=== PATIENT | male | born 1965 | race Caucasian/White ===

== ENCOUNTER 2020-04-01 07:26 | Outpatient (REF) | payer OTHER, SELFPAY ==
--- NOTE | 2020-04-01 07:38 | XR_ITS ---
EXAMINATION: XR SHOULDER, RIGHT CLINICAL INFORMATION: Right shoulder pain. COMPARISON: None TECHNIQUE: AP external rotation, Grashey, scapular Y, and axillary views of the right shoulder. FINDINGS: There is mild reduction of glenohumeral joint space no bony erosive changes. Mild reduction in the right AC joint space. No loose body seen. The soft tissues are normal. XR/XR shoulder RT min 2V IMPRESSION: Mild early degenerative changes glenohumeral and AC joint space.
[2020-04-01 08:28] LABS: MANUAL DIFF FLAG NO
[2020-04-01 08:42] LABS: Basophils Percent Auto 0.6 % (0-2); Eosinophils Absolute Auto 0.1 X10*3/uL (0.0-0.4); Eosinophils Percent Auto 2.3 % (0-4); Hematocrit 45.3 % (42-52); Hemoglobin 15.3 g/dl (14.0-18.0); Imm Gran Abs Auto 0.01 X10*3/uL (0.00-0.03); Imm Gran Pct Auto 0.2 % (0.0-0.4); Lymphocytes Absolute Auto 1.5 X10*3/uL (1.2-4.9); Lymphocytes Percent Auto 31.1 % (20-40); Mean Corpuscular HGB Conc 33.8 g/dl (31.0-36.0); Mean Corpuscular Volume 85.8 fL (80-98); Mean Platelet Volume 9.9 fL (9.4-12.4); Monocytes Absolute Auto 0.4 X10*3/uL (0.1-1.2); Monocytes Percent Auto 7.5 % (2-11); Neutrophils Absolute Auto 2.8 X10*3/uL (2.0-8.3); Neutrophils Percent Auto 58.3 % (45-73); Platelet Count 268 X10*3/uL (160-400); Red Blood Count 5.28 X10*6/uL (4.60-5.80); White Blood Count 4.8 X10*3/uL (4.8-10.8)
[2020-04-01 09:04] LABS: Alanine Aminotransferase 18 U/L (0-40); Albumin Level 4.6 g/dL (3.5-5.0); Alkaline Phosphatase 50 U/L (39-117); Anion Gap 13 (12-20); Aspartate Amino Transferase 21 U/L (5-37); Bilirubin Total 0.7 mg/dL (0.0-1.0); Blood Urea Nitrogen 16 mg/dL (9-16); Calcium 9.5 mg/dL (8.4-10.2); Carbon Dioxide 28 mmol/L (22-29); Chloride 104 mmol/L (96-108); Cholesterol 207 mg/dL; Estimated Glomerular Filt Rate > 60; Glucose Fasting 102 mg/dL (60-99); HDL Cholesterol 35 mg/dL; LDL Cholesterol Calculated 154 mg/dl; Sodium 140 mmol/L (135-145); Total Protein 7.3 g/dL (6.5-8.0); Triglycerides 91 mg/dL
[2020-04-01 09:18] LABS: Estimated Average Glucose 105 mg/dL; Hemoglobin A1c % 5.3 %
[2020-04-01 09:25] LABS: TSH reflex Free T4 2.95 mIU/mL (0.32-4.0)
== END 2020-04-01 07:27 | disposition home or self-care (01) ==
LOC: HO.LAB 07:26
PROVIDERS: Visit Provider Physician Assistant
DX: M25.511 Pain in right shoulder (principal); Z12.5 Encounter for screening for malignant neoplasm of prostate; Z13.220 Encounter for screening for lipoid disorders; Z13.1 Encounter for screening for diabetes mellitus; Z13.29 Encounter for screening for other suspected endocrine disorder
CPT/HCPCS: 36415; 73030; 80053; 80061; 83036; 84153; 84443; 85025

== ENCOUNTER → 2020-04-12 08:01 | Outpatient (BNVA) | payer OTHER, SELFPAY | PROVIDERS: PCP Physician Assistant; Visit Provider Orthopaedic Surgery | DX: M75.41 Impingement syndrome of right shoulder (principal) | CPT/HCPCS: 99202 ==

== ENCOUNTER 2020-06-24 08:26 | Outpatient (REF) | payer OTHER, SELFPAY ==
--- NOTE | ~2020-06-24 | XR_ITS ---
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 TECHNIQUE: Bilateral frontal standing, right lateral patella sunrise view. FINDINGS: BONES: No fracture or dislocation is present. JOINTS: Mild narrowing of joint spaces medial and lateral compartment suggest mild DJD. Small tiny osseous density projecting over the joint space adjacent to the tip of the lateral tibial spine concerning for possible loose body. SOFT TISSUE: Normal XR/XR knee RT 2V IMPRESSION: 1. Mild DJD. 2. Tiny osseous density near the tip of the lateral tibial spine concerning for possible loose body. This could be further investigated with CT scan or MRI if clinically indicated.
--- NOTE | ~2020-06-24 | XR_ITS ---
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 TECHNIQUE: Bilateral frontal standing, right lateral patella sunrise view. FINDINGS: BONES: No fracture or dislocation is present. JOINTS: Mild narrowing of joint spaces medial and lateral compartment suggest mild DJD. Small tiny osseous density projecting over the joint space adjacent to the tip of the lateral tibial spine concerning for possible loose body. SOFT TISSUE: Normal XR/XR knee standing BI IMPRESSION: 1. Mild DJD. 2. Tiny osseous density near the tip of the lateral tibial spine concerning for possible loose body. This could be further investigated with CT scan or MRI if clinically indicated.
== END 2020-06-24 08:27 | disposition home or self-care (01) ==
LOC: HO.HOSX 08:26
PROVIDERS: Visit Provider Physician Assistant
DX: M25.562 Pain in left knee (principal); M25.561 Pain in right knee; M22.41 Chondromalacia patellae, right knee
CPT/HCPCS: 73560; 73565; 99202

== ENCOUNTER 2021-05-11 09:37 | Outpatient (REF) | payer OTHER, SELFPAY ==
--- NOTE | ~2021-05-11 | XR_ITS ---
EXAMINATION: XR LUMBOSACRAL SPINE CLINICAL INFORMATION: Lumbar radiculopathy. COMPARISON: None TECHNIQUE: Three views of the lumbosacral spine. FINDINGS: There are 5 nonrib-bearing lumbar vertebrae. No acute fracture or spondylolysis is appreciated. There is a minimal grade 1 spondylolisthesis L4-L5. There is severe narrowing of the L5-S1 disc space with bilateral facet arthropathy L5-S1. No significant sacroiliac joint abnormalities appreciated. No destructive bony lesion is seen. There is calcification of a nonaneurysmal infrarenal abdominal aorta. XR/XR lumbar spine 2-3V IMPRESSION: Degenerative disc disease with facet arthropathy L5-S1.
[2021-05-11 10:51] LABS: Hematocrit 43.3 % (42.0-52.0); Hemoglobin 14.8 g/dl (14.0-18.0); Mean Corpuscular HGB Conc 34.2 g/dl (31.0-36.0); Mean Corpuscular Volume 84.7 fL (80.0-98.0); Mean Platelet Volume 9.9 fL (9.4-12.4); Platelet Count 244 X10*3/uL (160-400); Red Blood Count 5.11 X10*6/uL (4.60-5.80); White Blood Count 5.3 X10*3/uL (4.8-10.8)
[2021-05-11 11:25] LABS: Alanine Aminotransferase 16 U/L (0-40); Albumin Level 4.5 g/dL (3.5-5.0); Alkaline Phosphatase 47 U/L (39-117); Anion Gap 12 (12-20); Aspartate Amino Transferase 21 U/L (5-37); Bilirubin Total 1.1 mg/dL (0.0-1.0); Blood Urea Nitrogen 19 mg/dL (9-16); Calcium 10.1 mg/dL (8.4-10.2); Carbon Dioxide 28 mmol/L (22-29); Chloride 102 mmol/L (96-108); Cholesterol 215 mg/dL; Estimated Glomerular Filt Rate > 60; Glucose Fasting 98 mg/dL (60-99); HDL Cholesterol 31 mg/dL; LDL Cholesterol Calculated 154 mg/dl; Potassium 4.4 mmol/L (3.3-5.1); Sodium 138 mmol/L (135-145); Total Protein 7.3 g/dL (6.5-8.0); Triglycerides 151 mg/dL
[2021-05-11 11:50] LABS: TSH reflex Free T4 2.04 uIU/mL (0.32-4.0)
[2021-05-11 11:55] LABS: Creatinine Urine 62.71 mg/dL; Microalbumin Urine < 5.0 mg/L
== END 2021-05-11 09:38 | disposition home or self-care (01) ==
LOC: HO.XRAY 09:37
PROVIDERS: PCP Physician Assistant; Visit Provider Physician Assistant
DX: Z12.5 Encounter for screening for malignant neoplasm of prostate (principal); M54.16 Radiculopathy, lumbar region; I10 Essential (primary) hypertension
CPT/HCPCS: 36415; 72100; 80053; 80061; 82043; 84153; 84443; 85027

== ENCOUNTER 2021-09-06 07:00 | Outpatient (RCR) | payer OTHER, SELFPAY | END 2021-10-20 08:16 | disposition home or self-care (01) | LOC: HO.PT 07:00 | PROVIDERS: PCP Physician Assistant; Visit Provider Physical Medicine & Rehabilitation | DX: M54.50 Low back pain, unspecified (principal) | CPT/HCPCS: 97033; 97110; 97112; 97140; 97162; 97530 ==

== ENCOUNTER 2022-08-18 07:42 | Emergency (ER) | payer OTHER, SELFPAY ==
[2022-08-18 07:44] VITALS: BP 172/87; PULSE 51; RESP 16; TEMP 36.4; O2SAT 99; BMI 26.0
--- NOTE | 2022-08-18 08:07 | ED.EYEPROB ---
HPI - Eye Problem General Chief complaint: Eye Problems Stated complaint: R eye problem Time Seen by Provider: 08/18/22 08:07 Source: patient and RN notes reviewed Mode of arrival: ambulatory Limitations: no limitations History of Present Illness HPI Narrative: This is a 57-year-old male, with a past medical history of hypertension, who presents emergency department with complaints of right eye irritation since last night. Patient reports that while he was weed whacking he felt an object straight his right eye. He immediately felt pain in his right eye. He states that since his injury he has had blurred vision in his right eye and ?numbness?, denies any pain. Denies any fevers or chills. He wears glasses, denies contact lens use. Denies any other complaints or concerns at this time. MD chief complaint: eye pain and vision change Onset (ago): day(s) Onset description: sudden Duration: constant Location: right eye Eye Symptoms: blurry vision Place: home Mechanism: none If Pain, Quality: aching Associated symptoms: none Treatments Prior to Arrival: eyepatch Related Data Home Medications Medication Instructions Recorded Confirmed cholecalciferol (vitamin D3) 50 50 mcg PO DAILY 05/01/21 06/05/22 mcg (2,000 unit) tablet (Vitamin D3) Previous Rx's Medication Instructions Recorded lisinopril 10 mg tablet 10 mg PO DAILY 90 days #90 tabs 05/10/22 sulfacetamide sodium 10 % eye drops 1 drp ophthalmic (eye) Q3H #15 mL 08/18/22 Allergies Allergy/AdvReac Type Severity Reaction Status Date / Time No Known Allergies Allergy Verified 08/18/22 07:44 Review of Systems Review of Systems: Constitutional: No Weight loss, No Fever, No Chills, No Night Sweats, No Fatigue, No Malaise ENT/Mouth: No Hearing loss, No Ear Pain, No Nasal Congestion, No Sinus Pain, No Hoarseness, No sore throat, No Rhinorrhea, No Swallowing Difficulty Eyes: + Eye Pain, No Swelling, + Redness, No Foreign Body, No Discharge, +Vision Changes Cardiovascular: No Chest Pain, No SOB, No Dyspnea on Exertion, No Orthopnea, No Edema, No Palpitations Respiratory: No Cough, No Sputum, No Wheezing, No Smoke Exposure, No Dyspnea Gastrointestinal: No Nausea, No Vomiting, No Diarrhea, No Constipation, No Abdominal pain, No Hematochezia, No Melena Genitourinary: No irregular bleeding, No Dysuria, No Urinary Frequency, No Hematuria, No Urinary Incontinence/retention, No Urgency, No Flank Pain, No Urinary Flow Changes, No Hesitancy Musculoskeletal: No joint pain, No Myalgias, No Joint Swelling Skin: No Skin Lesions, No rash Neuro: No Weakness, No Numbness, No Paresthesias, No Loss of Consciousness, No Dizziness, No Headache Psych: No Anxiety/Panic, No Depression, No SI/HI/AH/VH, No Social Issues, Heme/Lymph: No Bruising, No Bleeding,No Lymphadenopathy Endocrine: No Polyuria, No Polydipsia, No Temperature Intolerance Yes all other systems are reviewed and are negative Constitutional: Constitutional: Reports as per [facility] [place] Past Medical History Surgical History History of eye surgery History of removal of cyst Family History Family History Father CVD (cardiovascular disease) Alzheimers disease Mother No problems noted. 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 Cognitive needs: No Hearing needs: No Vision needs: No Physical Exam Vital Signs: Vital Signs: Last Vital Signs Temp 98.1 F 08/18/22 08:11 Pulse 45 L 08/18/22 09:15 Resp 16 08/18/22 09:15 BP 154/88 H 08/18/22 09:15 Pulse Ox 98 08/18/22 08:11 O2 Del Method Room Air 08/18/22 08:11 BMI result Body Mass Index 26.0 Const: General: cooperative, comfortable and no acute distress Orientation/consciousness: patient oriented x3 Limitations: no limitations HEENT: Head: Yes normal to inspection, Yes normocephalic and Yes atraumatic Ears: hearing grossly normal bilaterally General nose exam: Normal external nose present Face and sinus: Yes normal facial exam Mouth: Normal oral and palatal mucosa present, oropharynx normal and moist mucous membranes Throat: Yes posterior oropharynx normal Eyes: Other: Right eye with injected conjunctiva with clear tearing noted. No pain with EOM. EOMI, PERLL intact bilaterally. Left conjunctiva white. Eyelids: Yes eyelids normal Pupils: Equal, round and reactive pupils present EOM: EOMs intact bilaterally Neck: Neck: Yes normal visual inspection and Yes full ROM Chest: Chest palpation & inspection: normal inspection of the chest Resp: Effort & Inspection: normal respiratory effort and able to speak in complete sentences Cardio: Rate: regular rate GI: Inspection: Yes normal to inspection Skin: General skin exam: no rashes or lesions noted Trauma: no lacerations or abrasions Wounds: no wounds Neuro: General: patient oriented x3 and moves all extremities Cranial nerves: Yes Equal, round and reactive pupils present Extrem: General: Yes normal to inspection Right upper extremity: normal to inspection Left upper extremity: normal to inspection Right lower extremity: normal to inspection Left lower extremity: normal to inspection Course Reevaluation(s) Reevaluation #1: Fluorescein uptake noted over the mid conjunctiva, just overlying the pupil. No foreign body noted throughout entire eye. Patient's symptoms consistent with corneal abrasion, will treat with course of antibiotic eyedrops, Time: 09:00 Medications Administered Discontinued Medications Generic Name Dose Route Start Last Admin Trade Name Freq PRN Reason Stop Dose Admin Fluorescein Sodium 1 strip 08/18/22 08:10 08/18/22 09:10 Fluorescein Sodium Strip EYE-RIGHT 08/18/22 08:11 1 strip ONCE ONE Administration Tetracaine HCl 3 drop 08/18/22 08:10 08/18/22 09:10 Tetracaine Hcl/Pf 0.5% Oph Serenity 4 Ml Drops EYE-RIGHT 08/18/22 08:11 3 drop ONCE ONE Administration Medical Decision Making Medical Decision Making MDM Narrative: 57-year-old male, with a history of hypertension, presenting to emergency department for right eye irritation. He was weed whacking felt an object streak his right eye and has had blurry vision, ?numbness?, and right eye redness since the injury. On examination, patient is mildly hypertensive at 172/87. Right eye with injected conjunctiva and clear tearing. Plan: Visual acuity, fluoroscein stain, eye pressures Differential Diagnosis Differential Diagnoses: The differential diagnosis associated with the presentation includes Corneal abrasion, foreign body, iritis Admission/Observation Consideration of admission/observation: Escalation of care including admission/observation considered Lab Data MDM Lab Attestation statement: I reviewed the patient's lab results. Radiology Impression Discussion of test interpretation with radiology: I have reviewed the radiologist's reading. External Record Review External record reviewed: Inpatient record, Office record, Outpatient record, Prior outpatient labs, Prior outpatient radiology, Primary care record and Outside ED record Discharge Plan Discharge Clinical Impression: Abrasion, corneal Patient Disposition: Home, Self-Care Instructions: Corneal Abrasion (ED) Additional Instructions: Your eye exam performed today revealed a scratch on your eye. Your eye pressures were normal today. Please use antibiotic eye drops as directed. If your symptoms do not improve over the next 48-72 hours, please follow up with the referred eye doctor, Dr. Vázquez. Please return should your symptoms worsen, including worsening eye pain, worsening vision, fevers, chills, please return for re-evaluation. Prescriptions: New sulfacetamide sodium 10 % drops 1 drp ophthalmic (eye) Q3H Qty: 15 0RF No Action lisinopril 10 mg tablet 10 mg PO DAILY 90 Days Qty: 90 2RF cholecalciferol (vitamin D3) [Vitamin D3] 50 mcg (2,000 unit) tablet 50 mcg PO DAILY Referrals: Jordi Vázquez [Physician] - Interventions: ED Discharge Assessment Last Done: 08/18/22 09:15 Discharge Date/Time: 08/18/22 09:16
[2022-08-18 08:11] VITALS: BP 175/95; PULSE 111; RESP 18; TEMP 36.7; O2SAT 98
--- NOTE | 2022-08-18 08:14 | PC.NURSE ---
Alert and oriented. Arrived from home with right eye redness and discomfort. States was weedwacking last night and rock or debris hit eye. PRK 10 years ago to both eyes. Reports tearing and double vision. States rinsed eye out after. PERRLA. Eye pink without obvious trauma.
[2022-08-18] MEDS: Fluorescein Sodium STRIP 1 STRIP EYE-RIGHT (09:10)
[2022-08-18] MEDS: Tetracaine HCl/PF 0.5% Oph Sol 4 ML DROPS 3 DROP EYE-RIGHT (09:10)
[2022-08-18 09:15] VITALS: BP 154/88; PULSE 45; RESP 16
== END 2022-08-18 09:16 | disposition home or self-care (01) ==
PROVIDERS: Emergency Provider Emergency Medicine; PCP Physician Assistant
DX: S05.01XA Injury of conjunctiva and corneal abrasion without foreign body, right eye, initial encounter (principal); X58.XXXA Exposure to other specified factors, initial encounter; Y93.9 Activity, unspecified; Y92.9 Unspecified place or not applicable; Y99.9 Unspecified external cause status; Z87.891 Personal history of nicotine dependence; Z79.899 Other long term (current) drug therapy
CPT/HCPCS: 99283; 99284

== ENCOUNTER 2022-11-07 06:08 | Outpatient (REF) | payer OTHER, SELFPAY ==
[2022-11-07 07:06] LABS: Hematocrit 44.1 % (42.0-52.0); Mean Corpuscular Hemoglobin 28.4 pg (27.0-33.0); Mean Corpuscular Volume 83.4 fL (80.0-98.0); Mean Platelet Volume 9.5 fL (9.4-12.4); Platelet Count 246 X10*3/uL (160-400); Red Blood Count 5.29 X10*6/uL (4.60-5.80); Red Cell Distribution Width 12.1 % (11.0-16.0); White Blood Count 5.7 X10*3/uL (4.8-10.8)
[2022-11-07 07:25] LABS: Alanine Aminotransferase 17 U/L (0-40); Albumin Level 4.4 g/dL (3.5-5.0); Alkaline Phosphatase 48 U/L (39-117); Anion Gap 11 (12-20); Aspartate Amino Transferase 19 U/L (5-37); Bilirubin Total 0.7 mg/dL (0.0-1.0); Blood Urea Nitrogen 17 mg/dL (9-16); Carbon Dioxide 27 mmol/L (22-29); Chloride 106 mmol/L (96-108); Cholesterol 238 mg/dL (<200); Estimated Glomerular Filt Rate > 60; Glucose Fasting 97 mg/dL (60-99); HDL Cholesterol 38 mg/dL (>40); LDL Cholesterol Calculated 168 mg/dL (<100); Potassium 4.1 mmol/L (3.3-5.1); Sodium 140 mmol/L (135-145); Total Protein 7.7 g/dL (6.5-8.0); Triglycerides 162 mg/dL (<150)
[2022-11-07 07:42] LABS: TSH reflex Free T4 4.67 uIU/mL (0.32-4.0)
[2022-11-07 09:45] LABS: Creatinine Urine 133.16 mg/dL; Microalbumin Urine < 5.0 mg/L
== END 2022-11-07 06:09 | disposition home or self-care (01) ==
LOC: HO.LAB 06:08
PROVIDERS: PCP Physician Assistant; Visit Provider Physician Assistant
DX: E78.9 Disorder of lipoprotein metabolism, unspecified (principal); I10 Essential (primary) hypertension; Z12.5 Encounter for screening for malignant neoplasm of prostate
CPT/HCPCS: 36415; 80053; 80061; 82043; 84153; 84439; 84443; 85027

== ENCOUNTER 2022-12-06 08:17 | Outpatient (AMB) | payer OTHER, SELFPAY ==
[2022-12-06 08:41] VITALS: BP 122/70; PULSE 78; O2SAT 98; BMI 26.9
--- NOTE | 2022-12-06 08:41 | MHC.PC.OV ---
Vital Signs 12/06/22 08:41 Height 6 ft Weight 198 lb BMI 26.9 BP 122/70 Blood Pressure Location Lt brachial Position Sitting Pulse 78 Pulse Source Pulse Oximeter Pulse Oximetry (%) 98 Oxygen Delivery Method Room Air Intake Visit Reasons: f/u HTN Allergies No Known Allergies Allergy (Verified 12/06/22 08:51) Medication List - Last Reconciled 12/06/22 by Frederic Anderson PA-C cholecalciferol (vitamin D3) (Vitamin D3) 50 mcg PO DAILY levothyroxine 25 mcg PO DAILY 30 days lisinopril 10 mg PO DAILY 90 days sulfacetamide sodium 10% 1 drp ophthalmic (eye) Q3H Tobacco use date assessed: 06/05/22 Dental Screening Dental Screen Date: 12/06/22 Did you have a dental visit in the last 12 months?: Yes Did you have a dental problem in the last 6 months where you did not have access to dental care?: No Was dental information given to patient?: Patient has dentist HPI f/u HTN HPI Details ? Patient is a 57-year-old male here today for a follow-up visit.? Patient has a past medical history significant for borderline high cholesterol and hypertension.? .. Hypothyroidism: Has been started on low-dose levothyroxine 4 weeks ago. Will recheck TSH in next 4 weeks to assure stabilization. . Hypertension: Blood pressures have been much better over the last month since starting thyroid medication. Continues on lisinopril 10 mg. .. Hyperlipidemia: Most recent lipid panel showing elevated total cholesterol and triglycerides in the setting of elevated TSH. Will recheck TSH to assure normal PFSH Surgical History History of eye surgery History of removal of cyst Family History Father CVD (cardiovascular disease) Alzheimers disease Mother No problems noted. 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 1. Little interest or pleasure in doing things: not at all 2. Feeling down, depressed, or hopeless: not at all 3. Trouble falling or staying asleep, or sleeping too much: not at all 4. Feeling tired or having little energy: not at all 5. Poor appetite or overeating: not at all 6. Feeling bad about yourself - or that you are a failure or have let yourself or your family down: not at all 7. Trouble concentrating on things, such as reading the newspaper or watching television: not at all 8. Moving or speaking so slowly that other people could have noticed. Or the opposite - being so fidgety or restless that you have been moving around a lot more than usual: not at all 9. Thoughts that you would be better off or of hurting yourself in some way: not at all Total score: 0 Depression Screening Interpretation: Negative 11130 - PHQ-9 Billing: Yes Source: Developed by Drs. Elmer Mary, Guillermina Chawla, Homar Segundo and colleagues, with an educational pretty from [employer]. Thrive Questionnaire Date Thrive assessed: 06/05/22 AUDIT C Alcohol Use Questionnaire (AUDIT-C) 1. How often do you have a drink containing alcohol?: Monthly or less 2. How many drinks containing alcohol do you have on a typical day when you are drinking?: 1 or 2 3. How often do you have six or more drinks on one occasion?: Never Total Score: 1 RYANNE-7 AMB Questionnaire RYANNE-7 Date RYANNE - 7 assessed: 06/05/22 Source: Developed by Drs. Elmer Mary, Guillermina Chawla, Homar Segundo and colleagues, with an educational pretty from [employer]. Review of Systems Const Denies headache(s) Eyes Denies loss of vision ENT Denies vertigo, Denies dizziness, Denies headache(s) and Denies sore throat Card Denies chest pain, Denies leg edema and Denies lightheadedness Resp Denies cough, Denies hemoptysis and Denies wheezing GI Denies abdominal pain, Denies melena, Denies constipation, Denies diarrhea and Denies vomiting Denies dysuria, Denies urinary frequency and Denies urinary urgency Musc Denies arthralgias, Denies joint swelling, Denies numbness and Denies tingling Neuro Denies Abnormal speech present, Denies behavioral changes, Denies vertigo, Denies dizziness, Denies headache(s), Denies loss of vision, Denies memory loss, Denies numbness and Denies tingling Psych Denies anxiety, Denies behavioral changes, Denies depression, Denies memory loss and Denies panic attacks Izaiah/Lymph Denies easy bleeding and Denies easy bruising Aller/Immun Denies wheezing Physical exam (Primary Care) Vital Signs: Last Vital Signs Pulse 78 12/06/22 08:41 BP 122/70 12/06/22 08:41 Pulse Ox 98 12/06/22 08:41 Oxygen Delivery Method Room Air 12/06/22 08:41 BMI result Body Mass Index 26.9 Tobacco/Smoking Status: Tobacco use Status Tobacco use date assessed 06/05/22 12/06/22 08:46 Patient Tobacco Use Status Former Tobacco user 12/06/22 08:46 Tobacco use type Cigarette 12/06/22 08:46 e-Cigarette/Vaping Use Never Used 12/06/22 08:46 PHQ-9: PHQ-9 Score PHQ-9: Total score 0 12/06/22 08:49 Depression Screening Interpretation: Negative Thrive Assessment: Date of Thrive Assessment Date Thrive assessed 06/05/22 12/06/22 08:46 Const General: healthy appearing, no acute distress, alert and awake Nutritional Appearance: well nourished Orientation/consciousness: oriented to person, oriented to place and oriented to time [facility] Ears: TM's normal bilaterally General nose exam: Normal nasal mucous membranes and turbinates present Eyes Conjunctivae: conjunctivae normal Sclerae: sclerae normal Pupils: Equal, round and reactive pupils present Neck Neck: Yes no lymphadenopathy and Yes no JVD Thyroid: Thyroid normal Carotids: no bruits Resp Effort & Inspection: normal respiratory effort and not tachypneic Auscultation: no crackles, no rales, no rhonchi and no wheezes Cardio Rate: regular rate Rhythm: regular rhythm Heart sounds: no murmurs and normal S1 and S2 GI Palpation (GI): Soft to palpation, nontender, no hepatomegaly and no splenomegaly Auscultation: normal bowel sounds Skin General skin exam: no rashes or lesions noted and dry skin Neuro General: oriented to person, oriented to place and oriented to time Cranial nerves: Yes Equal, round and reactive pupils present Speech: No Abnormal speech present Gait exam (Neuro): Normal gait present Motor exam (neuro): no tremor noted Extrem Right upper extremity: full ROM Left upper extremity: full ROM Right lower extremity: full ROM; no edema Left lower extremity: full ROM; no edema Psych Mental Status: mental status grossly normal Speech and movement: Normal speech and movement present Affect: normal affect Attitude: cooperative Thought process: Normal thought process present Assessment and Plan Assessment & Plan (1) HTN (hypertension): Code(s): I10 - Essential (primary) hypertension Qualifiers: Hypertension type: primary hypertension Qualified Code(s): I10 - Essential (primary) hypertension Plan: Patient blood pressure acceptable today in office. Over the last month blood pressures at home have been much more appropriate. Will continue his current dose of lisinopril 20 mg. With goal blood pressure to be below 140/90 (2) Hypothyroid: Code(s): E03.9 - Hypothyroidism, unspecified Qualifiers: Hypothyroidism type: unspecified Qualified Code(s): E03.9 - Hypothyroidism, unspecified Plan: Patient recently started on levothyroxine 25 mcg. Will recheck TSH in the next 4 weeks to assure normal. (3) Borderline high cholesterol: Code(s): E78.9 - Disorder of lipoprotein metabolism, unspecified Plan: Patient noted to have borderline high total cholesterol in the setting of under functioning thyroid. Will recheck fasting lipids Orders: Orders TSH reflex Free T4 4 Weeks E03.9 - Hypothyroidism, unspecified Lipid Panel 4 Weeks E78.9 - Disorder of lipoprotein metabolism, unspecified Coding Level of Care Code Est Pt Level 4 (27466) Diagnoses Primary hypertension I10 Hypertension type: primary hypertension Hypothyroidism, unspecified type E03.9 Hypothyroidism type: unspecified Borderline high cholesterol E78.9
== END 2022-12-06 09:11 | disposition home or self-care (01) ==
PROVIDERS: PCP Physician Assistant; Visit Provider Physician Assistant
DX: I10 Essential (primary) hypertension (principal); E03.9 Hypothyroidism, unspecified; E78.9 Disorder of lipoprotein metabolism, unspecified
CPT/HCPCS: 99214

== ENCOUNTER 2023-01-08 06:39 | Outpatient (REF) | payer OTHER, SELFPAY ==
[2023-01-08 07:59] LABS: Cholesterol 239 mg/dL (<200); HDL Cholesterol 36 mg/dL (>40); LDL Cholesterol Calculated 174 mg/dL (<100); Triglycerides 148 mg/dL (<150)
[2023-01-08 08:16] LABS: TSH reflex Free T4 2.43 uIU/mL (0.32-4.0)
== END 2023-01-08 06:40 | disposition home or self-care (01) ==
LOC: HO.LAB 06:39
PROVIDERS: PCP Physician Assistant; Visit Provider Physician Assistant
DX: E78.9 Disorder of lipoprotein metabolism, unspecified (principal); E03.9 Hypothyroidism, unspecified
CPT/HCPCS: 36415; 80061; 84443

== ENCOUNTER 2023-04-09 08:21 | Outpatient (AMB) | payer OTHER, SELFPAY ==
[2023-04-09 08:35] VITALS: BP 120/78; PULSE 72; O2SAT 99; BMI 26.4
--- NOTE | 2023-04-09 08:35 | MHC.PC.OV ---
Vital Signs 04/09/23 08:35 Height 6 ft Weight 195 lb BMI 26.4 BP 120/78 Blood Pressure Location Lt brachial Position Sitting Pulse 72 Pulse Source Pulse Oximeter Pulse Oximetry (%) 99 Oxygen Delivery Method Room Air Intake Visit Reasons: Shoulder/arm pain Facility Manager Histology Required: No Operations Manager/Coordinator: Not Required per policy Accompanied by: Self / Same As Patient Allergies No Known Allergies Allergy (Verified 04/09/23 08:43) Medication List - Last Reconciled 04/09/23 by Frederic Anderson PA-C cholecalciferol (vitamin D3) (Vitamin D3) 50 mcg PO DAILY levothyroxine 25 mcg PO DAILY 90 days lisinopril 10 mg PO DAILY 90 days Tobacco use date assessed: 04/09/23 Dental Screening Dental Screen Date: 04/09/23 Did you have a dental visit in the last 12 months?: Yes Did you have a dental problem in the last 6 months where you did not have access to dental care?: No Was dental information given to patient?: Patient has dentist HPI Shoulder/arm pain HPI Details Patient is a 57 year male here today for problem visit. He has been experiencing left shoulder and arm pain over the last several weeks. Has had x-ray in the past of his right shoulder to did show some mild arthritis and AC space. He denies any specific trauma to his left shoulder. He does report pain is worse with certain movements of his left upper extremity and while sleeping on his left shoulder. [facility] Surgical History History of eye surgery History of removal of cyst Family History Father CVD (cardiovascular disease) Alzheimers disease Mother No problems noted. 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 1. Little interest or pleasure in doing things: not at all 2. Feeling down, depressed, or hopeless: several days 3. Trouble falling or staying asleep, or sleeping too much: not at all 4. Feeling tired or having little energy: not at all 5. Poor appetite or overeating: not at all 6. Feeling bad about yourself - or that you are a failure or have let yourself or your family down: not at all 7. Trouble concentrating on things, such as reading the newspaper or watching television: not at all 8. Moving or speaking so slowly that other people could have noticed. Or the opposite - being so fidgety or restless that you have been moving around a lot more than usual: not at all 9. Thoughts that you would be better off or of hurting yourself in some way: not at all Total score: 1 Depression Screening Interpretation: Negative Depression Screening Done: Yes 35433 - PHQ-9 Billing: Yes Source: Developed by Drs. Elmer Mary, Guillermina Chawla, oHmar Segundo and colleagues, with an educational pretty from [employer]. Thrive Questionnaire Date Thrive assessed: 04/09/23 I am a: Patient What is your living situation today?: I have a steady place to live Within the past 12 months, did the food you bought not last and you didn't have the money to get more?: Never true Within the past 12 months, did you worry whether your food would run out before you got money to buy more?: Never true Do you have trouble paying for medicines?: No Do you have trouble getting transportation to medical appointments?: No Do you have trouble paying your heating and electricity bill?: No Do you have trouble taking care of your child, family member or friend?: No Do you have trouble with day-to-day activities such as bathing, preparing meals, shopping, managing finances, etc.?: No Are you currently unemployed and looking for a job?: No Are you interested in more education?: No Please select the resources that you would like help with: None THRIVE Score: 0 AUDIT C Alcohol Use Questionnaire (AUDIT-C) 1. How often do you have a drink containing alcohol?: Monthly or less 2. How many drinks containing alcohol do you have on a typical day when you are drinking?: 1 or 2 3. How often do you have six or more drinks on one occasion?: Never Total Score: 1 RYANNE-7 AMB Questionnaire RYANNE-7 Date RYANNE - 7 assessed: 04/09/23 Feeling nervous, anxious, or on edge: 0 = Not at all Not being able to stop or control worryin = Not at all Worrying too much about different things: 0 = Not at all Trouble relaxin = Not at all Being so restless that it is hard to sit still: 0 = Not at all Becoming easily annoyed or irritable: 0 = Not at all Feeling afraid as if something awful might happen: 0 = Not at all Total RYANNE-7 score (0-4 normal; 5-9 mild; 10-14 moderate; 15-21 severe): 0 Source: Developed by Drs. Elmer Mary, Guillermina Chawla, Homar Segundo and colleagues, with an educational pretty from [employer]. RYANNE-7 Assessment Billing RYANNE-7 Assessment Tool: RYANNE-7 Assessment 90879 Review of Systems Const Denies headache(s) Eyes Denies loss of vision ENT Denies vertigo, Denies dizziness, Denies headache(s) and Denies sore throat Card Denies chest pain, Denies leg edema and Denies lightheadedness Resp Denies cough, Denies hemoptysis and Denies wheezing GI Denies abdominal pain, Denies melena, Denies constipation, Denies diarrhea and Denies vomiting Denies dysuria, Denies urinary frequency and Denies urinary urgency Musc Denies arthralgias, Denies joint swelling, Denies numbness and Denies tingling Neuro Denies Abnormal speech present, Denies behavioral changes, Denies vertigo, Denies dizziness, Denies headache(s), Denies loss of vision, Denies memory loss, Denies numbness and Denies tingling Psych Denies anxiety, Denies behavioral changes, Denies depression, Denies memory loss and Denies panic attacks Izaiah/Lymph Denies easy bleeding and Denies easy bruising Aller/Immun Denies wheezing Physical exam (Primary Care) Vital Signs: Last Vital Signs Pulse 72 04/09/23 08:35 BP 120/78 04/09/23 08:35 Pulse Ox 99 04/09/23 08:35 Oxygen Delivery Method Room Air 04/09/23 08:35 BMI result Body Mass Index 26.4 Tobacco/Smoking Status: Tobacco use Status Tobacco use date assessed 04/09/23 04/09/23 08:36 Patient Tobacco Use Status Former Tobacco user 04/09/23 08:36 Tobacco use type Cigarette 04/09/23 08:36 e-Cigarette/Vaping Use Never Used 04/09/23 08:36 PHQ-9: PHQ-9 Score PHQ-9: Total score 1 04/09/23 08:40 Depression Screening Interpretation: Negative Thrive Assessment: Date of Thrive Assessment Date Thrive assessed 04/09/23 04/09/23 08:36 Const General: healthy appearing, no acute distress, alert and awake Nutritional Appearance: well nourished Orientation/consciousness: oriented to person, oriented to place and oriented to time HENMT Ears: TM's normal bilaterally General nose exam: Normal nasal mucous membranes and turbinates present Eyes Conjunctivae: conjunctivae normal Sclerae: sclerae normal Pupils: Equal, round and reactive pupils present Neck Neck: Yes no lymphadenopathy and Yes no JVD Thyroid: Thyroid normal Carotids: no bruits Resp Effort & Inspection: normal respiratory effort and not tachypneic Auscultation: no crackles, no rales, no rhonchi and no wheezes Cardio Rate: regular rate Rhythm: regular rhythm Heart sounds: no murmurs and normal S1 and S2 GI Palpation (GI): Soft to palpation, nontender, no hepatomegaly and no splenomegaly Auscultation: normal bowel sounds Skin General skin exam: no rashes or lesions noted and dry skin Neuro General: oriented to person, oriented to place and oriented to time Cranial nerves: Yes Equal, round and reactive pupils present Speech: No Abnormal speech present Gait exam (Neuro): Normal gait present Motor exam (neuro): no tremor noted Extrem Other: LEFT SHOULDER: SOME LIMITED RANGE OF MOTION, POSITIVE PAIN WITH EMPTY CAN TEST AND GREWAL TEST Right upper extremity: full ROM Left upper extremity: ROM limited Right lower extremity: full ROM; no edema Left lower extremity: full ROM; no edema Psych Mental Status: mental status grossly normal Speech and movement: Normal speech and movement present Affect: normal affect Attitude: cooperative Thought process: Normal thought process present Assessment and Plan Assessment & Plan (1) Left shoulder tendonitis: Code(s): M77.8 - Other enthesopathies, not elsewhere classified Plan: Patient's signs symptoms most consistent with a left shoulder tendinosis verses impingement syndrome. He did have similar episode of his right shoulder that was treated with Physical therapy. He would likely benefit from physical therapy. Will get x-ray to begin evaluation. Will consider orthopedic evaluation Orders: Orders XR shoulder LT min 2V Today M77.8 - Other enthesopathies, not elsewhere classified PT Evaluation and Treatment Today M77.8 - Other enthesopathies, not elsewhere classified Coding Level of Care Code Est Pt Level 3 (09178) Diagnoses Left shoulder tendonitis M77.8 Additional Codes RYANNE-7 Assessment Billing - RYANNE-7 Assessment Tool: RYANNE-7 Assessment 30227 ([id number])
== END 2023-04-09 09:00 | disposition home or self-care (01) ==
PROVIDERS: PCP Physician Assistant; Visit Provider Physician Assistant
DX: M77.8 Other enthesopathies, not elsewhere classified (principal)
CPT/HCPCS: 99213

== ENCOUNTER 2023-04-09 09:04 | Outpatient (REF) | payer OTHER, SELFPAY ==
--- NOTE | ~2023-04-09 | XR_ITS ---
EXAMINATION: XR SHOULDER, LEFT CLINICAL INFORMATION: Other enthesopathies. COMPARISON: Right shoulder 04/01/2020. TECHNIQUE: 4 views were obtained of each shoulder. FINDINGS: LEFT SHOULDER: Mild degenerative changes in the acromioclavicular joint with joint space narrowing and hypertrophic change. Degenerative changes with hypertrophic change along the glenoid. No abnormal soft tissue calcifications identified adjacent to the humeral head. XR/XR shoulder LT min 2V IMPRESSION: Mild degenerative changes in the acromioclavicular joint.
== END 2023-04-09 09:05 | disposition home or self-care (01) ==
LOC: HO.XRAY 09:04
PROVIDERS: PCP Physician Assistant; Visit Provider Physician Assistant
DX: M77.8 Other enthesopathies, not elsewhere classified (principal)
CPT/HCPCS: 73030

== ENCOUNTER 2023-05-15 15:55 | Outpatient (REF) | payer OTHER, SELFPAY ==
[2023-05-15 18:02] LABS: Cholesterol 243 mg/dL (<200); HDL Cholesterol 39 mg/dL (>40); LDL Cholesterol Calculated 182 mg/dL (<100); Triglycerides 114 mg/dL (<150)
== END 2023-05-15 15:56 | disposition home or self-care (01) ==
LOC: HO.LAB 15:55
PROVIDERS: PCP Physician Assistant; Visit Provider Physician Assistant
DX: E78.9 Disorder of lipoprotein metabolism, unspecified (principal)
CPT/HCPCS: 36415; 80061

== ENCOUNTER 2023-05-30 08:53 | Outpatient (AMB) | payer OTHER, SELFPAY ==
--- NOTE | 2023-05-30 09:16 | A.OFFPC_ITS ---
Vital Signs 05/30/23 09:20 Height 6 ft Weight 188 lb 9 oz BMI 25.6 BP 132/78 Blood Pressure Location Lt brachial Position Sitting Pulse 65 Pulse Source Pulse Oximeter Pulse Oximetry (%) 96 Oxygen Delivery Method Room Air Intake Visit Reasons: 4 month f/u Curriculum Coordinator Required: No Accompanied by: Self / Same As Patient Allergies No Known Allergies Allergy (Verified 05/30/23 09:34) Medication List - Last Reconciled 05/30/23 by Frederic Anderson PA-C cholecalciferol (vitamin D3) (Vitamin D3) 50 mcg PO DAILY levothyroxine 25 mcg PO DAILY 90 days lisinopril 10 mg PO DAILY 90 days Tobacco use date assessed: 04/09/23 Dental Screening Dental Screen Date: 05/30/23 Did you have a dental visit in the last 12 months?: Yes Did you have a dental problem in the last 6 months where you did not have access to dental care?: No Was dental information given to patient?: Patient has dentist HPI 4 month f/u HPI Details Patient is a 57-year-old male here today for a follow-up visit.? Patient has a past medical history significant for borderline high cholesterol and hypertension.? Has been implementing a strict keto diet. Has lost weight though cholesterol remains to be elevated. .. Hypothyroidism: Has had elevated TSH and was started on low-dose levothyroxine. He is concerned about being on thyroid pills. Will trial him off of levothyro xine as he has lost weight. PLAN: Will recheck TSH in 2 weeks to see if an appropriate range . Hypertension: Blood pressures have b een much better over the last month since starting thyroid medication. Continues on lisinopril 10 mg. .. Hyperlipidemia: Most recent lipid panel showing elevated total cholesterol and triglycerides. He is concerned about starting statin therapy due to fears of dementia. He continues on a strict keto diet and has lost 10 lb. Will recheck fasting lipid panel in 4 months Laboratory Tests 05/11/21 05/11/21 11/07/22 10:00 10:15 06:17 RBC 5.11 5.29 Hgb 14.8 Creatinine 0.94 Triglycerides 151 162 H Cholesterol 215 238 H LDL Cholesterol, C alc 154 168 H PSA Screen 1.00 TSH 2.04 4.67 H Urine Microalbumin < 5.0 01/08/23 01/08/23 05/15/23 06:48 06:48 16:08 RBC Hgb Creatinine Triglycerides Cholesterol 239 H 243 H LDL Cholesterol, C alc 174 H PSA Screen TSH 2.43 Urine Microalbumin 05/15/23 16:08 RBC Hgb Creatinine Triglycerides Cholesterol LDL Cholesterol, C alc 182 H PSA Screen TSH Urine Microalbumin PFSH Surgical History History of eye surgery History of removal of cyst Family History Father CVD (cardiovascular disease) Alzheimers disease Mother No problems noted. 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 1. Little interest or pleasure in doing things: several days 2. Feeling down, depressed, or hopeless: several days 3. Trouble falling or staying asleep, or sleeping too much: several days 4. Feeling tired or having little energy: several days 5. Poor appetite or overeating: several days 6. Feeling bad about yourself - or that you are a failure or have let yourself or your family down: several days 7. Trouble concentrating on things, such as reading the newspaper or watching television: several days 8. Moving or speaking so slowly that other people could have noticed. Or the opposite - being so fidgety or restless that you have been moving around a lot more than usual: several days 9. Thoughts that you would be better off or of hurting yourself in some way: several days Total score: 9 Depression Screening Interpretation: Positive Depression Screening Follow-up: Existing condition Depression Screening Done: Yes 81543 - PHQ-9 Billing: Yes Source: Developed by Drs. Elmer Mary, Guillermina Chawla, Homar Segundo and colleagues, with an educational pretty from [employer] Thrive Questionnaire Date Thrive assessed: 04/09/23 RYANNE-7 AMB Questionnaire RYANNE-7 Date RYANNE - 7 assessed: 04/09/23 Source: Developed by Drs. Elmer Mary, Guillermina Chawla, Homar Segundo and colleagues, with an educational pretty from [employer] Review of Systems Const Denies headache(s) Eyes Denies loss of vision ENT Denies vertigo, Denies dizziness, Denies headache(s) and Denies sore throat Card Denies chest pain, Denies leg edema and Denies lightheadedness Resp Denies cough, Denies hemoptysis and Denies wheezing GI Denies abdominal pain, Denies melena, Denies constipation, Denies diarrhea and Denies vomiting Denies dysuria, Denies urinary frequency and Denies urinary urgency Musc Denies arthralgias, Denies joint swelling, Denies numbness and Denies tingling Neuro Denies Abnormal speech present, Denies behavioral changes, Denies vertigo, Denies dizziness, Denies headache(s), Denies loss of vision, Denies memory loss, Denies numbness and Denies tingling Psych Denies anxiety, Denies behavioral changes, Denies depression, Denies memory loss and Denies panic attacks Izaiah/Lymph Denies easy bleeding and Denies easy bruising Aller/Immun Denies wheezing Physical exam (Primary Care) Vital Signs: Last Vital Signs Pulse 65 05/30/23 09:20 BP 132/78 05/30/23 09:20 Pulse Ox 96 05/30/23 09:20 Oxygen Delivery Method Room Air 05/30/23 09:20 BMI result Body Mass Index 25.6 Tobacco/Smoking Status: Tobacco use Status Tobacco use date assessed 04/09/23 05/30/23 09:16 Patient Tobacco Use Status Former Tobacco user 05/30/23 09:16 Tobacco use type Cigarette 05/30/23 09:16 e-Cigarette/Vaping Use Never Used 05/30/23 09:16 PHQ-9: PHQ-9 Score PHQ-9: Total score 9 05/30/23 09:30 Depression Screening Interpretation: Positive Depression Screening Follow-up: Existing condition Thrive Assessment: Date of Thrive Assessment Date Thrive assessed 04/09/23 05/30/23 09:16 Const General: healthy appearing, no acute distress, alert and awake Nutritional Appearance: well nourished Orientation/consciousness: oriented to person, oriented to place and oriented to time HENMT Ears: TM's normal bilaterally General nose exam: Normal nasal mucous membranes and turbinates present Eyes Conjunctivae: conjunctivae normal Sclerae: sclerae normal Pupils: Equal, round and reactive pupils present Neck Neck: Yes no lymphadenopathy and Yes no JVD Thyroid: Thyroid normal Carotids: no bruits Resp Effort & Inspection: normal respiratory effort and not tachypneic Auscultation: no crackles, no rales, no rhonchi and no wheezes Cardio Rate: regular rate Rhythm: regular rhythm Heart sounds: no murmurs and normal S1 and S2 GI Palpation (GI): Soft to palpation, nontender, no hepatomegaly and no splenomegaly Auscultation: normal bowel sounds Skin General skin exam: no rashes or lesions noted and dry skin Neuro General: oriented to person, oriented to place and oriented to time Cranial nerves: Yes Equal, round and reactive pupils present Speech: No Abnormal speech present Gait exam (Neuro): Normal gait present Motor exam (neuro): no tremor noted Extrem Right upper extremity: full ROM Left upper extremity: full ROM Right lower extremity: full ROM; no edema Left lower extremity: full ROM; no edema Psych Mental Status: mental status grossly normal Speech and movement: Normal speech and movement present Affect: normal affect Attitude: cooperative Thought process: Normal thought process present Assessment and Plan Assessment & Plan (1) HTN (hypertension): Code(s): I10 - Essential (primary) hypertension Qualifiers: Hypertension type: primary hypertension Qualified Code(s): I10 - Essential (primary) hypertension Plan: Blood pressure acceptable today in office. Will continue his current dose of lisinopril with goal blood pressure to remain below 140/90. (2) Hypothyroid: Code(s): E03.9 - Hypothyroidism, unspecified Qualifiers: Hypothyroidism type: unspecified Qualified Code(s): E03.9 - Hypothyroidism, unspecified Plan: Has recently restarted levothyroxine and feels he would like to try to be off this medication. Due to his weight loss from keto diet, it is reasonable to hold medication and recheck TSH in 2 weeks and if within normal range will hold off on levothyroxine. (3) HLD (hyperlipidemia): Code(s): E78.5 - Hyperlipidemia, unspecified Qualifiers: Hyperlipidemia type: mixed hyperlipidemia Qualified Code(s): E78.2 - Mixed hyperlipidemia Plan: Patient's total cholesterol and LDL elevated. He is apprehensive on starting statin therapy due to fears of dementia. He would like to go another 4 months trial and recheck fasting lipid panel with better eating habits Goal total cholesterol be between 200-230 Goal LDL to be below 160 Orders: Orders TSH reflex Free T4 2 Weeks E03.9 - Hypothyroidism, unspecified Comprehensive [place]. Panel Fast 2 Weeks E78.2 - Mixed hyperlipidemia Lipid Panel 4 Months E78.2 - Mixed hyperlipidemia Medications: On Hold levothyroxine Hold Comment: Doctor's Order 25 mcg PO DAILY 90 days 90 tabs 0RF E03.9 - Hypothyroidism, unspecified Coding Level of Care Code Est Pt Level 4 (17345) Diagnoses Primary hypertension I10 Hypertension type: primary hypertension Hypothyroidism, unspecified type E03.9 Hypothyroidism type: unspecified Mixed hyperlipidemia E78.2 Hyperlipidemia type: mixed hyperlipidemia
[2023-05-30 09:20] VITALS: BP 132/78; PULSE 65; O2SAT 96; BMI 25.6
== END 2023-05-30 09:51 | disposition home or self-care (01) ==
PROVIDERS: PCP Physician Assistant; Visit Provider Physician Assistant
DX: I10 Essential (primary) hypertension (principal); E03.9 Hypothyroidism, unspecified; E78.2 Mixed hyperlipidemia
CPT/HCPCS: 99214

== ENCOUNTER 2023-05-30 14:00 | Outpatient (RCR) | payer OTHER, SELFPAY ==
--- NOTE | 2023-05-15 11:27 | MHC.PT.PR ---
[facility] [place] Office [place] Office [place] Office [address] [phone] F: [phone] F: [phone] F: [phone] F: [phone] Physical Therapy Progress Note Diagnosis: L shoulder tendonitis Date of Surgery: Date of Evaluation: 05/13/23 Treatments to Date: 1 Cancellations to Date: No Shows to Date: Subjective: Please see PT evaluation for details Pain Score and Location: 2/10 (currently), 5/10 (at worst) L shoulder Objective Measures: Please see PT evaluation for details Assessment: Larry is a pleasant 57 yo male presenting to skilled physical therapy evaluation and treatment with c/o L shoulder tendonitis/pain. Pt reports gradual onset of L anterior/lateral shoulder pain beginning about 2 years ago. Pt reports worsening since onset along with change in physical activity regimen due to covid gym regulations. Pt received an x-ray on 04/09/23, which revealed mild degenerative changes in the acromioclavicular joint. Pt has the most functional difficulty with sleeping, showering/deodorant, and shoulder rotation activities. Upon evaluation, pt presents with decreased L shoulder ROM, decreased L shoulder strength, and increased periscapular tissue restriction. Pt demonstrates postural deficits consistent with decreased periscapular stability and forward shoulders, which are contributing to possible RTC tendonitis and impingement throughout mobility. Current impairments in combination with prolonged sitting at a computer for work are contributing to discomfort and preventing pt's return to desired level of recreational activities. Larry would benefit from skilled PT services to address muscular imbalances, provide postural re-education, and improve functional mobility toward PLOF. Pt is recommended to attend PT 2x/week for 4 weeks. PT Plan: Frequency and Duration: The patient will be seen 2x/week for 4 weeks Treatment Plan: Therapeutic Exercise Dynamic Therapeutic Activities Neuromuscular Re-ed Manual Therapies Joint Mobilization Taping Gait Home Exercise Program Patient Education Hot or Cold Pack Reviewed/ Agreed with Student Documentation: Yes Therapist: Carol Jj, PT, DPT Thank you once again for your referral.
--- NOTE | 2023-07-05 11:44 | MHC.PT.DC ---
[facility] [place] Office [place] Office [place] Office [address] [phone] F: [phone] F: [phone] F: [phone] F: [phone] Physical Therapy Discharge Report Diagnosis: L shoulder tendonitis Date of Surgery: Date of Evaluation: 05/13/23 Date of Discharge: 07/05/23 Treatments to Date: 4 Cancellations to Date: 1 No Shows to Date: Discharge Status: Discharge Summary: Pt was seen for PT from 05/13/23-05/30/23. His last attended appointment was 05/30/23. He cancelled his last scheduled appointment. He is being D/C from skilled PT as he has not attended in > 30 days. Pt current level of function unknown at this time Electronically signed by: Carol Jj, PT, DPT Please sign and return to therapist. Thank you for your referral.
== END 2023-07-05 11:44 | disposition home or self-care (01) ==
LOC: HO.PT 14:00
PROVIDERS: PCP Physician Assistant; Visit Provider Physician Assistant
DX: M77.8 Other enthesopathies, not elsewhere classified (principal)
CPT/HCPCS: 97110; 97112; 97161

== ENCOUNTER 2023-06-18 11:24 | Outpatient (REF) | payer OTHER, SELFPAY ==
[2023-06-18 12:44] LABS: Alanine Aminotransferase 13 U/L (0-40); Albumin Level 4.2 g/dL (3.5-5.0); Alkaline Phosphatase 46 U/L (39-117); Anion Gap 10 (12-20); Aspartate Amino Transferase 17 U/L (5-37); Bilirubin Total 0.5 mg/dL (0.0-1.0); Blood Urea Nitrogen 21 mg/dL (9-16); Calcium 9.5 mg/dL (8.4-10.2); Carbon Dioxide 27 mmol/L (22-29); Chloride 108 mmol/L (96-108); Estimated Glomerular Filt Rate > 60; Glucose Fasting 97 mg/dL (60-99); Potassium 4.4 mmol/L (3.3-5.1); Sodium 141 mmol/L (135-145)
[2023-06-18 13:01] LABS: TSH reflex Free T4 2.13 uIU/mL (0.32-4.0)
== END 2023-06-18 11:25 | disposition home or self-care (01) ==
LOC: HO.LAB 11:24
PROVIDERS: PCP Physician Assistant; Visit Provider Physician Assistant
DX: E03.9 Hypothyroidism, unspecified (principal); E78.2 Mixed hyperlipidemia
CPT/HCPCS: 36415; 80053; 84443

== ENCOUNTER 2023-09-30 06:36 | Outpatient (REF) | payer OTHER, SELFPAY ==
[2023-09-30 07:35] LABS: Cholesterol 247 mg/dL (<200); HDL Cholesterol 46 mg/dL (>40); LDL Cholesterol Calculated 178 mg/dL (<100); Triglycerides 116 mg/dL (<150)
== END 2023-09-30 06:37 | disposition home or self-care (01) ==
LOC: HO.LAB 06:36
PROVIDERS: PCP Physician Assistant; Visit Provider Physician Assistant
DX: E78.2 Mixed hyperlipidemia (principal)
CPT/HCPCS: 36415; 80061

== ENCOUNTER 2023-10-08 14:39 | Outpatient (AMB) | payer OTHER, SELFPAY ==
--- NOTE | 2023-10-08 14:41 | A.OFFPC_ITS ---
Vital Signs 10/08/23 14:42 Height 6 ft Weight 182 lb 6 oz BMI 24.7 BP 120/60 Blood Pressure Location Lt brachial Position Sitting Pulse 59 Pulse Source Pulse Oximeter Pulse Oximetry (%) 96 Oxygen Delivery Method Room Air Intake Visit Reasons: f/u HLD Intake Note: Patient is here to follow up on HLD. 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 Patient has a past medical history significant for borderline high cholesterol and hypertension.? . Hypertension: Blood pressures have b een much better over the last month since starting thyroid medication. Continues on lisinopril 10 mg. .. Hyperlipidemia: Most recent lipid panel showing elevated total cholesterol and triglycerides. He is concerned about starting statin therapy due to fears of dementia. He continues on a strict keto diet and has lost more weight. PLAN: Patient interested in self pay for a coronary calcium score to better understand his cardiac risk. 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 Elmer Mary, Guillermina Chawla, Homar Segundo and colleagues, with an educational pretty from [employer]. Review of Systems Const Denies headache(s) Eyes Denies loss of vision ENT Denies vertigo, Denies dizziness, Denies headache(s) and Denies sore throat Card Denies chest pain, Denies leg edema and Denies lightheadedness Resp Denies cough, Denies hemoptysis and Denies wheezing GI Denies abdominal pain, Denies melena, Denies constipation, Denies diarrhea and Denies vomiting Denies dysuria, Denies urinary frequency and Denies urinary urgency Musc Denies arthralgias, Denies joint swelling, Denies numbness and Denies tingling Neuro Denies Abnormal speech present, Denies behavioral changes, Denies vertigo, Denies dizziness, Denies headache(s), Denies loss of vision, Denies memory loss, Denies numbness and Denies tingling Psych Denies anxiety, Denies behavioral changes, Denies depression, Denies memory loss and Denies panic attacks Izaiah/Lymph Denies easy bleeding and Denies easy bruising Aller/Immun Denies wheezing Physical exam (Primary Care) Vital Signs: Last Vital Signs Pulse 59 10/08/23 14:42 BP 120/60 10/08/23 14:42 Pulse Ox 96 10/08/23 14:42 Oxygen Delivery Method Room Air 10/08/23 14:42 BMI result Body Mass Index 24.7 Tobacco/Smoking Status: Tobacco use Status Tobacco use date assessed 10/08/23 10/08/23 14:46 Patient Tobacco Use Status Former Tobacco user 10/08/23 14:46 Tobacco use type Cigarette 10/08/23 14:46 e-Cigarette/Vaping Use Never Used 10/08/23 14:46 Thrive Assessment: Date of Thrive Assessment Date Thrive assessed 04/09/23 10/08/23 14:46 Const General: healthy appearing, no acute distress, alert and awake Nutritional Appearance: well nourished Orientation/consciousness: oriented to person, oriented to place and oriented to time HENMT Ears: TM's normal bilaterally General nose exam: Normal nasal mucous membranes and turbinates present Eyes Conjunctivae: conjunctivae normal Sclerae: sclerae normal Pupils: Equal, round and reactive pupils present Neck Neck: Yes no lymphadenopathy and Yes no JVD Thyroid: Thyroid normal Carotids: no bruits Resp Effort & Inspection: normal respiratory effort and not tachypneic Auscultation: no crackles, no rales, no rhonchi and no wheezes Cardio Rate: regular rate Rhythm: regular rhythm Heart sounds: no murmurs and normal S1 and S2 GI Palpation (GI): Soft to palpation, nontender, no hepatomegaly and no splenomegaly Auscultation: normal bowel sounds Skin General skin exam: no rashes or lesions noted and dry skin Neuro General: oriented to person, oriented to place and oriented to time Cranial nerves: Yes Equal, round and reactive pupils present Speech: No Abnormal speech present Gait exam (Neuro): Normal gait present Motor exam (neuro): no tremor noted Extrem Right upper extremity: full ROM Left upper extremity: full ROM Right lower extremity: full ROM; no edema Left lower extremity: full ROM; no edema Psych Mental Status: mental status grossly normal Speech and movement: Normal speech and movement present Affect: normal affect Attitude: cooperative Thought process: Normal thought process present Assessment and Plan Assessment & Plan (1) HTN (hypertension): Code(s): I10 - Essential (primary) hypertension Qualifiers: Hypertension type: primary hypertension Qualified Code(s): I10 - Essential (primary) hypertension Plan: Blood pressure acceptable today in office. Will continue his current dose of lisinopril with goal blood pressure to remain below 140/90. (2) HLD (hyperlipidemia): Code(s): E78.5 - Hyperlipidemia, unspecified Qualifiers: Hyperlipidemia type: mixed hyperlipidemia Qualified Code(s): E78.2 - Mixed hyperlipidemia Plan: Patient's total cholesterol and LDL elevated. He is apprehensive on starting statin therapy due to fears of dementia. He is interested in checking a coronary calcium score to make better judgment on starting statin therapy. He would like to go another 4 months trial and recheck fasting lipid panel with better eating habits Goal total cholesterol be between 200-230 Goal LDL to be below 160 (3) Hypothyroid: Code(s): E03.9 - Hypothyroidism, unspecified Qualifiers: Hypothyroidism type: unspecified Qualified Code(s): E03.9 - Hypothyroidism, unspecified Plan: Patient has a history of elevated TSH. Was for short time on levothyroxine though has made some changes in his diet and has lost weight. Most recent TSH stabilized. Will recheck TSH to assure normal. Orders: Orders CT Coronary Calcium Score 10/08/23 E78.2 - Mixed hyperlipidemia Comprehensive [place]. Panel Fast 10/08/23 E78.2 - Mixed hyperlipidemia Lipid Panel 10/08/23 E78.2 - Mixed hyperlipidemia TSH reflex Free T4 10/08/23 E03.9 - Hypothyroidism, unspecified Patient Instructions: Goal: Blood pressure to remain below 140/90, LDL to be below 160 Barriers: Specialist diet Coding Level of Care Code Est Pt Level 4 (24880) Diagnoses Primary hypertension I10 Hypertension type: primary hypertension Mixed hyperlipidemia E78.2 Hyperlipidemia type: mixed hyperlipidemia Hypothyroidism, unspecified type E03.9 Hypothyroidism type: unspecified
[2023-10-08 14:42] VITALS: BP 120/60; PULSE 59; O2SAT 96; BMI 24.7
== END 2023-10-08 15:12 | disposition home or self-care (01) ==
PROVIDERS: PCP Physician Assistant; Visit Provider Physician Assistant
DX: I10 Essential (primary) hypertension (principal); E78.2 Mixed hyperlipidemia; E03.9 Hypothyroidism, unspecified
CPT/HCPCS: 99214

== ENCOUNTER 2023-12-17 12:45 | Outpatient (AMB) | payer OTHER, SELFPAY ==
[2023-12-17 12:51] VITALS: BP 132/80; PULSE 51; BMI 24.8
--- NOTE | 2023-12-17 12:51 | MHC.OFFVIS ---
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 He has prior history of hypertension and hyperlipidemia. His blood pressures been generally well control lisinopril. He is currently not taking any therapy for hyperlipidemia. He said over the last year he has tried significant dietary intervention has lost about 20 lb but his LDL is not improved from 170. Recently underwent a coronary calcium score which was a coronary calcium score of about 1200. Patient denies any exertional symptoms. 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 Denies any exertional chest pain or shortness of breath. Denies any prolonged palpitations, lightheadedness, syncope. No neurologic events. No claudication like symptoms. Comes for evaluation and management of his findings. 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 Cognitive needs: No Hearing needs: No Vision needs: Yes Review of Systems Const Denies chills, Denies daytime sleepiness, Denies fatigue, Denies fever(s), Denies frequent falls, Denies poor appetite, Denies snoring, Denies stops breathing during sleep, Denies weakness, Denies weight gain and Denies weight loss Eyes Denies loss of vision ENT Denies dizziness and Denies hearing loss Card Denies chest pain, Denies claudication, Denies leg edema, Denies lightheadedness, Denies palpitations, Denies dyspnea, Denies dyspnea on exertion and Denies orthopnea Resp Denies cough, Denies excessive phlegm production, Denies dyspnea, Denies dyspnea on exertion, Denies snoring and Denies wheezing GI Denies abdominal pain, Denies hematochezia, Denies change in bowel habits, Denies nausea and Denies vomiting Denies dysuria and Denies urinary frequency Musc Denies arthralgias, Denies muscle weakness, Denies numbness and Denies other (frequent falls) Skin/Breast Denies nail changes and Denies rash Neuro Denies Abnormal speech present, Denies dizziness, Denies frequent falls, Denies loss of vision, Denies memory loss, Denies numbness and Denies weakness Psych Denies depression and Denies memory loss Endo Denies fatigue and Denies palpitations Izaiah/Lymph Reports easy bruising and Reports other (anemia) Aller/Immun Denies wheezing Physical Exam Vital Signs: Last Vital Signs Pulse 51 12/17/23 12:51 BP 132/80 12/17/23 12:51 BMI result Body Mass Index 24.8 Const General: cooperative, comfortable, no acute distress, well developed, alert, awake, Physically active and well groomed Nutritional Appearance: average body habitus and well nourished Orientation/consciousness: patient oriented x3 Limitations: no limitations HEENT Head: Yes normocephalic and Yes atraumatic Neck Neck: Yes trachea midline, Yes supple and Yes no JVD Resp Effort & Inspection: normal respiratory effort Auscultation: clear to auscultation bilaterally Cardio Jugular venous distension: no JVD Palpation: normal PMI Rate: regular rate Rhythm: regular rhythm Heart sounds: S1 normal heart sound present, S2 normal heart sound present, no click, no gallops, no murmurs and no rubs Bruits: no carotid bruits GI Auscultation: normal bowel sounds Skin General skin exam: no rashes or lesions noted Neuro General: patient oriented x3 and no focal motor deficits Speech: No Abnormal speech present Extrem General: Yes no clubbing, cyanosis or edema Psych Appearance: grossly normal Office Procedures EKG Details: EKG shows normal sinus rhythm with sinus bradycardia with normal EKG without any pathologic Q-waves [id number], Complete Assessment & Plan Assessment & Plan (1) CAD (coronary artery disease): Comment: Markedly elevated coronary calcium score suggestive of diffuse three-vessel atherosclerosis Code(s): I25.10 - Atherosclerotic heart disease of [place] coronary artery without angina pectoris Category: Medical Plan: Extensive coronary calcium deposition usually surrogate marker for underlying atherosclerosis with score of greater than 1200 suggestive of diffuse three-vessel coronary artery disease. He is currently no symptoms at high workload although could have silent myocardial ischemia. This was discussed with him. I would suggest him to have prognostic evaluation with exercise myocardial perfusion imaging to assess for significant myocardial ischemic burden that might require interventional approach. This was discussed with him. If at high workload he has no symptoms with no EKG changes or perfusion abnormalities, would pursue aggressive medical therapy. Pathophysiology of atherosclerotic disease was discussed with him. I would suggest him to start on low-dose aspirin therapy. Continue aggressive blood pressure control, currently on lisinopril therapy. Blood pressure is well optimized. Advised to monitor intermittently at home maintain a log. He has significantly elevated LDL cholesterol causing his atherosclerotic disease and we discussed about relationship between LDL cholesterol and atherosclerosis. We discussed about high-intensity statin therapy and to target goal LDL closer to 60 mg/dL to reduce long-term cardiovascular events. He showed understanding and agreement to start therapy. Potential side effects were discussed. Follow-up lipid panel in 3 months time. Will follow up in the clinic in 1 year's time, sooner p.r.n.. Thank you for allowing me to partake in his care Orders: Orders Lipid Panel 3 Months I25.10 - Atherosclerotic heart disease of [place] coronary artery without angina pectoris CA stress test Today I25.10 - Atherosclerotic heart disease of [place] coronary artery without angina pectoris NM cardiolite stress test 2 Weeks I25.10 - Atherosclerotic heart disease of [place] coronary artery without angina pectoris, R07.9 - Chest pain, unspecified Medications: New atorvastatin 40 mg PO DAILY 30 tabs 5RF I25.10 - Atherosclerotic heart disease of [place] coronary artery without angina pectoris aspirin (Ecotrin Low Strength) 81 mg PO DAILY 30 tabs 5RF I25.10 - Atherosclerotic heart disease of [place] coronary artery without angina pectoris Coding Level of Care Code Est Pt Level 4 (86012) Diagnoses CAD (coronary artery disease) I25.10 CPT Codes EKG - CPT: 76825-[id number], Complete ([id number])
== END 2023-12-17 13:30 | disposition home or self-care (01) ==
PROVIDERS: PCP Physician Assistant; Visit Provider Internal Medicine Cardiovascular Disease
DX: I25.10 Atherosclerotic heart disease of native coronary artery without angina pectoris (principal)
CPT/HCPCS: 93010; 99214

== ENCOUNTER → 2023-12-17 12:45 | Outpatient (BNVA) | payer OTHER, SELFPAY | PROVIDERS: PCP Physician Assistant; Visit Provider Internal Medicine Cardiovascular Disease | DX: I25.10 Atherosclerotic heart disease of native coronary artery without angina pectoris (principal); I10 Essential (primary) hypertension; E78.5 Hyperlipidemia, unspecified; R07.9 Chest pain, unspecified | CPT/HCPCS: 93005; 99212 ==

== ENCOUNTER 2024-02-11 09:17 | Outpatient (AMB) | payer OTHER, SELFPAY ==
--- NOTE | 2024-02-11 09:25 | MHC.PC.OV ---
Vital Signs 02/11/24 09:37 Height 6 ft Weight 189 lb 2 oz BMI 25.6 BP 124/66 Blood Pressure Location Lt brachial Position Sitting Pulse 72 Pulse Source Pulse Oximeter Pulse Oximetry (%) 97 Oxygen Delivery Method Room Air Intake Visit Reasons: f/u HLD Intake Note: The patient is here for a follow-up on HLD. Today, the patient reports concerns about an ongoing cough lasting for the past week, accompanied by phlegm and a low-grade fever. The last three at-home COVID tests have been negative. 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 Patient has a past medical history significant for borderline high cholesterol and hypertension. Concern--> reports over the last 3 weeks having itchy eyes runny nose postnasal drip. Over the last few days has been noting a cough and mild fever worse at night. Will send for chest x-ray to evaluate for pulmonary infiltrate ? . Hypertension: Blood pressures have been much better over the last month since starting thyroid medication. Continues on lisinopril 10 mg. .. Coronary artery disease/ Hyperlipidemia: Most recent lipid panel showing elevated total cholesterol and triglycerides. He is concerned about starting statin therapy due to fears of dementia. He has recently got a coronary artery calcium score that was quite elevated. Has followed up with Cardiology whom recommended starting statin therapy and aspirin. You will also be sent for cardiac stress test in near future. 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 Elmer Mary, uGillermina Chawla, Homar Segundo and colleagues, with an educational pretty from [employer]. Review of Systems Const Denies headache(s) Eyes Denies loss of vision ENT Denies vertigo, Denies dizziness, Denies headache(s), Reports post nasal drip, Reports sinus pain and Denies sore throat Card Denies chest pain, Denies leg edema and Denies lightheadedness Resp Reports cough, Denies hemoptysis and Denies wheezing GI Denies abdominal pain, Denies melena, Denies constipation, Denies diarrhea and Denies vomiting Denies dysuria, Denies urinary frequency and Denies urinary urgency Musc Denies arthralgias, Denies joint swelling, Denies numbness and Denies tingling Neuro Denies Abnormal speech present, Denies behavioral changes, Denies vertigo, Denies dizziness, Denies headache(s), Denies loss of vision, Denies memory loss, Denies numbness and Denies tingling Psych Denies anxiety, Denies behavioral changes, Denies depression, Denies memory loss and Denies panic attacks Izaiah/Lymph Denies easy bleeding and Denies easy bruising Aller/Immun Denies wheezing Physical exam (Primary Care) Vital Signs: Last Vital Signs Pulse 72 02/11/24 09:37 BP 124/66 02/11/24 09:37 Pulse Ox 97 02/11/24 09:37 Oxygen Delivery Method Room Air 02/11/24 09:37 BMI result Body Mass Index 25.6 Tobacco/Smoking Status: Tobacco use Status Tobacco use date assessed 10/08/23 02/11/24 09:25 Patient Tobacco Use Status Former Tobacco user 02/11/24 09:25 Tobacco use type Cigarette 02/11/24 09:25 e-Cigarette/Vaping Use Never Used 02/11/24 09:25 Thrive Assessment: Date of Thrive Assessment Date Thrive assessed 04/09/23 02/11/24 09:25 Const General: healthy appearing, no acute distress, alert and awake Nutritional Appearance: well nourished Orientation/consciousness: oriented to person, oriented to place and oriented to time HENMT Ears: TM's normal bilaterally General nose exam: Normal nasal mucous membranes and turbinates present Eyes Conjunctivae: conjunctivae normal Sclerae: sclerae normal Pupils: Equal, round and reactive pupils present Neck Neck: Yes no lymphadenopathy and Yes no JVD Thyroid: Thyroid normal Carotids: no bruits Resp Effort & Inspection: normal respiratory effort and not tachypneic Auscultation: no crackles, no rales, no rhonchi and no wheezes Cardio Rate: regular rate Rhythm: regular rhythm Heart sounds: no murmurs and normal S1 and S2 GI Palpation (GI): Soft to palpation, nontender, no hepatomegaly and no splenomegaly Auscultation: normal bowel sounds Skin General skin exam: no rashes or lesions noted and dry skin Neuro General: oriented to person, oriented to place and oriented to time Cranial nerves: Yes Equal, round and reactive pupils present Speech: No Abnormal speech present Gait exam (Neuro): Normal gait present Motor exam (neuro): no tremor noted Extrem Right upper extremity: full ROM Left upper extremity: full ROM Right lower extremity: full ROM; no edema Left lower extremity: full ROM; no edema Psych Mental Status: mental status grossly normal Speech and movement: Normal speech and movement present Affect: normal affect Attitude: cooperative Thought process: Normal thought process present Coding Level of Care Code Est Pt Level 4 (18265) Diagnoses Mixed hyperlipidemia E78.2 Hyperlipidemia type: mixed hyperlipidemia Bronchitis J40 Coronary artery disease involving [place] coronary artery of [place] heart without angina pectoris I25.10 Associated angina: without angina Coronary Disease-Associated Artery/Lesion type: [place] artery [place] vs. transplanted heart: [place] heart Assessment & Plan Assessment & Plan (1) HLD (hyperlipidemia): Code(s): E78.5 - Hyperlipidemia, unspecified Category: Medical Qualifiers: Hyperlipidemia type: mixed hyperlipidemia Qualified Code(s): E78.2 - Mixed hyperlipidemia Plan: As above Goal LDL to be optimally below 60 (2) Bronchitis: Code(s): J40 - Bronchitis, not specified as acute or chronic Category: Medical Plan: Patient's signs symptoms of upper respiratory infection. Will supply patient was [facility] and send for x-ray to evaluate for pulmonary infiltrate. Will supply with medicated cough syrup to take at night to help sleep. (3) CAD (coronary artery disease): Comment: Markedly elevated coronary calcium score suggestive of diffuse three-vessel atherosclerosis Code(s): I25.10 - Atherosclerotic heart disease of [place] coronary artery without angina pectoris Category: Medical Qualifiers: Associated angina: without angina Coronary Disease-Associated Artery/Lesion type: [place] artery [place] vs. transplanted heart: [place] heart Qualified Code(s): I25.10 - Atherosclerotic heart disease of [place] coronary artery without angina pectoris Plan: Patient followed by Cardiology here in [place]. Will be getting a cardiac stress test to evaluate. He did have a coronary artery calcium score that was fairly high. Has been started on aspirin and moderate dose statin therapy. Goal LDL to be optimally below 60 Orders: Orders Comprehensive [place]. Panel Fast Today E78.2 - Mixed hyperlipidemia XR chest 2V Today J40 - Bronchitis, not specified as acute or chronic Prostate Specific Antigen Scr Today E78.2 - Mixed hyperlipidemia, Z12.5 - Encounter for screening for malignant neoplasm of prostate Medications: New azithromycin For 250 mg dose pack: take 500 mg today (day 1), then 250 mg for 4 days (days 2-5) PO 6 tabs 0RF J40 - Bronchitis, not specified as acute or chronic codeine-guaifenesin 10-100 mg/5 mL 5 mL PO Q6H 5 days PRN 120 mL 0RF cough J40 - Bronchitis, not specified as acute or chronic
[2024-02-11 09:37] VITALS: BP 124/66; PULSE 72; O2SAT 97; BMI 25.6
== END 2024-02-11 10:05 | disposition home or self-care (01) ==
PROVIDERS: PCP Physician Assistant; Visit Provider Physician Assistant
DX: E78.2 Mixed hyperlipidemia (principal); J40 Bronchitis, not specified as acute or chronic; I25.10 Atherosclerotic heart disease of native coronary artery without angina pectoris

== ENCOUNTER 2024-02-11 09:17 | Outpatient (REF) | payer OTHER, SELFPAY ==
--- NOTE | ~2024-02-11 | XR_ITS ---
EXAMINATION: XR CHEST CLINICAL INFORMATION: J40 - Bronchitis, not specified as acute or chronic. COMPARISON: None available. TECHNIQUE: 3 views of the chest were obtained. FINDINGS: There is no gross pneumothorax. Heart size is normal lung lines are low. No pleural effusion. Degenerative changes in the thoracic spine. Patchy and nodular opacities in the mid to upper right with moderate bibasilar patchy opacities. Prominent diffuse interstitial opacities with bilateral perihilar cuffing. XR/XR chest 2V IMPRESSION: Patchy and nodular opacities in the mid to upper right with moderate bibasilar patchy opacities. Prominent diffuse interstitial opacities with bilateral perihilar cuffing. This study was presented today February 11, 2024 for interpretation. Stat results provided at this time as requested by referring provider. Electronically signed by: Brii Bolton MD 02/11/2024 12:57 PM [facility]
== END 2024-02-11 09:18 | disposition home or self-care (01) ==
LOC: HO.XRAY 09:17
PROVIDERS: PCP Physician Assistant; Visit Provider Physician Assistant
DX: J40 Bronchitis, not specified as acute or chronic (principal); E78.2 Mixed hyperlipidemia; I25.10 Atherosclerotic heart disease of native coronary artery without angina pectoris
CPT/HCPCS: 71046; 99212

== ENCOUNTER → 2024-02-25 08:36 | Outpatient (REF) | payer OTHER, SELFPAY ==
--- NOTE | ~2024-02-25 | XR_ITS ---
EXAMINATION: XR CHEST CLINICAL INFORMATION: J40 - Bronchitis, not specified as acute or chronic COMPARISON: February 11, 2024. TECHNIQUE: 2 views of the chest were obtained. FINDINGS: No significant abnormality is noted involving the heart, lungs, bony thorax or soft tissues. Mildly uncoiled aorta, raising the possibility of hypertension. XR/XR chest 2V IMPRESSION: No acute finding. Electronically signed by: Dada Martinez MD 02/25/2024 10:17 AM [facility]
--- NOTE | ~2024-02-25 | NM_ITS ---
EXERCISE MYOCARDIAL PERFUSION STUDY INDICATION: Chest pain to evaluate for myocardial ischemia TECHNIQUE: The patient was brought in for an exercise perfusion study on 02/25/2024. Patient performed exercise as per Gómez protocol and was injected 25 mCi of sestamibi once target heart rate was achieved. Images were obtained using the SPECT gamma camera interlaced with the gating device. Images were obtained in supine position. Resting perfusion study was performed on 02/26/2024. Patient was administered 25 mCi of sestamibi intravenously at rest. Images were then obtained in supine position. Images obtained without without CT attenuation. Total DLP 92 mGy-cm. Images were processed with the software and compared side to side in short axis, horizontal long axis and vertical long axis views. FINDINGS: Raw images were reviewed The stress perfusion study showed nonattenuated images show mildly reduced uptake in the basal inferior, basal inferolateral and basal lateral wall of the LV myocardium. Remainder of the LV myocardium is normally perfused. Attenuated corrected images show minimal thinning of the apex of the LV myocardium.. The gated study shows normal LV systolic function with calculated LVEF of 68%. LV cavity is normal in size. The gated study shows normal systolic wall thickening and contraction of segments. Resting study shows no change in perfusion pattern compared to stress perfusion study. Gating at rest reveals normal systolic wall motion with ejection fraction at 65%. The findings are consistent with no reversible defect suggestive of ischemia. NM/NM cardiolite stress test IMPRESSION: 1. Myocardial perfusion imaging study shows normal myocardial perfusion. 2. Gated LVEF is 68%. 3. Transient ischemic dilatation not present. EKG revealed no ischemia. Electronically signed by: Serafin Christina MD 02/27/2024 08:08 AM [facility] [place]
--- NOTE | 2024-02-25 09:02 | CA_ITS ---
Acquisition Time: 2024-02-25 09:22:05 Total Exercise Time: 00:10:30 Test Indications: CAD Medications: SEE H Protocol: JOSEPH Max HR: 148 BPM 91% of Pred: 162 BPM Max BP: 160/080 mmHG Max Work Load: 12.5 METS Exercise Stress test with exercise 10 min 30 secs of Joseph Protocol, achieving 91% MPHR, without any anginal symptoms, with isolated PVCs and ventricular couplets, with normotensive response to exercise. Without EKG changes meeting critieria for ischemia. Nuclear images pending. Test reviewed with Dr Christina Referred By: Serafin Christina Overread By: CHERRIE BRIZUELA
--- OUTSIDE RECORDS SUMMARY | 2024-02-26 18:59 | XMS_ITS ---
Author Name [facility] [place] [facility] [place] Address [address] [place] [address] Care Team Providers Care Circulation Manager Name Role Phone NOELLE RAMESH Primary Care Provider Unavailabl e Selected Encounter This section includes the information on record at [place] for the Encounter. Date/Time Encounter Type Encounter Description Reason Provider Source May 29, 2023 01:00 PM OFF/OP EST JULY X REQ PHY/QHP PRIMARY CARE/MEDICINE ICD-10-CM Z71.9 Counseling, unspecified NOELLE RAMESH IHPatti Encounter Template Text not used by [place] Assessments - Encounter Diagnoses This section includes the primary and secondary diagnoses documented for the Encounter. Date/Time Primary/Secondary Diagnosis Diagnosis Name Provider Source May 30, 2023 08:25 AM PRIMARY Counseling, unspecified ANNIE GAMEZ [place] [facility] [place] [facility] Plan of Treatment: Future Appointments (+ 6 months) and Future Tests (+/- 45 days) The Plan of Treatment section includes future care activities for the patient from all [place] treatmentfacilities. This section includes future appointments and future orders which are active, pending or scheduled. Future Appointments This section includes appointments that were scheduled to occur 6 months from the date of the Encounter, up to a maximum of 20 appointments. The data comes from all [place] treatment facilities. Appointment Date/Time Appointment Type Appointme nt Facility Name Jun 05, 2023 10:00 AM AMBULATORY - MEDICINE [facility] Lab Results: +/- 30 days of the encounter This section includes the Chemistry and Hematology Lab Results on record with [place] for the patient. Radiology Reports and Pathology Reports are provided separately, in subsequent sections. Lab Results This section contains the Chemistry/Hematology Results that were resulted 30 days before or 30 daysafter the date of the Encounter. Date/Time Source Result Type Result - Unit Interpretation Reference Range Comment May 30, 2023 10:27 AM [facility] HEPATITIS B SURFACE ANTIBODY (HBsAb)-WH Specimen Type: SERUM No comment entered. Ordering Provider: NOELLE RAEMSH Report Released Date/Time: May 29, 2023 01:58 PM Reporting Lab: [address] [address] Performing Lab: [address] [address] HBsAb Non Reactive Non Reactive May 30, 2023 10:27 AM [facility] CBC Specimen Type: BLOOD No comment entered. Ordering Provider: NOELLE RAMESH Report Released Date/Time: May 29, 2023 01:58 PM Reporting Lab: [address] [address] Performing Lab: [address] [address] WBC 4.33 10*3/uL L 4.50-11.00 RBC 5.06 10*6/uL 4.23-5.66 HGB 14.6 g/dL 12.8-17 HCT 42.6 39.2-50.4 MCV 84.2 fL 82-99 MCHC 34.3 g/dL 30.8-35.1 PLT 238 10*3/uL 140-360 RDW-CV 12.3 12.0-16.0 MCH 28.9 pg 26.2-32.6 May 30, 2023 10:27 AM [facility] LIVER FUNCTION Specimen Type: SERUM No comment entered. Ordering Provider: NOELLE RAMESH Report Released Date/Time: May 29, 2023 01:58 PM Reporting Lab: [address] [place] [address] Performing Lab: [facility] [address] [facility] [address] PROTEIN,TOTAL 7.1 g/dL 6.0-8.3 ALBUMIN 4.3 g/dL 3.5-5.0 ALKALINE PHOSPHATASE 47 U/L 40-150 AST 33 U/L 5-34 ALT 21 U/L BILIRUBIN, TOTAL 0.7 mg/dL 0.2-1.2 May 30, 2023 10:27 AM [facility] BASIC METABOLIC PANEL (fasting) Specimen Type: SERUM No comment entered. Ordering Provider: NOELLE RAMESH Report Released Date/Time: May 29, 2023 01:58 PM Reporting Lab: [address] [address] Performing Lab: [address] [address] UREA NITROGEN 20 mg/dL 7-25 GLUCOSE 96 mg/dL 65-100 SODIUM 138 mmol/L 135-145 POTASSIUM 4.4 mmol/L 3.5-5.0 CHLORIDE 104 mmol/L 100-110 CO2 24 meq/L 20-30 CREATININE, Serum 0.97 mg/dL 0.50-1.40 eGFR(CKD-EPI 2020) 90 mL/min >60 May 30, 2023 10:27 AM [facility] LIPID PANEL FASTING Specimen Type: SERUM No comment entered. Ordering Provider: NOELLE RAMESH Report Released Date/Time: May 29, 2023 01:58 PM Reporting Lab: [address] [address] Performing Lab: [address] [address] CHOLESTEROL 261 mg/dL H TRIGLYCERIDE 103 mg/dL 0-150 LDL calculated 202 mg/dL H 0-129 CHOL/HDL 6.9 HDL CHOLESTEROL 38 mg/dL L 40-60 May 30, 2023 10:27 AM [facility] TSH Specimen Type: SERUM No comment entered. Ordering Provider: NOELLE RAMESH Report Released Date/Time: May 29, 2023 01:58 PM Reporting Lab: [facility] [address] [facility] [address] Performing Lab: [address] [address] TSH 2.33 u[IU]/mL 0.35-5.00 May 30, 2023 10:27 AM [facility] HEPATITIS C ANTIBODY (HCV)-ARC Specimen Type: SERUM Comment: Hep C Ab: No HCV antibody detected. If recent infection is suspected or other evidence suggests HCV infection, consider HCV nucleic acid testing Ordering Provider: NOELLE RAMESH Report Released Date/Time: May 29, 2023 01:58 PM Reporting Lab: [facility] [address] [facility] [address] Performing Lab: [address] [address] HEPATITIS C ANTIBODY NON-REACTIVE NON-REACTIV E Vital Signs: All taken on the encounter date This section contains inpatient and outpatient Vital Signs collected on the date of the Encounter. Date/Time Temperature Pulse Blood Pressure Respiratory Rate SP02 Pain Height Weight Body Mass Index Source May 29, 2023 01:07 PM 97.1 68 132/85 20 96 1 72 190 26 [facility] Social History: Smoking Status (Most current) and Tobacco Use (All prior to encounter date) This section includes the most current, and the historical, smoking and tobacco- related health factors from the [place] facility where the Encounter took place. Current Smoking Status This section includes the most current smoking, or tobacco-related health factor, from the [place] facility where the Encounter took place. Date/Time Current Smoking Status Comment Facil ity May 29, 2023 01:00 PM VA-TOBACCO FORMER USER [facility] Tobacco Use History This section includes a history of the smoking, or tobacco-related health factors, that were collected on or before the date of the Encounter. The data comes from the [place] facility where the Encounter took place. Date/Time Smoking Status/Tobacco Use Comment F acility May 29, 2023 01:00 PM VA-TOBACCO QUIT 5 TO < 15 YRS [facility] Encounter Notes: All associated encounter notes This section contains the clinical notes associated to the Encounter. Date/Time Encounter Note(s) Provider Source May 30, 2023 08:17 AM LETTERS: LOCAL TITLE: PATIENT LETTER (B) STANDARD TITLE: LETTERS DATE OF NOTE: MAY 30, 2023@08:17 ENTRY DATE: MAY 30, 2023@08:18:12 AUTHOR: TONY GAMEZ COSIGNER: URGENCY: STATUS: COMPLETED [facility] [address] [address] * * Date: 05/30/23 Dear [place]: Mohsen Thank you for choosing the Department of [facility] ([place]) [facility]. The Whole Health Program aims to support you in pursuing what matters most to you, and includes services that support your values and overall wellness. This includes the following offerings: * Yoga * Acupuncture * [place] Acupuncture for Acute Pain (offered weekly; drop-in or scheduled) * Individual health coaching * Commercial Credit Portfolio Manager * Biofeedback for Hypertension and Anxiety * Guided Imagery Group * Meditation Group * Cancer Support Group * Stress Management Group ( Stress Less ) The following require no referral from a provider, and can be initiated by you at any time: * Yoga * Meditation * [place] Acupuncture * Cancer Support Group * Individual Health Coaching * Stress Management Group ( Stress Less ) If interested in any of the above offerings, please reach out to the Whole Health Team at ext. [phone]. To schedule consult-required services, or if you would like more information regarding [place] health care benefits, please call toll free at [phone]), visit the VA website at [email or web address], or contact your local [place] Medical Center. If you have any questions, please do not hesitate to contact the Department [facility] [place] call center. Sincerely. Dr. Bindu Rodriguez Formerly [facility] and Integrated Jig Grinder [facility] Direct TONY GAMEZ [facility] [facility] May 29, 2023 01:15 PM MEDICATION MGT NOTE: LOCAL TITLE: MEDICATION RECONCILIATION STANDARD TITLE: MEDICATION MGT NOTE DATE OF NOTE: MAY 29, 2023@13:15 ENTRY DATE: MAY 29, 2023@13:15:46 AUTHOR: TONY GAMEZ EXP COSIGNER: URGENCY: STATUS: COMPLETED Vet was given an appt to see Dr. Ramesh on 06/05/23@1000 [facility] PCP: 1. Dr. Frederic Anderson [address] [place] [address] Dr. [place], [place] [address] Phone # F: Medication reconciliation D: Fuad says that he is on the following meds: 1. Lisinopril 10mg by mouth Daily 2. Levothyroxine 25mcg by mouth Daily ===== Fuad says that he has No Known Drug Allergies Fuad has the following Medical Dx: 1. Hypertension 2. Hypothyroidism 3. High Chol /olivia/ TONY GAMEZ MSN Ed., BSN CASE SUPERVISOR NURSE Signed: 05/29/2023 15:13 Receipt Acknowledged By: 05/30/2023 09:25 /olivia/ NOELLE RAMESH D.O. PHYSICIAN TONY GAMEZ [place] [facility] [place] [facility] May 29, 2023 01:14 PM LETTERS: LOCAL TITLE: PATIENT LETTER (B) STANDARD TITLE: LETTERS DATE OF NOTE: MAY 29, 2023@13:14 ENTRY DATE: MAY 29, 2023@13:14:45 AUTHOR: TONY GAMEZ EXP COSIGNER: URGENCY: STATUS: [place] [address] [phone] * [phone] Ext [phone] * Date: 05/30/23 Dear : Mohsen Thank you for choosing the Department of [facility] ([place] [facility]. Please be a few minutes early to this appt- about 15 mins. We would like to update your demographic information. To schedule or if you would like more information regarding [place] health care benefits, please call toll free at [phone]), visit the [place] website at [email or web address], or contact your local [place] Medical Center. Welcome to patient aligned care team (Pact Team Eight) with (Dr. Ramesh). Prior to meeting you at your new patient appointment we are requesting some of your past medical history so that we may provide you with the exceptional care you deserve. Please note that it is very helpful to have these documents prior to your appointment date as the more information we have the better we will be able to meet your needs: * Last History & Physical * Immunization records * Medication list * Diagnosis list * Most recent labs * Diagnostic screens (Colonoscopy, Abdominal Aortic Aneurysm screen, Mammograms, PAPS, etc.) We have scheduled the following appt with you to see your new PCP: Your appt is scheduled for (06/05/23@1000)- This appt will be about an hour long appt which will give you and your Provider a chance to get to know each other. We have noticed that you are due to receive the following Immunizations: 1. Zoster vaccine- 2 shot series 2. TD/TDAP immunization 3. Covid 19 vaccine 4. Hep B Virus Vaccine 3 shot series You may either bring your records with you to your scheduled appointment, or drop them off ahead of your appointment or you may have them faxed to ATTN: CWM/NO/PACT- Silvestre Ramesh If you have any questions, please do not hesitate to contact the Department of 's Affairs call center at Ext [phone]. Just so that you know if you're feeling sick we have sick call hours at the [facility], and the [facility]- Sat thru Saturday 08-1530- first come first serve- walk-in basis. [facility] [place] call hours Sat-Sat- -12, and 3P-4P- first come, first serve, walk-in basis- no appt needed. You can utilize our sick call system once you have seen your Primary Care Physician for the first time. Audiology Phone number- [phone]- Ext [phone] Optometry Phone Number- [phone] Ext [phone] Mental Health Clinic- [phone] Ext- [phone] Eligibility/Enrollment- [phone] [phone], or- [phone] [facility] [phone] Ext [phone] [facility] [phone] [facility] Transportation [phone] Ext [phone], or,[phone] [place] [facility] [phone] ( Call within 72hrs of being seen in an acute care setting) Sincerely. [facility] [address] [place] [address] Phone: Ext [phone] Upcoming Appointments: 06/05/23@1000- CWM/NO/PACT-Silvestre Gamez MSN Ed., BSN, RN [facility] [address] [address] [place] [address] # [phone]- Ext [phone] [facility] [address] [place] [address] [place] [address] [place] [address] [place] [address] TONY GAMEZ [place] [facility] [place] [place] [facility] May 29, 2023 01:12 PM PREVENTIVE MEDICINE NURSING NOTE: LOCAL TITLE: CLINICAL REMINDERS/NURSING STANDARD TITLE: PREVENTIVE MEDICINE NURSING NOTE DATE OF NOTE: MAY 29, 2023@13:12 ENTRY DATE: MAY 29, 2023@13:12:45 AUTHOR: TONY GAMEZ EXP COSIGNER: URGENCY: STATUS: COMPLETED Advance Directive Screen MH AD: Patient does not have an Advance Directive completed and is requesting more information. The patient received education about Advance Directives and written notification of his/her rights. Vet was given an advanced directive and was asked to fill out and bring in for PCP appt Depression Screening: Perform PHQ-2 A PHQ-2 screen was performed. The score was 0 which is a negative screen for depression. Over the past two weeks, how often have you been bothered by the following problems? 1. Little interest or pleasure in doing things Not at all 2. Feeling down, depressed, or hopeless Not at all Suicide Screen: C-SSRS Screening [place] Suicide Severity Rating Scale (C-SSRS) screener 1. Over the past month, have you wished you were or wished you could go to sleep and not wake up? No 2. Over the past month, have you had any actual thoughts of killing yourself? No 3. Over the past month, have you been thinking about how you might do this? Response not required due to responses to other questions. 4. Over the past month, have you had these thoughts and had some intention of acting on them? Response not required due to responses to other questions. 5. Over the past month, have you started to work out or worked out the details of how to kill yourself? Response not required due to responses to other questions. 6. If yes, at any time in the past month did you intend to carry out this plan? Response not required due to responses to other questions. 7. In your lifetime, have you ever done anything, started to do anything, or prepared to do anything to end your life (for example, collected pills, obtained a gun, gave away valuables, went to the roof but didn't jump)? No 8. If YES, was this within the past 3 months? Response not required due to responses to other questions. Homelessness/Food Insecurity Screen: In the past 2 months, have you been living in stable housing that you own, rent, or stay in as part of a household? Yes - Living in stable housing. Are you worried or concerned that in the next 2 months you may NOT have stable housing that you own, rent, or stay in as part of a household? No - Not worried about housing near future The [place] reports the following: Within the past 12 months, you worried whether your food would run out before you got money to buy more. Never true Within the past 12 months, the food you bought just didn't last and you didn't have money to get more. Never true MST Screening: Patient denies experiencing sexual trauma (MST). Preferred Language: What is your, or your caregiver's preferred language for healthcare? Preferred Language: [place]i PTSD Screening: PC-PTSD-5 A PTSD screening test (PC-PTSD-5) was negative (score=0). IN THE PAST MONTH, have you ever had any experience that was so frightening, horrible or traumatic. For example: A serious accident or fire a physical or sexual assault or abuse An earthquake or flood A war Seeing someone be killed or seriously injured Having a loved one through homicide or suicide 1. Have you ever experienced this kind of event? NO 2. Had nightmares about the event(s) or thought about the event(s) when you did not want to? Response not required due to responses to other questions. 3. Tried hard not to think about the event(s) or went out of your way to avoid situations that reminded you of the event(s)? Response not required due to responses to other questions. 4. Been constantly on guard, watchful, or easily startled? Response not required due to responses to other questions. 5. Traver numb or detached from people, activities, or your surroundings? Response not required due to responses to other questions. 6. Traver guilty or unable to stop blaming yourself or others for the event(s) or any problems the event(s) may have caused? Response not required due to responses to other questions. Tobacco Use Screening: The patient is a former tobacco user. The patient quit five to less than fifteen years ago. Influenza Immunization: The patient has received the seasonal influenza vaccine for the current season at another location. Documented: INFLUENZA, UNSPECIFIED FORMULATION Historical Date Administered: Jan 2023 Exact date unknown Information Source: FROM OTHER REGISTRY Comment: [place] Alcohol Use Screen (AUDIT-C): Alcohol Screen: SCREEN FOR ALCOHOL (AUDIT-C) An alcohol screening test (AUDIT-C) was negative (score=2). 1. How often did you have a drink containing alcohol in the past year? Consider a drink to be a 12 ounce can or bottle of regular beer, 8 ounces of malt liquor, a 5 ounce glass of table wine, or a 1.5 ounce shot of liquor (like scotch, gin, or vodka). Two to four times a month 2. How many drinks containing alcohol did you have on a typical day when you were drinking in the past year? One or two drinks 3. How often did you have six or more drinks on one occasion in the past year? Never Tdap Immunization: Td/Tdap given previously - written records available The patient has previously received the Tetanus, Diphtheria, Pertussis vaccine (Tdap). Documented: TDAP Historical Date Administered: Dec 29, 2011 Hand Fabric Cutter: [employer] Lot: [id number] Exp Date: Unknown Outside Location: Outside Healthcare Provider Information Source: FROM OTHER REGISTRY Comment: tetanus, diphtheria, acellular pertussis Documented: YELLOW FEVER Historical Date Administered: Mar 18, 1997 Outside Location: Outside Healthcare Provider Information Source: FROM OTHER REGISTRY Comment: yellow fever vaccine Documented: VARICELLA Historical Date Administered: Feb 03, 2006 Outside Location: Outside Healthcare Provider Information Source: FROM OTHER REGISTRY Comment: varicella virus vaccine Documented: VACCINIA (SMALLPOX) Historical Date Administered: May 07, 2002 Outside Location: Outside Healthcare Provider Information Source: FROM OTHER REGISTRY Comment: vaccinia (smallpox) vaccine Documented: TYPHOID, VICPS Historical Date Administered: Nov 21, 2017 Hand Fabric Cutter: [employer] Lot: [id number] Exp Date: Unknown Outside Location: Outside Healthcare Provider Information Source: FROM OTHER REGISTRY Comment: typhoid Vi capsular polysaccharide vaccine Documented: POLIO, UNSPECIFIED FORMULATION Historical Date Administered: Mar 18, 1986 Outside Location: Outside Healthcare Provider Information Source: FROM OTHER REGISTRY Comment: rivalent poliovirus vaccine, live, oral Documented: COVID-19 ([employer]), MRNA, LNP-S, PF, 30 MCG/0.3 ML DOSE Historical Date Administered: Feb 10, 2021 Outside Location: Outside Healthcare Provider Information Source: FROM OTHER REGISTRY Comment: TOZINAMERAN .225mg/2.25mL INTRAMUSCULAR INJECTION, SUSPENSION (HASH Covid-19 Vaccine) Documented: COVID-19 ([employer]), MRNA, LNP-S, PF, 30 MCG/0.3 ML DOSE Historical Date Administered: May 24, 2020 Series: Series 1 Hand Fabric Cutter: [employer] Lot: [id number] Exp Date: Unknown Outside Location: Outside Healthcare Provider Information Source: FROM OTHER REGISTRY Comment: SARS-COV-2 (COVID-19) vaccine, mRNA, spike protein, LNP, preservative free, 30 mcg/0.3mL dose Documented: COVID-19 ([employer]), MRNA, LNP-S, PF, 30 MCG/0.3 ML DOSE Historical Date Administered: Jun 14, 2020 Series: Series 2 Hand Fabric Cutter: [employer] Lot: [id number] Exp Date: Unknown Outside Location: Outside Healthcare Provider Information Source: FROM OTHER REGISTRY Comment: SARS-COV-2 (COVID-19) vaccine, mRNA, spike protein, LNP, preservative free, 30 mcg/0.3mL dose Documented: RABIES, UNSPECIFIED FORMULATION Historical Date Administered: Feb 10, 2018 Series: Series 1 Hand Fabric Cutter: [employer] Lot: [id number] Exp Date: Unknown Outside Location: Outside Healthcare Provider Information Source: FROM OTHER REGISTRY Comment: rabies vaccine, purified chick embryo Documented: RABIES, UNSPECIFIED FORMULATION Historical Date Administered: Mar 03, 2018 Hand Fabric Cutter: [employer] Lot: [id number] Exp Date: Unknown Outside Location: Outside Healthcare Provider Information Source: FROM OTHER REGISTRY Comment: rabies vaccine, purified chick embryo Documented: RABIES, INTRAMUSCULAR INJECTION Historical Date Administered: Jan 30, 2018 Hand Fabric Cutter: [employer] Lot: [id number] Exp Date: Unknown Outside Location: Outside Healthcare Provider Admin Route/Site: INTRAMUSCULAR/LEFT DELTOID Information Source: FROM OTHER REGISTRY Comment: rabies vaccine, IM Documented: POLIO, UNSPECIFIED FORMULATION Historical Date Administered: Mar 18, 1986 Series: (None selected) Outside Location: Outside Healthcare Provider Information Source: FROM OTHER REGISTRY Comment: poliovirus vaccine, live, oral Documented: MENINGOCOCCAL MPSV4 Historical Date Administered: July 26, 1998 Hand Fabric Cutter: [employer] PA[employer]UR Lot: [id number] Exp Date: Unknown Outside Location: Outside Healthcare Provider Information Source: FROM OTHER REGISTRY Comment: meningococcal polysaccharide vaccine (MPSV4) Documented: MENINGOCOCCAL MPSV4 Historical Date Administered: Jan 29, 2018 Hand Fabric Cutter: [employer] PA[employer]UR Lot: [id number] Exp Date: Unknown Outside Location: Outside Healthcare Provider Admin Route/Site: INTRAMUSCULAR/RIGHT DELTOID Dosage: 1mL Information Source: FROM OTHER REGISTRY Comment: meningococcal polysaccharide (groups A, C, Y and W-135) diphtheria toxoid conjugate vaccine (MCV4P) Documented: MMR Historical Date Administered: Dec 25, 2001 Lot: [id number] Exp Date: Unknown Outside Location: Outside Healthcare Provider Information Source: FROM OTHER REGISTRY Comment: measles/mumps/rubella virus vaccine Documented: MMR Historical Date Administered: July 26, 1998 Lot: [id number] Exp Date: Unknown Outside Location: Outside Healthcare Provider Information Source: FROM OTHER REGISTRY Comment: measles/mumps/rubella virus vaccine Documented: HEP B, ADULT Historical Date Administered: Jan 16, 2002 Series: Series 1 Hand Fabric Cutter: [employer] Lot: [id number] Exp Date: Unknown Outside Location: Outside Healthcare Provider Information Source: FROM OTHER REGISTRY Comment: hepatitis B vaccine, adult dosage Documented: HEP B, ADULT Historical Date Administered: Mar 28, 2002 Series: Series 2 Lot: [id number] Exp Date: Unknown Outside Location: Outside Healthcare Provider Information Source: FROM OTHER REGISTRY Comment: hepatitis B vaccine, adult dosage Documented: HEP A, ADULT Historical Date Administered: May 26, 1998 Series: Series 1 Lot: [id number] Exp Date: Unknown Outside Location: Outside Healthcare Provider Information Source: FROM OTHER REGISTRY Comment: hepatitis A vaccine, adult dosage Documented: HEP A, ADULT Historical Date Administered: Feb 18, 1999 Series: Series 2 Hand Fabric Cutter: [employer] Lot: [id number] Exp Date: Unknown Outside Location: Outside Healthcare Provider Information Source: FROM OTHER REGISTRY Comment: hepatitis A vaccine, adult dosage Documented: ANTHRAX, PRE-EXPOSURE PROPHYLAXIS, POST-EXPOSURE PROPHYLAXIS Historical Date Administered: Aug 24, 1999 Hand Fabric Cutter: [employer] Lot: [id number] Exp Date: Unknown Outside Location: Outside Healthcare Provider Information Source: FROM OTHER REGISTRY Documented: ANTHRAX, PRE-EXPOSURE PROPHYLAXIS, POST-EXPOSURE PROPHYLAXIS Historical Date Administered: Sep 08, 1999 Hand Fabric Cutter: [employer] Lot: [id number] Exp Date: Unknown Outside Location: Outside Healthcare Provider Information Source: FROM OTHER REGISTRY Documented: ANTHRAX, PRE-EXPOSURE PROPHYLAXIS, POST-EXPOSURE PROPHYLAXIS Historical Date Administered: Sep 21, 2001 Series: (None selected) Outside Location: Outside Healthcare Provider Information Source: FROM OTHER REGISTRY Documented: ANTHRAX, PRE-EXPOSURE PROPHYLAXIS, POST-EXPOSURE PROPHYLAXIS Historical Date Administered: Mar 07, 2002 Hand Fabric Cutter: [employer] Lot: [id number] Exp Date: Unknown Outside Location: Outside Healthcare Provider Information Source: FROM OTHER REGISTRY Documented: ANTHRAX, PRE-EXPOSURE PROPHYLAXIS, POST-EXPOSURE PROPHYLAXIS Historical Date Administered: Nov 28, 2002 Hand 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
--- OUTSIDE RECORDS SUMMARY | 2024-02-26 18:59 | XMS_ITS | Encounter Summary ---
Author Name [facility] [place] [facility] [place] [facility] [place] Address [address] [place] [address] Care Team Providers Care Corporate Ethics Officer Name Role Phone NOELLE SHANNON Primary Care Provider Unavailabl e Selected Encounter This section includes the information on record at [place] for the Encounter. Date/Time Encounter Type Encounter Description Reason Provider Source Jun 05, 2023 10:00 AM OFFICE O/P NEW MOD 45 MIN PRIMARY CARE/MEDICINE ICD-10-CM Z77.29 Contact with and exposure to other hazardous substances NOELLE SHANNON Patti Encounter Template Text not used by [place] Assessments - Encounter Diagnoses This section includes the primary and secondary diagnoses documented for the Encounter. Date/Time Primary/Secondary Diagnosis Diagnosis Name Provider Source Jun 05, 2023 11:08 AM PRIMARY Contact with and exposure to other hazardous substances [facility]COLO[facility]NOELLE [facility] Jun 05, 2023 11:08 AM SECONDARY Essential (primary) hypertension [facility] Jun 05, 2023 11:08 AM SECONDARY Hypothyroidism, unspecified [facility] Jun 05, 2023 11:08 AM SECONDARY Pure hypercholesterolem ia, unspecified [facility]COLO[facility] Lab Results: +/- 30 days of the encounter This section includes the Chemistry and Hematology Lab Results on record with [place] for the patient. Radiology Reports and Pathology Reports are provided separately, in subsequent sections. Lab Results This section contains the Chemistry/Hematology Results that were resulted 30 days before or 30 daysafter the date of the Encounter. Date/Time Source Result Type Result - Unit Interpretation Reference Range Comment May 30, 2023 10:27 AM [facility] HEPATITIS B SURFACE ANTIBODY (HBsAb)-WH Specimen Type: SERUM No comment entered. Ordering Provider: NOELLE SHANNON Report Released Date/Time: May 29, 2023 01:58 PM Reporting Lab: [address] [address] Performing Lab: [address] [address] HBsAb Non Reactive Non Reactive May 30, 2023 10:27 AM [facility] CBC Specimen Type: BLOOD No comment entered. Ordering Provider: NOELLE SHANNON Report Released Date/Time: May 29, 2023 01:58 PM Reporting Lab: [address] [address] Performing Lab: [address] [address] WBC 4.33 10*3/uL L 4.50-11.00 RBC 5.06 10*6/uL 4.23-5.66 HGB 14.6 g/dL 12.8-17 HCT 42.6 39.2-50.4 MCV 84.2 fL 82-99 MCHC 34.3 g/dL 30.8-35.1 PLT 238 10*3/uL 140-360 RDW-CV 12.3 12.0-16.0 MCH 28.9 pg 26.2-32.6 May 30, 2023 10:27 AM [facility] LIVER FUNCTION Specimen Type: SERUM No comment entered. Ordering Provider: NOELLE SHANNON Report Released Date/Time: May 29, 2023 01:58 PM Reporting Lab: [address] [address] Performing Lab: [address] [address] PROTEIN,TOTAL 7.1 g/dL 6.0-8.3 ALBUMIN 4.3 g/dL 3.5-5.0 ALKALINE PHOSPHATASE 47 U/L 40-150 AST 33 U/L 5-34 ALT 21 U/L BILIRUBIN, TOTAL 0.7 mg/dL 0.2-1.2 May 30, 2023 10:27 AM [facility] BASIC METABOLIC PANEL (fasting) Specimen Type: SERUM No comment entered. Ordering Provider: NOELLE SHANNON Report Released Date/Time: May 29, 2023 01:58 PM Reporting Lab: [address] [address] Performing Lab: [address] [address] UREA NITROGEN 20 mg/dL 7-25 GLUCOSE 96 mg/dL 65-100 SODIUM 138 mmol/L 135-145 POTASSIUM 4.4 mmol/L 3.5-5.0 CHLORIDE 104 mmol/L 100-110 CO2 24 meq/L 20-30 CREATININE, Serum 0.97 mg/dL 0.50-1.40 eGFR(CKD-EPI 2020) 90 mL/min >60 May 30, 2023 10:27 AM [facility] LIPID PANEL FASTING Specimen Type: SERUM No comment entered. Ordering Provider: NOELLE SHANNON Report Released Date/Time: May 29, 2023 01:58 PM Reporting Lab: [address] [address] Performing Lab: [address] [address] CHOLESTEROL 261 mg/dL H TRIGLYCERIDE 103 mg/dL 0-150 LDL calculated 202 mg/dL H 0-129 CHOL/HDL 6.9 HDL CHOLESTEROL 38 mg/dL L 40-60 May 30, 2023 10:27 AM [facility] TSH Specimen Type: SERUM No comment entered. Ordering Provider: NOELLE SHANNON Report Released Date/Time: May 29, 2023 01:58 PM Reporting Lab: [address] [address] Performing Lab: [facility] [address] [facility] [address] TSH 2.33 u[IU]/mL 0.35-5.00 May 30, 2023 10:27 AM [facility] HEPATITIS C ANTIBODY (HCV)-ARC Specimen Type: SERUM Comment: Hep C Ab: No HCV antibody detected. If recent infection is suspected or other evidence suggests HCV infection, consider HCV nucleic acid testing Ordering Provider: NOELLE SHANNON Report Released Date/Time: May 29, 2023 01:58 PM Reporting Lab: [facility] [address] [facility] [address] Performing Lab: [address] [address] HEPATITIS C ANTIBODY NON-REACTIVE NON-REACTIV E Vital Signs: All taken on the encounter date This section contains inpatient and outpatient Vital Signs collected on the date of the Encounter. Date/Time Temperature Pulse Blood Pressure Respiratory Rate SP02 Pain Height Weight Body Mass Index Source Jun 05, 2023 10:14 AM 97.3 62 128/79 16 97 [facility] Jun 05, 2023 10:06 AM 0 72 186 25 [facility] Social History: Smoking Status (Most current) and Tobacco Use (All prior to encounter date) This section includes the most current, and the historical, smoking and tobacco- related health factors from the [place] facility where the Encounter took place. Current Smoking Status This section includes the most current smoking, or tobacco-related health factor, from the [place] facility where the Encounter took place. Date/Time Current Smoking Status Comment Facil ity May 29, 2023 01:00 PM VA-TOBACCO FORMER USER [facility] Tobacco Use History This section includes a history of the smoking, or tobacco-related health factors, that were collected on or before the date of the Encounter. The data comes from the [place] facility where the Encounter took place. Date/Time Smoking Status/Tobacco Use Comment F acility May 29, 2023 01:00 PM VA-TOBACCO QUIT 5 TO < 15 YRS [facility] Encounter Notes: All associated encounter notes This section contains the clinical notes associated to the Encounter. Date/Time Encounter Note(s) Provider Source Jun 05, 2023 11:08 AM ADDENDUM: LOCAL TITLE: Addendum STANDARD TITLE: ADDENDUM DATE OF NOTE: JUN 05, 2023@11:08:46 ENTRY DATE: JUN 05, 2023@11:08:47 AUTHOR: NOELLE SHANNON COSIGNER: URGENCY: STATUS: COMPLETED please try and get colonosocpy report from 2021 from [facility]. thanks /es/ NOELLE SHANNON D.O. PHYSICIAN Signed: 06/05/2023 11:09 Receipt Acknowledged By: 06/06/2023 09:04 /es/ SUSAN MEZA LPN License Practical Nurse --- Original Document --- 06/05/23 NOTE: MOHSEN ROBBINS is a 57 year old WHITE MALE who is being seen today in primary care to establish care. CARE TEAM Community Primary Care Provider: GIL Salazar- [facility] Specialists: Community Specialists: [facility]- [facility] HISTORY PERIOD OF SERVICE - OTHER OR NONE SERVICE CONNECTED % - 50 SC Percent: 50% Rated Disabilities: DEGENERATIVE ARTHRITIS OF THE SPINE (10%-SC) TINNITUS (10%-SC) KNEE CONDITION (0%-SC) LIMITED FLEXION OF THIGH (0%-SC) HYPERTENSIVE VASCULAR DISEASE (0%-SC) ANXIETY DISORDER (30%-SC) FOOT PAIN (10%-SC) [employer], [employer], [phone], [place]bal[place], [place], [place] Ankit, [place], + burn pit exposure HISTORY OF PRESENT ILLNESS Patient presents today for to establish care. Has PCP in [place], up to date with all preventative screenings. Has had elevated cholesterol- PCP wanted to add a statin, but wanted to change diet first. In the past 3 months, has cut out sugar and grains and has lost 15 lbs. has NOT cut down on animal based foods. main concern with statins are memory loss- father has dementia. Hypothyroidism- has not been on his thyroid med for the past few months. not sure why thryodui med was started- was not having symtpoms. PCP wants to recheck in 3 months RELEVANT PAST MEDICAL HISTORY Active problems - Computerized Problem List is the source for the followin. Hypertension 2. Hypothyroidism 3. 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[employer] Alcohol Use: occasional, never heavy drinker Tobacco Use: quit 2003, 15 years cigarettes 1ppd Drug Use: none Exercise: gym regularly, does classes, previous runner ALLERGIES Patient has answered NKA MEDICATIONS Lisinopril 10mg by mouth Daily (for past 2 years) Levothyroxine 25mcg by mouth Daily (started 6 mo ago) REVIEW OF SYMPTOMS NEGATIVE FOR: CONSTITUTION: no weight loss/gain, fatigue, fevers, night sweats HEENT: no vision problems, hearing loss,swallowing difficulties, sinus pain CV: no chest pain, palpitations, dyspnea on exertion, orthopnea RESP: no cough, shortness of breath, wheezing GI: no abdominal pain, N/V/D, constipation, blood in stool, normal appetite : no urinary frequency, nocturia, hematuria MUSC: no joint pain, joint swelling, muscle aches NEURO: no headaches, dizziness, memory loss, tremor, weakness PSYCH: no depression, anxiety, suicidal or homicidal thoughts SKIN: no rash, new skin lesions PHYSICAL EXAM Vitals: - - - - - - - B/P: 128/79 (06/05/2023 10:14) pulse: 62 (06/05/2023 10:14) resp: 16 (06/05/2023 10:14) temp: 97.3 F [36.3 C] (06/05/2023 10:14) Ht: 97 in [246.4 cm] (06/05/2023 10:14) Wgt: 186 lb [84.37 kg] (06/05/2023 10:06) BMI: BMI: 13.9 Exam: - - - - - - - General: A&O x 3, no acute distress, normal affect and mood Neck: normal thyroid, normal carotids- no bruits CV: RRR S1S2, no murmur Resp: LCTA bilat, no wheezing, rales or rhonchi Neuro: grossly intact, no visible tremor, normal memory and speech Extremities: normal movement of extremities, normal gait, normal strength no LE edema RECENT LABS LAB CHEMISTRY & HEMATOLOGY Collection DT Specimen Test Name Result Units Ref Range 05/30/2023 10:27 SERUM !! HCV AB NON-REACTIVE Ref: NON- REACTIVE 05/30/2023 10:27 SERUM HBsAb Non Reactive Ref: Non Reactive 05/30/2023 10:27 SERUM TSH 2.33 uIU/mL 0.35 - 5.00 CREATININE, Serum 0.97 mg/dL 0.50 - 1.40 eGFR(CKD-EPI 2020 90 mL/min Ref: >=60 SODIUM 138 mmol/L 135 - 145 POTASSIUM 4.4 mmol/L 3.5 - 5.0 CHLORIDE 104 mmol/L 100 - 110 CO2 24 mEq/L 20 - 30 UREA NITROGEN 20 mg/dL 7 - 25 GLUCOSE 96 mg/dL 65 - 100 PROTEIN,TOTAL 7.1 g/dL 6.0 - 8.3 ALBUMIN 4.3 g/dL 3.5 - 5.0 ALK NADINE 47 U/L 40 - 150 AST 33 U/L 5 - 34 BILIRUBIN, TOTAL 0.7 mg/dL 0.2 - 1.2 CHOLESTEROL 261 H mg/dL <7 - 199 TRIGLYCERIDE 103 mg/dL 0 - 150 LDL calculated 202 H mg/dL 0 - 129 CHOL/HDL 6.9 ALT 21 U/L <6 - 55 HDL CHOLESTEROL 38 L mg/dL 40 - 60 05/30/2023 10:27 BLOOD WBC 4.33 L K/cmm 4.50 - 11.00 RBC 5.06 M/cmm 4.23 - 5.66 HGB 14.6 g/dL 12.8 - 17 HCT 42.6 % 39.2 - 50.4 MCV 84.2 fl 82 - 99 MCH 28.9 pg 26.2 - 32.6 MCHC 34.3 g/dL 30.8 - 35.1 RDW-CV 12.3 % 12.0 - 16.0 PLT 238 K/cmm 140 - 360 ASSESSMENT AND PLAN Active problems - Computerized Problem List is the source for the followin. Exposure to potentially hazardous substance +burn pits- has already signed up for the registry. No symptoms currently. 2. Hypertension- on low dose lisinopril 10 mg for past few years. at goal as <140/90. 3. Hypothyroidism- had started tiny dose 25 mcg a few months ago. Rx ended and he did not continue on- has been off for about 1-2 months. TSH 2.33. 4. Hypercholesterolemia- high LDL 202, low HDL 38, recommend cutting down on animal based foods and increasing plant based foods. Increase in exercise as well will help. HEALTH MAINTENANCE Colonoscopy (due at age 45) - did in 2021 at [facility] Abdominal Aortic Aneurysm Screening (due at age 65) Prostate screening - n/a Tetanus: due every 10 years Pneumonia Vacccine: at age 65 Flu Vaccine: due yearly Covid Vaccine: due yearly FOLLOW UP f/u in 1-2 years VISIT TYPE: a MODERATE complexity visit where 30 - 45 minutes was spent in direct patient care, review of records and documentation. Toxic Exposure Screening: The /caregiver was asked if they believe the [place] experienced any toxic exposure(s), such as Airborne Hazards and Open Burn Pit, [place] War related exposures, Agent [place]rap[place], Radiation, contaminated water at [employer] or other such exposures, while serving in the [employer]. [place]/caregiver believes the was exposed to the following while serving in the [employer]: Airborne Hazards and Open Burn Pit: /caregiver was made aware of educational resources that includes information on the Registry Program, presumptive conditions and how to file a claim. Printed information was offered and provided if desired. [place]/caregiver has no health or medical concerns related to their concern of environmental exposure. No questions at this time [place]/caregiver was informed of local points of contact. Contact information for local resources: Benefits/Claim for Disability Compensation Questions:National VBA [place] Healthcare Enrollment: [facility] Eligibility direct dialed at [phone] Registry: [facility] Health Coordinator ext [phone] The following connections were provided to the /caregiver: No connections needed at this time Medication Reconciliation: Outpatient: Has the patient been taking medications as documented in the EMLR? YES: The patient has been taking medications as documented in the EMLR. Essential Medication List for Review used to complete this medication reconciliation. INCLUDED IN THIS LIST: Alphabetical list of active outpatient prescriptions dispensed from this VA (local) and dispensed from another VA or DoD facility (remote) as well as inpatient orders (local, pending and active), local clinic medications, locally documented non-VA medications, and local prescriptions that have or been discontinued in the past 90 days. - All changes in medications, including all non-VA/Herbal/OTC medications were entered into CPRS. - If there were any medications the patient should no longer take, they were discontinued. - The patient/caregiver was instructed to update this list, discard old lists, and take this list to the next appointment, whether with a VA or non-VA provider. /araceli SHANNON D.O. PHYSICIAN Signed: 06/05/2023 11:08 NOELLE SHANNON [facility] Jun 05, 2023 10:47 AM ADMINISTRATIVE NOTE: LOCAL TITLE: FAX/MAIL RECEIVED STANDARD TITLE: ADMINISTRATIVE NOTE DATE OF NOTE: JUN 05, 2023@10:47 ENTRY DATE: JUN 05, 2023@10:47:17 AUTHOR: SUSAN MEZA EXP COSIGNER: URGENCY: STATUS: COMPLETED Document Received On: May Document Type: Other: vaccine record, last physical Date of Service: May Facility and or Provider: Contact Information: PCP of Record: Next visit with PCP: No future appointments Primary Care May keep copies of this document for up to 14 days and send the original for scanning. /araceli MEZA LPN License Practical Nurse Signed: 06/05/2023 10:48 [facility]AN MEZA [facility] Jun 05, 2023 10:17 AM PREVENTIVE MEDICINE NURSING NOTE: LOCAL TITLE: CLINICAL REMINDERS/NURSING STANDARD TITLE: PREVENTIVE MEDICINE NURSING NOTE DATE OF NOTE: JUN 05, 2023@10:17 ENTRY DATE: JUN 05, 2023@10:17:14 AUTHOR: SUSAN MEZA EXP COSIGNER: URGENCY: STATUS: COMPLETED Tobacco Pack Year History: Patient used cigarettes in the past, but quit and does not currently use them: Quit smoking GREATER THAN OR EQUAL to 15 years ago. Hepatitis B Immunization: Hepatitis B vaccine given previously - written records available Hepatitis B adjuvant vaccine - 2 dose series (Heplisav-B) Documented: HEPB-CPG Historical Date Administered: Mar 28, 2002 Series: Series 1 Outside Location: Outside Healthcare Provider Information Source: FROM OTHER REGISTRY Documented: HEPB-CPG Historical Date Administered: Jan 16, 2003 Series: Series 2 Outside Location: Outside Healthcare Provider Information Source: FROM OTHER REGISTRY Td / Tdap Immunization: Td/Tdap given previously - written records available The patient has previously received the Tetanus, Diphtheria, Pertussis vaccine (Tdap). Documented: TDAP Historical Date Administered: Dec 29, 2011 Series: Complete Outside Location: Outside Healthcare Provider Information Source: FROM OTHER REGISTRY Documented: TDAP Historical Date Administered: Jun 05, 2022 Series: Complete Outside Location: Outside Healthcare Provider Information Source: FROM OTHER REGISTRY Herpes Zoster (Shingles) Vaccine: Prior Herpes Zoster vaccination Herpes zoster (shingles) vaccine given previously - written records available Zoster Recombinant (Shingrix): Documented: ZOSTER RECOMBINANT Historical Date Administered: Jun 18, 2022 Series: Series 1 Outside Location: Outside Healthcare Provider Information Source: FROM OTHER REGISTRY Documented: ZOSTER RECOMBINANT Historical Date Administered: Sep 10, 2022 Series: Series 2 Outside Location: Outside Healthcare Provider Information Source: FROM OTHER PROVIDER COVID-19 Immunization: Refused Moderna Monovalent COVID-19 vaccine Immunization: COVID-19 (MODERNA), MRNA, LNP-S, PF, 50 MCG/0.5 ML (AGES 12+ YEARS) Refusal Reason: PATIENT DECISION Patient refuses all immunization(s) in the COVID-19 group Date Documented: 06/05/23 10:22 Sexual Orientation: The patient thinks of their sexual orientation as: Straight or Heterosexual /olivia/ SUSAN MEZA LPN License Practical Nurse Signed: 06/05/2023 10:23 SUSAN MEZA [facility] [place] Jun 05, 2023 08:19 AM PHYSICIAN NOTE: LOCAL TITLE: MD NOTE STANDARD TITLE: PHYSICIAN NOTE DATE OF NOTE: JUN 05, 2023@08:19 ENTRY DATE: JUN 05, 2023@08:19:50 AUTHOR: NOELLE SHANNON EXP COSIGNER: URGENCY: STATUS: COMPLETED NOTE Has ADDENDA MOHSEN ROBBINS is a 57 year old WHITE MALE who is being seen today in primary care to establish care. CARE TEAM Community [facility] Special[facility]: Community Specialists: Physiatry- PSS - Dr. Martins Podiatry- [place] HISTORY PERIOD OF SERVICE - OTHER OR NONE SERVICE CONNECTED % - 50 SC Percent: 50% Rated Disabilities: DEGENERATIVE ARTHRITIS OF THE SPINE (10%-SC) TINNITUS (10%-SC) KNEE CONDITION (0%-SC) LIMITED FLEXION OF THIGH (0%-SC) HYPERTENSIVE VASCULAR DISEASE (0%-SC) ANXIETY DISORDER (30%-SC) FOOT PAIN (10%-SC) [employer], [employer], [phone], [place]baldo, [place], [place] Ankit, [place], + burn pit exposure HISTORY OF PRESENT ILLNESS Patient presents today for to establish care. Has PCP in [place], up to date with all preventative screenings. Has had elevated cholesterol- PCP wanted to add a statin, but wanted to change diet first. In the past 3 months, has cut out sugar and grains and has lost 15 lbs. has NOT cut down on animal based foods. main concern with statins are memory loss- father has dementia. Hypothyroidism- has not been on his thyroid med for the past few months. not sure why thryodui med was started- was not having symtpoms. PCP wants to recheck in 3 months RELEVANT PAST MEDICAL HISTORY Active problems - Computerized Problem List is the source for the followin. Hypertension 2. Hypothyroidism 3. 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 Tobacco Use: quit 2003, 15 years cigarettes 1ppd Drug Use: none Exercise: gym regularly, does classes, previous runner ALLERGIES Patient has answered NKA MEDICATIONS Lisinopril 10mg by mouth Daily (for past 2 years) Levothyroxine 25mcg by mouth Daily (started 6 mo ago) REVIEW OF SYMPTOMS NEGATIVE FOR: CONSTITUTION: no weight loss/gain, fatigue, fevers, night sweats HEENT: no vision problems, hearing loss,swallowing difficulties, sinus pain CV: no chest pain, palpitations, dyspnea on exertion, orthopnea RESP: no cough, shortness of breath, wheezing GI: no abdominal pain, N/V/D, constipation, blood in stool, normal appetite : no urinary frequency, nocturia, hematuria MUSC: no joint pain, joint swelling, muscle aches NEURO: no headaches, dizziness, memory loss, tremor, weakness PSYCH: no depression, anxiety, suicidal or homicidal thoughts SKIN: no rash, new skin lesions PHYSICAL EXAM Vitals: - - - - - - - B/P: 128/79 (06/05/2023 10:14) pulse: 62 (06/05/2023 10:14) resp: 16 (06/05/2023 10:14) temp: 97.3 F [36.3 C] (06/05/2023 10:14) Ht: 97 in [246.4 cm] (06/05/2023 10:14) Wgt: 186 lb [84.37 kg] (06/05/2023 10:06) BMI: BMI: 13.9 Exam: - - - - - - - General: A&O x 3, no acute distress, normal affect and mood Neck: normal thyroid, normal carotids- no bruits CV: RRR S1S2, no murmur Resp: LCTA bilat, no wheezing, rales or rhonchi Neuro: grossly intact, no visible tremor, normal memory and speech Extremities: normal movement of extremities, normal gait, normal strength no LE edema RECENT LABS LAB CHEMISTRY & HEMATOLOGY Collection DT Specimen Test Name Result Units Ref Range 05/30/2023 10:27 SERUM !! HCV AB NON-REACTIVE Ref: NON- REACTIVE 05/30/2023 10:27 SERUM HBsAb Non Reactive Ref: Non Reactive 05/30/2023 10:27 SERUM TSH 2.33 uIU/mL 0.35 - 5.00 CREATININE, Serum 0.97 mg/dL 0.50 - 1.40 eGFR(CKD-EPI 2020 90 mL/min Ref: >=60 SODIUM 138 mmol/L 135 - 145 POTASSIUM 4.4 mmol/L 3.5 - 5.0 CHLORIDE 104 mmol/L 100 - 110 CO2 24 mEq/L 20 - 30 UREA NITROGEN 20 mg/dL 7 - 25 GLUCOSE 96 mg/dL 65 - 100 PROTEIN,TOTAL 7.1 g/dL 6.0 - 8.3 ALBUMIN 4.3 g/dL 3.5 - 5.0 ALK NADINE 47 U/L 40 - 150 AST 33 U/L 5 - 34 BILIRUBIN, TOTAL 0.7 mg/dL 0.2 - 1.2 CHOLESTEROL 261 H mg/dL <7 - 199 TRIGLYCERIDE 103 mg/dL 0 - 150 LDL calculated 202 H mg/dL 0 - 129 CHOL/HDL 6.9 ALT 21 U/L <6 - 55 HDL CHOLESTEROL 38 L mg/dL 40 - 60 05/30/2023 10:27 BLOOD WBC 4.33 L K/cmm 4.50 - 11.00 RBC 5.06 M/cmm 4.23 - 5.66 HGB 14.6 g/dL 12.8 - 17 HCT 42.6 % 39.2 - 50.4 MCV 84.2 fl 82 - 99 MCH 28.9 pg 26.2 - 32.6 MCHC 34.3 g/dL 30.8 - 35.1 RDW-CV 12.3 % 12.0 - 16.0 PLT 238 K/cmm 140 - 360 ASSESSMENT AND PLAN Active problems - Computerized Problem List is the source for the followin. Exposure to potentially hazardous substance +burn pits- has already signed up for the registry. No symptoms currently. 2. Hypertension- on low dose lisinopril 10 mg for past few years. at goal as <140/90. 3. Hypothyroidism- had started tiny dose 25 mcg a few months ago. Rx ended and he did not continue on- has been off for about 1-2 months. TSH 2.33. 4. Hypercholesterolemia- high LDL 202, low HDL 38, recommend cutting down on animal based foods and increasing plant based foods. Increase in exercise as well will help. HEALTH MAINTENANCE Colonoscopy (due at age 45) - did in 2021 at [facility] Abdominal Aortic Aneurysm Screening (due at age 65) Prostate screening - n/a Tetanus: due every 10 years Pneumonia Vacccine: at age 65 Flu Vaccine: due yearly Covid Vaccine: due yearly FOLLOW UP f/u in 1-2 years VISIT TYPE: a MODERATE complexity visit where 30 - 45 minutes was spent in direct patient care, review of records and documentation. Toxic Exposure Screening: The /caregiver was asked if they believe the experienced any toxic exposure(s), such as Airborne Hazards and Open Burn Pit, [place] War related exposures, Agent [place]rap[place], Radiation, contaminated water at [employer] or other such exposures, while serving in the [employer]. /caregiver believes the [place] was exposed to the following while serving in the Armed [employer]: Airborne Hazards and Open Burn Pit: [place]/caregiver was made aware of educational resources that includes information on the Registry Program, presumptive conditions and how to file a claim. Printed information was offered and provided if desired. /caregiver has no health or medical concerns related to their concern of environmental exposure. No questions at this time /caregiver was informed of local points of contact. Contact information for local resources: Benefits/Claim for Disability Compensation Questions:National VBA [place] Healthcare Enrollment: [facility] Eligibility direct dialed at [phone] Registry: [facility] Coordinator ext [phone] The following connections were provided to the [place]/caregiver: No connections needed at this time Medication Reconciliation: Outpatient: Has the patient been taking medications as documented in the EMLR? YES: The patient has been taking medications as documented in the EMLR. Essential Medication List for Review used to complete this medication reconciliation. INCLUDED IN THIS LIST: Alphabetical list of active outpatient prescriptions dispensed from this [place] (local) and dispensed from another VA or [facility] facility (remote) as well as inpatient orders (local, pending and active), local clinic medications, locally documented non-VA medications, and local prescriptions that have or been discontinued in the past 90 days. - All changes in medications, including all non-VA/Herbal/OTC medications were entered into CPRS. - If there were any medications the patient should no longer take, they were discontinued. - The patient/caregiver was instructed to update this list, discard old lists, and take this list to the next appointment, whether with a VA or non-VA provider. /olivia/ NOELLE SHANNON D.O. PHYSICIAN Signed: 06/05/2023 11:08 06/05/2023 ADDENDUM STATUS: COMPLETED please try and get colonosocpy report from 2021 from [facility]. thanks /araceli SHANNON D.O. PHYSICIAN Signed: 06/05/2023 11:09 Receipt Acknowledged By: * AWAITING SIGNATURE * SUSAN MEZA [facility]
--- OUTSIDE RECORDS SUMMARY | 2024-02-26 18:59 | XMS_ITS | Encounter Summary ---
Author Name [facility] [place] [facility] [place] Address [address] [place] [address] Care Team Providers Care Steam Train Driver Name Role Phone MIRTHA NOELLE Primary Care Provider Unavailabl e Selected Encounter This section includes the information on record at [place] for the Encounter. Date/Time Encounter Type Encounter Description Reason Provider Source Jan 03, 2024 01:00 PM COMPRE OPH EXAM NEW PT 1/> OPTOMETRY ICD-10-CM H10.45 Other chronic allergic conjunctivitis FRAN STEPHEN [facility] Encounter Template Text not used by [place] Assessments - Encounter Diagnoses This section includes the primary and secondary diagnoses documented for the Encounter. Date/Time Primary/Secondary Diagnosis Diagnosis Name Provider Source Jan 03, 2024 03:36 PM PRIMARY Other chronic allergic conjunctivitis [facility] Jan 03, 2024 03:36 PM SECONDARY Age-related nuclear cataract, bilateral [facility] Jan 03, 2024 03:36 PM SECONDARY Presbyopia FRAN STEPHEN [facility] Social History: Smoking Status (Most current) and Tobacco Use (All prior to encounter date) This section includes the most current, and the historical, smoking and tobacco- related health factors from the [place] facility where the Encounter took place. Current Smoking Status This section includes the most current smoking, or tobacco-related health factor, from the [place] facility where the Encounter took place. Date/Time Current Smoking Status Comment Melania gibbs May 29, 2023 01:00 PM VA-TOBACCO FORMER USER [facility] Tobacco Use History This section includes a history of the smoking, or tobacco-related health factors, that were collected on or before the date of the Encounter. The data comes from the [place] facility where the Encounter took place. Date/Time Smoking Status/Tobacco Use Comment F acpaul May 29, 2023 01:00 PM VA-TOBACCO QUIT 5 TO < 15 YRS [facility] Encounter Notes: All associated encounter notes This section contains the clinical notes associated to the Encounter. Date/Time Encounter Note(s) Provider Source Jan 03, 2024 07:45 AM OPTOMETRY NOTE: LOCAL TITLE: OPTOMETRY NOTE STANDARD TITLE: OPTOMETRY NOTE DATE OF NOTE: JAN 03, 2024@07:45 ENTRY DATE: JAN 03, 2024@07:45:59 AUTHOR: ADELINA RUANO COSIGNER: FRAN STEPHEN URGENCY: STATUS: COMPLETED OPTOMETRY NOTE Has ADDENDA Active problems - Computerized Problem List is the source for the followin. Exposure to potentially hazardous substance 2. Hypertension 3. Hypothyroidism 4. Hypercholesterolemia Active Outpatient Medications (including Supplies): Active Non-VA Medications Status 1) Non-VA LEVOTHYROXINE NA (SYNTHROID) 25MCG TAB 25MCG ACTIVE BY MOUTH EVERY MORNING 30 MINUTES BEFORE BREAKFAST 2) Non-VA LISINOPRIL 10MG TAB 10MG BY MOUTH ONCE DAILY ACTIVE Allergies: Patient has answered NKA All medications including those prescribed by outside VA's, community providers, and all OTC meds were reviewed and reconciled with patient to the best of their abilities. This 58 year old, new MALE is seen today for annual CEE SHELLY: 06/15/2021 at [facility] Chief Complaint: complains that his vision is distorted with his current progressive glasses when looking to the side. Also his OD is red and itchy started about 1 week ago. Denied using any new lotion/shampoo/detergent/pillow case. He did reported that he was in [place] a week ago and drove back to [place] last Saturday and the symptoms started on Saturday. Today it seems to be lots better than when it started but still got up with crusty, redness, itchy with tear-like discharge OD only. No other associated symptoms such as runny nose, WOLFE, coughing, fever. OHx: 1. S/o PRK 2013 with low hyperopia 2. Hyperopia with presbyopia OU Ocular Medications: None (-) Pain: (-) WOLFE: (-) Diplopia: (-) Flashes: (-) Floaters: (-) Amaurosis Fugax/Tia's: (+) Eye Injury: A FB got into his OD during cleaning up the weeds, went to the ER but no sx or FB removal was done (+) Eye Surgery: PRK in 2013 (-) TBI FOHx: (-) Glaucoma/ARMD/Blindness VITALS (most recent, as listed in the electronic record): B/P: 128/79 (06/05/2023 10:14) Pulse: 62 (06/05/2023 10:14) Temperature: 97.3 F [36.3 C] (06/05/2023 10:14) Weight: 186 lb [84.37 kg] (06/05/2023 10:06) Height: 97 in [246.4 cm] (06/05/2023 10:14) BMI: BMI: 13.9 PERTINENT LABS: HEMOGLOBIN A1C TREND No data available (-) Smoker/Length of Time/PPD: Current Rx with last BCVA: OD: +0.75 SPH 20/20 OS: +0.75 SPH 20/20 Add:+1.50 for computer and +2.00 for near [facility] ( )sc ( x )cc - phoropter OD: 20/20 OS: 20/20 Pupils: PERRL (-)APD EOMs: SAFE OU, (-)Pain/Diplopia CVF (facial, peripheral): FTFC OU Subjective Refraction: OD: +0.75 SPH 20/20 OS: +0.75 SPH 20/20 Add:+2.00 20/20 Computer: +1.50 and pt reported that this works well for him Final SRx: OD: +0.75 SPH OS: +0.75 SPH Add:+2.00 All the above performed by student, reviewed by attending Anterior segment: Performed by student, repeated by attending Lids: clear OU Conj: Moderate papillae with mild hyperemia OD>OS Cornea: clear (-)k spindle OU AC: D&Q OU Angles: 4x4 OU Iris: flat and clear OU Lens: Trace NSC OU (-)PXF OU Tonometry: Performed by student, reviewed by attending [x ] GAT [ ] iCare OD 10 mmHg OS 11 mmHg Time: 13:20 Last IOP OD: 11 OS: 10 Fundus exam: Dilated: xxxx Non dilated: Dilating Drops: 1GTT 1 % Tropicamide OU & 1GTT 2.5% Phenylephrine OU (Pt. ed. on side effects, dilation warning given and verbal consent obtained) Patient advised not to drive if they feel they have any symptoms which could affect their ability to drive safely. Patient advised not to engage in any activities which could put themselves or others at risk if they feel they have any symptoms which could affect their ability to perform those activities safely. Performed by student, repeated by attending Vit: clear OU C/D: 0.40 OU pink & healthy rim tissue Macula: flat and clear OU PPole: clear OU A/V: 2/3 Vessels: normal caliber OU Periph: flat and intact (-) holes, tears, detachments 360 OU Assessment/Plan: 1. Acute allergic conjunctivitis OD>OS - Pt ed. about findings - Order Refresh gtt to use up to QID OU and recommended chilled ATs and chill compress to relieve symptoms - Order Ketotifen gtt to use BID OU for a few weeks to relieve symptoms or more often prn - Monitor 2. Early nuclear sclerotic age-related cataracts OU - Pt. ed. on findings - cataracts are not visually significant and that surgery is not necessary at this time - Ed. on importance of UV protection and on symptoms of glare - Continue to monitor 3. Hyperopia and presbyopia OU - Pt. ed. on todays findings - Is going to pick out new frames for PALs - Monitor Return to Clinic 2yr or earlier PRN EYE: Visual Function Reminder: Normal Vision: 20/25 or better: Unspecified disorder of refraction or accommodation (367.9). Medication Reconciliation: Outpatient: Has the patient been taking medications as documented in the EMLR? YES: The patient has been taking medications as documented in the EMLR. Essential Medication List for Review used to complete this medication reconciliation. INCLUDED IN THIS LIST: Alphabetical list of active outpatient prescriptions dispensed from this VA (local) and dispensed from another [place] or [facility] facility (remote) as well as inpatient orders [...] whether with a VA or non-VA provider. Medication List: JLV Link Data on this list may not be complete. Please check JLV. Allergies/ADRs (Tool #5) FACILITY ALLERGY/ADR -------- No Remote Allergy/ADR Data available for this patient [facility] No Known Allergies Med. Reconciliation (Tool #1) INCLUDED IN THIS LIST: Alphabetical list of active outpatient prescriptions dispensed from this [place] (local) and dispensed from another [place] or [facility] facility (remote) as well as inpatient orders (local pending and active), local clinic medications, locally documented non-VA medications, and local prescriptions that have or been discontinued in the past 90 days. Non-VA Meds Last Documented On: Jun 05, 2023 NOTE The display of VA prescriptions dispensed from another [place] or [facility] facility (remote) is limited to active outpatient prescription entries matched to National Drug File at the originating site and may not include some items such as investigational drugs, compounds, etc. NOT INCLUDED IN THIS LIST: Medications self-entered by the patient into personal health records (i.e. [employer]) are NOT included in this list. Non-VA medications documented outside this [place], remote inpatient orders (regardless of status) and remote clinic medications are NOT included in this list. The patient and provider must always discuss medications the patient is taking, regardless of where the medication was dispensed or obtained. OUTPT CARBOXYMETHYLCELLULOSE NA 0.5% OPH SOLN (Status = Active/Suspended) INSTILL 1 DROP INTO EACH EYE FOUR TIMES A DAY Rx# [id number] Last Released: Qty/Days Supply: Rx Expiration Date: 01/03/25 Refills Remainin Indication: FOR DRY EYE OUTPT KETOTIFEN 0.025% OPH SOLN (Status = Active/Suspended) INSTILL 1 DROP INTO EACH EYE TWICE DAILY FOR ALLERGIC CONJUNCTIVITIS (IF YOU WEAR CONTACT LENSES, WAIT 10 MINUTES BEFORE INSERTING LENSES) Rx# [id number] Last Released: Qty/Days Supply: Rx Expiration Date: 01/03/25 Refills Remainin Indication: FOR ALLERGIC CONJUNCTIVITIS Non-VA LEVOTHYROXINE NA (SYNTHROID) 25MCG TAB TAKE ONE TABLET BY MOUTH EVERY MORNING 30 MINUTES BEFORE BREAKFAST Medication prescribed by Non-VA provider. Non-VA LISINOPRIL 10MG TAB TAKE ONE TABLET BY MOUTH ONCE DAILY Medication prescribed by Non-VA provider. SUPPLIES PHARMACY TERMS AND POSSIBLE PATIENT ACTIONS INPT = CT inpatient order IV = CT intravenous medication OUTPT = CT outpatient prescription PHARMACY POSSIBLE PATIENT TERMS EXPLANATION ACTIONS -------- - ACTIVE A prescription that can be If you have refills, filled at the local [place] pharmacy. you may request a refill of this prescription from your [place] pharmacy. CLINIC A medication you received during If you have questions a visit to a [place] clinic or about this medication emergency department. contact your [place] healthcare team. DISCONTINUED A prescription your provider has Contact your VA stopped. It is no longer healthcare team if you available to be sent to you or need more of this picked up at the [place] pharmacy medication. window. A prescription which is too old Contact your VA to fill. This does not refer to healthcare team if you the expiration date of the need more of this medication in the container. medication. NON-VA A medication that came from If this medication someplace other than a VA information is pharmacy. This may be a incorrect or out of prescription from either the VA date, please tell your or non VA providers that was VA healthcare team. filled outside the VA. Or, it may be an lvya-afa-aqtaoel (OTC), herbal, dietary supplements or sample medication. ON HOLD An active prescription that will Contact your VA not be filled until pharmacy pharmacy when you need resolves the issue. more of this medication. PARKED An active prescription that will Contact your VA not be filled until the patient pharmacy when you need requests it. this medication. PENDING This prescription order has been If you have been sent to the pharmacy for review instructed to start and is not ready yet. this medication now, contact your VA pharmacy. SUSPENDED An active prescription that is Contact your VA not scheduled to be filled yet. pharmacy if you need You should receive it before this medication now. you run out. ==== (x) Printed Medication Reconciliation List Offered and Declined by [facility] () Medication Reconciliation List Printed for at Exam () Optometry HT Please Print and Mail Copy of Medication Reconciliation List () AMSA Please Print and Mail Copy of Medication Reconciliation List /es/ ADLEINA RUANO OPTOMETRY STUDENT Signed: 01/03/2024 16:09 /olivia/ FRAN STEPHEN OD AGATE SETTER Cosigned: 01/03/2024 16:12 01/03/2024 ADDENDUM STATUS: COMPLETED The optometry nutrition intern participated in this exam, I saw this in conjunction with the optometry student. The entrance tests and refraction were performed by the student and reviewed by me. I personally met with the patient, confirmed the hisory, complaints and the student's findings, and performed slit lamp and fundus evaluation as indicated. I reviewed and agree with the stated findings, assessment and plan. I have added/edited the documentation to reflect my exam findings and changes to the assessment and plan. Ed re today's findings. [facility] repeated back the plan and education. All reminders completed by attending and documented in student note. /olivia/ FRAN STEPHEN OD AGATE SETTER Signed: 01/03/2024 16:[address] [facility]
--- OUTSIDE RECORDS SUMMARY | 2024-02-26 18:59 | XMS_ITS | Encounter Summary ---
Author Name [facility] [place] [facility] [place] [facility] [place] Address [address] [place] [address] Care Team Providers Care Kitchen Supervisor Name Role Phone NOELLE SHANNON Primary Care Provider Unavailabl e Selected Encounter This section includes the information on record at [place] for the Encounter. Date/Time Encounter Type Encounter Description Reason Pro vider Source Apr 09, 2023 12:00 AM Outpatient Encounter EVENT (HISTORICAL) IHE Encounter Template Text not used by [place] Plan of Treatment: Future Appointments (+ 6 months) and Future Tests (+/- 45 days) The Plan of Treatment section includes future care activities for the patient from all [place] treatmentfacilities. This section includes future appointments and future orders which are active, pending or scheduled. Future Appointments This section includes appointments that were scheduled to occur 6 months from the date of the Encounter, up to a maximum of 20 appointments. The data comes from all [place] treatment facilities. Appointment Date/Time Appointment Type Appointme nt Facility Name May 29, 2023 01:00 PM [place] [place]ICINE [place] [facility] Jun 05, 2023 10:00 AM [place]IC[place] [facility] Encounter Notes: All associated encounter notes This section contains the clinical notes associated to the Encounter. Date/Time Encounter Note(s) Provider Source Apr 09, 2023 12:00 AM NONVA NOTE: LOCAL TITLE: NON-VA OUTPATIENT NOTES STANDARD TITLE: NONVA NOTE DATE OF NOTE: APR 09, 2023 ENTRY DATE: JUN 12, 2023@10:56 AUTHOR: NANI GONZALEZ EXP COSIGNER: URGENCY: STATUS: COMPLETED VistA Imaging - Scanned Document SCANNED DOCUMENT SIGNATURE NOT REQUIRED Electronically Filed: 06/12/2023 by: NANI SAUCEDO [facility]
--- OUTSIDE RECORDS SUMMARY | 2024-02-26 18:59 | XMS_ITS | Continuity of Care Document ---
Author Name [facility] Organization [facility] Care Team Providers Care Communication Specialist Name Role Phone [facility] Unavailable Unavailable Problems Combined list of problems from Department of Defense and Veterans [facility] facilities. It does not include entries that were removed or entered in error. Problem Status Onset Date Problem Type Date of Resolution Comments Source Exposure to potentially hazardous substance Active Condition Jun 05, 2023 Entered By: NOVA SHANNON Comment: +burn pits [facility] Hypercholesterolemia Active Condition [facility] Hypertension Active Condition [facility] Hypothyroidism Active Condition [facility] Diagnosis: ICD-10-CM Z46.0 Encounter for fit/adjst of spectacles and contact lenses Active Diagnosis [facility] Diagnosis: ICD-10-CM H10.45 Other chronic allergic conjunctivitis Active Diagnosis [facility] Diagnosis: ICD-10-CM Z77.29 Contact with and exposure to other hazardous substances Active Diagnosis [facility] Diagnosis: ICD-10-CM Z71.9 Counseling, unspecified Active Diagnosis [facility] Medications Combined list of outpatient medications from Department of 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Medications provided include 1) outpatient medications from the last 15 months, and 2) patient-reported medications. Medication Details Route Status Patient Instructions Prescription Expires Prescription Number Last Dispense Date Ordering Provider Order Date Order Qty Source CARBOXYMETH YLCELLULOSE NA 0.5% SOLN,OPH INSTILL 1 DROP INTO EACH EYE FOUR TIMES A DAY OPHTHA LMIC ACTIVE 01/03/2025 [id number] BERLIN STEPHEN EY J 2023 45 [facility] KETOTIFEN 0.025% SOLN,OPH INSTILL 1 DROP INTO EACH EYE TWICE DAILY FOR ALLERGIC CONJUNCT IVITIS (IF YOU WEAR CONTACT LENSES, WAIT 10 MINUTES BEFORE INSERTIN G LENSES) OPHTHA LMIC ACTIVE 01/03/2025 [id number] STEPHEN,LAC EY J 2023 20 [facility] LEVOTHYROXI NE NA 25MCG TAB (SYNTHROID) TAKE ONE TABLET BY MOUTH EVERY MORNING 30 MINUTES BEFORE BREAKFAS T ORAL ACTIVE FURCOLO,T EMILY 2023 [facility] lisinopril 10 mg oral tablet lisinopr il 10 mg oral tablet Start Date: 05/25/21 Status: Ordered Ordered No Facilit y Access LISINOPRIL 10MG TAB TAKE ONE TABLET BY MOUTH ONCE DAILY ORAL ACTIVE FURCOLO,T EMILY 2023 [facility] lisinopril 5 mg oral tablet lisinopr il 5 mg oral tablet Start Date: 05/05/21 Status: Ordered Ordered No Facilit y Access polyethylen e glycol 3350 with electrolyte s oral powder for reconstitut ion polyethy aditya glycol 3350 with electrol ytes oral powder for reconsti tution Start Date: 06/03/21 Status: Ordered Ordered No Facilit y Access Allergies, Adverse Reactions, Alerts Combined list of allergies from Department of 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 It does not include entries that were removed or entered in error. Substance Category Reaction Severity Reaction type Status Date Reported Comments Source No Known Allergies Drug allergy (disorder) active 01/29/2018 [facility] Immunizations Combined list of available immunizations from the Department of 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 Immunization Series Date Given Administered By Site Reaction Lot Number CVX Code Drug Pants Maker Status Comments Source INFLUENZA, UNSPECIFIED FORMULATION 2022 88 complet ed [facility] ZOSTER RECOMBINANT 2 2022 187 complet ed [facility] ZOSTER RECOMBINANT 1 2022 187 complet ed [facility] TDAP 2022 115 complet ed [facility] Influenza, injectable, quadrivalent, preservative free 0 2021 [id number] 150 SmithKline (SKB) complet ed Influenza , injectabl e, quadrival ent, preservat abdulkadir free DoD COVID Vaccine Pfizer 2020 208 PFIZER complet ed COVID Vaccine Pfizer 02/10/21 Given Ambulat ory Pharmac y COVID-19, mRNA, LNP-S, PF, 30 mcg/0.3 mL dose 2020 TAMMY Palumbo, [employer] [place] (PFR) Not Given COVID-19, mRNA, LNP-S, PF, 30 mcg/0.3 mL dose DoD SARS-COV-2 (COVID-19) vaccine, mRNA, spike protein, LNP, preservative free, 30 mcg/0.3mL dose 0 2020 208 [employer] Inc (PFR) complet ed SARS-COV- 2 (COVID-19 ) vaccine, mRNA, spike protein, LNP, preservat abdulkadir free, 30 mcg/0.3mL dose DoD COVID-19 (PFIZER), MRNA, LNP-S, PF, 30 MCG/0.3 ML DOSE 2020 208 complet ed TOZINAMER AN .225mg/2. 25mL INTRAMUSC ULAR INJECTION , SUSPENSIO N (Pfizer-B ioNTech Covid-19 Vaccine) [facility] influenza, injectable, quadrivalent 2020 [id number] 158 GlaxoSmithKli sc complet ed influenza , injectabl e, quadrival ent 12/31/20 Given Ambulat ory Pharmac y influenza, injectable, quadrivalent, contains preservative 11 2020 [id number] 158 [facility] ([facility]) complet ed influenza , injectabl e, quadrival ent, contains preservat abdulkadir DoD COVID Vaccine Pfizer 2020 [id number] 208 PFIZER complet ed COVID Vaccine Pfizer 06/14/20 Given Ambulat ory Pharmac y SARS-COV-2 (COVID-19) vaccine, mRNA, spike protein, LNP, preservative free, 30 mcg/0.3mL dose 2 2020 [id number] 208 [employer] (PFR) complet ed SARS-COV- 2 (COVID-19 ) vaccine, mRNA, spike protein, LNP, preservat abdulkadir free, 30 mcg/0.3mL dose DoD COVID-19 (PFIZER), MRNA, LNP-S, PF, 30 MCG/0.3 ML DOSE 2 2020 208 complet ed SARS-COV- 2 (COVID-19 ) vaccine, mRNA, spike protein, LNP, preservat abdulkadir free, 30 mcg/0.3mL dose Lot#: [id number] Mfr: [employer], [facility] COVID Vaccine Pfizer 2020 [id number] 208 PFIZER complet ed COVID Vaccine Pfizer 05/24/20 Given Ambulat ory Pharmac y SARS-COV-2 (COVID-19) vaccine, mRNA, spike protein, LNP, preservative free, 30 mcg/0.3mL dose 1 2020 [id number] 208 [employer], [facility] (PFR) complet ed SARS-COV- 2 (COVID-19 ) vaccine, mRNA, spike protein, LNP, preservat abdulkadir free, 30 mcg/0.3mL dose DoD COVID-19 (PFIZER), MRNA, LNP-S, PF, 30 MCG/0.3 ML DOSE 1 2020 208 complet ed SARS-COV- 2 (COVID-19 ) vaccine, mRNA, spike protein, LNP, preservat abdulkadir free, 30 mcg/0.3mL dose Lot#: [id number] Mfr: [employer], [facility] influenza, injectable, quadrivalent- pf 2019 TRANSCR IBED 150 complet ed influenza , injectabl e, quadrival ent-pf 01/06/20 Given Ambulat ory Pharmac y Influenza, injectable, quadrivalent, preservative free 1 2019 150 Transcribed (TRS) complet ed Influenza , injectabl e, quadrival ent, preservat abdulkadir free DoD influenza, injectable, quadrivalent- pf 2018 [id number] 150 Seqirus complet ed influenza , injectabl e, quadrival ent-pf 12/19/18 Given Ambulat ory Pharmac y Influenza, injectable, quadrivalent, preservative free 22 2018 [id number] 150 Seqirus (SEQ) complet ed Influenza , injectabl e, quadrival ent, preservat abdulkadir free DoD rabies vaccine, purified chick embryo 2017 [id number] 176 GlaxoSmithKli ne complet ed rabies vaccine, purified chick embryo 03/03/18 Given Ambulat ory Pharmac y rabies vaccine, IM 2017 zzLef t Arm [id number] 175 Novartis Pharmaceutica ls complet ed rabies vaccine, IM 03/03/18 Given Ambulat ory Pharmac y rabies vaccine, for intramuscular injection RETIRED CODE 1 2017 IZABEL THOMPSON [id number] 18 Novartis Pharmaceutica l Kathrine. (NOV) complet ed rabies vaccine, for intramusc ular injection RETIRED CODE DoD Human rabies vaccine from Chicken fibroblast culture 4 2017 [id number] 176 SmithKline (SKB) complet ed Human rabies vaccine from Chicken fibroblas t culture DoD RABIES, UNSPECIFIED FORMULATION 2017 90 complet ed rabies vaccine, purified chick embryo Lot#: [id number] Mfr: [facility]OSMIT [facility] rabies vaccine, purified chick embryo 2017 [id number] 176 GlaxoSmithKli ne complet ed rabies vaccine, purified chick embryo 02/10/18 Given Ambulat ory Pharmac y rabies vaccine, IM 2017 zzLef t Arm [id number] 175 GlaxoSmithKli ne complet ed rabies vaccine, IM 02/10/18 Given Ambulat ory Pharmac y rabies vaccine, for intramuscular injection RETIRED CODE 2 2017 IZABEL THOMPSON [id number] 18 SmithKline (SKB) complet ed rabies vaccine, for intramusc ular injection RETIRED CODE DoD Human rabies vaccine from Chicken fibroblast culture 2 2017 [id number] 176 SmithKline (SKB) complet ed Human rabies vaccine from Chicken fibroblas t culture DoD RABIES, UNSPECIFIED FORMULATION 1 2017 90 complet ed rabies vaccine, purified chick embryo Lot#: [id number] Mfr: GLAXOSMIT HKLINE [facility] rabies vaccine, IM 2017 zzLef t Arm [id number] 175 GlaxoSmithKli ne complet ed rabies vaccine, IM 01/30/18 Given Ambulat ory Pharmac y rabies vaccine, for intramuscular injection RETIRED CODE 1 2017 VIKTORIA CALERO [id number] 18 SmithKline (SKB) complet ed rabies vaccine, for intramusc ular injection RETIRED CODE DoD RABIES, INTRAMUSCULAR INJECTION 2017 LEFT DELTO ID 18 complet ed rabies vaccine, IM Lot#: [id number] Mfr: GLAXOSMIT HKLINE [facility] meningococcal A,C,Y,W-135 (MCV4P) 2017 zzRig ht Arm [id number] 114 sanofi pasteur complet ed meningoco ccal A,C,Y,W-1 35 (MCV4P) 01/29/18 Given Ambulat ory Pharmac y varicella virus vaccine 1 2017 EXEMPT 21 Transcribed (TRS) Not Given varicella virus vaccine DoD meningococcal polysaccharid e (groups A, C, Y and W-135) diphtheria toxoid conjugate vaccine (MCV4P) 1 2017 VIKTORIA CALERO [id number] 114 Sanofi Pasteur (PMC) complet ed meningoco ccal polysacch aride (groups A, C, Y and W-135) diphtheri a toxoid conjugate vaccine (MCV4P) [facility] MENINGOCOCCAL MPSV4 2017 RIGHT DELTO ID 32 complet ed meningoco ccal polysacch aride (groups A, C, Y and W-135) diphtheri a toxoid conjugate vaccine (MCV4P) Lot#: [id number] Mfr: SANOFI PASTEUR [facility] influenza, injectable, quadrivalent 2017 [id number] 158 Seqirus complet ed influenza , injectabl e, quadrival ent 12/24/17 Given Ambulat ory Pharmac y influenza, injectable, quadrivalent, contains preservative 21 2017 [id number] 158 Seqirus (SEQ) comple t ed influenza , injectabl e, quadrival ent, contains preservat abdulkadir DoD typhoid Vi capsular polysaccharid e vac 2017 [id number] 101 sanofi pasteur complet ed typhoid Vi capsular polysacch aride vac 11/21/17 Given Ambulat ory Pharmac y typhoid Vi capsular polysaccharid e vaccine 4 2017 [id number] 101 Sanofi Pasteur (PMC) complet ed typhoid Vi capsular polysacch aride vaccine DoD TYPHOID, VICPS 2017 101 complet ed typhoid Vi capsular polysacch aride vaccine Lot#: [id number] Mfr: SANOFI PASTEUR [facility] Influenza, inj, MDCK, quadrivalent- pf [id number] 171 Seqirus complet ed Influenza , inj, MDCK, quadrival ent-pf 01/18/17 Given Ambulat ory Pharmac y Influenza, injectable, Madin [place] Canine Kidney, preservative free, quadrivalent 20 [id number] 171 Seqirus (SEQ) comple t ed Influenza , injectabl e, Madin Amisha Canine Kidney, preservat abdulkadir free, quadrival ent DoD influenza, seasonal, injectable-pf 2015 [id number] 140 Seqirus complet ed influenza , seasonal, injectabl e-pf 12/31/15 Given Ambulat ory Pharmac y Influenza, seasonal, injectable, preservative free 1 2015 [id number] 140 Seqirus (SEQ) comple t ed Influenza , seasonal, injectabl e, preservat abdulkadir free DoD influenza, seasonal, injectable-pf 2014 [id number] 140 CSL Behring complet ed influenza , seasonal, injectabl e-pf 12/19/14 Given Ambulat ory Pharmac y Influenza, seasonal, injectable, preservative free 18 2014 [id number] 140 CSL [employer] Inc. (CSL) complet ed Influenza , seasonal, injectabl e, preservat abdulkadir free DoD influenza, live, intranasal,qu adrivalent 2013 [id number] 149 Medimmune Inc comple t ed influenza , live, intranasa l,quadriv alent 12/20/13 Given Ambulat ory Pharmac y influenza, live, intranasal, quadrivalent 17 2013 [id number] 149 Med[employer] World[employer] Inc. (MED) complet ed influenza , live, intranasa l, quadrival ent DoD influenza, seasonal, injectable 2012 [id number] 141 CSL Behring complet ed influenza , seasonal, injectabl e 01/17/13 Given Ambulat ory Pharmac y Influenza, seasonal, injectable 1 2012 [id number] 141 [employer] (CSL) complet ed Influenza , seasonal, injectabl e DoD influenza, seasonal, injectable 2011 [id number] 1A 141 CSL Behring complet ed influenza , seasonal, injectabl e 12/29/11 Given Ambulat ory Pharmac y tetanus, diphtheria, acellular pertu is 2011 [id number] 115 sanofi pasteur complet ed tetanus, diphtheri a, acellular pertussis 12/29/11 Given Ambulat ory Pharmac y tetanus toxoid, reduced diphtheria toxoid, and acellular pertu is vaccine, adsorbed 0 2011 [id number] 115 Sanofi Pasteur ([facility]) complet ed tetanus toxoid, reduced diphtheri a toxoid, and acellular pertussis vaccine, adsorbed DoD Influenza, seasonal, injectable 15 2011 [id number] 141 [facility] [employer] (CS) complet ed Influenza , seasonal, injectabl e DoD TDAP 2011 115 complet ed tetanus, diphtheri a, acellular pertussis Lot#: [id number] Mfr: SANOFI PASTEUR [facility] influenza, seasonal, injectable 2010 [id number] 141 sanofi pasteur complet ed influenza , seasonal, injectabl e 01/20/11 Given Ambulat ory Pharmac y Influenza, seasonal, injectable 0 2010 [id number] 141 Sanofi Pasteur ([facility]) complet ed Influenza , seasonal, injectabl e DoD influenza virus vaccine,split 2009 [id number] 15 sanofi pasteur complet ed influenza virus vaccine,s plit 02/19/10 Given Ambulat ory Pharmac y influenza virus vaccine, split virus (incl. purified surface antigen)-reti red CODE 1 2009 [id number] 15 Sanofi Pasteur ([facility]) complet ed influenza virus vaccine, split virus (incl. purified surface antigen)- retired CODE DoD Novel influenza-H1N 1-09, injectable 2009 [id number] 127 Novartis Pharmaceutica complet ed Novel influenza -E5X1-57, injectabl e 04/23/09 Given Ambulat ory Pharmac y Novel influenza-H1N 1-09, injectable 1 2009 [id number] 127 Novartis Pharmaceutica l Kathrine. (NOV) complet ed Novel influenza -S4A3-34, injectabl e DoD influenza virus vaccine, live 2008 [id number] 111 X[employer] Inc comple t ed influenza virus vaccine, live 12/18/08 Given Ambulat ory Pharmac y influenza virus vaccine, live, attenuated, for intranasal use 1 2008 [id number] 111 [employer] Inc. (MED) complet ed influenza virus vaccine, live, attenuate d, for intranasa l use DoD influenza virus vaccine, live 2007 [id number] 111 [employer] Inc comple t ed influenza virus vaccine, live 12/21/07 Given Ambulat ory Pharmac y influenza virus vaccine, live, attenuated, for intranasal use 1 2007 [id number] 111 [employer] Inc. (MED) complet ed influenza virus vaccine, live, attenuate d, for intranasa l use DoD influenza virus vaccine, live 2006 [id number] 111 [employer] Inc comple t ed influenza virus vaccine, live 02/15/07 Given Ambulat ory Pharmac y influenza virus vaccine, live, attenuated, for intranasal use 1 2006 [id number] 111 [employer] Inc. (MED) complet ed influenza virus vaccine, live, attenuate d, for intranasa l use DoD varicella virus vaccine 2005 21 complet ed varicella virus vaccine 02/03/06 Given Ambulat ory Pharmac y influenza virus vaccine,split 2005 [id number] 15 sanofi pasteur complet ed influenza virus vaccine,s plit 02/03/06 Given Ambulat ory Pharmac y influenza virus vaccine, split virus (incl. purified surface antigen)-reti red CODE 1 2005 [id number] 15 Sanofi Pasteur ([facility]) complet ed influenza virus vaccine, split virus (incl. purified surface antigen)- retired CODE DoD varicella virus vaccine 0 2005 21 () complet ed varicella virus vaccine DoD VARICELLA 2005 21 complet ed varicella virus vaccine [facility] influenza virus vaccine,split 2004 [id number] 15 sanofi pasteur complet ed influenza virus vaccine,s plit 02/16/05 Given Ambulat ory Pharmac y influenza virus vaccine, split virus (incl. purified surface antigen)-reti red CODE 1 2004 [id number] 15 Sanofi Pasteur (PMC) complet ed influenza virus vaccine, split virus (incl. purified surface antigen)- retired CODE DoD typhoid Vi capsular polysaccharid e vac 2003 [id number] 101 sanofi pasteur complet ed typhoid Vi capsular polysacch aride vac 08/28/03 Given Ambulat ory Pharmac y typhoid Vi capsular polysaccharid e vaccine 0 2003 [id number] 101 Sanofi Pasteur ([facility]) complet ed typhoid Vi capsular polysacch aride vaccine DoD anthrax vaccine 2003 [id number] 24 [employer] complet ed anthrax vaccine 07/17/03 Given Ambulat ory Pharmac y tetanus-dipht h toxoids (Td) adult/adol 2003 [id number] 09 sanofi pasteur complet ed tetanus-d iphth toxoids (Td) adult/ado l 07/17/03 Given Ambulat ory Pharmac y tetanus and diphtheria toxoids, adsorbed, preservative free, for adult use (2 Lf of tetanus toxoid and 2 Lf of diphtheria toxoid) 0 2003 [id number] 09 Sanofi Pasteur ([facility]) complet ed tetanus and diphtheri a toxoids, adsorbed, preservat abdulkadir free, for adult use (2 Lf of tetanus toxoid and 2 Lf of diphtheri a toxoid) DoD anthrax vaccine 6 2003 [id number] [employer] [place] ([facility]) complet ed anthrax vaccine DoD ANTHRAX, PRE-EXPOSURE PROPHYLAXIS, POST-EXPOSURE PROPHYLAXIS 2003 24 complet ed Lot#: [id number] Mfr: EMERGENT BIOSOLUTI [facility] hepatitis B adult vaccine 2002 [id number] 43 GlaxoSmithKli ne complet ed hepatitis B adult vaccine 01/16/03 Given Ambulat ory Pharmac y hepatitis B vaccine, adult dosage 3 2002 [id number] 43 SmithKline (SKB) complet ed hepatitis B vaccine, adult dosage DoD HEPB-CPG 2 [address] [facility] [place] [facility] influenza virus vaccine, whole virus 2002 [id number] 16 [employer] complet ed influenza virus vaccine, whole virus 01/13/03 Given Ambulat ory Pharmac y tuberculin purified protein derivative 2002 [id number] 96 sanofi pasteur complet ed tuberculi n purified protein derivativ e 01/13/03 Given Ambulat ory Pharmac y influenza virus vaccine, whole virus 0 2002 [id number] 16 Gael (KIRAN) complet ed influenza virus vaccine, whole virus DoD tuberculin skin test; purified protein derivative solution, intradermal 1 2002 Unknown, Provider [id number] 96 Sanofi Pasteur ([facility]) complet ed tuberculi n skin test; purified protein derivativ e solution, intraderm al DoD anthrax vaccine 2002 [id number] [employer] complet ed anthrax vaccine 11/28/02 Given Ambulat ory Pharmac y anthrax vaccine 5 2002 [id number] 24 [employer] [place] ([facility]) complet ed anthrax vaccine DoD ANTHRAX, PRE-EXPOSURE PROPHYLAXIS, POST-EXPOSURE PROPHYLAXIS 2002 24 complet ed Lot#: [id number] Mfr: EMERGENT BIOSOLUTI ONS [facility] [place] [facility] vaccinia (smallpox) vaccine 2002 75 complet ed vaccinia (smallpox ) vaccine 05/07/02 Given Ambulat ory Pharmac y vaccinia (smallpox) vaccine 0 2002 75 () complet ed vaccinia (smallpox ) vaccine DoD VACCINIA (SMALLPOX) 2002 75 complet ed vaccinia (smallpox ) vaccine [facility] [place] [facility] hepatitis B adult vaccine 2002 [id number] 43 GlaxoSmithKli ne complet ed hepatitis B adult vaccine 03/28/02 Given Ambulat ory Pharmac y hepatitis B vaccine, adult dosage 2 2002 [id number] 43 SmithCorrelixine (SKB) complet ed hepatitis B vaccine, adult dosage DoD HEP B, ADULT 2 2002 43 complet ed hepatitis B vaccine, adult dosage Lot#: [id number] [facility] HEPB-CPG 1 2002 189 complet ed [facility] anthrax vaccine 2001 [id number] 24 [employer] complet ed anthrax vaccine 03/07/02 Given Ambulat ory Pharmac y anthrax vaccine 4 2001 [id number] [employer] [place] ([facility]) complet ed anthrax vaccine DoD ANTHRAX, PRE-EXPOSURE PROPHYLAXIS, POST-EXPOSURE PROPHYLAXIS 2001 24 complet ed Lot#: [id number] Mfr: EMERGENT BIOSOLUTI ONS [facility] tuberculin purified protein derivative 2001 [id number] 96 sanofi pasteur complet ed tuberculi n purified protein derivativ e 01/16/02 Given Ambulat ory Pharmac y hepatitis B adult vaccine 2001 [id number] 43 Merck & Company Inc complet ed hepatitis B adult vaccine 01/16/02 Given Ambulat ory Pharmac y influenza virus vaccine, whole virus 2001 [id number] 16 sanofi pasteur complet ed influenza virus vaccine, whole virus 01/16/02 Given Ambulat ory Pharmac y influenza virus vaccine, whole virus 0 2001 [id number] 16 Sanofi Pasteur ([facility]) complet ed influenza virus vaccine, whole virus DoD hepatitis B vaccine, adult dosage 1 2001 [id number] 43 Merck (MSD) complet ed hepatitis B vaccine, adult dosage DoD tuberculin skin test; purified protein derivative solution, intradermal 1 2001 Unknown, Provider [id number] Sanofi Pasteur ([facility]) complet ed tuberculi n skin test; purified protein derivativ e solution, intraderm al DoD HEP B, ADULT 1 2001 43 complet ed hepatitis B vaccine, adult dosage Lot#: [id number] Mfr: [employer] [facility] measles/mumps /rubella virus vaccine 2001 [id number] 03 Merck & Company Inc complet ed measles/m umps/rube lla virus vaccine 12/25/01 Given Ambulat ory Pharmac y measles, mumps and rubella virus vaccine 0 2001 [id number] 03 Merck (MSD) complet ed measles, mumps and rubella virus vaccine DoD MMR 2001 03 complet ed measles/m umps/rube lla virus vaccine Lot#: [id number] [facility] anthrax vaccine 2001 24 [employer] complet ed anthrax vaccine 09/21/01 Given Ambulat ory Pharmac y anthrax vaccine 3 2001 24 [employer] [place] ([facility]) complet ed anthrax vaccine DoD ANTHRAX, PRE-EXPOSURE PROPHYLAXIS, POST-EXPOSURE PROPHYLAXIS 2001 24 complet ed [facility] influenza virus vaccine, whole virus 2000 [id number] 16 sanofi pasteur complet ed influenza virus vaccine, whole virus 01/17/01 Given Ambulat ory Pharmac y tuberculin purified protein derivative 2000 [id number] 96 sanofi pasteur complet ed tuberculi n purified protein derivativ e 01/17/01 Given Ambulat ory Pharmac y influenza virus vaccine, whole virus 0 2000 [id number] 16 Sanofi Pasteur (PMC) complet ed influenza virus vaccine, whole virus DoD tuberculin skin test; purified protein derivative solution, intradermal 1 2000 Unknown, Provider [id number] 96 Sanofi Pasteur (PMC) complet ed tuberculi n skin test; purified protein derivativ e solution, intraderm al DoD influenza virus vaccine, whole virus 2000 [id number] 16 [facility] [facility] complet ed influenza virus vaccine, whole virus 03/23/00 Given Ambulat ory Pharmac y influenza virus vaccine, whole virus 0 2000 [id number] 16 [facility] ([facility]) complet ed influenza virus vaccine, whole virus DoD tuberculin purified protein derivative 1999 [id number] 96 [employer] complet ed tuberculi n purified protein derivativ e 11/22/99 Given Ambulat ory Pharmac y tuberculin skin test; purified protein derivative solution, intradermal 1 1999 Unknown, Provider [id number] [facility] ([facility]) complet ed tuberculi n skin test; purified protein derivativ e solution, intraderm al DoD anthrax vaccine 1999 [id number] [employer] complet ed anthrax vaccine 09/08/99 Given Ambulat ory Pharmac y anthrax vaccine 2 1999 [id number] [employer] [place] ([facility]) complet ed anthrax vaccine DoD ANTHRAX, PRE-EXPOSURE PROPHYLAXIS, POST-EXPOSURE PROPHYLAXIS 1999 24 complet ed Lot#: [id number] Mfr: EMERGENT BIOSOLUTI [facility] [place] [facility] tuberculin purified protein derivative 1999 [id number] 96 [employer] complet ed tuberculi n purified protein derivativ e 08/24/99 Given Ambulat ory Pharmac y anthrax vaccine 1999 [id number] [employer] complet ed anthrax vaccine 08/24/99 Given Ambulat ory Pharmac y anthrax vaccine 1 1999 [id number] [employer] [facility] ([facility]) complet ed anthrax vaccine DoD tuberculin skin test; purified protein derivative solution, intradermal 1 1999 Unknown, Provider [id number] [facility] (CON) complet ed tuberculi n skin test; purified protein derivativ e solution, intraderm al DoD ANTHRAX, PRE-EXPOSURE PROPHYLAXIS, POST-EXPOSURE PROPHYLAXIS 1999 24 complet ed Lot#: [id number] Mfr: EMERGENT BIOSOL[employer]I [facility] hepatitis A adult vaccine 1998 [id number] [employer] complet ed hepatitis A adult vaccine 02/18/99 Given Ambulat ory Pharmac y hepatitis A vaccine, adult dosage 2 1998 [id number] Merck (MSD) complet ed hepatitis A vaccine, adult dosage DoD HEP A, ADULT 2 1998 52 complet ed hepatitis A vaccine, adult dosage Lot#: [id number] Mfr: [employer] [facility] influenza virus vaccine, whole virus [id number] [employer] complet ed influenza virus vaccine, whole virus 01/21/99 Given Ambulat ory Pharmac y influenza virus vaccine, whole virus 0 [id number] [facility] ([facility]) complet ed influenza virus vaccine, whole virus DoD tuberculin purified protein derivative 1998 [id number] sanofi pasteur complet ed tuberculi n purified protein derivativ e 09/24/98 Given Ambulat ory Pharmac y measles/mumps /rubella virus vaccine [id number] [facility] complet ed measles/m umps/rube lla virus vaccine 07/26/98 Given Ambulat ory Pharmac y meningococcal polysaccharid e (MPSV4) [id number] sanofi pasteur complet ed meningoco ccal polysacch aride (MPSV4) 07/26/98 Given Ambulat ory Pharmac y tuberculin purified protein derivative 1998 [id number] [facility] complet ed tuberculi n purified protein derivativ e 07/26/98 Given Ambulat ory Pharmac y hepatitis A adult vaccine 1998 [id number] [employer]ck [employer] Company Inc complet ed hepatitis A adult vaccine 07/26/98 Given Ambulat ory Pharmac y measles, mumps and rubella virus vaccine 0 [id number] 03 [employer] (CON) complet ed measles, mumps and rubella virus vaccine DoD meningococcal polysaccharid e vaccine (MPSV4) 0 19981680 [id number] 32 Sanofi Pasteur (PMC) complet ed meningoco ccal polysacch aride vaccine (MPSV4) DoD hepatitis A vaccine, adult dosage 1 1998 [id number] 52 Merck (MSD) complet ed hepatitis A vaccine, adult dosage DoD MENINGOCOCCAL MPSV4 1998 32 complet ed meningoco ccal polysacch aride vaccine (MPSV4) Lot#: [id number] Mfr: SANOFI PASTEUR [facility] MMR 1998 03 complet ed measles/m umps/rube lla virus vaccine Lot#: [id number] [facility] typhoid vaccine, live, oral 1998 [id number]. 1B 25 [employer] [place] complet ed typhoid vaccine, live, oral 07/19/98 Given Ambulat ory Pharmac y typhoid vaccine, live, oral 0 1998 [id number]. 1B 25 [employer] (SI) complet ed typhoid vaccine, live, oral DoD HEP A, ADULT 1 1998 52 complet ed hepatitis A vaccine, adult dosage Lot#: [id number] [facility] influenza virus vaccine, whole virus [id number] 16 sanofi pasteur complet ed influenza virus vaccine, whole virus 12/02/97 Given Ambulat ory Pharmac y influenza virus vaccine, whole virus 0 19974449 [id number] 16 Sanofi Pasteur ([facility]) complet ed influenza virus vaccine, whole virus DoD yellow fever vaccine 1997 37 complet ed yellow fever vaccine 03/18/97 Given Ambulat ory Pharmac y yellow fever vaccine 0 1997 37 () complet ed yellow fever vaccine DoD YELLOW FEVER 1997 37 complet ed yellow fever vaccine [facility] influenza virus vaccine, whole virus 1996 16 complet ed influenza virus vaccine, whole virus 01/16/97 Given Ambulat ory Pharmac y influenza virus vaccine, whole virus 0 1996 16 () complet ed influenza virus vaccine, whole virus DoD typhoid, parenteral, AKD 1995 53 complet ed typhoid, parentera l, AKD 06/17/95 Given Ambulat ory Pharmac y typhoid vaccine, parenteral, acetone-kille d, dried ([place] ) 2 1995 53 () complet ed typhoid vaccine, parentera l, acetone-k illed, dried ([place] ) DoD tetanus-dipht h toxoids (Td) adult/adol 1993 09 complet ed tetanus-d iphth toxoids (Td) adult/ado l 06/16/93 Given Ambulat ory Pharmac y tetanus and diphtheria toxoids, adsorbed, preservative free, for adult use (2 Lf of tetanus toxoid and 2 Lf of diphtheria toxoid) 0 1993 09 () complet ed tetanus and diphtheri a toxoids, adsorbed, preservat abdulkadir free, for adult use (2 Lf of tetanus toxoid and 2 Lf of diphtheri a toxoid) DoD poliovirus vaccine, live, oral 1986 02 complet ed polioviru s vaccine, live, oral 03/18/86 Given Ambulat ory Pharmac y trivalent poliovirus vaccine, live, oral 0 1986 02 () complet ed trivalent polioviru s vaccine, live, oral [facility] POLIO, UNSPECIFIED FORMULATION 1986 89 complet ed rivalent polioviru s vaccine, live, oral [facility] Results Combined list of recent chemistry, hematology and other laboratory results from Department of 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 Order Name Results Value Reference Range Date Interpretation Specimen Comments Source BASIC METABOLI C PANEL (fasting ) UREA NITROGEN [MASS/VOLU ME] IN SERUM OR PLASMA 20 mg/dL 7 - 25 05/29 Specimen Type: SERUM No comment entered. Ordering Provider: BOBBY SHANNON Report Released Date/Time: May 29, 2023 01:58 PM Reporting Lab: [facility] [place] [facility] [address] [facility] [address] Performing Lab: [facility] [place] [facility] [address] [facility] [facility] [address] [facility] BASIC METABOLI C PANEL (fasting ) GLUCOSE [MASS/VOLU ME] IN SERUM OR PLASMA 96 mg/dL 65 - 100 05/29 Specimen Type: SERUM No comment entered. Ordering Provider: BOBBY SHANNON Report Released Date/Time: May 29, 2023 01:58 PM Reporting Lab: [facility] [place] [facility] [address] [facility] [address] Performing Lab: [facility] [address] [address] [facility] BASIC METABOLI C PANEL (fasting ) SODIUM [MOLES/VOL UME] IN SERUM OR PLASMA 138 mmol/L 135 - 145 05/29 Specimen Type: SERUM No comment entered. Ordering Provider: BOBBY SHANNON Report Released Date/Time: May 29, 2023 01:58 PM Reporting Lab: [facility] [place] [address] [address] Performing Lab: [facility] [address] [facility] [address] [facility] BASIC METABOLI C PANEL (fasting ) POTASSIUM [MOLES/VOL UME] IN SERUM OR PLASMA 4.4 mmol/L 3.5 - 5.0 05/29 Specimen Type: SERUM No comment entered. Ordering Provider: BOBBY SHANNON Report Released Date/Time: May 29, 2023 01:58 PM Reporting Lab: [facility] [place] [facility] [address] [facility] [address] Performing Lab: [facility] [place] [address] [address] [facility] BASIC METABOLI C PANEL (fasting ) CHLORIDE [MOLES/VOL UME] IN SERUM OR PLASMA 104 mmol/L 100 - 110 05/29 Specimen Type: SERUM No comment entered. Ordering Provider: BOBBY SHANNON Report Released Date/Time: May 29, 2023 01:58 PM Reporting Lab: [facility] [place] [address] [address] Performing Lab: [facility] [address] [address] [facility] BASIC METABOLI C PANEL (fasting ) CARBON DIOXIDE, TOTAL [MOLES/VOL UME] IN SERUM OR PLASMA 24 meq/L 20 - 30 05/29 Specimen Type: SERUM No comment entered. Ordering Provider: BOBBY SHANNON Report Released Date/Time: May 29, 2023 01:58 PM Reporting Lab: [facility] [address] Performing Lab: [facility] TRN [address] [address] [facility] BASIC METABOLI C PANEL (fasting ) CREATININE [MASS/VOLU ME] IN SERUM OR PLASMA 0.97 mg/dL 0.50 - 1.40 05/29 Specimen Type: SERUM No comment entered. Ordering Provider: BOBBY SHANNON Report Released Date/Time: May 29, 2023 01:58 PM Reporting Lab: [facility] [address] [address] Performing Lab: [facility] [address] [address] [facility] BASIC METABOLI C PANEL (fasting ) GLOMERULAR FILTRATION RATE/1.73 SQ M.PREDICTE D [VOLUME RATE/AREA] IN SERUM, PLASMA OR BLOOD BY CREATININE -BASED FORMULA (CKD-EPI 2020) 90 mL/min 60 05/29 Specimen Type: SERUM No comment entered. Ordering Provider: BOBBY SHANNON Report Released Date/Time: May 29, 2023 01:58 PM Reporting Lab: [facility] [address] Performing Lab: [facility] [place] [facility] [address] [facility] [address] [facility] [place] [facility] CBC LEUKOCYTES [#/VOLUME] IN BLOOD BY AUTOMATED COUNT 4.33 10*3/uL 4.50 - 11.00 05/29 L Specimen Type: BLOOD No comment entered. Ordering Provider: BOBBY SHANNON Report Released Date/Time: May 29, 2023 01:58 PM Reporting Lab: [facility] [place] [facility] [address] [facility] [address] Performing Lab: [facility] [place] [facility] [address] [facility] [address] [facility] [place] [facility] CBC ERYTHROCYT ES [#/VOLUME] IN BLOOD BY AUTOMATED COUNT 5.06 10*6/uL 4.23 - 5.66 05/29 Specimen Type: BLOOD No comment entered. Ordering Provider: BOBBY SHANNON Report Released Date/Time: May 29, 2023 01:58 PM Reporting Lab: [facility] [place] [address] [address] Performing Lab: [facility] [place] [address] [address] [facility] [place] [facility] CBC HEMOGLOBIN [MASS/VOLU ME] IN BLOOD 14.6 g/dL 12.8 - 17 05/29 Specimen Type: BLOOD No comment entered. Ordering Provider: BOBBY SHANNON Report Released Date/Time: May 29, 2023 01:58 PM Reporting Lab: [facility] [place] [address] [address] Performing Lab: [facility] [place] [address] [address] [facility] [place] [facility] CBC HEMATOCRIT [VOLUME FRACTION] OF BLOOD BY AUTOMATED COUNT 42.6 39.2 - 50.4 05/29 Specimen Type: BLOOD No comment entered. Ordering Provider: BOBBY SHANNON Report Released Date/Time: May 29, 2023 01:58 PM Reporting Lab: [facility] [place] [address] [address] Performing Lab: [facility] [place] [facility] [address] [facility] [address] [facility] [place] [facility] CBC MCV [ENTITIC VOLUME] BY AUTOMATED COUNT 84.2 fL 82 - 99 05/29 Specimen Type: BLOOD No comment entered. Ordering Provider: BOBBY SHANNON Report Released Date/Time: May 29, 2023 01:58 PM Reporting Lab: [facility] [place] [facility] [address] [facility] [address] Performing Lab: [facility] [place] [facility] [address] [facility] [address] [facility] [place] [facility] CBC MCHC [MASS/VOLU ME] BY AUTOMATED COUNT 34.3 g/dL 30.8 - 35.1 05/29 Specimen Type: BLOOD No comment entered. Ordering Provider: BOBBY SHANNON Report Released Date/Time: May 29, 2023 01:58 PM Reporting Lab: [facility] [place] [facility] [address] [facility] [address] Performing Lab: [facility] [place] [address] [address] [facility] [place] [facility] CBC PLATELETS [#/VOLUME] IN BLOOD BY AUTOMATED COUNT 238 10*3/uL 140 - 360 05/29 Specimen Type: BLOOD No comment entered. Ordering Provider: BOBBY SHANNON Report Released Date/Time: May 29, 2023 01:58 PM Reporting Lab: [facility] [place] [facility] [address] [facility] [address] Performing Lab: [facility] [place] [address] [address] [facility] [place] [facility] CBC ERYTHROCYT E DISTRIBUTI ON WIDTH [RATIO] BY AUTOMATED COUNT 12.3 12.0 - 16.0 05/29 Specimen Type: BLOOD No comment entered. Ordering Provider: BOBBY SHANNON Report Released Date/Time: May 29, 2023 01:58 PM Reporting Lab: [facility] [place] [address] [address] Performing Lab: [facility] [address] [facility] [address] [facility] CBC MCH [ENTITIC MASS] BY AUTOMATED COUNT 28.9 pg 26.2 - 32.6 05/29 Specimen Type: BLOOD No comment entered. Ordering Provider: BOBBY SHANNON Report Released Date/Time: May 29, 2023 01:58 PM Reporting Lab: [facility] [address] [facility] [address] Performing Lab: [address] [address] [facility] HEPATITI S B SURFACE ANTIBODY (HBsAb)- WH HEPATITIS B VIRUS SURFACE AB [PRESENCE] IN SERUM BY IMMUNOASSA Y Non Reactive 05/29 Specimen Type: SERUM No comment entered. Ordering Provider: BOBBY SHANNON Report Released Date/Time: May 29, 2023 01:58 PM Reporting Lab: [facility] [address] [facility] [address] Performing Lab: [facility] [address] [facility] [address] [facility] HEPATITI S C ANTIBODY (HCV)-AR C HEPATITIS C VIRUS AB [PRESENCE] IN SERUM NON-REAC TIVE 05/29 Specimen Type: SERUM Comment: Hep C Ab: No HCV antibody detected. If recent infection is suspected or other evidence suggests HCV infection, consider HCV nucleic acid testing Ordering Provider: BOBBY SHANNON Report Released Date/Time: May 29, 2023 01:58 PM Reporting Lab: [facility] [address] [facility] [address] Performing Lab: [address] [address] [facility] LIPID PANEL FASTING CHOLESTERO L [MASS/VOLU ME] IN SERUM OR PLASMA 261 mg/dL 05/29 H Specimen Type: SERUM No comment entered. Ordering Provider: BOBBY SHANNON Report Released Date/Time: May 29, 2023 01:58 PM Reporting Lab: [facility] [place] [facility] [address] [facility] [address] Performing Lab: [facility] [place] [facility] [address] [facility] [address] [facility] [place] [facility] LIPID PANEL FASTING TRIGLYCERI DE [MASS/VOLU ME] IN SERUM OR PLASMA 103 mg/dL 0 - 150 05/29 Specimen Type: SERUM No comment entered. Ordering Provider: BOBBY SHANNON Report Released Date/Time: May 29, 2023 01:58 PM Reporting Lab: [facility] [place] [facility] [address] [facility] [address] Performing Lab: [facility] [place] [address] [address] [facility] LIPID PANEL FASTING CHOLESTERO L IN LDL [MASS/VOLU ME] IN SERUM OR PLASMA BY CALCULANOVAO N 202 mg/dL 0 - 129 05/29 H Specimen Type: SERUM No comment entered. Ordering Provider: BOBBY SHANNON Report Released Date/Time: May 29, 2023 01:58 PM Reporting Lab: [facility] [place] [address] [address] Performing Lab: [facility] [place] [address] [address] [facility] [place] [facility] LIPID PANEL FASTING CHOLESTERO L.TOTAL/CH OLESTEROL IN HDL [MASS RATIO] IN SERUM OR PLASMA 6.9 05/29 Specimen Type: SERUM No comment entered. Ordering Provider: BOBBY SHANNON Report Released Date/Time: May 29, 2023 01:58 PM Reporting Lab: [facility] [place] [facility] [address] [facility] [address] Performing Lab: [facility] [place] [facility] [address] [facility] [address] [facility] [place] [facility] LIPID PANEL FASTING CHOLESTERO L IN HDL [MASS/VOLU ME] IN SERUM OR PLASMA 38 mg/dL 40 - 60 05/29 L Specimen Type: SERUM No comment entered. Ordering Provider: BOBBY SHANNON Report Released Date/Time: May 29, 2023 01:58 PM Reporting Lab: [facility] [place] [facility] [address] [facility] [address] Performing Lab: [facility] [address] [facility] [address] [facility] LIVER FUNCTION PROTEIN [MASS/VOLU ME] IN SERUM OR PLASMA 7.1 g/dL 6.0 - 8.3 05/29 Specimen Type: SERUM No comment entered. Ordering Provider: BOBBY SHANNON Report Released Date/Time: May 29, 2023 01:58 PM Reporting Lab: [facility] [place] [facility] [address] [facility] [address] Performing Lab: [facility] [address] [address] [facility] LIVER FUNCTION ALBUMIN [MASS/VOLU ME] IN SERUM OR PLASMA 4.3 g/dL 3.5 - 5.0 05/29 Specimen Type: SERUM No comment entered. Ordering Provider: BOBBY SHANNON Report Released Date/Time: May 29, 2023 01:58 PM Reporting Lab: [facility] [place] [address] [address] Performing Lab: [facility] [place] [facility] [address] [facility] [address] [facility] LIVER FUNCTION ALKALINE PHOSPHATAS E [ENZYMATIC ACTIVITY/V OLUME] IN SERUM OR PLASMA 47 U/L 40 - 150 05/29 Specimen Type: SERUM No comment entered. Ordering Provider: BOBBY SHANNON Report Released Date/Time: May 29, 2023 01:58 PM Reporting Lab: [facility] [place] [address] [address] Performing Lab: [facility] [place] [address] [address] [facility] ASPARTATE AMINOTRANS FERASE [ENZYMATIC ACTIVITY/V OLUME] IN SERUM OR PLASMA 33 U/L 5 - 34 05/29 Specimen Type: SERUM No comment entered. Ordering Provider: BOBBY SHANNON Report Released Date/Time: May 29, 2023 01:58 PM Reporting Lab: [facility] [place] [address] [address] Performing Lab: [facility] [place] [facility] [address] [facility] [address] [facility] LIVER FUNCTION ALANINE AMINOTRANS FERASE [ENZYMATIC ACTIVITY/V OLUME] IN SERUM OR PLASMA 21 U/L 05/29 Specimen Type: SERUM No comment entered. Ordering Provider: BOBBY SHANNON Report Released Date/Time: May 29, 2023 01:58 PM Reporting Lab: [facility] [place] [address] [address] Performing Lab: [facility] [place] [place] [address] [address] [facility] L[facility]CTION BILIRUBIN. TOTAL [MASS/VOLU ME] IN SERUM OR PLASMA 0.7 mg/dL 0.2 - 1.2 05/29 Specimen Type: SERUM No comment entered. Ordering Provider: BOBBY SHANNON Report Released Date/Time: May 29, 2023 01:58 PM Reporting Lab: [facility] [place] [address] [address] Performing Lab: [facility] [place] [place] [address] [address] [facility] TSH THYROTROPI N [UNITS/VOL UME] IN SERUM OR PLASMA 2.33 u[IU]/mL 0.35 - 5.00 05/29 Specimen Type: SERUM No comment entered. Ordering Provider: BOBBY SHANNON Report Released Date/Time: May 29, 2023 01:58 PM Reporting Lab: [facility] [place] [address] [address] Performing Lab: [facility] [place] [place] [facility] [address] [facility] [address] [facility] Vital Signs Combined list of inpatient and outpatient Vital Signs from Department of Defense and Veterans Affairs, ranging from 12 months to all on record, depending upon the facility. Vital Sign Value Date Comments Source WEIGHT 186 06/05/2023 10:06:15 [facility] [place] [facility] BMI 25kg/m2 06/05/2023 10:06:15 [facility] [place] [facility] PAIN 0 06/05/2023 10:06:15 [facility] [place] [facility] HEIGHT 72 06/05/2023 10:06:15 [facility] [place] [facility] SYSTOLIC BLOOD PRESSURE 132 05/29/19 24 13:07:42 [facility] [place] [facility] DIASTOLIC BLOOD PRESSURE 85 024 13:07:42 [facility] [place] [facility] PULSE OXIMETRY 96 05/29/2023 13:07:42 [facility] WEIGHT 190 05/29/2023 13:07:42 [facility] [place] [facility] BMI 26kg/m2 05/29/2023 13:07:42 [facility] [place] [facility] PAIN 1 05/29/2023 13:07:42 [facility] [place] [facility] HEIGHT 72 05/29/2023 13:07:42 [facility] TEMPERATURE 97.1 05/29/2023 13:07:42 [facility] [place] [facility] PULSE 68 05/29/2023 13[facility]07:42 [facility] [place] [facility] RESPIRATION 20 05/29/2023 13:07:42 [facility] [place] No data available for this section Ambulatory Pharm acy Encounters Combined list of: 1) Encounters from Department of Veterans Affairs facilities going back up to thelast 18 months. 2) Encounters from the Department of Defense facilities going back up to 280 months. Location Location Details Encounter Type Encounter Number Reason For Visit Attending Provider ADM Date DC Date Status Disposition Source [employer]([facility]) OUTPATIENT [id number] Pre-op PRK STALIN SANTOS 11/04 Released w/o Limitations [facility] ptometr y [facility]) [facility] OUTPATIENT [id number] crs pre op COLGAIN, ESTER Riggins 02/01 Released w/o Limitations [facility] OUTPATIENT [id number] consent b MARAL MONTEZ 02/02 Released with Work/Duty Limitations [facility]( [facility]) OUTPATIENT [id number] prk MAARL MONTEZ 02/03 Released with Work/Duty Limitations [facility]( [facility]) OUTPATIENT [id number] 5 day po COLGAIN, ESTER Riggins 02/08 Released with Work/Duty Limitations [facility]( [facility] OUTPATIENT [id number] 1 month follow up prk KEVIN HUSSEIN T 03/01 Released w/o Limitations [facility] pt[facility]r [facility]) [facility] OUTPATIENT [id number] 2 month PRK post op KEVIN HUSSEIN T 03/29 Released w/o Limitations [facility] pt[facility]r y [facility]) [facility]) OUTPATIENT [id number] 3 month PRK post-op f/u. KEVIN HUSSEIN T 04/30 Released w/o Limitations [facility](O ptometr y [facility]) [facility]) OUTPATIENT [id number] 6 month PRK F/U KEVIN HUSSEIN T 08/19 Released w/o Limitations [facility] ptometr [facility]) [facility]) OUTPATIENT [id number] 1 year PRK follow up KEVIN HUSSEIN T 01/31 Released w/o Limitations [facility] ptometr y [facility]) [place] [address](AFN G 104 Med Sq-FM) OUTPATIENT [id number] Notes Entered by: OLGA LIDIA GARCIA 19 Nov 2017 1418 ------- ------- ------- ------- -- OLGA LIDIA MELO 11/19 Released w/o Limitations [facility] [place] [address](A FNG 104 Med Sq-FM) [place] [address](AFN G 104 Med Sq-FM) OUTPATIENT [id number] Notes Entered by: BEATA HOANG 21 Nov 2017 1310 ------- ------- ------- ------- -- Pre-Dep BEATA Jones 11/21 Released w/o Limitations [facility] y Treatme [facility] [address](A FNG 104 Med Sq-FM) [facility] M01D Lisbeth) OUTPATIENT [id number] travel meds/im CARSON Ashraf 01/29 Released w/o Limitations [facility] [place] M01D Lisbeth) OUTPATIENT [id number] Notes Entered by: Dominic CALERO 30 Jan 2018 1024 ------- ------- ------- ------- -- rabies vaccine VIKTORIA CALERO 01/30 Released w/o Limitations [facility] [place] M01D Lisbeth) OUTPATIENT [id number] Notes Entered by: IZABEL THOMPSON 10 Feb 2018 1120 ------- ------- ------- ------- -- Rabies #2 IZABEL THOMPSON 02/10 Released w/o Limitations [facility] M01D [place]) [facility] M01D Lisbeth) OUTPATIENT [id number] Notes Entered by: Dominic CALERO 03 Mar 2018 1508 ------- ------- ------- ------- -- rabies vaccine IZABEL THOMPSON E 03/03 Released w/o Limitations [facility] M01D Lisbeth) [employer] [facility] M01D Lisbeth) OUTPATIENT [id number] Notes Entered by: IZABEL THOMPSON Patti 24 Mar 2018 1440 ------- ------- ------- ------- -- TRAVEL IMMS IZABEL THOMPSON E 03/24 Released w/o Limitations [facility] M01D Lisbeth) [facility](Raad stern [facility] Team A) OUTPATIENT [id number] VAZQUEZ FOSS 07/18 Released w/o Limitations [facility](Greg anscom [facility] Team A) [place] [address](AFN G 104 Med Sq-FM) OUTPATIENT [id number] Notes Entered by: EAMON VELÁSQUEZ 28 Jul 2018 1247 ------- ------- ------- ------- -- Post-OLGA LIDIA Pittman 07/28 Released w/o Limitations [facility] [address](A FNG 104 Med Sq-FM) [address] [place] [address](Opt ometry Cl Sihelds) OUTPATIENT [id number] BEATA JIMENEZ 10/29 Released w/o Limitations [address] [place] [address] Group(O ptometr y Cl Shields) [place] [address](AFN G 104 Med Sq-FM) OUTPATIENT [id number] 9 Notes Entered by: OLGA LIDIA GARCIA 03 Dec 2018 1122 ------- ------- ------- ------- -- OLGA LIDIA MELO 12/03 [facility]ased w/o Limitations [facility] [place] [place] [address](A FNG 104 Med Sq-FM) [place] [address](AFN G 104 Med Sq-FM) OUTPATIENT [id number] Notes Entered by: LAURA VARELA R 20 May 2019 1535 ------- ------- ------- ------- -- [employer] ice PHAQ SANDRA VARELA 05/19 Released w/o Limitations [facility] [place] [address](A FNG 104 Med Sq-FM) [place] [address](AFN G 104 Med Sq-FM) OUTPATIENT [id number] Notes Entered by: OLGA LIDIA GARCIA 19 Apr 2020 1425 ------- ------- ------- ------- -- PHAQ OLGA LIDIA GARCIA 04/19 Released w/o Limitations [facility] [address](A FNG 104 Med Sq-FM) [place] [address](AFN G 104 Med Sq-FM) TELE CONSULT [id number] OLGA LIDIA GARCIA 04/06 [facility] [place] [place] [address](A FNG 104 Med Sq-FM) [place] [address](AFN G 104 Med Sq-FM) OUTPATIENT [id number] Notes Entered by: OLGA LIDIA GARCIA 01 May 2021 0909 ------- ------- ------- ------- -- PHAQ OLGA LIDIA GARCIA 05/01 Released w/o Limitations [facility] [address](A FNG 104 Med Sq-FM) [address] [place] [address] Group(Opt ometry Cl Shields) OUTPATIENT [id number] BEATA JIMENEZ 06/15 Released w/o Limitations [facility](O ptometr y Cl Shields) [place] [address](AFN G 104 Med Sq-FM) OUTPATIENT [id number] Notes Entered by: OLGA LIDIA GARCIAEDGARD 04 Jan 2022 1246 ------- ------- ------- ------- -- PCP and ortho records OLGA LIDIA GARCIA 01/04 Released w/o Limitations [facility] [place] [address](A FNG 104 Med Sq-FM) [place] [address](AFN G 104 Med Sq-FM) TELE CONSULT [id number] OLGA LIDIA GARCIA 01/23 [facility] [place] [address](A FNG 104 Med Sq-FM) [place] [address](AFN G 104 Med Sq-FM) TELE CONSULT [id number] OLGA LIDIA GARCIA 01/30 [facility] [place] [address](A FNG 104 Med Sq-FM) [facility] Outpatient Encounter [id number] 09/10 [facility] Out[facility] Encounter [id number] 01/16 [facility] Outpatient Encounter [id number] 04/09 [facility] OFF/OP EST JULY X REQ PHY/QHP [id number] Diagnos is: ICD-10- CM 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
NOVA SHANNON 05/28 [facility] OFFICE O/P NEW MOD 45 MIN [id number] Diagnos is: ICD-10- CM Z77.29 Contact with and exposur e to other hazardo us substan tj<br/ > FURCOLO,TI NA 06/04 [facility] [place] [id number] Diagnos is: ICD-10- CM H10.45 Other chronic allergi c conjunc tivitis
STEPHEN,LACE Y J 01/02 [facility] FIT SPECTACLES MULTIFOCAL [id number] Diagnos is: ICD-10- CM Z46.0 Encount er for fit/adj st of spectac les and contact lenses< br/> STEPHEN,LACE Y J 01/02 [facility] Procedures Combined list of: 1) Procedures from Department of Veterans Affairs facilities going back up to thelast 18 months, not all VA non-surgical procedures are included; 2) All procedures from the Department of Defense facilities. Procedure Procedure Type Code Date Perfomer Comments Sourc e DETERMINATION OF REFRACTIVE STATE 2021 DoD FITTING OF SPECTACLES, EXCEPT FOR APHAKIA; MONOFOCAL 2018 DoD SCREENING TEST OF VISUAL ACUITY, QUANTITATIVE, BILATERAL 2018 DoD OPHTHALMOLOGICAL SERVICES: MEDICAL EXAMINATION AND EVALUATION, WITH INITIATION OR CONTINUATION OF DIAGNOSTIC AND TREATMENT PROGRAM; COMPREHENSIVE, ESTABLISHED PATIENT, 1 OR MORE VISITS 2014 DoD FITTING OF SPECTACLES, EXCEPT FOR APHAKIA; MONOFOCAL 2014 DoD POSTOPERATIVE FOLLOW-UP VISIT, NORMALLY INCLUDED IN THE SURGICAL PACKAGE, INDICATE THAT EVALUATION & MANAGEMENT SERVICE WAS PERFORMED DURING A POSTOPERATIVE PERIOD REASON RELATED ORIGINAL PROCEDURE 2014 DoD POSTOPERATIVE FOLLOW-UP VISIT, NORMALLY INCLUDED IN THE SURGICAL PACKAGE, INDICATE THAT EVALUATION & MANAGEMENT SERVICE WAS PERFORMED DURING A POSTOPERATIVE PERIOD REASON RELATED ORIGINAL PROCEDURE 2014 DoD POSTOPERATIVE FOLLOW-UP VISIT, NORMALLY INCLUDED IN THE SURGICAL PACKAGE, INDICATE THAT EVALUATION & MANAGEMENT SERVICE WAS PERFORMED DURING A POSTOPERATIVE PERIOD REASON RELATED ORIGINAL PROCEDURE 2013 DoD OPHTHALMIC ULTRASOUND, ECHOGRAPHY, DIAGNOSTIC; CORNEAL PACHYMETRY, UNILATERAL OR BILATERAL (DETERMINATION OF CORNEAL THICKNESS) 2013 [facility] FITTING OF SPECTACLES, EXCEPT FOR APHAKIA; MONOFOCAL 2005 [facility] POSTOPERATIVE FOLLOW-UP VISIT, NORMALLY INCLUDED IN THE SURGICAL PACKAGE, INDICATE THAT EVALUATION & MANAGEMENT SERVICE WAS PERFORMED DURING A POSTOPERATIVE PERIOD REASON RELATED ORIGINAL PROCEDURE 2013 [facility] PHOTOREFRACTIVE KERATECTOMY (PRK) 2013 [facility] PHYS/OTH QUALIFIED HEALTH EPIC AMBULATORY SPECIALISTS QUALIFIED,EDUCATIO N,TRAIN,LICENSURE/ REGULATION (WHEN APPLICABLE) EDUC SER RENDERED TO PATS IN A GRP SETTING (EG,,OBESI TY,OR DIABETIC INSTRUCT) 2013 [facility] DETERMINATION OF REFRACTIVE STATE 2013 DoD IMMUNIZATION ADMINISTRATION (INCLUDES PERCUTANEOUS, INTRADERMAL, SUBCUTANEOUS, OR INTRAMUSCULAR INJECTIONS); 1 VACCINE (SINGLE OR COMBINATION VACCINE/TOXOID) 2017 DoD IMMUNIZATION ADMINISTRATION (INCLUDES PERCUTANEOUS, INTRADERMAL, SUBCUTANEOUS, OR INTRAMUSCULAR INJECTIONS); 1 VACCINE (SINGLE OR COMBINATION VACCINE/TOXOID) 2017 DoD IMMUNIZATION ADMINISTRATION (INCLUDES PERCUTANEOUS, INTRADERMAL, SUBCUTANEOUS, OR INTRAMUSCULAR INJECTIONS); 1 VACCINE (SINGLE OR COMBINATION VACCINE/TOXOID) 2017 [facility] MENINGOCOCCAL CONJUGATE VACCINE, SEROGROUPS A, C, W, Y, QUADRIVALENT, DIPHTHERIA TOXOID CARRIER (MENACWY-D) OR FAR231 CARRIER (MENACWY-CRM), FOR INTRAMUSCULAR USE 2017 [facility] Spectacles Services Fitting Monofocal Except For Aphakia Spectacles Services Fitting Monofocal Except For Aphakia 00661 2018 BEATA MCKEON Determination Of Refractive State Determination Of Refractive State 85863 2018 BEATA MCKEON [facility] Ophthalmological New Patient Start Comprehensive Care Ophthalmological New Patient Start Comprehensive Care 90908 2018 BEATA MCKEON [facility] Screening Test Of Visual Acuity, Quantitative, Bilateral Screening Test Of Visual Acuity, Quantitative, Bilateral 63503 2018 VAZQUEZ BARAJAS DoD Rabies Vaccine For Intramuscular Use Rabies Vaccine For Intramuscular Use 73653 2017 IZABEL THOMPSON Rabies - Intramuscular; Series #: 1; 1.0 mL; IM; Left Arm; Mfg: [employer] Lot: [id number]. DoD Immunization Administration By Injection, One Vaccine Immunization Administration By Injection, One Vaccine 364402017 IZABEL THOMPSON Rabies Vaccine For Intramuscular Use Rabies Vaccine For Intramuscular Use [id number] IZABEL THOMPSON Rabies - Intramuscular; Series #: 2; 1.0 mL; IM; Left Arm; Mfg: [employer]; Lot: [id number]. DoD Immunization Administration By Injection, One Vaccine Immunization Administration By Injection, One Vaccine 198712017 IZABEL THOMPSON Rabies Vaccine For Intramuscular Use Rabies Vaccine For Intramuscular Use 365682017 VIKTORIA CALERO Rabies - Intramuscular; Series #: 1; 1.0 mL; IM; Left Arm; Mfg: [employer]; Lot: [id number]. DoD Immunization Administration By Injection, One Vaccine Immunization Administration By Injection, One Vaccine 187882017 CALEROJOSHUACassandra Bell Immunization Administration By Injection, One Vaccine Immunization Administration By Injection, One Vaccine 923752017 [facility] Meningococcal Polysaccharide Diphtheria Toxoid Conjugate Vaccine 2017 [facility] Meningococcal MCV4P; Series #: 1; .5 mL; IM; Right Arm; Mfg: [employer]; Lot: [id number]. [facility] Ophthalmological Prior Patient Start Comprehensive Care Ophthalmological Prior Patient Start Comprehensive Care 81400 2014 KEVIN HUSSEIN Determination Of Refractive State Determination Of Refractive State 2014 KEVIN HUSSEIN Spectacles Services Fitting Monofocal Except For Aphakia Spectacles Services Fitting Monofocal Except For Aphakia 12494 2014 KEVIN HUSSEIN Determination Of Refractive State Determination Of Refractive State 21897 2014 KEVIN HUSSEIN Ophthalmological Prior Patient Start Intermediate Level Care Ophthalmological Prior Patient Start Intermediate Level Care [id number] KEVIN HUSSEIN Postoperative Visit, Without Charge Postoperative Visit, Without Charge 00974 2014 KEVIN HUSSEIN Postoperative Visit, Without Charge Postoperative Visit, Without Charge 79326 2014 KEVIN HUSSEIN Postoperative Visit, Without Charge Postoperative Visit, Without Charge 90887 2013 KEVIN HUSSEIN Postoperative Visit, Without Charge Postoperative Visit, Without Charge 25630 2013 DWAYNE ALFONSO [facility] Photorefractive keratectomy (PRK) 2013 KAITLINWJESSICAKAMERON Christian [facility] Physician Supervised Group Educational Services Physician Supervised Group Educational Services 64229 2013 KAMERON HENDRICKS [facility] Ophthalmological New Patient Start Comprehensive Care Ophthalmological New Patient Start Comprehensive Care 78819 2013 ESTER VEGA Corneal Pachymetry, Bilateral With Interpret And Report Corneal Pachymetry, Bilateral With Interpret And Report 03443 2013 ESTER VE[facility] Fundoscopic Exam Extensive Initial Exam Fundoscopic Exam Extensive Initial Exam 44799 2013 ESTER VEGA Computerized Corneal Topography Computerized Corneal Topography 23100 2013 ESTER VEGA [facility] Determination Of Refractive State Determination Of Refractive State 83362 2013 ESTER VEGA Corneal Pachymetry Corneal Pachymetry 05569 2013 STALIN SANTOS Determination Of Refractive State Determination Of Refractive State 76233 2013 STALIN SANTOS Ophthalmological Prior Patient Start Comprehensive Care Ophthalmological Prior Patient Start Comprehensive Care 25193 2013 STALIN SANTOS Ophthalmological Prior Patient Start Comprehensive Care Ophthalmological Prior Patient Start Comprehensive Care 36702 BEATA MCKEON Determination Of Refractive State Determination Of Refractive State 38073 BEATA MCKEON. [facility] No data available for this section Ambulato ry Pharmacy Social History Combined list of available smoking, tobacco, and other social history from Department of 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 Social History Type Response Date Comment Sourc e Tobacco smoking status NHIS VA-TOBACCO FORMER USER 05/29/2023 [facility] [place] [facility] History of tobacco use MO-TOBACCO QUIT 5 TO < 15 YRS 05/29/2023 [facility] This section is an empty social history section. DoD Assessment and Plan Combined list of future care activities from Department of Defense and Veterans Affairs facilities (e.g., assessment and plan notes, appointments, orders, and referrals). Additional future care activities may be listed in the Plan of Care section. Result Assessment and Plan Date Source Assessment and Plan No data available for this section 02/26/2024 Ambulatory Pharmacy Functional Status Combined list of recent functional and cognitive assessments recorded at Department of Defense and Veterans Affairs (VA).VA Functional [place] Measurement (FIM) Scale: 1 = Total Assistance (Subject = 0% +), 2 = Maximal Assistance (Subject = 25% +), 3 = Moderate Assistance (Subject = 50% +), 4 = Minimal Assistance (Subject = 75% +), 5 = Supervision, 6 = Modified [place] (Device), 7 = Complete [place] (Timely, Safely). Assessment Date/Time Source Assessment Type Assessment Skill Assessment Score Assessment Details No data available for this section
--- OUTSIDE RECORDS SUMMARY | 2024-02-26 18:59 | XMS_ITS | Encounter Summary ---
Author Name [facility] [place] [facility] Address [address] [place] [address] Care Team Providers Care Eligibility Consultant Name Role Phone MIRTHA NOELLE Primary Care Provider Unavailabl e Selected Encounter This section includes the information on record at [place] for the Encounter. Date/Time Encounter Type Encounter Description Reason Provider Source Jan 03, 2024 02:15 PM FIT SPECTACLES MULTIFOCAL OPTOMETRY ICD-10-CM Z46.0 Encounter for fit/adjst of spectacles and contact lenses FRAN STEPHEN Patti Encounter Template Text not used by [place] Assessments - Encounter Diagnoses This section includes the primary and secondary diagnoses documented for the Encounter. Date/Time Primary/Secondary Diagnosis Diagnosis Name Provider Source Jan 03, 2024 02:15 PM PRIMARY Encounter for fit/adjst of spectacles and contact lenses ARGELIA MARTINEZ [facility] Social History: Smoking Status (Most current) and Tobacco Use (All prior to encounter date) This section includes the most current, and the historical, smoking and tobacco- related health factors from the [place] facility where the Encounter took place. Current Smoking Status This section includes the most current smoking, or tobacco-related health factor, from the [place] facility where the Encounter took place. Date/Time Current Smoking Status Comment Melania gibbs May 29, 2023 01:00 PM VA-TOBACCO FORMER USER [facility] Tobacco Use History This section includes a history of the smoking, or tobacco-related health factors, that were collected on or before the date of the Encounter. The data comes from the [place] facility where the Encounter took place. Date/Time Smoking Status/Tobacco Use Comment F david May 29, 2023 01:00 PM VA-TOBACCO QUIT 5 TO < 15 YRS [facility] [place] [facility] Encounter Notes: All associated encounter notes This section contains the clinical notes associated to the Encounter. Date/Time Encounter Note(s) Provider Source Jan 03, 2024 02:15 PM OPTOMETRY NOTE: LOCAL TITLE: OPTOMETRY NOTE STANDARD TITLE: OPTOMETRY NOTE DATE OF NOTE: JAN 03, 2024@14:15 ENTRY DATE: JAN 03, 2024@14:15:46 AUTHOR: CHIOMA MCFADDEN EXP COSIGNER: URGENCY: STATUS: COMPLETED OPTOMETRY NOTE Has ADDENDA The quote provided below is for informational purposes only. Please verify prior to the creation of a purchase order. MOHSEN ROBBINS 0096 RX INFORMATION OD +0.75 0.00 X Add:+2.00 Pzm:0.00 Dir: Prz2:0.00 Dir2: OS +0.75 0.00 X Add:+2.00 Pzm:0.00 Dir: Prz2:0.00 Dir2: FITTING INFORMATION FPD: NPD: [place]:R:32 L:33 SEG HT:R:23 L:23 Tint:None Shade:None VA Billable Items FRAME: SLICK CEBALLOS [phone] Right Lens: PLASTIC VA PROGRESSIVE PHOTOCHROMIC CEBALLOS 1.498 PLASTIC CR39 Left Lens: PLASTIC VA PROGRESSIVE PHOTOCHROMIC CEBALLOS 1.498 PLASTIC CR39 KLEAR ANTI-REFLECTIVE COATING CLIN items [employer] - [place] Coating 0004 - Progressive - Glass Plastic Poly 0005 - Transition /olivia/ CHIOMA MCFADDEN MEDICAL ESTHETICIAN Signed: 01/03/2024 14:15 Receipt Acknowledged By: 01/03/2024 14:26 /olivia/ Argelia Martinez LPN Licensed Practical Nurse 01/03/2024 ADDENDUM STATUS: 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 OPT HT entered consult(s) as requested for provider signature. /olivia/ Argelia Martinez LPN Licensed Practical Nurse Signed: 01/03/2024 14:28 CHIOMA MCFADDEN [facility]
== END ==
LOC: HO.CARD 08:36
PROVIDERS: Absent Provider Physician Assistant; PCP Physician Assistant; Visit Provider Internal Medicine Cardiovascular Disease
DX: R07.9 Chest pain, unspecified (principal); I25.10 Atherosclerotic heart disease of native coronary artery without angina pectoris; J40 Bronchitis, not specified as acute or chronic
CPT/HCPCS: 71046; 78452; 93017; A9500

== ENCOUNTER → 2024-02-25 09:02 | Outpatient (BNV) | payer OTHER, SELFPAY | PROVIDERS: Absent Provider Physician Assistant; PCP Physician Assistant; Visit Provider Nurse Practitioner Family | DX: I49.3 Ventricular premature depolarization (principal) | CPT/HCPCS: 78452; 93016; 93018 ==

== ENCOUNTER 2024-03-26 09:18 | Outpatient (REF) | payer OTHER, SELFPAY ==
--- OUTSIDE RECORDS SUMMARY | 2024-03-26 09:36 | XMS_ITS ---
Author Name [facility] [place] Address [address] [place] [address] Care Team Providers Care It Quality Assurance Analyst Name Role Phone NOELLE RAMESH Primary Care Provider Unavailabl e Selected Encounter This section includes the information on record at [place] for the Encounter. Date/Time Encounter Type Encounter Description Reason Provider Source May 29, 2023 01:00 PM OFF/OP EST JULY X REQ PHY/QHP PRIMARY CARE/MEDICINE ICD-10-CM Z71.9 Counseling, unspecified NOELLE RAMESH IHPatti Encounter Template Text not used by [place] Assessments - Encounter Diagnoses This section includes the primary and secondary diagnoses documented for the Encounter. Date/Time Primary/Secondary Diagnosis Diagnosis Name Provider Source May 30, 2023 08:25 AM PRIMARY Counseling, unspecified ANNIE GAMEZ [place] [facility] [place] [facility] Plan of Treatment: Future Appointments (+ 6 months) and Future Tests (+/- 45 days) The Plan of Treatment section includes future care activities for the patient from all [place] treatmentfacilities. This section includes future appointments and future orders which are active, pending or scheduled. Future Appointments This section includes appointments that were scheduled to occur 6 months from the date of the Encounter, up to a maximum of 20 appointments. The data comes from all [place] treatment facilities. Appointment Date/Time Appointment Type Appointme nt Facility Name Jun 05, 2023 10:00 AM AMBULATORY - MEDICINE [facility] Lab Results: +/- 30 days of the encounter This section includes the Chemistry and Hematology Lab Results on record with [place] for the patient. Radiology Reports and Pathology Reports are provided separately, in subsequent sections. Lab Results This section contains the Chemistry/Hematology Results that were resulted 30 days before or 30 daysafter the date of the Encounter. Date/Time Source Result Type Result - Unit Interpretation Reference Range Comment May 30, 2023 10:27 AM [facility] HEPATITIS B SURFACE ANTIBODY (HBsAb)-WH Specimen Type: SERUM No comment entered. Ordering Provider: NOELLE RAMESH Report Released Date/Time: May 29, 2023 01:58 PM Reporting Lab: [address] [address] Performing Lab: [address] [address] HBsAb Non Reactive Non Reactive May 30, 2023 10:27 AM [facility] CBC Specimen Type: BLOOD No comment entered. Ordering Provider: NOELLE RAMESH Report Released Date/Time: May 29, 2023 01:58 PM Reporting Lab: [address] [address] Performing Lab: [address] [address] WBC 4.33 10*3/uL L 4.50-11.00 RBC 5.06 10*6/uL 4.23-5.66 HGB 14.6 g/dL 12.8-17 HCT 42.6 39.2-50.4 MCV 84.2 fL 82-99 MCHC 34.3 g/dL 30.8-35.1 PLT 238 10*3/uL 140-360 RDW-CV 12.3 12.0-16.0 MCH 28.9 pg 26.2-32.6 May 30, 2023 10:27 AM [facility] LIVER FUNCTION Specimen Type: SERUM No comment entered. Ordering Provider: NOELLE RAMESH Report Released Date/Time: May 29, 2023 01:58 PM Reporting Lab: [address] [place] [address] Performing Lab: [facility] [address] [facility] [address] PROTEIN,TOTAL 7.1 g/dL 6.0-8.3 ALBUMIN 4.3 g/dL 3.5-5.0 ALKALINE PHOSPHATASE 47 U/L 40-150 AST 33 U/L 5-34 ALT 21 U/L BILIRUBIN, TOTAL 0.7 mg/dL 0.2-1.2 May 30, 2023 10:27 AM [facility] BASIC METABOLIC PANEL (fasting) Specimen Type: SERUM No comment entered. Ordering Provider: NOELLE RAMESH Report Released Date/Time: May 29, 2023 01:58 PM Reporting Lab: [address] [address] Performing Lab: [address] [address] UREA NITROGEN 20 mg/dL 7-25 GLUCOSE 96 mg/dL 65-100 SODIUM 138 mmol/L 135-145 POTASSIUM 4.4 mmol/L 3.5-5.0 CHLORIDE 104 mmol/L 100-110 CO2 24 meq/L 20-30 CREATININE, Serum 0.97 mg/dL 0.50-1.40 eGFR(CKD-EPI 2020) 90 mL/min >60 May 30, 2023 10:27 AM [facility] LIPID PANEL FASTING Specimen Type: SERUM No comment entered. Ordering Provider: NOELLE RAMESH Report Released Date/Time: May 29, 2023 01:58 PM Reporting Lab: [address] [address] Performing Lab: [address] [address] CHOLESTEROL 261 mg/dL H TRIGLYCERIDE 103 mg/dL 0-150 LDL calculated 202 mg/dL H 0-129 CHOL/HDL 6.9 HDL CHOLESTEROL 38 mg/dL L 40-60 May 30, 2023 10:27 AM [facility] TSH Specimen Type: SERUM No comment entered. Ordering Provider: NOELLE RAMESH Report Released Date/Time: May 29, 2023 01:58 PM Reporting Lab: [facility] [address] [facility] [address] Performing Lab: [address] [address] TSH 2.33 u[IU]/mL 0.35-5.00 May 30, 2023 10:27 AM [facility] HEPATITIS C ANTIBODY (HCV)-ARC Specimen Type: SERUM Comment: Hep C Ab: No HCV antibody detected. If recent infection is suspected or other evidence suggests HCV infection, consider HCV nucleic acid testing Ordering Provider: NOELLE RAMESH Report Released Date/Time: May 29, 2023 01:58 PM Reporting Lab: [facility] [address] [facility] [address] Performing Lab: [address] [address] HEPATITIS C ANTIBODY NON-REACTIVE NON-REACTIV E Vital Signs: All taken on the encounter date This section contains inpatient and outpatient Vital Signs collected on the date of the Encounter. Date/Time Temperature Pulse Blood Pressure Respiratory Rate SP02 Pain Height Weight Body Mass Index Source May 29, 2023 01:07 PM 97.1 68 132/85 20 96 1 72 190 26 [facility] Social History: Smoking Status (Most current) and Tobacco Use (All prior to encounter date) This section includes the most current, and the historical, smoking and tobacco- related health factors from the [place] facility where the Encounter took place. Current Smoking Status This section includes the most current smoking, or tobacco-related health factor, from the [place] facility where the Encounter took place. Date/Time Current Smoking Status Comment Facil ity May 29, 2023 01:00 PM VA-TOBACCO FORMER USER [facility] Tobacco Use History This section includes a history of the smoking, or tobacco-related health factors, that were collected on or before the date of the Encounter. The data comes from the [place] facility where the Encounter took place. Date/Time Smoking Status/Tobacco Use Comment F acility May 29, 2023 01:00 PM VA-TOBACCO QUIT 5 TO < 15 YRS [facility] Encounter Notes: All associated encounter notes This section contains the clinical notes associated to the Encounter. Date/Time Encounter Note(s) Provider Source May 30, 2023 08:17 AM LETTERS: LOCAL TITLE: PATIENT LETTER (B) STANDARD TITLE: LETTERS DATE OF NOTE: MAY 30, 2023@08:17 ENTRY DATE: MAY 30, 2023@08:18:12 AUTHOR: TONY GAMEZ COSIGNER: URGENCY: STATUS: COMPLETED [facility] Outpatient [address] [address] * * Date: 05/30/23 Dear [place]: Mohsen Thank you for choosing the [facility] ([place]. The Whole Health Program aims to support you in pursuing what matters most to you, and includes services that support your values and overall wellness. This includes the following offerings: * Yoga * Acupuncture * Thompson Acupuncture for Acute Pain (offered weekly; drop-in or scheduled) * Individual health coaching * Professor Of Mechanical Engineering * Biofeedback for Hypertension and Anxiety * Guided Imagery Group * Meditation Group * Cancer Support Group * Stress Management Group ( Stress Less ) The following require no referral from a provider, and can be initiated by you at any time: * Yoga * Meditation * Thompson Acupuncture * Cancer Support Group * Individual Health Coaching * Stress Management Group ( Stress Less ) If interested in any of the above offerings, please reach out to the Whole Health Team at ext. [phone]. To schedule consult-required services, or if you would like more information regarding [place] health care benefits, please call toll free at [phone]), visit the [place] website at [email or web address], or contact your local [place] Medical Center. If you have any questions, please do not hesitate to contact the [facility] [place] call center. Sincerely. Dr. Bindu Rodriguez Formerly [facility] and Integrated [place] Cutter Operator [facility] Direct TONY GAMEZ [place] [facility] [facility] May 29, 2023 01:15 PM MEDICATION MGT NOTE: LOCAL TITLE: MEDICATION RECONCILIATION STANDARD TITLE: MEDICATION MGT NOTE DATE OF NOTE: MAY 29, 2023@13:15 ENTRY DATE: MAY 29, 2023@13:15:46 AUTHOR: TONY GAMEZ EXP COSIGNER: URGENCY: STATUS: COMPLETED Vet was given an appt to see Dr. Ramesh on 06/05/23@1000 [facility] PCP: 1. Dr. Frederic Anderson [address] [place] [address] Dr. [place], [place] [address] Phone # F: Medication reconciliation D: Fuad says that he is on the following meds: 1. Lisinopril 10mg by mouth Daily 2. Levothyroxine 25mcg by mouth Daily ===== Fuad says that he has No Known Drug Allergies Fuad has the following Medical Dx: 1. Hypertension 2. Hypothyroidism 3. High Chol /olivia/ TONY GAMEZ MSN Ed., BSN HELPER MAINTENANCE CLEANING NURSE Signed: 05/29/2023 15:13 Receipt Acknowledged By: 05/30/2023 09:25 /olivia/ NOELLE RAMESH D.O. PHYSICIAN TONY GAMEZ [place] [facility] [place] [facility] May 29, 2023 01:14 PM LETTERS: LOCAL TITLE: PATIENT LETTER (B) STANDARD TITLE: LETTERS DATE OF NOTE: MAY 29, 2023@13:14 ENTRY DATE: MAY 29, 2023@13:14:45 AUTHOR: TONY GAMEZ EXP COSIGNER: URGENCY: STATUS: [place] [address] [phone] * [phone] Ext [phone] * Date: 05/30/23 Dear [place]: Mohsen Thank you for choosing the [facility]. Please be a few minutes early to this appt- about 15 mins. We would like to update your demographic information. To schedule or if you would like more information regarding [place] health care benefits, please call toll free at [phone]), visit the [place] website at [email or web address], or contact your local [place] Medical Center. Welcome to patient aligned care [...] not hesitate to contact the [facility] [place] call center at Ext [phone]. Just so that you know if you're feeling sick we have sick call hours at the [facility], and the [facility]- Sat thru Saturday 08-1530- first come first serve- walk-in basis. [facility] has sick call hours Sat-Sat- -12, and 3P-4P- first come, first serve, walk-in basis- no appt needed. You can utilize our sick call system once you have seen your Primary Care Physician for the first time. Audiology Phone number- [phone]- Ext [phone] Optometry Phone Number- [phone] Ext [phone] Mental Health Clinic- [phone] Ext- [phone] Eligibility/Enrollment- [phone] [phone], or- [phone] [facility] [phone] Ext [phone] [facility] [phone] [facility] Transportation [phone] Ext [phone], or,[phone] [place] Act [phone] ( Call within 72hrs of being seen in an acute care setting) Sincerely. [facility] [address] [place] [address] Phone: Ext [phone] Upcoming Appointments: 06/05/23@1000- CWM/NO/PACT-Silvestre Gamez MSN Ed., BSN, RN [facility] [address] [address] [place] [address] # [phone]- Ext [phone] [place] [address] [place] [address] [place] [address] [place] [address] [place] [address] TONY GAMEZ [place] [facility] [place] [facility] May 29, 2023 01:12 PM PREVENTIVE MEDICINE [...] Not at all Suicide Screen: C-SSRS Screening Rogers Suicide Severity Rating Scale (C-SSRS) screener 1. [...] Not worried about housing near future The [place] reports the following: Within the past 12 [...] caregiver's preferred language for healthcare? Preferred Language: Belarusian PTSD Screening: PC-PTSD-5 A PTSD screening test [...] due to responses to other questions. 5. [place] numb or detached from people, activities, or your surroundings? Response not required due to responses to other questions. 6. [place] guilty or unable to stop blaming yourself [...] TDAP Historical Date Administered: Dec 29, 2011 Housekeeping Supervisor: SANOFI PASTEUR Lot: [id number] Exp Date: Unknown Outside Location: Outside Healthcare [...] VICPS Historical Date Administered: Nov 21, 2017 Housekeeping Supervisor: SANOFI PASTEUR Lot: [id number] Exp Date: Unknown Outside Location: Outside Healthcare Provider Information Source: FROM OTHER REGISTRY Comment: typhoid Vi capsular polysaccharide vaccine Documented: POLIO, UNSPECIFIED FORMULATION Historical Date Administered: Mar 18, 1986 Outside Location: Outside Healthcare Provider Information Source: FROM OTHER REGISTRY Comment: rivalent poliovirus vaccine, live, oral Documented: COVID-19 ([employer]), MRNA, LNP-S, PF, 30 MCG/0.3 ML DOSE Historical Date Administered: Feb 10, 2021 Outside Location: Outside Healthcare Provider Information Source: FROM OTHER REGISTRY Comment: TOZINAMERAN .225mg/2.25mL INTRAMUSCULAR INJECTION, SUSPENSION ([employer] Covid-19 Vaccine) Documented: COVID-19 ([employer]), MRNA, LNP-S, PF, 30 MCG/0.3 ML DOSE Historical Date Administered: May 24, 2020 Series: Series 1 Housekeeping Supervisor: [employer] Lot: [id number] Exp Date: Unknown Outside Location: Outside Healthcare Provider Information Source: FROM OTHER REGISTRY Comment: SARS-COV-2 (COVID-19) vaccine, mRNA, spike protein, LNP, preservative free, 30 mcg/0.3mL dose Documented: COVID-19 ([employer]), MRNA, LNP-S, PF, 30 MCG/0.3 ML DOSE Historical Date Administered: Jun 14, 2020 Series: Series 2 Housekeeping Supervisor: [employer] Lot: [id number] Exp Date: Unknown Outside Location: Outside Healthcare Provider Information Source: FROM OTHER REGISTRY Comment: SARS-COV-2 (COVID-19) vaccine, mRNA, spike protein, LNP, preservative free, 30 mcg/0.3mL dose Documented: RABIES, UNSPECIFIED FORMULATION Historical Date Administered: Feb 10, 2018 Series: Series 1 Housekeeping Supervisor: [employer] Lot: [id number] Exp Date: Unknown Outside Location: Outside Healthcare Provider Information Source: FROM OTHER REGISTRY Comment: rabies vaccine, purified chick embryo Documented: RABIES, UNSPECIFIED FORMULATION Historical Date Administered: Mar 03, 2018 Housekeeping Supervisor: [employer] Lot: [id number] Exp Date: Unknown Outside Location: Outside Healthcare Provider Information Source: FROM OTHER REGISTRY Comment: rabies vaccine, purified chick embryo Documented: RABIES, INTRAMUSCULAR INJECTION Historical Date Administered: Jan 30, 2018 Housekeeping Supervisor: [employer] Lot: [id number] Exp Date: Unknown Outside Location: Outside Healthcare Provider Admin Route/Site: INTRAMUSCULAR/LEFT DELTOID Information Source: FROM OTHER REGISTRY Comment: rabies vaccine, IM Documented: POLIO, UNSPECIFIED FORMULATION Historical Date Administered: Mar 18, 1986 Series: (None selected) Outside Location: Outside Healthcare Provider Information Source: FROM OTHER REGISTRY Comment: poliovirus vaccine, live, oral Documented: MENINGOCOCCAL MPSV4 Historical Date Administered: July 26, 1998 Housekeeping Supervisor: SANOFI PASTEUR Lot: [id number] Exp Date: Unknown Outside Location: Outside Healthcare Provider Information Source: FROM OTHER REGISTRY Comment: meningococcal polysaccharide vaccine (MPSV4) Documented: MENINGOCOCCAL MPSV4 Historical Date Administered: Jan 29, 2018 Housekeeping Supervisor: SANOFI PASTEUR Lot: [id number] Exp Date: Unknown Outside Location: Outside Healthcare [...] Historical Date Administered: July 26, 1998 Lot: [id number] Exp Date: Unknown Outside Location: Outside Healthcare Provider Information Source: FROM OTHER REGISTRY Comment: measles/mumps/rubella virus vaccine Documented: HEP B, ADULT Historical Date Administered: Jan 16, 2002 Series: Series 1 Housekeeping Supervisor: [employer] Lot: [id number] Exp [...] Administered: Feb 18, 1999 Series: Series 2 Housekeeping Supervisor: [employer] Lot: [id number] Exp Date: Unknown Outside Location: Outside Healthcare Provider Information Source: FROM OTHER REGISTRY Comment: hepatitis A vaccine, adult dosage Documented: ANTHRAX, PRE-EXPOSURE PROPHYLAXIS, POST-EXPOSURE PROPHYLAXIS Historical Date Administered: Aug 24, 1999 Housekeeping Supervisor: [employer] Lot: [id number] Exp Date: Unknown Outside Location: Outside Healthcare Provider Information Source: FROM OTHER REGISTRY Documented: ANTHRAX, PRE-EXPOSURE PROPHYLAXIS, POST-EXPOSURE PROPHYLAXIS Historical Date Administered: Sep 08, 1999 Housekeeping Supervisor: [employer] Lot: [id number] Exp Date: Unknown Outside Location: Outside Healthcare Provider Information Source: FROM OTHER REGISTRY Documented: ANTHRAX, PRE-EXPOSURE PROPHYLAXIS, POST-EXPOSURE PROPHYLAXIS Historical Date Administered: Sep 21, 2001 Series: (None selected) Outside Location: Outside Healthcare Provider Information Source: FROM OTHER REGISTRY Documented: ANTHRAX, PRE-EXPOSURE PROPHYLAXIS, POST-EXPOSURE PROPHYLAXIS Historical Date Administered: Mar 07, 2002 Housekeeping Supervisor: [employer] Lot: [id number] Exp Date: Unknown Outside Location: Outside Healthcare Provider Information Source: FROM OTHER REGISTRY Documented: ANTHRAX, PRE-EXPOSURE PROPHYLAXIS, POST-EXPOSURE PROPHYLAXIS Historical Date Administered: Nov 28, 2002 Housekeeping Supervisor: [employer] Lot: [id number] Exp Date: Unknown Outside Location: Outside Healthcare Provider Information Source: FROM OTHER REGISTRY Documented: ANTHRAX, PRE-EXPOSURE PROPHYLAXIS, POST-EXPOSURE PROPHYLAXIS Historical Date Administered: July 17, 2003 Series: Complete Housekeeping Supervisor: [employer] Lot: [id number] Exp Date: Unknown Outside Location: Outside Healthcare Provider Information Source: FROM OTHER REGISTRY // TONY GAMEZ MSN Ed., BSN HELPER MAINTENANCE CLEANING NURSE Signed: 05/30/2023 08:42 [facility]
--- OUTSIDE RECORDS SUMMARY | 2024-03-26 09:36 | XMS_ITS | Encounter Summary ---
Author Name [facility] Address [address] [place] [address] Care Team Providers Care Physician Neonatology Name Role Phone MIRTHA NOELLE Primary Care Provider Unavailabl e Selected Encounter This section includes the information on record at [place] for the Encounter. Date/Time Encounter Type Encounter Description Reason Provider Source Jan 03, 2024 01:00 PM COMPRE OPH EXAM NEW PT 1/> OPTOMETRY ICD-10-CM H10.45 Other chronic allergic conjunctivitis FRAN STEPHEN [facility] Encounter Template Text not used by ME Assessments - Encounter Diagnoses This section includes the primary and secondary diagnoses documented for the Encounter. Date/Time Primary/Secondary Diagnosis Diagnosis Name Provider Source Jan 03, 2024 03:36 PM PRIMARY Other chronic allergic conjunctivitis [facility] Jan 03, 2024 03:36 PM SECONDARY Age-related nuclear cataract, bilateral [facility] Jan 03, 2024 03:36 PM SECONDARY Presbyopia FRAN STEPHEN [facility] Social History: Smoking Status (Most current) and Tobacco Use (All prior to encounter date) This section includes the most current, and the historical, smoking and tobacco- related health factors from the [place] facility where the Encounter took place. Current Smoking Status This section includes the most current smoking, or tobacco-related health factor, from the [place] facility where the Encounter took place. Date/Time Current Smoking Status Comment Melania gibbs May 29, 2023 01:00 PM VA-TOBACCO FORMER USER [facility] Tobacco Use History This section includes a history of the smoking, or tobacco-related health factors, that were collected on or before the date of the Encounter. The data comes from the [place] facility where the Encounter took place. Date/Time Smoking Status/Tobacco Use Comment F acpaul May 29, 2023 01:00 PM VA-TOBACCO QUIT 5 TO < 15 YRS [facility] Encounter Notes: All associated encounter notes [...] today for annual CEE SHELLY: 06/15/2021 at [facility] Chief Complaint: [place] complains that his vision is distorted with his current progressive glasses when looking to the side. Also his OD is red and itchy started about 1 week ago. Denied using any new lotion/shampoo/detergent/pillow case. He did reported that he was in [place] a week ago and drove back to [place] last Saturday and the symptoms started on [...] this [facility] (local) and dispensed from another [place] or [facility] facility (remote) as well as [...] Remote Allergy/ADR Data available for this patient [facility] No Known Allergies Med. Reconciliation (Tool #1) INCLUDED IN THIS LIST: Alphabetical list of active outpatient prescriptions dispensed from this [facility] (local) and dispensed from another [place] or [facility] facility (remote) as well as inpatient orders (local pending and active), local clinic medications, locally documented non-VA medications, and local prescriptions that have or been discontinued in the past 90 days. Non-VA Meds Last Documented On: Jun 05, 2023 NOTE The display of VA prescriptions dispensed from another [place] or [facility] facility (remote) is limited to active outpatient prescription entries matched to National Drug File at the originating site and may not include some items such as investigational drugs, compounds, etc. NOT INCLUDED IN THIS LIST: Medications self-entered by the patient into personal health records (i.e. [employer] are NOT included in this list. Non-VA medications documented outside this [place], remote inpatient orders (regardless of status) and remote clinic medications are NOT included in this list. The patient and provider must always discuss medications the patient is taking, regardless of where the medication was dispensed or obtained. OUTPT CARBOXYMETHYLCELLULOSE NA 0.5% OPH SOLN (Status = Active/Suspended) INSTILL 1 DROP INTO EACH EYE FOUR TIMES A DAY Rx# [id number] Last Released: Qty/Days Supply: Rx Expiration Date: 01/03/25 Refills Remainin Indication: FOR DRY EYE OUTPT KETOTIFEN 0.025% OPH SOLN (Status = Active/Suspended) INSTILL 1 DROP INTO EACH EYE TWICE DAILY FOR ALLERGIC CONJUNCTIVITIS (IF YOU WEAR CONTACT LENSES, WAIT 10 MINUTES BEFORE INSERTING LENSES) Rx# [id number] Last Released: Qty/Days Supply: Rx Expiration Date: 01/03/25 Refills Remainin Indication: FOR ALLERGIC CONJUNCTIVITIS Non-VA LEVOTHYROXINE NA (SYNTHROID) 25MCG TAB TAKE ONE TABLET BY MOUTH EVERY MORNING 30 MINUTES BEFORE BREAKFAST Medication prescribed by Non-VA provider. Non-VA LISINOPRIL 10MG TAB TAKE ONE TABLET BY MOUTH ONCE DAILY Medication prescribed by Non-VA provider. SUPPLIES PHARMACY TERMS AND POSSIBLE PATIENT ACTIONS INPT = ME inpatient order IV = ME intravenous medication OUTPT = ME outpatient prescription PHARMACY POSSIBLE PATIENT TERMS EXPLANATION ACTIONS -------- - ACTIVE A prescription that can be If you have refills, filled at the local [place] pharmacy. you may request a refill of this prescription from your [place] pharmacy. CLINIC A medication you received during If you have questions a visit to a [place] clinic or about this medication emergency department. contact your [place] healthcare team. DISCONTINUED A prescription your provider has Contact your [facility] stopped. It is no longer healthcare team if you available to be sent to you or need more of this picked up at the [place] pharmacy medication. window. A prescription which is [...] the VA. Or, it may be an ezqz-lme-vqfsxnb (OTC), herbal, dietary supplements or sample medication. [...] Medication Reconciliation List Offered and Declined by () Medication Reconciliation List Printed for at Exam () Optometry HT Please Print and Mail Copy of Medication Reconciliation List () AMSA Please Print and Mail Copy of Medication Reconciliation List /es/ ADELINA RUANO OPTOMETRY STUDENT Signed: 01/03/2024 16:09 /olivia/ FRAN STEPHEN OD [employer]CH[employer]IC Cosigned: 01/03/2024 16:12 01/03/2024 ADDENDUM STATUS: COMPLETED The optometry equine intern participated in this exam, I saw this [place] in conjunction with the optometry student. The [...] assessment and plan. Ed re today's findings. [place] repeated back the plan and education. All reminders completed by attending and documented in student note. /olivia/ FRAN STEPHEN OD [employer]OX MECHANIC Signed: 01/03/2024 16:12 ADELINA RUANO [facility]
--- OUTSIDE RECORDS SUMMARY | 2024-03-26 09:36 | XMS_ITS | Continuity of Care Document ---
Author Name [facility] Organization [facility] Care Team Providers Care Dynamite Reclaimer Name Role Phone [facility] Unavailable Unavailable Problems Combined list of problems from Department of Defense and [facility] facilities. It does not include [...] TIMES A DAY OPHTHA LMIC ACTIVE 01/03/2025 [id number] BERLIN STEPHEN EY J 2023 45 [facility] KETOTIFEN 0.025% SOLN,OPH INSTILL 1 DROP INTO EACH EYE TWICE DAILY FOR ALLERGIC CONJUNCT IVITIS (IF YOU WEAR CONTACT LENSES, WAIT 10 MINUTES BEFORE INSERTIN G LENSES) OPHTHA LMIC ACTIVE 01/03/2025 [id number] STEPHEN,LAC EY J 2023 20 [facility] LEVOTHYROXI NE NA 25MCG TAB (SYNTHROID) TAKE ONE TABLET BY MOUTH EVERY MORNING 30 MINUTES BEFORE BREAKFAS T ORAL ACTIVE FURCOLO,T EMILY 2023 [facility] lisinopril 10 mg oral tablet lisinopr il 10 mg oral tablet Start Date: 05/25/21 Status: Ordered Ordered No Facilit y Access LISINOPRIL 10MG TAB TAKE ONE TABLET BY MOUTH ONCE DAILY ORAL ACTIVE FURCOLO,T EMILY 2023 [facility] lisinopril 5 [...] Known Allergies Drug allergy (disorder) active 01/29/2018 [facility] Immunizations Combined list of available immunizations from the Department of 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 Status Comments Source INFLUENZA, UNSPECIFIED FORMULATION 2022 88 complet ed [facility] ZOSTER RECOMBINANT 2 2022 187 complet ed [facility] ZOSTER RECOMBINANT [...] 30 mcg/0.3 mL dose 2020 TAMMY Palumbo, [employer] (PFR) Not Given COVID-19, mRNA, LNP-S, PF, 30 mcg/0.3 mL dose DoD SARS-COV-2 (COVID-19) vaccine, mRNA, spike protein, LNP, preservative free, 30 mcg/0.3mL dose 0 2020 208 [employer] (PFR) complet ed SARS-COV- 2 (COVID-19 ) vaccine, mRNA, spike protein, LNP, preservat abdulkadir free, 30 mcg/0.3mL dose DoD COVID-19 (PFIZER), MRNA, LNP-S, PF, 30 MCG/0.3 ML DOSE 2020 208 complet ed TOZINAMER AN .225mg/2. 25mL INTRAMUSC ULAR INJECTION , SUSPENSIO N (Pfizer-B ioNTech Covid-19 Vaccine) [facility] influenza, injectable, quadrivalent 2020 [id number] 158 GlaxoSmithKli mn complet ed influenza , injectabl e, quadrival ent 12/31/20 Given Ambulat ory Pharmac y influenza, injectable, quadrivalent, contains preservative 11 2020 [id number] 158 [facility] ([facility]) complet ed influenza , injectabl e, quadrival ent, contains preservat abdulkadir DoD COVID Vaccine Pfizer 2020 [id number] 208 PFIZER complet ed COVID Vaccine Pfizer 06/14/20 Given Ambulat ory Pharmac y SARS-COV-2 (COVID-19) vaccine, mRNA, spike protein, LNP, preservative free, 30 mcg/0.3mL dose 2 2020 [id number] 208 [employer] (PFR) complet ed SARS-COV- 2 (COVID-19 ) vaccine, mRNA, spike protein, LNP, preservat abdulkadir free, 30 mcg/0.3mL dose DoD COVID-19 (PFIZER), MRNA, LNP-S, PF, 30 MCG/0.3 ML DOSE 2 2020 208 complet ed SARS-COV- 2 (COVID-19 ) vaccine, mRNA, spike protein, LNP, preservat abdulkadir free, 30 mcg/0.3mL dose Lot#: [id number] Mfr: [id number] | [employer], [facility] COVID Vaccine Pfizer 2020 [id number] 208 PFIZER complet ed COVID Vaccine Pfizer 05/24/20 Given Ambulat ory Pharmac y SARS-COV-2 (COVID-19) vaccine, mRNA, spike protein, LNP, preservative free, 30 mcg/0.3mL dose 1 2020 [id number] 208 [employer], [facility] (PFR) complet ed SARS-COV- 2 (COVID-19 ) vaccine, mRNA, spike protein, LNP, preservat abdulkadir free, 30 mcg/0.3mL dose DoD COVID-19 (PFIZER), MRNA, LNP-S, PF, 30 MCG/0.3 ML DOSE 1 2020 208 complet ed SARS-COV- 2 (COVID-19 ) vaccine, mRNA, spike protein, LNP, preservat abdulkadir free, 30 mcg/0.3mL dose Lot#: [id number] Mfr: [id number] | [employer], [facility] influenza, injectable, quadrivalent- pf 2019 TRANSCR IBED 150 complet ed influenza , injectabl e, quadrival ent-pf 01/06/20 Given Ambulat ory Pharmac y Influenza, injectable, quadrivalent, preservative free 1 2019 150 Transcribed (TRS) complet ed Influenza , injectabl e, quadrival ent, preservat abdulkadir free DoD influenza, injectable, quadrivalent- pf 2018 [id number] 150 Seqirus complet ed influenza , injectabl e, quadrival ent-pf 12/19/18 Given Ambulat ory Pharmac y Influenza, injectable, quadrivalent, preservative free 22 2018 [id number] 150 Seqirus (SEQ) complet ed Influenza , injectabl e, quadrival ent, preservat abdulkadir free DoD rabies vaccine, purified chick embryo 2017 [id number] 176 GlaxoSmithKli ne complet ed rabies vaccine, purified chick embryo 03/03/18 Given Ambulat ory Pharmac y rabies vaccine, IM 2017 zzLef t Arm [id number] 175 Novartis Pharmaceutica ls complet ed rabies vaccine, IM 03/03/18 Given Ambulat ory Pharmac y rabies vaccine, for intramuscular injection RETIRED CODE 1 2017 IZABEL THOMPSON [id number] 18 Novartis Pharmaceutica l Kathrine. (NOV) complet ed rabies vaccine, for intramusc ular injection RETIRED CODE DoD Human rabies vaccine from Chicken fibroblast culture 4 2017 [id number] 176 SmithKline (SKB) complet ed Human rabies vaccine from Chicken fibroblas t culture DoD RABIES, UNSPECIFIED FORMULATION 2017 90 complet ed rabies vaccine, purified chick embryo Lot#: [id number] Mfr: GLAXOSMIT HKLINE [facility] rabies vaccine, purified chick embryo 2017 [id number] 176 GlaxoSmithKli ne complet ed rabies vaccine, purified chick embryo 02/10/18 Given Ambulat ory Pharmac y rabies vaccine, IM 2017 zzLef t Arm [id number] 175 GlaxoSmithKli ne complet ed rabies vaccine, IM 02/10/18 Given Ambulat ory Pharmac y rabies vaccine, for intramuscular injection RETIRED CODE 2 2017 IZABEL THOMPSON [id number] 18 SmithKline (SKB) complet ed rabies vaccine, for intramusc ular injection RETIRED CODE DoD Human rabies vaccine from Chicken fibroblast culture 2 2017 [id number] 176 SmithKline (SKB) complet ed Human rabies vaccine from Chicken fibroblas t culture DoD RABIES, UNSPECIFIED FORMULATION 1 2017 90 complet ed rabies vaccine, purified chick embryo Lot#: [id number] Mfr: GLAXOSMIT HKLINE [facility] rabies vaccine, IM 2017 zzLef t Arm [id number] 175 GlaxoSmithKli ne complet ed rabies vaccine, IM 01/30/18 Given Ambulat ory Pharmac y rabies vaccine, for intramuscular injection RETIRED CODE 1 2017 VIKTORIA CALERO [id number] 18 SmithKline (SKB) complet ed rabies vaccine, for intramusc ular injection RETIRED CODE DoD RABIES, INTRAMUSCULAR INJECTION 2017 LEFT DELTO ID 18 complet ed rabies vaccine, IM Lot#: [id number] Mfr: GLAXOSMIT HKLINE [facility] meningococcal A,C,Y,W-135 (MCV4P) 2017 zzRig ht Arm [id number] 114 sanofi pasteur complet ed meningoco ccal A,C,Y,W-1 35 (MCV4P) 01/29/18 Given Ambulat ory Pharmac y varicella virus vaccine 1 2017 EXEMPT 21 Transcribed (TRS) Not Given varicella virus vaccine DoD meningococcal polysaccharid e (groups A, C, Y and W-135) diphtheria toxoid conjugate vaccine (MCV4P) 1 2017 VIKTORIA CALERO [id number] 114 Sanofi Pasteur (PMC) complet ed meningoco ccal polysacch aride (groups A, C, Y and W-135) diphtheri a toxoid conjugate vaccine (MCV4P) [facility] MENINGOCOCCAL MPSV4 2017 RIGHT DELTO ID 32 complet ed meningoco ccal polysacch aride (groups A, C, Y and W-135) diphtheri a toxoid conjugate vaccine (MCV4P) Lot#: [id number] Mfr: SANOFI PASTEUR [facility] influenza, injectable, quadrivalent 2017 [id number] 158 Seqirus complet ed influenza , injectabl e, quadrival ent 12/24/17 Given Ambulat ory Pharmac y influenza, injectable, quadrivalent, contains preservative 21 2017 [id number] 158 Seqirus (SEQ) comple t ed influenza , injectabl e, quadrival ent, contains preservat abdulkadir DoD typhoid Vi capsular polysaccharid e vac 2017 [id number] 101 sanofi pasteur complet ed typhoid Vi capsular polysacch aride vac 11/21/17 Given Ambulat ory Pharmac y typhoid Vi capsular polysaccharid e vaccine 4 2017 [id number] 101 Sanofi Pasteur (PMC) complet ed typhoid Vi capsular polysacch aride vaccine DoD TYPHOID, VICPS 2017 101 complet ed typhoid Vi capsular polysacch aride vaccine Lot#: [id number] Mfr: SANOFI PASTEUR [facility] Influenza, inj, MDCK, quadrivalent- pf [id number] 171 Seqirus complet ed Influenza , inj, MDCK, quadrival ent-pf 01/18/17 Given Ambulat ory Pharmac y Influenza, injectable, Madin Dexter Canine Kidney, preservative free, quadrivalent 20 [id number] 171 Seqirus (SEQ) comple t ed Influenza , injectabl e, Madin Dexter Canine Kidney, preservat abdulkadir free, quadrival ent DoD influenza, seasonal, injectable-pf 2015 [id number] 140 Seqirus complet ed influenza , seasonal, injectabl e-pf 12/31/15 Given Ambulat ory Pharmac y Influenza, seasonal, injectable, preservative free 1 2015 [id number] 140 Seqirus (SEQ) comple t ed Influenza , seasonal, injectabl e, preservat abdulkadir free DoD influenza, seasonal, injectable-pf 2014 [id number] 140 CSL Behring complet ed influenza , seasonal, injectabl e-pf 12/19/14 Given Ambulat ory Pharmac y Influenza, seasonal, injectable, preservative free 18 2014 [id number] 140 CSL [employer] Inc. (CSL) complet ed Influenza , seasonal, injectabl e, preservat abdulkadir free DoD influenza, live, intranasal,qu adrivalent 2013 [id number] 149 Medimmune Inc comple t ed influenza , live, intranasa l,quadriv alent 12/20/13 Given Ambulat ory Pharmac y influenza, live, intranasal, quadrivalent 17 2013 [id number] 149 MedIThree Ring, Inc. (MED) complet ed influenza , live, intranasa l, quadrival ent DoD influenza, seasonal, injectable 2012 [id number] 1A 141 CSL Behring complet ed influenza , seasonal, injectabl e 01/17/13 Given Ambulat ory Pharmac y Influenza, seasonal, injectable 1 2012 [id number] 141 [employer]. (CSL) complet ed Influenza , seasonal, injectabl e DoD influenza, seasonal, injectable 2011 [id number] 1A 141 CSL [employer]ring complet ed influenza , seasonal, injectabl e 12/29/11 Given Ambulat ory Pharmac y tetanus, diphtheria, acellular pertu is 2011 [id number] 115 sanofi pasteur complet ed tetanus, diphtheri a, acellular pertussis 12/29/11 Given Ambulat ory Pharmac y tetanus toxoid, reduced diphtheria toxoid, and acellular pertu is vaccine, adsorbed 0 2011 [id number] 115 Sanofi Pasteur ([facility]) complet ed tetanus toxoid, reduced diphtheri a toxoid, and acellular pertussis vaccine, adsorbed DoD Influenza, seasonal, injectable 15 2011 [id number] 1A 141 [facility] Conjur[employer] Inc. (CS) complet ed Influenza , seasonal, injectabl e DoD TDAP 2011 115 complet ed tetanus, diphtheri a, acellular pertussis Lot#: [id number] Mfr: SANOFI PASTEUR [facility] influenza, seasonal, injectable 2010 [id number] 141 sanofi pasteur complet ed influenza , seasonal, injectabl e 01/20/11 Given Ambulat ory Pharmac y Influenza, seasonal, injectable 0 2010 [id number] 141 Sanofi Pasteur ([facility]) complet ed Influenza , seasonal, injectabl e DoD influenza virus vaccine,split 2009 [id number] 15 sanofi pasteur complet ed influenza virus vaccine,s plit 02/19/10 Given Ambulat ory Pharmac y influenza virus vaccine, split virus (incl. purified surface antigen)-reti red CODE 1 2009 [id number] 15 Sanofi Pasteur ([facility]) complet ed influenza virus vaccine, split virus (incl. purified surface antigen)- retired CODE DoD Novel influenza-H1N 1-09, injectable 2009 [id number] 1 127 Novartis Pharmaceutica complet ed Novel influenza -F9C6-80, injectabl e 04/23/09 Given Ambulat ory Pharmac y Novel influenza-H1N 1-09, injectable 1 2009 [id number] 127 Novartis Pharmaceutica l Kathrine. (NOV) complet ed Novel influenza -S7D7-61, injectabl e DoD influenza virus vaccine, live 2008 [id number] 111 Cross[employer] Inc comple t ed influenza virus vaccine, live 12/18/08 Given Ambulat ory Pharmac y influenza virus vaccine, live, attenuated, for intranasal use 1 2008 [id number] 111 Tribold, Inc. (MED) complet ed influenza virus vaccine, live, attenuate d, for intranasa l use DoD influenza virus vaccine, live 2007 [id number] 111 [employer] Inc comple t ed influenza virus vaccine, live 12/21/07 Given Ambulat ory Pharmac y influenza virus vaccine, live, attenuated, for intranasal use 1 2007 [id number] 111 [employer] Inc. (MED) complet ed influenza virus vaccine, live, attenuate d, for intranasa l use DoD influenza virus vaccine, live 2006 [id number] 111 [employer] Inc comple t ed influenza virus vaccine, live 02/15/07 Given Ambulat ory Pharmac y influenza virus vaccine, live, attenuated, for intranasal use 1 2006 [id number] 111 [employer] Inc. (MED) complet ed influenza virus vaccine, live, attenuate d, for intranasa l use DoD varicella virus vaccine 2005 21 complet ed varicella virus vaccine 02/03/06 Given Ambulat ory Pharmac y influenza virus vaccine,split 2005 [id number] 15 sanofi pasteur complet ed influenza virus vaccine,s plit 02/03/06 Given Ambulat ory Pharmac y influenza virus vaccine, split virus (incl. purified surface antigen)-reti red CODE 1 2005 [id number] 15 Sanofi Pasteur ([facility]) complet ed influenza virus vaccine, split virus (incl. purified surface antigen)- retired CODE DoD varicella virus vaccine 0 2005 21 () complet ed varicella virus vaccine DoD VARICELLA 2005 21 complet ed varicella virus vaccine [facility] influenza virus vaccine,split 2004 [id number] 15 sanofi pasteur complet ed influenza virus vaccine,s plit 02/16/05 Given Ambulat ory Pharmac y influenza virus vaccine, split virus (incl. purified surface antigen)-reti red CODE 1 2004 [id number] 15 Sanofi Pasteur (PMC) complet ed influenza virus vaccine, split virus (incl. purified surface antigen)- retired CODE DoD typhoid Vi capsular polysaccharid e vac 2003 [id number] 101 sanofi pasteur complet ed typhoid Vi capsular polysacch aride vac 08/28/03 Given Ambulat ory Pharmac y typhoid Vi capsular polysaccharid e vaccine 0 2003 [id number] 101 Sanofi Pasteur ([facility]) complet ed typhoid Vi capsular polysacch aride vaccine DoD anthrax vaccine 2003 [id number] 24 [employer] complet ed anthrax vaccine 07/17/03 Given Ambulat ory Pharmac y tetanus-dipht h toxoids (Td) adult/adol 2003 [id number] 09 sanofi pasteur complet ed tetanus-d iphth toxoids (Td) adult/ado l 07/17/03 Given Ambulat ory Pharmac y tetanus and diphtheria toxoids, adsorbed, preservative free, for adult use (2 Lf of tetanus toxoid and 2 Lf of diphtheria toxoid) 0 2003 [id number] 09 Sanofi Pasteur ([facility]) complet ed tetanus and diphtheri a toxoids, adsorbed, preservat abdulkadir free, for adult use (2 Lf of tetanus toxoid and 2 Lf of diphtheri a toxoid) DoD anthrax vaccine 6 2003 [id number] 24 [employer] [place] ([facility]) complet ed anthrax vaccine DoD ANTHRAX, PRE-EXPOSURE PROPHYLAXIS, POST-EXPOSURE PROPHYLAXIS 2003 24 complet ed Lot#: [id number] Mfr: EMERGENT BIOSOLUTI [facility] hepatitis B adult vaccine 2002 [id number] 43 GlaxoSmithKli ne complet ed hepatitis B adult vaccine 01/16/03 Given Ambulat ory Pharmac y hepatitis B vaccine, adult dosage 3 2002 [id number] 43 SmithKline (SKB) complet ed hepatitis B vaccine, adult dosage DoD HEPB-CPG 2 2002 189 complet ed [facility] influenza virus vaccine, whole virus 2002 [id number] 16 Que[employer]ix complet ed influenza virus vaccine, whole virus 01/13/03 Given Ambulat ory Pharmac y tuberculin purified protein derivative 2002 [id number] 96 sanofi pasteur complet ed tuberculi n purified protein derivativ e 01/13/03 Given Ambulat ory Pharmac y influenza virus vaccine, whole virus 0 2002 [id number] 16 Gael (KIRAN) complet ed influenza virus vaccine, whole virus DoD tuberculin skin test; purified protein derivative solution, intradermal 1 2002 Unknown, Provider [id number] 96 Sanofi Pasteur ([facility]) complet ed tuberculi n skin test; purified protein derivativ e solution, intraderm al DoD anthrax vaccine 2002 [id number] [employer] complet ed anthrax vaccine 11/28/02 Given Ambulat ory Pharmac y anthrax vaccine 5 2002 [id number] 24 [employer] [place] ([facility]) complet ed anthrax vaccine DoD ANTHRAX, PRE-EXPOSURE PROPHYLAXIS, POST-EXPOSURE PROPHYLAXIS 2002 24 complet ed Lot#: [id number] Mfr: EMERGENT BIOSOLUTI ONS [place] [facility] [place] [facility] vaccinia (smallpox) vaccine 2002 75 complet ed vaccinia (smallpox ) vaccine 05/07/02 Given Ambulat ory Pharmac y vaccinia (smallpox) vaccine 0 2002 75 () complet ed vaccinia (smallpox ) vaccine DoD VACCINIA (SMALLPOX) 2002 75 complet ed vaccinia (smallpox ) vaccine [facility] [place] [facility] hepatitis B adult vaccine 2002 [id number] 43 GlaxoSmithKli ne complet ed hepatitis B adult vaccine 03/28/02 Given Ambulat ory Pharmac y hepatitis B vaccine, adult dosage 2 2002 [id number] 43 Smithshipbeatine (SKB) complet ed hepatitis B vaccine, adult dosage DoD HEP B, ADULT 2 2002 43 complet ed hepatitis B vaccine, adult dosage Lot#: [id number] [facility] HEPB-CPG 1 2002 189 complet ed [facility] anthrax vaccine 2001 [id number] 24 [employer] complet ed anthrax vaccine 03/07/02 Given Ambulat ory Pharmac y anthrax vaccine 4 2001 [id number] 24 [employer] [place] ([facility]) complet ed anthrax vaccine DoD ANTHRAX, PRE-EXPOSURE PROPHYLAXIS, POST-EXPOSURE PROPHYLAXIS 2001 24 complet ed Lot#: [id number] Mfr: EMERGENT BIOSOLUTI ONS [facility] tuberculin purified protein derivative 2001 [id number] 96 sanofi pasteur complet ed tuberculi n purified protein derivativ e 01/16/02 Given Ambulat ory Pharmac y hepatitis B adult vaccine 2001 [id number] 43 Merck & Company Inc complet ed hepatitis B adult vaccine 01/16/02 Given Ambulat ory Pharmac y influenza virus vaccine, whole virus 2001 [id number] 16 sanofi pasteur complet ed influenza virus vaccine, whole virus 01/16/02 Given Ambulat ory Pharmac y influenza virus vaccine, whole virus 0 2001 [id number] 16 Sanofi Pasteur ([facility]) complet ed influenza virus vaccine, whole virus DoD hepatitis B vaccine, adult dosage 1 2001 [id number] 43 Merck (MSD) complet ed hepatitis B vaccine, adult dosage DoD tuberculin skin test; purified protein derivative solution, intradermal 1 2001 Unknown, Provider [id number] Sanofi Pasteur ([facility]) complet ed tuberculi n skin test; purified protein derivativ e solution, intraderm al DoD HEP B, ADULT 1 2001 43 complet ed hepatitis B vaccine, adult dosage Lot#: [id number] Mfr: [employer] AND CO., INC[employer] [facility] measles/mumps /rubella virus vaccine 2001 [id number] 03 Merck & Company Inc complet ed measles/m umps/rube lla virus vaccine 12/25/01 Given Ambulat ory Pharmac y measles, mumps and rubella virus vaccine 0 2001 [id number] 03 Merck (MSD) complet ed measles, mumps and rubella virus vaccine DoD MMR 2001 03 complet ed measles/m umps/rube lla virus vaccine Lot#: [id number] [facility] anthrax vaccine 2001 24 [employer] complet ed anthrax vaccine 09/21/01 Given Ambulat ory Pharmac y anthrax vaccine 3 2001 24 [employer] [place] ([facility]) complet ed anthrax vaccine DoD ANTHRAX, PRE-EXPOSURE PROPHYLAXIS, POST-EXPOSURE PROPHYLAXIS 2001 24 complet ed [facility] influenza virus vaccine, whole virus 2000 [id number] 16 sanofi pasteur complet ed influenza virus vaccine, whole virus 01/17/01 Given Ambulat ory Pharmac y tuberculin purified protein derivative 2000 [id number] 96 sanofi pasteur complet ed tuberculi n purified protein derivativ e 01/17/01 Given Ambulat ory Pharmac y influenza virus vaccine, whole virus 0 2000 [id number] 16 Sanofi Pasteur (PMC) complet ed influenza virus vaccine, whole virus DoD tuberculin skin test; purified protein derivative solution, intradermal 1 2000 Unknown, Provider [id number] Sanofi Pasteur ([facility]) complet ed tuberculi n skin test; purified protein derivativ e solution, intraderm al DoD influenza virus vaccine, whole virus 2000 [id number] 16 [employer] [facility] complet ed influenza virus vaccine, whole virus 03/23/00 Given Ambulat ory Pharmac y influenza virus vaccine, whole virus 0 2000 [id number] 16 [facility] ([facility]) complet ed influenza virus vaccine, whole virus DoD tuberculin purified protein derivative 1999 [id number] 96 [employer] complet ed tuberculi n purified protein derivativ e 11/22/99 Given Ambulat ory Pharmac y tuberculin skin test; purified protein derivative solution, intradermal 1 1999 Unknown, Provider [id number] 96 [facility] complet ed tuberculi n skin test; purified protein derivativ e solution, intraderm al DoD anthrax vaccine 1999 [id number] 24 [employer] complet ed anthrax vaccine 09/08/99 Given Ambulat ory Pharmac y anthrax vaccine 2 1999 [id number] 24 [employer] [place] ([facility]) complet ed anthrax vaccine DoD ANTHRAX, PRE-EXPOSURE PROPHYLAXIS, POST-EXPOSURE PROPHYLAXIS 1999 24 complet ed Lot#: [id number] Mfr: EMERGENT BIOSOLUTI [facility] tuberculin purified protein derivative 1999 [id number] 96 [employer] complet ed tuberculi n purified protein derivativ e 08/24/99 Given Ambulat ory Pharmac y anthrax vaccine 1999 [id number] 24 [employer] complet ed anthrax vaccine 08/24/99 Given Ambulat ory Pharmac y anthrax vaccine 1 1999 [id number] 24 Emergent Bio[employer] [facility] ([facility]) complet ed anthrax vaccine DoD tuberculin skin test; purified protein derivative solution, intradermal 1 1999 Unknown, Provider [id number] 96 [facility] (CON) complet ed tuberculi n skin test; purified protein derivativ e solution, intraderm al DoD ANTHRAX, PRE-EXPOSURE PROPHYLAXIS, POST-EXPOSURE PROPHYLAXIS 1999 24 complet ed Lot#: [id number] Mfr: EMERGENT BIOSOLUTI [facility] hepatitis A adult vaccine 1998 [id number] 52 Merck & Company Inc complet ed hepatitis A adult vaccine 02/18/99 Given Ambulat ory Pharmac y hepatitis A vaccine, adult dosage 2 1998 [id number] 52 Merck (MSD) complet ed hepatitis A vaccine, adult dosage DoD HEP A, ADULT 2 1998 52 complet ed hepatitis A vaccine, adult dosage Lot#: [id number] Mfr: [employer] AND [employer]., [employer] [facility] influenza virus vaccine, whole virus [id number] 16 [employer] complet ed influenza virus vaccine, whole virus 01/21/99 Given Ambulat ory Pharmac y influenza virus vaccine, whole virus 0 [id number] 16 [facility] ([facility]) complet ed influenza virus vaccine, whole virus DoD tuberculin purified protein derivative 1998 250-11 96 sanofi pasteur complet ed tuberculi n purified protein derivativ e 09/24/98 Given Ambulat ory Pharmac y measles/mumps /rubella virus vaccine [id number] 03 [facility] complet ed measles/m umps/rube lla virus vaccine 07/26/98 Given Ambulat ory Pharmac y meningococcal polysaccharid e (MPSV4) [id number] 32 sanofi pasteur complet ed meningoco ccal polysacch aride (MPSV4) 07/26/98 Given Ambulat ory Pharmac y tuberculin purified protein derivative 1998 [id number] 96 [facility] complet ed tuberculi n purified protein derivativ e 07/26/98 Given Ambulat ory Pharmac y hepatitis A adult vaccine 1998 [id number] 52 Merck & Company Inc complet ed hepatitis A adult vaccine 07/26/98 Given Ambulat ory Pharmac y measles, mumps and rubella virus vaccine 0 19985685 [id number] 03 [employer] (CON) complet ed measles, mumps and rubella virus vaccine DoD meningococcal polysaccharid e vaccine (MPSV4) 0 [id number] [id number] 32 Sanofi Pasteur (PMC) complet ed meningoco ccal polysacch aride vaccine (MPSV4) DoD hepatitis A vaccine, adult dosage 1 1998 [id number] 52 Merck (MSD) complet ed hepatitis A vaccine, adult dosage DoD MENINGOCOCCAL MPSV4 1998 32 complet ed meningoco ccal polysacch aride vaccine (MPSV4) Lot#: [id number] Mfr: SANOFI PASTEUR [facility] MMR 1998 03 complet ed measles/m umps/rube lla virus vaccine Lot#: [id number] [facility] typhoid vaccine, live, oral 1998 [id number] 1B 25 [employer] [place] complet ed typhoid vaccine, live, oral 07/19/98 Given Ambulat ory Pharmac y typhoid vaccine, live, oral 0 1998 [id number]. 1B 25 [employer] [facility] (SI) complet ed typhoid vaccine, live, oral DoD HEP A, ADULT 1 1998 52 complet ed hepatitis A vaccine, adult dosage Lot#: [id number] [facility] influenza virus vaccine, whole virus [id number] sanofi pasteur complet ed influenza virus vaccine, whole virus 12/02/97 Given Ambulat ory Pharmac y influenza virus vaccine, whole virus 0 [id number] 16 Sanofi Pasteur ([facility]) complet ed influenza virus vaccine, whole virus DoD yellow fever vaccine 1997 37 complet ed yellow fever vaccine 03/18/97 Given Ambulat ory Pharmac y yellow fever vaccine 0 1997 37 () complet ed yellow fever vaccine DoD YELLOW FEVER 1997 37 complet ed yellow fever vaccine [facility] influenza virus vaccine, whole virus 1996 [...] ed trivalent polioviru s vaccine, live, oral [facility] POLIO, UNSPECIFIED FORMULATION 1986 89 complet ed rivalent polioviru s vaccine, live, oral [facility] Results Combined list of recent chemistry, hematology and other laboratory results from Department of 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 Order Name Results Value Reference Range Date Interpretation Specimen Comments Source HEPATITI S B SURFACE ANTIBODY (HBsAb)- WH HEPATITIS B VIRUS SURFACE AB [PRESENCE] IN SERUM BY IMMUNOASSA Y Non Reactive 05/29 Specimen Type: SERUM No comment entered. Ordering Provider: BOBBY SHANNON Report Released Date/Time: May 29, 2023 01:58 PM Reporting Lab: [facility] [place] [facility] [address] [address] Performing Lab: [facility] [place] [address] [address] [facility] [facility] CBC LEUKOCYTES [#/VOLUME] IN BLOOD BY AUTOMATED COUNT 4.33 10*3/uL 4.50 - 11.00 05/29 L Specimen Type: BLOOD No comment entered. Ordering Provider: BOBBY SHANNON Report Released Date/Time: May 29, 2023 01:58 PM Reporting Lab: [facility] [place] [facility] [address] [address] Performing Lab: [facility] [place] [facility] [address] [address] [facility] [facility] CBC ERYTHROCYT ES [#/VOLUME] IN BLOOD BY AUTOMATED COUNT 5.06 10*6/uL 4.23 - 5.66 05/29 Specimen Type: BLOOD No comment entered. Ordering Provider: BOBBY SHANNON Report Released Date/Time: May 29, 2023 01:58 PM Reporting Lab: [facility] [place] [facility] [address] [address] Performing Lab: [facility] [place] [facility] [address] [address] [facility] [place] [facility] CBC HEMOGLOBIN [MASS/VOLU ME] IN BLOOD 14.6 g/dL 12.8 - 17 05/29 Specimen Type: BLOOD No comment entered. Ordering Provider: BOBBY SHANNON Report Released Date/Time: May 29, 2023 01:58 PM Reporting Lab: [facility] [place] [facility] [address] [address] Performing Lab: [facility] [place] [facility] [address] [address] [facility] [place] [facility] CBC HEMATOCRIT [VOLUME FRACTION] OF BLOOD BY AUTOMATED COUNT 42.6 39.2 - 50.4 05/29 Specimen Type: BLOOD No comment entered. Ordering Provider: BOBBY SHANNON Report Released Date/Time: May 29, 2023 01:58 PM Reporting Lab: [facility] [place] [facility] [address] [address] Performing Lab: [facility] [place] [facility] [address] [address] [facility] [place] [facility] CBC MCV [ENTITIC VOLUME] BY AUTOMATED COUNT 84.2 fL 82 - 99 05/29 Specimen Type: BLOOD No comment entered. Ordering Provider: BOBBY SHANNON Report Released Date/Time: May 29, 2023 01:58 PM Reporting Lab: [facility] [place] [facility] [address] [address] Performing Lab: [facility] [place] [facility] [address] [address] [facility] [place] [facility] CBC MCHC [MASS/VOLU ME] BY AUTOMATED COUNT 34.3 g/dL 30.8 - 35.1 05/29 Specimen Type: BLOOD No comment entered. Ordering Provider: BOBBY SHANNON Report Released Date/Time: May 29, 2023 01:58 PM Reporting Lab: [facility] [place] [facility] [address] [address] Performing Lab: [facility] [place] [facility] [address] [address] [facility] [place] [facility] CBC PLATELETS [#/VOLUME] IN BLOOD BY AUTOMATED COUNT 238 10*3/uL 140 - 360 05/29 Specimen Type: BLOOD No comment entered. Ordering Provider: BOBBY SHANNON Report Released Date/Time: May 29, 2023 01:58 PM Reporting Lab: [facility] [place] [facility] [address] [address] Performing Lab: [facility] [place] [facility] [address] [address] [facility] [place] [facility] CBC ERYTHROCYT E DISTRIBUTI ON WIDTH [RATIO] BY AUTOMATED COUNT 12.3 12.0 - 16.0 05/29 Specimen Type: BLOOD No comment entered. Ordering Provider: BOBBY SHANNON Report Released Date/Time: May 29, 2023 01:58 PM Reporting Lab: [facility] [place] [facility] [address] [address] Performing Lab: [facility] [place] [facility] [address] [address] [facility] [place] [facility] CBC MCH [ENTITIC MASS] BY AUTOMATED COUNT 28.9 pg 26.2 - 32.6 05/29 Specimen Type: BLOOD No comment entered. Ordering Provider: BOBBY SHANNON Report Released Date/Time: May 29, 2023 01:58 PM Reporting Lab: [facility] [place] [facility] [address] [address] Performing Lab: [facility] [place] [address] [address] [facility] LIVER FUNCTION PROTEIN [MASS/VOLU ME] IN SERUM OR PLASMA 7.1 g/dL 6.0 - 8.3 05/29 Specimen Type: SERUM No comment entered. Ordering Provider: BOBBY SHANNON Report Released Date/Time: May 29, 2023 01:58 PM Reporting Lab: [facility] [place] [facility] [address] [address] Performing Lab: [facility] [place] [facility] [address] [address] [facility] [facility] LIVER FUNCTION ALBUMIN [MASS/VOLU ME] IN SERUM OR PLASMA 4.3 g/dL 3.5 - 5.0 05/29 Specimen Type: SERUM No comment entered. Ordering Provider: BOBBY SHANNON Report Released Date/Time: May 29, 2023 01:58 PM Reporting Lab: [facility] [place] [facility] [address] [address] Performing Lab: [facility] [place] [address] [address] [facility] [facility] LIVER FUNCTION ALKALINE PHOSPHATAS E [ENZYMATIC ACTIVITY/V OLUME] IN SERUM OR PLASMA 47 U/L 40 - 150 05/29 Specimen Type: SERUM No comment entered. Ordering Provider: BOBBY SHANNON Report Released Date/Time: May 29, 2023 01:58 PM Reporting Lab: [facility] [place] [facility] [address] [address] Performing Lab: [facility] [place] [facility] [address] [address] [facility] [facility] LIVER FUNCTION ASPARTATE AMINOTRANS FERASE [ENZYMATIC ACTIVITY/V OLUME] IN SERUM OR PLASMA 33 U/L 5 - 34 05/29 Specimen Type: SERUM No comment entered. Ordering Provider: BOBBY SHANNON Report Released Date/Time: May 29, 2023 01:58 PM Reporting Lab: [facility] [place] [facility] [address] [address] Performing Lab: [facility] [place] [address] [address] [facility] [facility] LIVER FUNCTION ALANINE AMINOTRANS FERASE [ENZYMATIC ACTIVITY/V OLUME] IN SERUM OR PLASMA 21 U/L 05/29 Specimen Type: SERUM No comment entered. Ordering Provider: BOBBY SHANNON Report Released Date/Time: May 29, 2023 01:58 PM Reporting Lab: [facility] [place] [facility] [address] [address] Performing Lab: [facility] [place] [address] [address] [facility] [place] [facility] LIVER FUNCTION BILIRUBIN. TOTAL [MASS/VOLU ME] IN SERUM OR PLASMA 0.7 mg/dL 0.2 - 1.2 05/29 Specimen Type: SERUM No comment entered. Ordering Provider: BOBBY SHANNON Report Released Date/Time: May 29, 2023 01:58 PM Reporting Lab: [facility] [place] [facility] [address] [address] Performing Lab: [facility] [place] [address] [address] [facility] [place] [facility] BASIC METABOLI C PANEL (fasting ) UREA NITROGEN [MASS/VOLU ME] IN SERUM OR PLASMA 20 mg/dL 7 - 25 05/29 Specimen Type: SERUM No comment entered. Ordering Provider: BOBBY SHANNON Report Released Date/Time: May 29, 2023 01:58 PM Reporting Lab: [facility] [address] [address] Performing Lab: [facility] [address] [address] [facility] BASIC METABOLI C PANEL (fasting ) GLUCOSE [MASS/VOLU ME] IN SERUM OR PLASMA 96 mg/dL 65 - 100 05/29 Specimen Type: SERUM No comment entered. Ordering Provider: BOBBY SHANNON Report Released Date/Time: May 29, 2023 01:58 PM Reporting Lab: [facility] [address] [address] Performing Lab: [facility] [address] [address] [facility] BASIC METABOLI C PANEL (fasting ) SODIUM [MOLES/VOL UME] IN SERUM OR PLASMA 138 mmol/L 135 - 145 05/29 Specimen Type: SERUM No comment entered. Ordering Provider: BOBBY SHANNON Report Released Date/Time: May 29, 2023 01:58 PM Reporting Lab: [facility] [address] [address] Performing Lab: [facility] [address] [facility] BASIC METABOLI C PANEL (fasting ) POTASSIUM [MOLES/VOL UME] IN SERUM OR PLASMA 4.4 mmol/L 3.5 - 5.0 05/29 Specimen Type: SERUM No comment entered. Ordering Provider: BOBBY SHANNON Report Released Date/Time: May 29, 2023 01:58 PM Reporting Lab: [facility] [address] [address] Performing Lab: [facility] [address] [address] [facility] BASIC METABOLI C PANEL (fasting ) CHLORIDE [MOLES/VOL UME] IN SERUM OR PLASMA 104 mmol/L 100 - 110 05/29 Specimen Type: SERUM No comment entered. Ordering Provider: BOBBY SHANNON Report Released Date/Time: May 29, 2023 01:58 PM Reporting Lab: [facility] [address] [address] Performing Lab: [facility] [address] [address] [facility] BASIC METABOLI C PANEL (fasting ) CARBON DIOXIDE, TOTAL [MOLES/VOL UME] IN SERUM OR PLASMA 24 meq/L 20 - 30 05/29 Specimen Type: SERUM No comment entered. Ordering Provider: BOBBY SHANNON Report Released Date/Time: May 29, 2023 01:58 PM Reporting Lab: [facility] [address] [address] Performing Lab: [facility] [address] [address] [facility] BASIC METABOLI C PANEL (fasting ) CREATININE [MASS/VOLU ME] IN SERUM OR PLASMA 0.97 mg/dL 0.50 - 1.40 05/29 Specimen Type: SERUM No comment entered. Ordering Provider: BOBBY SHANNON Report Released Date/Time: May 29, 2023 01:58 PM Reporting Lab: [facility]ERN [address] [address] Performing Lab: [address] [address] [facility] BASIC METABOLI C PANEL (fasting ) GLOMERULAR FILTRATION RATE/1.73 SQ M.PREDICTE D [VOLUME RATE/AREA] IN SERUM, PLASMA OR BLOOD BY CREATININE -BASED FORMULA (CKD-EPI 2020) 90 mL/min 60 05/29 Specimen Type: SERUM No comment entered. Ordering Provider: BOBBY SHANNON Report Released Date/Time: May 29, 2023 01:58 PM Reporting Lab: [facility] [place] [facility] [address] [address] Performing Lab: [facility] [place] [facility] [address] [address] [facility] [facility] LIPID PANEL FASTING CHOLESTERO L [MASS/VOLU ME] IN SERUM OR PLASMA 261 mg/dL 05/29 H Specimen Type: SERUM No comment entered. Ordering Provider: BOBBY SHANNON Report Released Date/Time: May 29, 2023 01:58 PM Reporting Lab: [facility] [place] [facility] [address] [address] Performing Lab: [facility] [place] [address] [address] [facility] [facility] LIPID PANEL FASTING TRIGLYCERI DE [MASS/VOLU ME] IN SERUM OR PLASMA 103 mg/dL 0 - 150 05/29 Specimen Type: SERUM No comment entered. Ordering Provider: BOBBY SHANNON Report Released Date/Time: May 29, 2023 01:58 PM Reporting Lab: [facility] [place] [address] [address] Performing Lab: [facility] [place] [address] [address] [facility] [place] [facility] LIPID PANEL FASTING CHOLESTERO L IN LDL [MASS/VOLU ME] IN SERUM OR PLASMA BY DIONISIO N 202 mg/dL 0 - 129 05/29 H Specimen Type: SERUM No comment entered. Ordering Provider: BOBBY SHANNON Report Released Date/Time: May 29, 2023 01:58 PM Reporting Lab: [facility] [place] [facility] [address] [address] Performing Lab: [facility] [place] [address] [address] [facility] [place] [facility] LIPID PANEL FASTING CHOLESTERO L.TOTAL/CH OLESTEROL IN HDL [MASS RATIO] IN SERUM OR PLASMA 6.9 03/14 /2024 Specimen Type: SERUM No comment entered. Ordering Provider: BOBBY SHANNON Report Released Date/Time: May 29, 2023 01:58 PM Reporting Lab: [facility] F[facility]ILITYTRN [facility] [address] Performing Lab: [facility]ERN [address] [address] [facility]N [facility] LIPID PANEL FASTING CHOLESTERO L IN HDL [MASS/VOLU ME] IN SERUM OR PLASMA 38 mg/dL 40 - 60 05/29 L Specimen Type: SERUM No comment entered. Ordering Provider: BOBBY SHANNON Report Released Date/Time: May 29, 2023 01:58 PM Reporting Lab: [facility]ITALN [address] [address] Performing Lab: [facility]ERN [address] [address] [facility]ERN [facility] TSH THYROTROPI N [UNITS/VOL UME] IN SERUM OR PLASMA 2.33 u[IU]/mL 0.35 - 5.00 05/29 Specimen Type: SERUM No comment entered. Ordering Provider: BOBBY SHANNON Report Released Date/Time: May 29, 2023 01:58 PM Reporting Lab: [facility]ERN [address] [address] Performing Lab: [facility]RL [facility]OSPITALN [facility] [address] [facility]ITALUSE [facility] HEPATITI S C ANTIBODY (HCV)-AR C HEPATITIS C VIRUS AB [PRESENCE] IN SERUM NON-REAC TIVE 05/29 Specimen Type: SERUM Comment: Hep C Ab: No HCV antibody detected. If recent infection is suspected or other evidence suggests HCV infection, consider HCV nucleic acid testing Ordering Provider: BOBBY SHANNON Report Released Date/Time: May 29, 2023 01:58 PM Reporting Lab: [facility]ERN [address] [address] Performing Lab: [facility] [place] [facility] [address] [address] [facility] Vital Signs Combined list of inpatient and outpatient Vital Signs from Department of Defense and Veterans Affairs, ranging from 12 months to all on record, depending upon the facility. Vital Sign Value Date Comments Source No data available for this section Ambulatory Pharm acy WEIGHT 186 06/05/2023 10:06:15 [facility] [...] 05/29/2023 13:07:42 [facility] Encounters Combined list of: 1) Encounters from Department of Veterans Affairs facilities going back up to thelast 18 months. 2) Encounters from the Department of Defense facilities going back up to 280 months. Location Location Details Encounter Type Encounter Number Reason For Visit Attending Provider ADM Date DC Date Status Disposition Source [employer](Opt ometry Cl [facility]) OUTPATIENT [id number] Pre-op PRK STALIN SANTOS 11/04 Released w/o Limitations [facility](O ptometr y Cl [facility]) [facility]) OUTPATIENT [id number] crs pre op COLGAIN, ESTER Riggins 02/01 Released w/o Limitations [facility]( [facility]) [facility]) OUTPATIENT [id number] consent b MARAL MONTEZ 02/02 Released with Work/Duty Limitations [facility]( [facility]) [facility]) OUTPATIENT [id number] prk MARAL MONTEZ 02/03 Released with Work/Duty Limitations [facility]( [facility]) [facility]) OUTPATIENT [id number] 5 day po COLGAIN, ESTER Riggins 02/08 Released with Work/Duty Limitations [facility]( [facility]) [facility] Medical [facility](Opt ometry [facility]) OUTPATIENT [id number] 1 month follow up prk KEVIN HUSSEIN T 03/01 Released w/o Limitations [facility](O ptometr y Cl [facility]) [facility] Medical [facility](Opt ometry [facility]) OUTPATIENT [id number] 2 month PRK post op KEVIN HUSSEIN T 03/29 Released w/o Limitations [facility](O ptometr y Cl [facility]) [facility] Medical [facility](Opt ometry [facility]) OUTPATIENT [id number] 3 month PRK post-op f/u. KEVIN HUSSEIN T 04/30 Released w/o Limitations [facility](O ptometr y Cl [facility]) [facility](Opt ometry Cl [facility]) OUTPATIENT [id number] 6 month PRK F/U KEVIN HUSSEIN T 08/19 Released w/o Limitations [facility](O ptometr y Cl [facility]) [facility](Opt ometry Cl [facility]) OUTPATIENT [id number] 1 year PRK follow up KEVIN HUSSEIN T 01/31 Released w/o Limitations [facility](O ptometr y Cl [facility]) [place] [address](AFN G 104 Med Sq-FM) OUTPATIENT [id number] Notes Entered by: OLGA LIDIA GARCIA 19 Nov 2017 1418 ------- ------- ------- ------- -- OLGA LIDIA MELO 11/19 Released w/o Limitations [facility] y Treatme [facility] [place] [address](A FNG 104 Med Sq-FM) [place] [address](AFN G 104 Med Sq-FM) OUTPATIENT [id number] Notes Entered by: BEATA HOANG 21 Nov 2017 1310 ------- ------- ------- ------- -- Pre-Dep BEATA Jones 11/21 Released w/o Limitations [facility] y Treatme [facility] [place] [address](A FNG 104 Med Sq-FM[facility] M[facility]D Lis[facility] OUTPATIENT [id number] travel meds/im CARSON Ashraf 01/29 [facility] w/o Limitations [facility] M01D Lisbeth) OUTPATIENT [id number] 2 Notes Entered by: Dominic CALERO 30 Jan 2018 1024 ------- ------- ------- ------- -- rabies vaccine VIKTORIA CALERO 01/30 [facility] w/o Limitations [facility] M01D Lisbeth) OUTPATIENT [id number] Notes Entered by: IZABEL THOMPSON 10 Feb 2018 1120 ------- ------- ------- ------- -- Rabies #2 IZABEL THOMPSON 02/10 Released w/o Limitations [facility] M01D [place]) [facility] M01D Lisbeth) OUTPATIENT [id number] 2 Notes Entered by: Dominic CALERO 03 Mar 2018 1508 ------- ------- ------- ------- -- rabies vaccine IZABEL THOMPSON E 03/03 Released w/o Limitations [facility] M01D Lis[place]) [employer] [facility] M01D Lisbeth) OUTPATIENT [id number] 2 Notes Entered by: IZABEL THOMPSON Patti 24 Mar 2018 1440 ------- ------- ------- ------- -- TRAVEL IMMS IZABEL THOMPSON E 03/24 Released w/o Limitations [facility] M01D [place]) [facility](Raad stern [facility] Team A) OUTPATIENT [id number] 7 VAZQUEZ FOSS 07/18 Released w/o Limitations [facility] Medical [facility](Greg anscom [facility] Team A) [place] [address](AFN G 104 Med Sq-FM) OUTPATIENT [id number] 1 Notes Entered by: EAMON VELÁSQUEZ 28 Jul 2018 1247 ------- ------- ------- ------- -- Post-OLGA LIDIA Pittman 07/28 [facility] Limitations [facility] [place] [place] [address](A FNG 104 Med Sq-FM) [address] [place] [address](Opt ometry Cl [facility]) OUTPATIENT [id number] BEATA JIMENEZ 10/29 Released w/o Limitations [address] [place] [address] Group(O ptometr y Cl [facility]s) [place] [address](AFN G 104 Med Sq-FM) OUTPATIENT [id number] 9 Notes Entered by: OLGA LIDIA GARCIA 03 Dec 2018 1122 ------- ------- ------- ------- -- OLGA LIDIA MELO 12/03 [facility] w/o Limitations [facility] [place] [address](A FNG 104 Med Sq-FM) [place] [address](AFN G 104 Med Sq-FM) OUTPATIENT [id number] 9 Notes Entered by: LAURA VARELA R 20 May 2019 1535 ------- ------- ------- ------- -- [employer] PHAQ SANDRA VARELA 05/19 [facility]ased w/o Limitations [facility] [place] [address](A FNG 104 Med Sq-FM) [place] [address](AFN G 104 Med Sq-FM) OUTPATIENT [id number] 2 Notes Entered by: OLGA LIDIA GARCIA 19 Apr 2020 1425 ------- ------- ------- ------- -- PHAQ OLGA LIDIA GARCIA 04/19 [facility]ased w/o Limitations [facility] [place] [address](A FNG 104 Med Sq-FM) [place] [address](AFN G 104 Med Sq-FM) TELE CONSULT [id number] OLGA LIDIA GARCIA 04/06 [facility] [place] [place] [address](A FNG 104 Med Sq-FM) [place] [address](AFN G 104 Med Sq-FM) OUTPATIENT [id number] Notes Entered by: OLGA LIDIA GARCIA 01 May 2021 0909 ------- ------- ------- ------- -- PHAQ OLGA LIDIA GARCIA 05/01 Released w[facility] Limitations [facility] [place] [address](A FNG [address]) [address] [place] [address] [facility](Opt ometry [facility]) OUTPATIENT [id number] BEATA JIMENEZ 06/15 Released w/o Limitations [facility](O ptometr y Cl [facility]) [place] [address](AFN G [address]) OUTPATIENT [id number] Notes Entered by: OLGA LIDIA GARCIA 04 Jan 2022 1246 ------- ------- ------- ------- -- PCP and ortho records OLGA LIDIA GARCIA 01/04 Released w/o Limitations [facility] [place] [address](A FNG [address]) [place] [address](AFN G [address]) TELE CONSULT [id number] OLGA LIDIA GARCIA 01/23 [facility] [place] [address](A FNG [address]) [place] [address](AFN G [address] Med [address]-FM) TELE CONSULT [id number] OLGA LIDIA GARCIA 01[facility] [place] [place] [address](A FNG [address] Med S[address]-FM) [facility] Outpatient Encounter [id number] 01/16 [facility] Outpatient Encounter [id number] 04/09 [facility] [place] [facility] OFF/OP EST JULY X REQ PHY/QHP [id number] Diagnos is: ICD-10- CM 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
FURCOLO,TI NA 05/28 [facility] OFFICE O/P NEW MOD 45 MIN [id number] Diagnos is: ICD-10- CM Z77.29 Contact with and exposur e to other hazardo us substan tj<br/ > FURCOLO,TI NA 06/04 [facility] COMPRE OPH EXAM NEW PT 1/> [id number] Diagnos is: ICD-10- CM H10.45 Other chronic allergi c conjunc tivitis
STEPHEN,LACE Y J 01/02 [facility] FIT SPECTACLES MULTIFOCAL [id number] Diagnos is: ICD-10- CM Z46.0 Encount er for fit/adj st of spectac les and contact lenses< br/> STEPHEN,LACE Y J 01/02 [facility] Procedures Combined list of: 1) Procedures from Department of Veterans Affairs facilities going back up to thelast 18 months, not all VA non-surgical procedures are included; 2) All procedures from the Department of Defense facilities. Procedure Procedure Type Code Date Perfomer Comments Sourc e No data available for this section Ambulato ry Pharmacy Spectacles Services Fitting Monofocal Except For Aphakia Spectacles Services Fitting Monofocal Except For Aphakia 40607 2018 BEATA MCKEON [facility] Determination Of Refractive State Determination Of Refractive State 72037 2018 BEATA MCKEON [facility] Ophthalmological New Patient Start Comprehensive Care Ophthalmological New Patient Start Comprehensive Care 62509 2018 BEATA MCKEON [facility] Screening Test Of Visual Acuity, Quantitative, Bilateral Screening Test Of Visual Acuity, Quantitative, Bilateral 24192 2018 VAZQUEZ BARAJAS [facility] Rabies Vaccine For Intramuscular Use Rabies Vaccine For Intramuscular Use 34015 2017 IZABEL THOMPSON Rabies - Intramuscular; Series #: 1; 1.0 mL; IM; Left Arm; [facility]: UC CEIN.; Lot: [id number]. DoD Immunization Administration By Injection, One Vaccine Immunization Administration By Injection, One Vaccine 05236 2017 IZABEL THOMPSON E [facility] Rabies Vaccine For Intramuscular Use Rabies Vaccine For Intramuscular Use 12056 2017 IZABEL THOMPSON Rabies - Intramuscular; Series #: 2; 1.0 mL; IM; Left Arm; g: Iterasiine; Lot: [id number]. [facility] Immunization Administration By Injection, One Vaccine Immunization Administration By Injection, One Vaccine 55437 2017 JAY IZABEL [facility] Rabies Vaccine For Intramuscular Use Rabies Vaccine For Intramuscular Use 74387 2017 VIKTORIA CALERO Rabies - Intramuscular; Series #: 1; 1.0 mL; IM; Left Arm; Mfg: [employer]; Lot: [id number]. [facility] Immunization Administration By Injection, One Vaccine Immunization Administration By Injection, One Vaccine [id number] VIKTORIA CALERO Immunization Administration By Injection, One Vaccine Immunization Administration By Injection, One Vaccine [id number] CARSON SUMMERS [facility] Meningococcal Polysaccharide Diphtheria Toxoid Conjugate Vaccine 2017 CARSON SUMMERS Meningococcal MCV4P; Series #: 1; .5 mL; IM; Right Arm; Mfg: Nob[employer] P[employer]ur; Lot: [id number]. [facility] Ophthalmological Prior Patient Start Comprehensive Care Ophthalmological Prior Patient Start Comprehensive Care 25156 2014 KEVIN HUSSEIN Determination Of Refractive State Determination Of Refractive State 73311 2014 KEVIN HUSSEIN Spectacles Services Fitting Monofocal Except For Aphakia Spectacles Services Fitting Monofocal Except For Aphakia 74614 2014 KEVIN HUSSEIN Determination Of Refractive State Determination Of Refractive State 05550 2014 KEVIN HUSSEIN Ophthalmological Prior Patient Start Intermediate Level Care Ophthalmological Prior Patient Start Intermediate Level Care 42780 2014 KEVIN HUSSEIN Postoperative Visit, Without Charge Postoperative Visit, Without Charge 74606 2014 KEVIN HUSSEIN Postoperative Visit, Without Charge Postoperative Visit, Without Charge 02828 2014 KEVIN HUSSEIN Postoperative Visit, Without Charge Postoperative Visit, Without Charge 16268 2013 KEVIN HUSSEIN Postoperative Visit, Without Charge Postoperative Visit, Without Charge 13427 2013 DWAYNE ALFONSO Photorefractive keratectomy (PRK) 2013 KAMERON HENDRICKS Physician Supervised Group Educational Services Physician Supervised Group Educational Services 94354 2013 JESSICA HENDRICKSITA M [facility] Ophthalmological New Patient Start Comprehensive Care Ophthalmological New Patient Start Comprehensive Care 82348 2013 ESTER VEGA Corneal Pachymetry, Bilateral With Interpret And Report Corneal Pachymetry, Bilateral With Interpret And Report 71433 2013 ESTER VEGA Fundoscopic Exam Extensive Initial Exam Fundoscopic Exam Extensive Initial Exam 93172 2013 ESTER VEGA Computerized Corneal Topography Computerized Corneal Topography 03386 2013 ESTER VEGA Determination Of Refractive State Determination Of Refractive State 29310 2013 ESTER VEGA Corneal Pachymetry Corneal Pachymetry 31698 2013 STALIN SANTOS Determination Of Refractive State Determination Of Refractive State 22645 2013 STALIN SANTOS Ophthalmological Prior Patient Start Comprehensive Care Ophthalmological Prior Patient Start Comprehensive Care 82575 2013 STALIN SANTOS Ophthalmological Prior Patient Start Comprehensive Care Ophthalmological Prior Patient Start Comprehensive Care 72331 BEATA MCKEON Determination Of Refractive State Determination Of Refractive State 73058 BEATA MCKEON DETERMINATION OF REFRACTIVE STATE 2021 DoD FITTING [...] OR BILATERAL (DETERMINATION OF CORNEAL THICKNESS) 2013 DoD FITTING OF SPECTACLES, EXCEPT FOR APHAKIA; MONOFOCAL 2005 [facility] POSTOPERATIVE FOLLOW-UP VISIT, NORMALLY INCLUDED IN THE SURGICAL PACKAGE, INDICATE THAT EVALUATION & MANAGEMENT SERVICE WAS PERFORMED DURING A POSTOPERATIVE PERIOD REASON RELATED ORIGINAL PROCEDURE 2013 [facility] PHOTOREFRACTIVE KERATECTOMY (PRK) 2013 [facility] PHYS/OTH QUALIFIED HEALTH LEISURE STUDIES PROFESSOR QUALIFIED,EDUCATIO N,TRAIN,LICENSURE/ REGULATION (WHEN APPLICABLE) EDUC SER RENDERED TO PATS IN A GRP SETTING (EG,,OBESI TY,OR DIABETIC INSTRUCT) 2013 [facility] DETERMINATION OF REFRACTIVE STATE 2013 [facility] IMMUNIZATION ADMINISTRATION (INCLUDES PERCUTANEOUS, INTRADERMAL, SUBCUTANEOUS, OR INTRAMUSCULAR INJECTIONS); 1 VACCINE (SINGLE OR COMBINATION VACCINE/TOXOID) 2017 [facility] IMMUNIZATION ADMINISTRATION (INCLUDES PERCUTANEOUS, INTRADERMAL, SUBCUTANEOUS, OR INTRAMUSCULAR INJECTIONS); 1 VACCINE (SINGLE OR COMBINATION VACCINE/TOXOID) 2017 [facility] IMMUNIZATION ADMINISTRATION (INCLUDES PERCUTANEOUS, INTRADERMAL, SUBCUTANEOUS, OR INTRAMUSCULAR INJECTIONS); 1 VACCINE (SINGLE OR COMBINATION VACCINE/TOXOID) 2017 [facility] MENINGOCOCCAL CONJUGATE VACCINE, SEROGROUPS A, C, W, Y, QUADRIVALENT, DIPHTHERIA TOXOID CARRIER (MENACWY-D) OR [id number] CARRIER (MENACWY-CRM), FOR INTRAMUSCULAR USE 2017 [facility] Social History Combined list of available smoking, tobacco, and other social history from Department of 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 Social History Type Response Date Comment Sourc e Tobacco smoking status NHIS [place]-TO[place]ACCO FORMER USER 05/29/2023 [facility] History of tobacco use NC-TOBACCO QUIT 5 TO < 15 YRS 05/29/2023 [facility] This section is an empty social history section. DoD Assessment and Plan Combined list of future care activities from Department of Defense and Veterans Affairs facilities (e.g., assessment and plan notes, appointments, orders, and referrals). Additional future care activities may be listed in the Plan of Care section. Result Assessment and Plan Date Source Assessment and Plan No data available for this section 03/26/2024 Ambulatory Pharmacy Functional Status Combined list of recent functional and cognitive assessments recorded at Department of Defense and [facility] Affairs ([place] Functional [place] Measurement (FIM) Scale: 1 = Total Assistance (Subject = 0% +), 2 = Maximal Assistance (Subject = 25% +), 3 = Moderate Assistance (Subject = 50% +), 4 = Minimal Assistance (Subject = 75% +), 5 = Supervision, 6 = Modified [place] (Device), 7 = Complete [place] (Timely, Safely). Assessment Date/Time Source Assessment Type Assessment Skill Assessment Score Assessment Details No data available for this section"
--- OUTSIDE RECORDS SUMMARY | 2024-03-26 09:36 | XMS_ITS | Encounter Summary ---
Author Name [facility] [place] [facility] [place] [facility] [place] Address [address] [place] [address] Care Team Providers Care Licensed Prosthetist/Orthotist Name Role Phone NOELLE SHANNON Primary Care Provider Unavailabl e Selected Encounter This section includes the information on record at [place] for the Encounter. Date/Time Encounter Type Encounter Description Reason Pro vider Source Apr 09, 2023 12:00 AM Outpatient Encounter EVENT (HISTORICAL) IHE Encounter Template Text not used by [place] Plan of Treatment: Future Appointments (+ 6 months) and Future Tests (+/- 45 days) The Plan of Treatment section includes future care activities for the patient from all [place] treatmentfacilities. This section includes future appointments and future orders which are active, pending or scheduled. Future Appointments This section includes appointments that were scheduled to occur 6 months from the date of the Encounter, up to a maximum of 20 appointments. The data comes from all [place] treatment facilities. Appointment Date/Time Appointment Type Appointme nt Facility Name May 29, 2023 01:00 PM [facility] [place] [facility] [place] [facility] Jun 05, 2023 10:00 AM [facility] [place] [facility] [place] [facility] Encounter Notes: [...] Filed: 06/12/2023 by: NANI SAUCEDO [facility]
--- OUTSIDE RECORDS SUMMARY | 2024-03-26 09:36 | XMS_ITS ---
Author Name [facility] [place] [facility] [place] Address [address] [place] [address] Care Team Providers Care Generating Station Mechanic Name Role Phone NOELLE SHANNON Primary Care Provider Unavailabl e Selected Encounter This section includes the information on record at [place] for the Encounter. Date/Time Encounter Type Encounter Description Reason Provider Source Jun 05, 2023 10:00 AM OFFICE O/P NEW MOD 45 MIN PRIMARY CARE/MEDICINE ICD-10-CM Z77.29 Contact with and exposure to other hazardous substances NOELLE SHANNON Patti Encounter Template Text not used by [place] Assessments - Encounter Diagnoses This section includes the primary and secondary diagnoses documented for the Encounter. Date/Time Primary/Secondary Diagnosis Diagnosis Name Provider Source Jun 05, 2023 11:08 AM PRIMARY Contact with and exposure to other hazardous substances FURCOLO,NOELLE [facility] [place] [facility] Jun 05, 2023 11:08 AM SECONDARY [...] and Hematology Lab Results on record with [place] for the patient. Radiology Reports and Pathology Reports are provided separately, in subsequent sections. Lab Results This section contains the Chemistry/Hematology Results that were resulted 30 days before or 30 daysafter the date of the Encounter. Date/Time Source Result Type Result - Unit Interpretation Reference Range Comment May 30, 2023 10:27 AM [facility] HEPATITIS B SURFACE ANTIBODY (HBsAb)-WH Specimen Type: SERUM No comment entered. Ordering Provider: NOELLE SHANNON Report Released Date/Time: May 29, 2023 01:58 PM Reporting Lab: [address] [address] Performing Lab: [address] [address] HBsAb Non Reactive Non Reactive May 30, 2023 10:27 AM [facility] CBC Specimen Type: BLOOD No comment entered. Ordering Provider: NOELLE SHANNON Report Released Date/Time: May 29, 2023 01:58 PM Reporting Lab: [address] [address] Performing Lab: [address] [address] WBC 4.33 10*3/uL L 4.50-11.00 RBC 5.06 10*6/uL 4.23-5.66 HGB 14.6 g/dL 12.8-17 HCT 42.6 39.2-50.4 MCV 84.2 fL 82-99 MCHC 34.3 g/dL 30.8-35.1 PLT 238 10*3/uL 140-360 RDW-CV 12.3 12.0-16.0 MCH 28.9 pg 26.2-32.6 May 30, 2023 10:27 AM [facility] LIVER FUNCTION Specimen Type: SERUM No comment entered. Ordering Provider: NOELLE SHANNON Report Released Date/Time: May 29, 2023 01:58 PM Reporting Lab: [address] [address] Performing Lab: [address] [address] PROTEIN,TOTAL 7.1 g/dL 6.0-8.3 ALBUMIN 4.3 g/dL 3.5-5.0 ALKALINE PHOSPHATASE 47 U/L 40-150 AST 33 U/L 5-34 ALT 21 U/L BILIRUBIN, TOTAL 0.7 mg/dL 0.2-1.2 May 30, 2023 10:27 AM [facility] BASIC METABOLIC PANEL (fasting) Specimen Type: SERUM No comment entered. Ordering Provider: NOELLE SHANNON Report Released Date/Time: May 29, 2023 01:58 PM Reporting Lab: [address] [address] Performing Lab: [address] [address] UREA NITROGEN 20 mg/dL 7-25 GLUCOSE 96 mg/dL 65-100 SODIUM 138 mmol/L 135-145 POTASSIUM 4.4 mmol/L 3.5-5.0 CHLORIDE 104 mmol/L 100-110 CO2 24 meq/L 20-30 CREATININE, Serum 0.97 mg/dL 0.50-1.40 eGFR(CKD-EPI 2020) 90 mL/min >60 May 30, 2023 10:27 AM [facility] LIPID PANEL FASTING Specimen Type: SERUM No comment entered. Ordering Provider: NOELLE SHANNON Report Released Date/Time: May 29, 2023 01:58 PM Reporting Lab: [address] [address] Performing Lab: [address] [address] CHOLESTEROL 261 mg/dL H TRIGLYCERIDE 103 mg/dL 0-150 LDL calculated 202 mg/dL H 0-129 CHOL/HDL 6.9 HDL CHOLESTEROL 38 mg/dL L 40-60 May 30, 2023 10:27 AM [facility] TSH Specimen Type: SERUM No comment entered. Ordering Provider: NOELLE SHANNON Report Released Date/Time: May 29, 2023 01:58 PM Reporting Lab: [address] [address] Performing Lab: [facility] [address] [facility] [address] TSH 2.33 u[IU]/mL 0.35-5.00 May 30, 2023 10:27 AM [facility] HEPATITIS C ANTIBODY (HCV)-ARC Specimen Type: SERUM Comment: Hep C Ab: No HCV antibody detected. If recent infection is suspected or other evidence suggests HCV infection, consider HCV nucleic acid testing Ordering Provider: NOELLE SHANNON Report Released Date/Time: May 29, 2023 01:58 PM Reporting Lab: [facility] [address] [facility] [address] Performing Lab: [address] [address] HEPATITIS C ANTIBODY NON-REACTIVE NON-REACTIV E Vital Signs: All taken on the encounter date This section contains inpatient and outpatient Vital Signs collected on the date of the Encounter. Date/Time Temperature Pulse Blood Pressure Respiratory Rate SP02 Pain Height Weight Body Mass Index Source Jun 05, 2023 10:14 AM 97.3 62 128/79 16 97 [facility] Jun 05, 2023 10:06 AM 0 72 186 25 [facility] Social History: Smoking Status (Most current) and Tobacco Use (All prior to encounter date) This section includes the most current, and the historical, smoking and tobacco- related health factors from the [place] facility where the Encounter took place. Current Smoking Status This section includes the most current smoking, or tobacco-related health factor, from the [place] facility where the Encounter took place. Date/Time Current Smoking Status Comment Facil ity May 29, 2023 01:00 PM VA-TOBACCO FORMER USER [facility] Tobacco Use History This section includes a history of the smoking, or tobacco-related health factors, that were collected on or before the date of the Encounter. The data comes from the [place] facility where the Encounter took place. Date/Time Smoking Status/Tobacco Use Comment F acility May 29, 2023 01:00 PM VA-TOBACCO QUIT 5 TO < 15 YRS [facility] Encounter Notes: All associated encounter notes This section contains the clinical notes associated to the Encounter. Date/Time Encounter Note(s) Provider Source Jun 05, 2023 11:08 AM ADDENDUM: LOCAL TITLE: Addendum STANDARD TITLE: ADDENDUM DATE OF NOTE: JUN 05, 2023@11:08:46 ENTRY DATE: JUN 05, 2023@11:08:47 AUTHOR: NOELLE SHANNON COSIGNER: URGENCY: STATUS: COMPLETED please try and get colonosocpy report from 2021 from [facility]. thanks /es/ NOELLE SHANNON D.O. PHYSICIAN Signed: 06/05/2023 11:09 Receipt Acknowledged By: 06/06/2023 09:04 /es/ SUSAN MEZA LPN License Practical Nurse --- Original Document --- 06/05/23 NOTE: MOHSEN ROBBINS is a 57 year old WHITE MALE who is being seen today in primary care to establish care. CARE TEAM Community Primary Care Provider: GIL Salazar- [facility] Specialists: Community Specialists: [facility]iatry- 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 Has PCP in [place], up to date with all preventative screenings. 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 [place]ston/caregiver believes the was exposed to the following while serving in the [employer]: Airborne Hazards and Open Burn Pit: /caregiver was made aware of educational resources that includes information on the Registry Program, presumptive conditions and how to file a claim. Printed information was offered and provided if desired. Amston/caregiver has no health or medical concerns related to their concern of environmental exposure. No questions at this time Amston/caregiver was informed of local points of contact. Contact information for local resources: Benefits/Claim for Disability Compensation Questions:National VBA [place] Healthcare Enrollment: [facility] Eligibility direct dialed at [phone] Registry: [facility] Health Coordinator ext [phone] The following connections were provided to the [place]/caregiver: No connections needed at this time Medication [...] D.O. PHYSICIAN Signed: 06/05/2023 11:08 NOELLE SHANNON [facility] Jun 05, 2023 10:47 AM ADMINISTRATIVE [...] Practical Nurse Signed: 06/05/2023 10:48 SUSAN MEZA [facility] Jun 05, 2023 10:17 AM PREVENTIVE [...] Practical Nurse Signed: 06/05/2023 10:23 SUSAN MEZA [place] [facility] [place] [facility] Jun 05, 2023 08:19 AM PHYSICIAN [...] CARE TEAM Community [facility]: [facility] Specialists: Community Specialists: Physiatry- PSS - Dr. 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 Has PCP in [place], up to date with all preventative screenings. 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 Toxic Exposure Screening: The [place]ston/caregiver was asked if they believe the [place] experienced any toxic exposure(s), such as Airborne Hazards and Open Burn Pit, [place] War related exposures, [place], Radiation, contaminated water at [place] or other such exposures, while serving in the Armed [employer]. /caregiver believes the [place] was exposed to the following while serving in the Armed Forces: Airborne Hazards and Open Burn Pit: /caregiver was made aware of educational resources that includes information on the Registry Program, presumptive conditions and how to file a claim. Printed information was offered and provided if desired. Amston/caregiver has no health or medical concerns related to their concern of environmental exposure. No questions at this time Amston/caregiver was informed of local points of contact. Contact information for local resources: Benefits/Claim for Disability Compensation Questions:National VBA [place] Healthcare Enrollment: [facility] Eligibility direct dialed at [phone] Registry: [facility] Health Coordinator ext [phone] The following connections were provided to the [place]/caregiver: No connections needed at this time Medication Reconciliation: Outpatient: Has the patient been taking medications as documented in the EMLR? YES: The patient has been taking medications as documented in the EMLR. Essential Medication List for Review used to complete this medication reconciliation. INCLUDED IN THIS LIST: Alphabetical list of active outpatient prescriptions dispensed from this [place] (local) and dispensed from another [place] or [...] and get colonosocpy report from 2021 from [facility]. thanks /araceli SHANNON D.O. PHYSICIAN Signed: 06/05/2023 11:09 Receipt Acknowledged By: * AWAITING SIGNATURE * SUSAN MEZA [facility]
--- OUTSIDE RECORDS SUMMARY | 2024-03-26 09:36 | XMS_ITS | Encounter Summary ---
Author Name [facility] Address [address] [place] [address] Care Team Providers Care Clinical Applications Manager Name Role Phone MIRTHA NOELLE Primary Care Provider Unavailabl e Selected Encounter This section includes the information on record at [place] for the Encounter. Date/Time Encounter Type Encounter Description Reason Provider Source Jan 03, 2024 02:15 PM FIT SPECTACLES MULTIFOCAL OPTOMETRY ICD-10-CM Z46.0 Encounter for fit/adjst of spectacles and contact lenses FRAN STEPHEN Patti Encounter Template Text not used by [place] Assessments - Encounter Diagnoses This section includes the primary and secondary diagnoses documented for the Encounter. Date/Time Primary/Secondary Diagnosis Diagnosis Name Provider Source Jan 03, 2024 02:15 PM PRIMARY Encounter for fit/adjst of spectacles and contact lenses ARGELIA MARTINEZ [facility] Social History: Smoking Status (Most current) and Tobacco Use (All prior to encounter date) This section includes the most current, and the historical, smoking and tobacco- related health factors from the [place] facility where the Encounter took place. Current Smoking Status This section includes the most current smoking, or tobacco-related health factor, from the [place] facility where the Encounter took place. Date/Time Current Smoking Status Comment Melania gibbs May 29, 2023 01:00 PM VA-TOBACCO FORMER USER [facility] Tobacco Use History This section includes a history of the smoking, or tobacco-related health factors, that were collected on or before the date of the Encounter. The data comes from the [place] facility where the Encounter took place. Date/Time Smoking Status/Tobacco Use Comment F david May 29, 2023 01:00 PM VA-TOBACCO QUIT 5 TO < 15 YRS [facility] [place] [facility] Encounter Notes: All associated encounter notes This [...] Dir: [id number]:[id number] Dir2: FITTING INFORMATION FPD: NPD: [place]:R:32 L:33 SEG HT:R:23 L:23 Tint:None Shade:None VA Billable Items FRAME: SLICK CEBALLOS [id number] Right Lens: PLASTIC VA PROGRESSIVE PHOTOCHROMIC CEBALLOS 1.498 PLASTIC CR39 Left Lens: PLASTIC VA PROGRESSIVE PHOTOCHROMIC CEBALLOS 1.498 PLASTIC CR39 KLEAR ANTI-REFLECTIVE COATING CLIN items [employer] - AR Coating 0004 - Progressive - Glass Plastic Poly 0005 - Transition /olivia/ CHIOMA MCFADDEN ELECTRONIC CALIBRATION TECHNICIAN Signed: 01/03/2024 14:15 Receipt Acknowledged By: 01/03/2024 14:26 /olivia/ Argelia Martinez LPN Licensed Practical Nurse 01/03/2024 ADDENDUM STATUS: COMPLETED PDS chief lending officer fit 1 PAL eyeglasses on 01/03/2024. OPT HT entered consult(s) as requested for provider signature. /olivia/ Argelia Martinez LPN Licensed Practical Nurse Signed: 01/03/2024 14:28 CHIOMA MCFADDEN [facility]
[2024-03-26 11:23] LABS: Prostate Specific Antigen Scr 1.29 ng/mL (<0.05-4.0)
[2024-03-26 11:30] LABS: Alanine Aminotransferase 30 U/L (0-40); Albumin Level 4.8 g/dL (3.5-5.0); Anion Gap 13 (12-20); Aspartate Amino Transferase 29 U/L (5-37); Bilirubin Total 0.8 mg/dL (0.0-1.0); Blood Urea Nitrogen 25 mg/dL (9-16); Calcium 9.8 mg/dL (8.4-10.2); Carbon Dioxide 25 mmol/L (22-29); Chloride 109 mmol/L (96-108); Cholesterol 197 mg/dL (<200); Estimated Glomerular Filt Rate > 60; Glucose Fasting 110 mg/dL (60-99); HDL Cholesterol 46 mg/dL (>40); LDL Cholesterol Calculated 135 mg/dL (<100); Potassium 4.5 mmol/L (3.3-5.1); Sodium 142 mmol/L (135-145); Total Protein 8.1 g/dL (6.5-8.0); Triglycerides 84 mg/dL (<150)
[2024-03-26 11:33] LABS: TSH reflex Free T4 3.21 uIU/mL (0.32-4.0)
[2024-03-26 12:26] LABS: Alkaline Phosphatase 48 U/L (39-117)
== END 2024-03-26 09:19 | disposition home or self-care (01) ==
LOC: HO.LAB 09:18
PROVIDERS: PCP Physician Assistant; Visit Provider Internal Medicine Cardiovascular Disease
DX: E78.2 Mixed hyperlipidemia (principal); E03.9 Hypothyroidism, unspecified; Z12.5 Encounter for screening for malignant neoplasm of prostate
CPT/HCPCS: 36415; 80053; 80061; 84153; 84443

== ENCOUNTER 2024-07-10 08:33 | Outpatient (REF) | payer OTHER, SELFPAY ==
--- OUTSIDE RECORDS SUMMARY | 2024-07-10 08:37 | XMS_ITS | Continuity of Care Document ---
Author Name [facility] Organization [facility] Care Team Providers Care Retort Unloader Name Role Phone [facility] Unavailable Unavailable Problems Combined list of problems from Department of Defense and Veterans [facility] facilities. It does not include entries that [...] TIMES A DAY OPHTHA LMIC ACTIVE 01/03/2025 [id number] [place] STEPHEN EY J 2023 45 [facility] KETOTIFEN 0.025% SOLN,OPH INSTILL 1 DROP INTO EACH EYE TWICE DAILY FOR ALLERGIC CONJUNCT IVITIS (IF YOU WEAR CONTACT LENSES, WAIT 10 MINUTES BEFORE INSERTIN G LENSES) OPHTHA LMIC ACTIVE 01/03/2025 [id number] STEPHEN,LAC EY J 2023 20 [facility] LEVOTHYROXI NE NA 25MCG TAB (SYNTHROID) TAKE ONE TABLET BY MOUTH EVERY MORNING 30 MINUTES BEFORE BREAKFAS T ORAL ACTIVE FURCOLO,T EMILY 2023 [facility] lisinopril 10 mg oral tablet lisinopr il 10 mg oral tablet Start Date: 05/25/21 Status: Ordered Repeat number: 1 Ordered 2021 No Facilit y Access LISINOPRIL 10MG TAB TAKE ONE TABLET BY MOUTH ONCE DAILY ORAL ACTIVE FURCOLO,T EMILY 2023 [facility] lisinopril 5 mg oral tablet lisinopr il 5 mg oral tablet Start Date: 05/05/21 Status: Ordered Repeat number: 1 Ordered 2021 No Facilit y Access polyethylen e glycol 3350 with electrolyte s oral powder for reconstitut ion polyethy aditya glycol 3350 with electrol ytes oral powder for reconsti tution Start Date: 06/03/21 Status: Ordered Repeat number: 1 Ordered 2021 No Facilit y Access Allergies, Adverse Reactions, Alerts Combined list of allergies from Department of 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 It does not include entries that were removed or entered in error. Substance Category Reaction Severity Reaction type Status Date Reported Comments Source No Known Allergies Drug allergy (disorder) active 01/29/2018 Critical [facility] hospital Immunizations Combined list of available immunizations from the Department of 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 Immunization Series Date Given Administered By Site Reaction Lot Number CVX Code Drug Weight Trainer Status Comments Source INFLUENZA, UNSPECIFIED FORMULATION 2022 88 complet ed HISTORICA L INFORMATI ON - FROM OTHER [facility] ZOSTER RECOMBINANT 2 2022 187 complet ed HISTORICA L INFORMATI ON - FROM OTHER PROVIDER, [facility] ZOSTER RECOMBINANT 1 2022 187 complet ed HISTORICA L INFORMATI ON - FROM OTHER REGISTRY, [facility] TDAP 2022 115 complet ed Completed Series, HISTORICA L INFORMATI ON - FROM OTHER REGISTRY, [facility] Influenza, injectable, quadrivalent, preservative free 0 2021 [id number] 150 SmithKline (SKB) complet ed Influenza , injectabl e, quadrival ent, preservat abdulkadir free DoD COVID Vaccine Pfizer 2020 208 PFIZER complet ed COVID Vaccine Pfizer 02/10/21 Given Ambulat ory Pharmac y COVID-19 (PFIZER), MRNA, LNP-S, PF, 30 MCG/0.3 ML DOSE 2020 208 complet ed HISTORICA L INFORMATI ON - FROM OTHER REGISTRY, TOZINAMER AN .225mg/2. 25mL INTRAMUSC ULAR INJECTION , SUSPENSIO N (Pfizer-B ioNTech Covid-19 Vaccine) [facility] COVID-19, mRNA, LNP-S, PF, 30 mcg/0.3 mL dose 2020 TAMMY Palumbo, [place] (PFR) Not Given COVID-19, mRNA, LNP-S, PF, 30 mcg/0.3 mL dose DoD SARS-COV-2 (COVID-19) vaccine, mRNA, spike protein, LNP, preservative free, 30 mcg/0.3mL dose 0 2020 208 Pfizer, Inc (PFR) complet ed SARS-COV- 2 (COVID-19 ) vaccine, mRNA, spike protein, LNP, preservat abdulkadir free, 30 mcg/0.3mL dose DoD influenza, injectable, quadrivalent 2020 [id number] 158 GlaxoSmDashbookKli ne complet ed influenza , injectabl e, quadrival ent 12/31/20 Given Ambulat ory Pharmac y influenza, injectable, quadrivalent, contains preservative 11 2020 [id number] 158 SmithKline (SKB) complet ed influenza , injectabl e, quadrival ent, contains preservat abdulkadir DoD COVID Vaccine Pfizer 2020 [id number] 208 PFIZER complet ed COVID Vaccine Pfizer 06/14/20 Given Ambulat ory Pharmac y COVID-19 (PFIZER), MRNA, LNP-S, PF, 30 MCG/0.3 ML DOSE 2 2020 208 complet ed HISTORICA L INFORMATI ON - FROM OTHER REGISTRY, SARS-COV- 2 (COVID-19 ) vaccine, mRNA, spike protein, LNP, preservat abdulkadir free, 30 mcg/0.3mL dose Lot#: [id number] Mfr: Vitrina [facility] SARS-COV-2 (COVID-19) vaccine, mRNA, spike protein, LNP, preservative free, 30 mcg/0.3mL dose 2 2020 [id number] 208 [employer], [employer] [facility] (PFR) complet ed SARS-COV- 2 (COVID-19 ) vaccine, mRNA, spike protein, LNP, preservat abdulkadir free, 30 mcg/0.3mL dose DoD COVID Vaccine Pfizer 2020 [id number] 208 PFIZER complet ed COVID Vaccine [facility] 05/24/20 Given Ambulat ory Pharmac y COVID-19 (PFIZER), MRNA, LNP-S, PF, 30 MCG/0.3 ML DOSE 1 2020 208 complet ed HISTORICA L INFORMATI ON - FROM OTHER REGISTRY, SARS-COV- 2 (COVID-19 ) vaccine, mRNA, spike protein, LNP, preservat abdulkadir free, 30 mcg/0.3mL dose Lot#: [id number] Mfr: [employer] [facility] SARS-COV-2 (COVID-19) vaccine, mRNA, spike protein, LNP, preservative free, 30 mcg/0.3mL dose 1 2020 [id number] 208 [employer], [facility] [facility] (PFR) complet ed SARS-COV- 2 (COVID-19 ) vaccine, mRNA, spike protein, LNP, preservat abdulkadir free, 30 mcg/0.3mL dose DoD influenza, injectable, quadrivalent- pf 2019 TRANSCR IBED 150 complet ed influenza , injectabl e, quadrival ent-pf 01/06/20 Given Ambulat ory Pharmac y Influenza, injectable, quadrivalent, preservative free 1 2019 150 Transcribed (TRS) complet ed Influenza , injectabl e, quadrival ent, preservat abdulkadir free DoD influenza, injectable, quadrivalent- pf 2018 [id number] 150 Seqirus complet ed influenza , injectabl e, quadrival ent-pf 12/19/18 Given Ambulat ory Pharmac y Influenza, injectable, quadrivalent, preservative free 22 2018 [id number] 150 Seqirus (SEQ) complet ed Influenza , injectabl e, quadrival ent, preservat abdulkadir free DoD rabies vaccine, purified chick embryo 2017 [id number] 176 GlaxoSmithKli ne complet ed rabies vaccine, purified chick embryo 03/03/18 Given Ambulat ory Pharmac y rabies vaccine, IM 2017 zzLef t Arm [id number] 175 Novartis Pharmaceutica ls complet ed rabies vaccine, IM 03/03/18 Given Ambulat ory Pharmac y RABIES, UNSPECIFIED FORMULATION 2017 90 complet ed HISTORICA L INFORMATI ON - FROM OTHER REGISTRY, rabies vaccine, purified chick embryo Lot#: [id number] Mfr: GLAXOSMIT HKLINE [facility] rabies vaccine, for intramuscular injection RETIRED CODE 1 2017 IZABEL THOMPSON E [id number] 18 Novartis Pharmaceutica l Kathrine. (NOV) complet ed rabies vaccine, for intramusc ular injection RETIRED CODE DoD Human rabies vaccine from Chicken fibroblast culture 4 2017 [id number] 176 SmithKline (SKB) complet ed Human rabies vaccine from Chicken fibroblas t culture DoD rabies vaccine, purified chick embryo 2017 [id number] 176 GlaxoSmithKli ne complet ed rabies vaccine, purified chick embryo 02/10/18 Given Ambulat ory Pharmac y rabies vaccine, IM 2017 zzLef t Arm [id number] 175 GlaxoSmithKli ne complet ed rabies vaccine, IM 02/10/18 Given Ambulat ory Pharmac y RABIES, UNSPECIFIED FORMULATION 1 2017 90 complet ed HISTORICA L INFORMATI ON - FROM OTHER REGISTRY, rabies vaccine, purified chick embryo Lot#: [id number] Mfr: GLAXNPMIT HKLINE [facility] rabies vaccine, for intramuscular injection RETIRED CODE 2 2017 THOMPSON IZABEL E [id number] 18 SmithKline (SKB) complet ed rabies vaccine, for intramusc ular injection RETIRED CODE DoD Human rabies vaccine from Chicken fibroblast culture 2 2017 [id number] 176 SmithKline (SKB) complet ed Human rabies vaccine from Chicken fibroblas t culture DoD rabies vaccine, IM 2017 zzLef t Arm [id number] 175 GlaxoSmithKli ne complet ed rabies vaccine, IM 01/30/18 Given Ambulat ory Pharmac y RABIES, INTRAMUSCULAR INJECTION 2017 LEFT DELTO ID 18 complet ed HISTORICA L INFORMATI ON - FROM OTHER REGISTRY, rabies vaccine, IM Lot#: [id number] Mfr: wireLawyerIT HKLINE [facility] rabies vaccine, for intramuscular injection RETIRED CODE 1 2017 VIKTORIA CALERO [id number] 18 SmithKline (SKB) complet ed rabies vaccine, for intramusc ular injection RETIRED CODE DoD meningococcal A,C,Y,W-135 (MCV4P) 2017 zzRig ht Arm [id number] 114 sanofi pasteur complet ed meningoco ccal A,C,Y,W-1 35 (MCV4P) 01/29/18 Given Ambulat ory Pharmac y MENINGOCOCCAL MPSV4 2017 RIGHT DELTO ID 32 complet ed HISTORICA L INFORMATI ON - FROM OTHER REGISTRY, meningoco ccal polysacch aride (groups A, C, Y and W-135) diphtheri a toxoid conjugate vaccine (MCV4P) Lot#: [id number] Mfr: SAN[facility]FI [facility] varicella virus vaccine 1 2017 EXEMPT 21 Transcribed (TRS) Not Given varicella virus vaccine DoD meningococcal polysaccharid e (groups A, C, Y and W-135) diphtheria toxoid conjugate vaccine (MCV4P) 1 2017 VIKTORIA CALERO [id number] 114 Sanofi Pasteur (PMC) complet ed meningoco ccal polysacch aride (groups A, C, Y and W-135) diphtheri a toxoid conjugate vaccine (MCV4P) DoD influenza, injectable, quadrivalent 2017 [id number] 158 Seqirus complet ed influenza , injectabl e, quadrival ent 12/24/17 Given Ambulat ory Pharmac y influenza, injectable, quadrivalent, contains preservative 21 2017 [id number] 158 Seqirus (SEQ) comple t ed influenza , injectabl e, quadrival ent, contains preservat abdulkadir DoD typhoid Vi capsular polysaccharid e vac 2017 [id number] 101 sanofi pasteur complet ed typhoid Vi capsular polysacch aride vac 11/21/17 Given Ambulat ory Pharmac y TYPHOID, VICPS 2017 101 complet ed HISTORICA L INFORMATI ON - FROM OTHER REGISTRY, typhoid Vi capsular polysacch aride vaccine Lot#: [id number] Mfr: SANOFI PASTEUR [facility] typhoid Vi capsular polysaccharid e vaccine 4 2017 [id number] 101 Sanofi Pasteur ([facility]) complet ed typhoid Vi capsular polysacch aride vaccine DoD Influenza, inj, MDCK, quadrivalent- pf 2016 [id number] 171 Seqirus complet ed Influenza , inj, MDCK, quadrival ent-pf 01/18/17 Given Ambulat ory Pharmac y Influenza, injectable, Madin Amisha Canine Kidney, preservative free, quadrivalent 20 2016 [id number] 171 Seqirus (SEQ) comple t ed Influenza , injectabl e, Madin Amisha Canine Kidney, preservat abdulkadir free, quadrival ent DoD influenza, seasonal, injectable-pf 2015 [id number] 140 Seqirus complet ed influenza , seasonal, injectabl e-pf 12/31/15 Given Ambulat ory Pharmac y Influenza, seasonal, injectable, preservative free 1 2015 [id number] 140 Seqirus (SEQ) comple t ed Influenza , seasonal, injectabl e, preservat abdulkadir free DoD influenza, seasonal, injectable-pf 2014 [id number] 140 CSL Behring complet ed influenza , seasonal, injectabl e-pf 12/19/14 Given Ambulat ory Pharmac y Influenza, seasonal, injectable, preservative free 18 2014 [id number] 140 CS Merkleherap[employer] Inc. (CSL) complet ed Influenza , seasonal, injectabl e, preservat abdulkadir free DoD influenza, live, intranasal,qu adrivalent 2013 [id number] 149 [employer] Inc comple t ed influenza , live, intranasa l,quadriv alent 12/20/13 Given Ambulat ory Pharmac y influenza, live, intranasal, quadrivalent 17 2013 [id number] 149 Notehall, Inc. (MED) complet ed influenza , live, intranasa l, quadrival ent DoD influenza, seasonal, injectable 2012 [id number] 1A 141 CSL Behring complet ed influenza , seasonal, injectabl e 01/17/13 Given Ambulat ory Pharmac y Influenza, seasonal, injectable 1 2012 [id number] 141 [facility] Merkleherapies, Inc. (CSL) complet ed Influenza , seasonal, injectabl e DoD influenza, seasonal, injectable 2011 [id number] 1A 141 CSL Behring complet ed influenza , seasonal, injectabl e 12/29/11 Given Ambulat ory Pharmac y tetanus, diphtheria, acellular pertu is 2011 [id number] 115 sanofi pasteur complet ed tetanus, diphtheri a, acellular pertussis 12/29/11 Given Ambulat ory Pharmac y TDAP 2011 115 complet ed Completed Series, HISTORICA L INFORMATI ON - FROM OTHER REGISTRY, tetanus, diphtheri a, acellular pertussis Lot#: [id number] Mfr: SANOFI [facility]UR [facility] tetanus toxoid, reduced diphtheria toxoid, and acellular pertu is vaccine, adsorbed 0 2011 [id number] 115 Sanofi Pasteur ([facility]) complet ed tetanus toxoid, reduced diphtheri a toxoid, and acellular pertussis vaccine, adsorbed DoD Influenza, seasonal, injectable 15 2011 [id number] 141 CS Biotherapies, Inc. (CSL) complet ed Influenza , seasonal, injectabl e DoD influenza, seasonal, injectable 2010 [id number] 141 sanofi pasteur complet ed influenza , seasonal, injectabl e 01/20/11 Given Ambulat ory Pharmac y Influenza, seasonal, injectable 0 2010 [id number] 141 Sanofi Pasteur ([facility]) complet ed Influenza , seasonal, injectabl e DoD influenza virus vaccine,split 2009 [id number] 15 sanofi pasteur complet ed influenza virus vaccine,s plit 02/19/10 Given Ambulat ory Pharmac y influenza virus vaccine, split virus (incl. purified surface antigen)-reti red CODE 1 2009 [id number] 15 Sanofi Pasteur ([facility]) complet ed influenza virus vaccine, split virus (incl. purified surface antigen)- retired CODE DoD Novel influenza-H1N 1-09, injectable 2009 [id number] 1 127 Novartis Pharmaceutica ls complet ed Novel influenza -K4M0-10, injectabl e 04/23/09 Given Ambulat ory Pharmac y Novel influenza-H1N 1-09, injectable 1 2009 [id number] 1 127 Novartis Pharmaceutica l Kathrine. (NOV) complet ed Novel influenza -B1M6-62, injectabl e DoD influenza virus vaccine, live 2008 [id number] 111 MediImagryune Inc comple t ed influenza virus vaccine, live 12/18/08 Given Ambulat ory Pharmac y influenza virus vaccine, live, attenuated, for intranasal use 1 2008 [id number] 111 Notehall, Inc. (MED) complet ed influenza virus vaccine, live, attenuate d, for intranasa l use DoD influenza virus vaccine, live 2007 [id number] 111 Medimmune Inc comple t ed influenza virus vaccine, live 12/21/07 Given Ambulat ory Pharmac y influenza virus vaccine, live, attenuated, for intranasal use 1 2007 [id number] 111 MedIImagryune, Inc. (MED) complet ed influenza virus vaccine, live, attenuate d, for intranasa l use DoD influenza virus vaccine, live 2006 [id number] 111 MediVascular Imaging Inc comple t ed influenza virus vaccine, live 02/15/07 Given Ambulat ory Pharmac y influenza virus vaccine, live, attenuated, for intranasal use 1 2006 [id number] 111 MedImmune, Inc. (MED) complet ed influenza virus vaccine, live, attenuate d, for intranasa l use DoD varicella virus vaccine 2005 21 complet ed varicella virus vaccine 02/03/06 Given Ambulat ory Pharmac y influenza virus vaccine,split 2005 [id number] 15 sanofi pasteur complet ed influenza virus vaccine,s plit 02/03/06 Given Ambulat ory Pharmac y VARICELLA 2005 21 complet ed HISTORICA L INFORMATI ON - FROM OTHER REGISTRY, varicella virus vaccine [facility] influenza virus vaccine, split virus (incl. purified surface antigen)-reti red CODE 1 2005 [id number] 15 Sanofi Pasteur (PMC) complet ed influenza virus vaccine, split virus (incl. purified surface antigen)- retired CODE DoD varicella virus vaccine 0 2005 21 () complet ed varicella virus vaccine DoD influenza virus vaccine,split 2004 [id number] 15 sanofi pasteur complet ed influenza virus vaccine,s plit 02/16/05 Given Ambulat ory Pharmac y influenza virus vaccine, split virus (incl. purified surface antigen)-reti red CODE 1 2004 [id number] 15 Sanofi Pasteur (PMC) complet ed influenza virus vaccine, split virus (incl. purified surface antigen)- retired CODE DoD typhoid Vi capsular polysaccharid e vac 2003 [id number] 101 sanofi pasteur complet ed typhoid Vi capsular polysacch aride vac 08/28/03 Given Ambulat ory Pharmac y typhoid Vi capsular polysaccharid e vaccine 0 2003 [id number] 101 Sanofi Pasteur (PMC) complet ed typhoid Vi capsular polysacch aride vaccine DoD anthrax vaccine 2003 [id number] 24 Emergent Bios[employer] complet ed anthrax vaccine 07/17/03 Given Ambulat ory Pharmac y tetanus-dipht h toxoids (Td) adult/adol 2003 [id number] 09 sanofi pasteur complet ed tetanus-d iphth toxoids (Td) adult/ado l 07/17/03 Given Ambulat ory Pharmac y ANTHRAX, PRE-EXPOSURE PROPHYLAXIS, POST-EXPOSURE PROPHYLAXIS 2003 24 complet ed Completed Series, HISTORICA L INFORMATI ON - FROM OTHER REGISTRY, Lot#: [id number] Mfr: EMERGENT BIOSOLUTI [facility] CNTRL [facility] tetanus and diphtheria toxoids, adsorbed, preservative free, for adult use (2 Lf of tetanus toxoid and 2 Lf of diphtheria toxoid) 0 2003 [id number] 09 Sanofi Pasteur (PMC) complet ed tetanus and diphtheri a toxoids, adsorbed, preservat abdulkadir free, for adult use (2 Lf of tetanus toxoid and 2 Lf of diphtheri a toxoid) DoD anthrax vaccine 6 2003 [id number] [employer] [place] ([place]) complet ed anthrax vaccine [facility] hepatitis B adult vaccine 2002 [id number] 43 GlaxoSmithKli ne complet ed hepatitis B adult vaccine 01/16/03 Given Ambulat ory Pharmac y HEPB-CPG 2 2002 189 complet ed HISTORICA L INFORMATI ON - FROM OTHER REGISTRY, [facility] hepatitis B vaccine, adult dosage 3 2002 [id number] 43 SmithKline (SKB) complet ed hepatitis B vaccine, adult dosage DoD influenza virus vaccine, whole virus 2002 [id number] 16 [employer] complet ed influenza virus vaccine, whole virus 01/13/03 Given Ambulat ory Pharmac y tuberculin purified protein derivative 2002 [id number] 96 sanofi pasteur complet ed tuberculi n purified protein derivativ e 01/13/03 Given Ambulat ory Pharmac y influenza virus vaccine, whole virus 0 2002 [id number] 16 [facility] ([facility] complet ed influenza virus vaccine, whole virus DoD tuberculin skin test; purified protein derivative solution, intradermal 1 2002 Unknown, Provider [id number] Sanofi Pasteur (PMC) complet ed tuberculi n skin test; purified protein derivativ e solution, intraderm al DoD anthrax vaccine 2002 [id number] [employer] complet ed anthrax vaccine 11/28/02 Given Ambulat ory Pharmac y ANTHRAX, PRE-EXPOSURE PROPHYLAXIS, POST-EXPOSURE PROPHYLAXIS 2002 24 complet ed HISTORICA L INFORMATI ON - FROM OTHER REGISTRY, Lot#: [id number] Mfr: EMERGENT BIOSOLUTI ONS [facility] anthrax vaccine 5 2002 [id number] [employer] [place] ([place]) complet ed anthrax vaccine DoD vaccinia (smallpox) vaccine 2002 75 complet ed vaccinia (smallpox ) vaccine 05/07/02 Given Ambulat ory Pharmac y VACCINIA (SMALLPOX) 2002 75 complet ed HISTORICA L INFORMATI ON - FROM OTHER REGISTRY, vaccinia (smallpox ) vaccine [facility] vaccinia (smallpox) vaccine 0 2002 75 () complet ed vaccinia (smallpox ) vaccine DoD hepatitis B adult vaccine 2002 [id number] 43 GlaxoSmithKli ne complet ed hepatitis B adult vaccine 03/28/02 Given Ambulat ory Pharmac y HEP B, ADULT 2 2002 43 complet ed HISTORICA L INFORMATI ON - FROM OTHER REGISTRY, hepatitis B vaccine, adult dosage Lot#: [id number] [facility] HEPB-CPG 1 2002 189 complet ed HISTORICA L INFORMATI ON - FROM OTHER REGISTRY, [facility] hepatitis B vaccine, adult dosage 2 2002 [id number] 43 SmithKline (SKB) complet ed hepatitis B vaccine, adult dosage DoD anthrax vaccine 2001 [id number] 24 [employer] complet ed anthrax vaccine 03/07/02 Given Ambulat ory Pharmac y ANTHRAX, PRE-EXPOSURE PROPHYLAXIS, POST-EXPOSURE PROPHYLAXIS 2001 24 complet ed HISTORICA L INFORMATI ON - FROM OTHER REGISTRY, Lot#: [id number] Mfr: EMERGENT BIOSOLUTI ONS [facility] anthrax vaccine 4 2001 [id number] [employer] [place] ([place]) complet ed anthrax vaccine DoD tuberculin purified protein derivative 2001 [id number] 96 sanofi pasteur complet ed tuberculi n purified protein derivativ e 01/16/02 Given Ambulat ory Pharmac y hepatitis B adult vaccine 2001 [id number] 43 Merck & Company Inc complet ed hepatitis B adult vaccine 01/16/02 Given Ambulat ory Pharmac y influenza virus vaccine, whole virus 2001 [id number] 16 sanofi pasteur complet ed influenza virus vaccine, whole virus 01/16/02 Given Ambulat ory Pharmac y HEP B, ADULT 1 2001 43 complet ed HISTORICA L INFORMATI ON - FROM OTHER REGISTRY, hepatitis B vaccine, adult dosage Lot#: [id number] Mfr: [employer] AND [employer]., [employer] [facility] influenza virus vaccine, whole virus 0 2001 [id number] 16 Sanofi Pasteur ([facility]) complet ed influenza virus vaccine, whole virus DoD hepatitis B vaccine, adult dosage 1 2001 [id number] 43 Merck (MSD) complet ed hepatitis B vaccine, adult dosage DoD tuberculin skin test; purified protein derivative solution, intradermal 1 2001 Unknown, Provider [id number] Sanofi Pasteur ([facility]) complet ed tuberculi n skin test; purified protein derivativ e solution, intraderm al DoD measles/mumps /rubella virus vaccine 2001 [id number] 03 Merck & Company Inc complet ed measles/m umps/rube lla virus vaccine 12/25/01 Given Ambulat ory Pharmac y MMR 2001 03 complet ed HISTORICA L INFORMATI ON - FROM OTHER REGISTRY, measles/m umps/rube lla virus vaccine Lot#: [id number] [facility] measles, mumps and rubella virus vaccine 0 2001 [id number] 03 Merck (MSD) complet ed measles, mumps and rubella virus vaccine DoD anthrax vaccine 2001 24 [employer] complet ed anthrax vaccine 09/21/01 Given Ambulat ory Pharmac y ANTHRAX, PRE-EXPOSURE PROPHYLAXIS, POST-EXPOSURE PROPHYLAXIS 2001 24 complet ed HISTORICA L INFORMATI ON - FROM OTHER REGISTRY, [facility] anthrax vaccine 3 2001 24 [employer] [place] ([place]) complet ed anthrax vaccine DoD influenza virus vaccine, whole virus 2000 [id number] 16 sanofi pasteur complet ed influenza virus vaccine, whole virus 01/17/01 Given Ambulat ory Pharmac y tuberculin purified protein derivative 2000 [id number] 96 sanofi pasteur complet ed tuberculi n purified protein derivativ e 01/17/01 Given Ambulat ory Pharmac y influenza virus vaccine, whole virus 0 2000 [id number] 16 Sanofi Pasteur ([facility]) complet ed influenza virus vaccine, whole virus DoD tuberculin skin test; purified protein derivative solution, intradermal 1 2000 Unknown, Provider [id number] 96 Sanofi Pasteur (PMC) complet ed tuberculi n skin test; purified protein derivativ e solution, intraderm al DoD influenza virus vaccine, whole virus 2000 [id number] 16 [employer] complet ed influenza virus vaccine, whole virus 03/23/00 Given Ambulat ory Pharmac y influenza virus vaccine, whole virus 0 2000 [id number] 16 Gael (KIRAN) complet ed influenza virus vaccine, whole virus DoD tuberculin purified protein derivative 1999 [id number] 96 [employer] complet ed tuberculi n purified protein derivativ e 11/22/99 Given Ambulat ory Pharmac y tuberculin skin test; purified protein derivative solution, intradermal 1 1999 Unknown, Provider [id number] Myriam (CON) complet ed tuberculi n skin test; purified protein derivativ e solution, intraderm al DoD anthrax vaccine 1999 [id number] [employer] complet ed anthrax vaccine 09/08/99 Given Ambulat ory Pharmac y ANTHRAX, PRE-EXPOSURE PROPHYLAXIS, POST-EXPOSURE PROPHYLAXIS 1999 24 complet ed HISTORICA L INFORMATI ON - FROM OTHER REGISTRY, Lot#: [id number] Mfr: EMERGENT BIOSOLUTI [facility]CS anthrax vaccine 2 1999 [id number] Emergent BioDefense [facility] ([place]) complet ed anthrax vaccine DoD tuberculin purified protein derivative 1999 [id number] 96 [facility] ed tuberculi n purified protein derivativ e 08/24/99 Given Ambulat ory Pharmac y anthrax vaccine 1999 [id number] 24 [employer] complet ed anthrax vaccine 08/24/99 Given Ambulat ory Pharmac y ANTHRAX, PRE-EXPOSURE PROPHYLAXIS, POST-EXPOSURE PROPHYLAXIS 1999 24 complet ed HISTORICA L INFORMATI ON - FROM OTHER REGISTRY, Lot#: [id number] Mfr: [facility] anthrax vaccine 1 1999 [id number] [employer] [place] ([place]) complet ed anthrax vaccine DoD tuberculin skin test; purified protein derivative solution, intradermal 1 1999 Unknown, Provider [id number] Myri[facility] (CON) complet ed tuberculi n skin test; purified protein derivativ e solution, intraderm al DoD hepatitis A adult vaccine 1998 [id number] Merck & edupristine Inc complet ed hepatitis A adult vaccine 02/18/99 Given Ambulat ory Pharmac y HEP A, ADULT 2 1998 52 complet ed HISTORICA L INFORMATI ON - FROM OTHER REGISTRY, hepatitis A vaccine, adult dosage Lot#: [id number] Mfr: [employer] [facility] hepatitis A vaccine, adult dosage 2 1998 [id number] 52 Merck (MSD) complet ed hepatitis A vaccine, adult dosage DoD influenza virus vaccine, whole virus [id number] [place] complet ed influenza virus vaccine, whole virus 01/21/99 Given Ambulat ory Pharmac y influenza virus vaccine, whole virus 0 [id number] [facility] ([facility]) complet ed influenza virus vaccine, whole virus DoD tuberculin purified protein derivative 1998 [id number] 96 sanofi pasteur complet ed tuberculi n purified protein derivativ e 09/24/98 Given Ambulat ory Pharmac y measles/mumps /rubella virus vaccine [id number] [facility] complet ed measles/m umps/rube lla virus vaccine 07/26/98 Given Ambulat ory Pharmac y meningococcal polysaccharid e (MPSV4) [id number] sanofi pasteur complet ed meningoco ccal polysacch aride (MPSV4) 07/26/98 Given Ambulat ory Pharmac y tuberculin purified protein derivative 1998 [id number] [facility] complet ed tuberculi n purified protein derivativ e 07/26/98 Given Ambulat ory Pharmac y hepatitis A adult vaccine 1998 [id number] Merck & Company Inc complet ed hepatitis A adult vaccine 07/26/98 Given Ambulat ory Pharmac y MENINGOCOCCAL MPSV4 1998 32 complet ed HISTORICA L INFORMATI ON - FROM OTHER REGISTRY, meningoco ccal polysacch aride vaccine (MPSV4) Lot#: [id number] Mfr: SANOFI PASTEUR [facility] MMR 1998 03 complet ed HISTORICA L INFORMATI ON - FROM OTHER REGISTRY, measles/m umps/rube lla virus vaccine Lot#: [id number] [facility] measles, mumps and rubella virus vaccine 0 [id number] 03 [facility] complet ed measles, mumps and rubella virus vaccine DoD meningococcal polysaccharid e vaccine (MPSV4) 0 [id number] 32 Sanofi Pasteur ([facility]) complet ed meningoco ccal polysacch aride vaccine (MPSV4) DoD hepatitis A vaccine, adult dosage 1 1998 [id number] 52 Merck (MSD) complet ed hepatitis A vaccine, adult dosage DoD typhoid vaccine, live, oral 1998 [id number]. 1B 25 [employer] complet ed typhoid vaccine, live, oral 07/19/98 Given Ambulat ory Pharmac y typhoid vaccine, live, oral 0 1998 [id number]. 1B 25 [employer] (SI) complet ed typhoid vaccine, live, oral DoD HEP A, ADULT 1 1998 52 complet ed HISTORICA L INFORMATI ON - FROM OTHER REGISTRY, hepatitis A vaccine, adult dosage Lot#: [id number] [facility] influenza virus vaccine, whole virus [id number] 16 sanofi pasteur complet ed influenza virus vaccine, whole virus 12/02/97 Given Ambulat ory Pharmac y influenza virus vaccine, whole virus 0 [id number] 16 Sanofi Pasteur ([facility]) complet ed influenza virus vaccine, whole virus DoD yellow fever vaccine 1997 37 complet ed yellow fever vaccine 03/18/97 Given Ambulat ory Pharmac y YELLOW FEVER 1997 37 complet ed HISTORICA L INFORMATI ON - FROM OTHER REGISTRY, yellow fever vaccine [facility] yellow fever vaccine 0 1997 37 () complet ed yellow fever vaccine DoD influenza virus vaccine, whole virus 1996 16 complet ed influenza virus vaccine, whole virus 01/16/97 Given Ambulat ory Pharmac y influenza virus vaccine, whole virus 0 1996 16 () complet ed influenza virus vaccine, whole virus DoD typhoid, parenteral, AKD 1995 53 complet ed typhoid, parentera l, AKD 06/17/95 Given Ambulat ory Pharmac y typhoid vaccine, parenteral, malou-vasu d, dried ([place].S. ) 2 1995 53 [...] and 2 Lf of diphtheri a toxoid) [facility] poliovirus vaccine, live, oral 1986 02 complet ed polioviru s vaccine, live, oral 03/18/86 Given Ambulat ory Pharmac y POLIO, UNSPECIFIED FORMULATION 1986 89 complet ed HISTORICA L INFORMATI ON - FROM OTHER REGISTRY, rivalent polioviru s vaccine, live, oral [facility] trivalent poliovirus vaccine, live, oral 0 1986 02 () complet ed trivalent polioviru s vaccine, live, oral [facility] Results Combined list of recent chemistry, hematology [...] May 29, 2023 01:58 PM Reporting Lab: [facility] [address] [facility] [address] Performing Lab: [address] [address] [facility] CBC LEUKOCYTES [#/VOLUME] IN BLOOD BY AUTOMATED COUNT 4.33 10*3/uL 4.50 - 11.00 05/29 L Specimen Type: BLOOD No comment entered. Ordering Provider: BOBBY SHANNON Report Released Date/Time: May 29, 2023 01:58 PM Reporting Lab: [facility] [place] [facility] [address] [facility] [address] Performing Lab: [facility] [facility] [address] [facility] [address] [facility] [facility] CBC ERYTHROCYT ES [#/VOLUME] IN BLOOD BY AUTOMATED COUNT 5.06 10*6/uL 4.23 - 5.66 05/29 Specimen Type: BLOOD No comment entered. Ordering Provider: BOBBY SHANNON Report Released Date/Time: May 29, 2023 01:58 PM Reporting Lab: [facility] [place] [facility] [address] [facility] [address] Performing Lab: [facility] [place] [facility] [address] [facility] [address] [facility] [place] [facility] CBC HEMOGLOBIN [MASS/VOLU ME] IN BLOOD 14.6 g/dL 12.8 - 17 05/29 Specimen Type: BLOOD No comment entered. Ordering Provider: BOBBY SHANNON Report Released Date/Time: May 29, 2023 01:58 PM Reporting Lab: [facility] [place] [facility] [address] [facility] [address] Performing Lab: [facility] [place] [facility] [address] [facility] [address] [facility] [place] [facility] CBC HEMATOCRIT [VOLUME FRACTION] OF BLOOD BY AUTOMATED COUNT 42.6 39.2 - 50.4 05/29 Specimen Type: BLOOD No comment entered. Ordering Provider: BOBBY SHANNON Report Released Date/Time: May 29, 2023 01:58 PM Reporting Lab: [facility] [place] [facility] [address] [facility] [address] Performing Lab: [facility] [place] [facility] [address] [facility] [address] [facility] [place] [facility] CBC MCV [ENTITIC VOLUME] BY AUTOMATED COUNT 84.2 fL 82 - 99 05/29 Specimen Type: BLOOD No comment entered. Ordering Provider: BOBBY SHANNON Report Released Date/Time: May 29, 2023 01:58 PM Reporting Lab: [facility] [place] [facility] [address] [facility] [address] Performing Lab: [facility] [address] [facility] [address] [facility] [place] [facility] CBC MCHC [MASS/VOLU ME] BY AUTOMATED COUNT 34.3 g/dL 30.8 - 35.1 05/29 Specimen Type: BLOOD No comment entered. Ordering Provider: BOBBY SHANNON Report Released Date/Time: May 29, 2023 01:58 PM Reporting Lab: [facility] [place] [address] [address] Performing Lab: [facility] [place] [address] [address] [facility] [place] [facility] CBC PLATELETS [#/VOLUME] IN BLOOD BY AUTOMATED COUNT 238 10*3/uL 140 - 360 05/29 Specimen Type: BLOOD No comment entered. Ordering Provider: BOBBY SHANNON Report Released Date/Time: May 29, 2023 01:58 PM Reporting Lab: [facility] [place] [address] [address] Performing Lab: [facility] [place] [address] [address] [facility] [place] [facility] CBC ERYTHROCYT E DISTRIBUTI ON WIDTH [RATIO] BY AUTOMATED COUNT 12.3 12.0 - 16.0 05/29 Specimen Type: BLOOD No comment entered. Ordering Provider: BOBBY SHANNON Report Released Date/Time: May 29, 2023 01:58 PM Reporting Lab: [facility] [place] [address] [address] Performing Lab: [facility] [place] [address] [address] [facility] [place] [facility] CBC MCH [ENTITIC MASS] BY AUTOMATED COUNT 28.9 pg 26.2 - 32.6 05/29 Specimen Type: BLOOD No comment entered. Ordering Provider: BOBBY SHANNON Report Released Date/Time: May 29, 2023 01:58 PM Reporting Lab: [facility] [place] [facility] [address] [facility] [address] Performing Lab: [facility] [place] [facility] [address] [facility] [address] [facility] [place] [facility] LIVER FUNCTION PROTEIN [MASS/VOLU ME] IN SERUM OR PLASMA 7.1 g/dL 6.0 - 8.3 05/29 Specimen Type: SERUM No comment entered. Ordering Provider: BOBBY SHANNON Report Released Date/Time: May 29, 2023 01:58 PM Reporting Lab: [facility] [place] [facility] [address] [facility] [address] Performing Lab: [facility] [place] [address] [address] [facility] LIVER FUNCTION ALBUMIN [MASS/VOLU ME] IN SERUM OR PLASMA 4.3 g/dL 3.5 - 5.0 05/29 Specimen Type: SERUM No comment entered. Ordering Provider: BOBBY SHANNON Report Released Date/Time: May 29, 2023 01:58 PM Reporting Lab: [facility] [place] [address] [address] Performing Lab: [facility] [place] [address] [address] [facility] LIVER FUNCTION ALKALINE PHOSPHATAS E [ENZYMATIC ACTIVITY/V OLUME] IN SERUM OR PLASMA 47 U/L 40 - 150 05/29 Specimen Type: SERUM No comment entered. Ordering Provider: BOBBY SHANNON Report Released Date/Time: May 29, 2023 01:58 PM Reporting Lab: [facility] [place] [address] [address] Performing Lab: [facility] [place] [address] [address] [facility] [place] [facility] LIVER FUNCTION ASPARTATE AMINOTRANS FERASE [ENZYMATIC ACTIVITY/V OLUME] IN SERUM OR PLASMA 33 U/L 5 - 34 05/29 Specimen Type: SERUM No comment entered. Ordering Provider: BOBBY SHANNON Report Released Date/Time: May 29, 2023 01:58 PM Reporting Lab: [facility] [place] [facility] [address] [facility] [address] Performing Lab: [facility] [place] [address] [address] [facility] [facility] LIVER FUNCTION ALANINE AMINOTRANS FERASE [ENZYMATIC ACTIVITY/V OLUME] IN SERUM OR PLASMA 21 U/L 05/29 Specimen Type: SERUM No comment entered. Ordering Provider: BOBBY SHANNON Report Released Date/Time: May 29, 2023 01:58 PM Reporting Lab: [facility] [address] Performing Lab: [facility] [address] [address] [facility] LIVER FUNCTION BILIRUBIN. TOTAL [MASS/VOLU ME] IN SERUM OR PLASMA 0.7 mg/dL 0.2 - 1.2 05/29 Specimen Type: SERUM No comment entered. Ordering Provider: BOBBY SHANNON Report Released Date/Time: May 29, 2023 01:58 PM Reporting Lab: [facility] [address] [address] Performing Lab: [facility] [address] [address] [facility] [place] [facility] BASIC METABOLI C PANEL (fasting ) UREA NITROGEN [MASS/VOLU ME] IN SERUM OR PLASMA 20 mg/dL 7 - 25 05/29 Specimen Type: SERUM No comment entered. Ordering Provider: BOBBY SHANNON Report Released Date/Time: May 29, 2023 01:58 PM Reporting Lab: [facility] [address] Performing Lab: [facility] [address] [facility] [place] [facility] BASIC METABOLI C PANEL (fasting ) GLUCOSE [MASS/VOLU ME] IN SERUM OR PLASMA 96 mg/dL 65 - 100 05/29 Specimen Type: SERUM No comment entered. Ordering Provider: BOBBY SHANNON Report Released Date/Time: May 29, 2023 01:58 PM Reporting Lab: [facility] [place] [address] [address] Performing Lab: [facility] [place] [facility] [address] [facility] [address] [facility] BASIC METABOLI C PANEL (fasting ) SODIUM [MOLES/VOL UME] IN SERUM OR PLASMA 138 mmol/L 135 - 145 05/29 Specimen Type: SERUM No comment entered. Ordering Provider: BOBBY SHANNON Report Released Date/Time: May 29, 2023 01:58 PM Reporting Lab: [facility] [place] [address] [address] Performing Lab: [facility] [place] [address] [address] [facility] BASIC METABOLI C PANEL (fasting ) POTASSIUM [MOLES/VOL UME] IN SERUM OR PLASMA 4.4 mmol/L 3.5 - 5.0 05/29 Specimen Type: SERUM No comment entered. Ordering Provider: BOBBY SHANNON Report Released Date/Time: May 29, 2023 01:58 PM Reporting Lab: [facility] [place] [address] [address] Performing Lab: [facility] [place] [address] [address] [facility] [place] [facility] BASIC METABOLI C PANEL (fasting ) CHLORIDE [MOLES/VOL UME] IN SERUM OR PLASMA 104 mmol/L 100 - 110 05/29 Specimen Type: SERUM No comment entered. Ordering Provider: BOBBY SHANNON Report Released Date/Time: May 29, 2023 01:58 PM Reporting Lab: [facility] [place] [address] [place] [address] Performing Lab: [facility] [address] [facility] [address] [facility]ITALUSE [facility] BASIC METABOLI C PANEL (fasting ) CARBON DIOXIDE, TOTAL [MOLES/VOL UME] IN SERUM OR PLASMA 24 meq/L 20 - 30 05/29 Specimen Type: SERUM No comment entered. Ordering Provider: BOBBY SHANNON Report Released Date/Time: May 29, 2023 01:58 PM Reporting Lab: [facility] [address] Performing Lab: [facility]ERN [address] [address] [facility] BASIC METABOLI C PANEL (fasting ) CREATININE [MASS/VOLU ME] IN SERUM OR PLASMA 0.97 mg/dL 0.50 - 1.40 05/29 Specimen Type: SERUM No comment entered. Ordering Provider: BOBBY SHANNON Report Released Date/Time: May 29, 2023 01:58 PM Reporting Lab: [facility] [address] [address] Performing Lab: [facility] TRN [address] [address] [facility] BASIC METABOLI C PANEL (fasting ) GLOMERULAR FILTRATION RATE/1.73 SQ M.PREDICTE D [VOLUME RATE/AREA] IN SERUM, PLASMA OR BLOOD BY CREATININE -BASED FORMULA (CKD-EPI 2020) 90 mL/min 60 05/29 Specimen Type: SERUM No comment entered. Ordering Provider: BOBBY SHANNON Report Released Date/Time: May 29, 2023 01:58 PM Reporting Lab: [facility] [address] Performing Lab: [facility] [address] [address] [facility] LIPID PANEL FASTING CHOLESTERO L [MASS/VOLU ME] IN SERUM OR PLASMA 261 mg/dL 05/29 H Specimen Type: SERUM No comment entered. Ordering Provider: BOBBY SHANNON Report Released Date/Time: May 29, 2023 01:58 PM Reporting Lab: [facility] [place] [facility] [address] [facility] [address] Performing Lab: [facility] [place] [facility] [address] [facility] [address] [facility] [place] [facility] LIPID PANEL FASTING TRIGLYCERI DE [MASS/VOLU ME] IN SERUM OR PLASMA 103 mg/dL 0 - 150 05/29 Specimen Type: SERUM No comment entered. Ordering Provider: BOBBY SHANNON Report Released Date/Time: May 29, 2023 01:58 PM Reporting Lab: [facility] [place] [address] [address] Performing Lab: [facility] [place] [address] [address] [facility] LIPID PANEL FASTING CHOLESTERO L IN LDL [MASS/VOLU ME] IN SERUM OR PLASMA BY CALCPARUL N 202 mg/dL 0 - 129 05/29 H Specimen Type: SERUM No comment entered. Ordering Provider: BOBBY SHANNON Report Released Date/Time: May 29, 2023 01:58 PM Reporting Lab: [facility] [place] [address] [address] Performing Lab: [facility] [place] [address] [address] [facility] LIPID PANEL FASTING CHOLESTERO L.TOTAL/CH OLESTEROL IN HDL [MASS RATIO] IN SERUM OR PLASMA 6.9 05/29 Specimen Type: SERUM No comment entered. Ordering Provider: BOBBY SHANNON Report Released Date/Time: May 29, 2023 01:58 PM Reporting Lab: [facility] [place] [address] [address] Performing Lab: [facility] [place] [address] [address] [facility] [facility] LIPID PANEL FASTING CHOLESTERO L IN HDL [MASS/VOLU ME] IN SERUM OR PLASMA 38 mg/dL 40 - 60 05/29 L Specimen Type: SERUM No comment entered. Ordering Provider: BOBBY SHANNON Report Released Date/Time: May 29, 2023 01:58 PM Reporting Lab: [facility] [address] [facility] [address] Performing Lab: [facility] [address] [facility] [address] [facility] TSH THYROTROPI N [UNITS/VOL UME] IN SERUM OR PLASMA 2.33 u[IU]/mL 0.35 - 5.00 05/29 Specimen Type: SERUM No comment entered. Ordering Provider: BOBBY SHANNON Report Released Date/Time: May 29, 2023 01:58 PM Reporting Lab: [address] [address] Performing Lab: [facility] [address] [facility] [address] [facility] HEPATITI S C ANTIBODY (HCV)-AR C HEPATITIS C VIRUS AB [PRESENCE] IN SERUM NON-REAC TIVE 05/29 Specimen Type: SERUM Comment: Hep C Ab: No HCV antibody detected. If recent infection is suspected or other evidence suggests HCV infection, consider HCV nucleic acid testing Ordering Provider: BOBBY SHANNON Report Released Date/Time: May 29, 2023 01:58 PM Reporting Lab: [address] [address] Performing Lab: [address] [address] [facility] Encounters Combined list of: 1) Encounters from Department of Veterans Affairs facilities going backup to the last 18 months, not all VA inpatient encounters are included; 2) Encounters from the Department of Defense facilities going backup to 280 months. Location Location Details Encounter Type Encounter Number Reason For Visit Attending Provider ADM Date DC Date Status Disposition Source [address] [place] [address](Opt ometry Cl [facility]) OUTPATIENT [id number] Pre-op PRK STALIN SANTOS 11/04 Released w/o Limitations [facility](O ptometr y [facility]) [facility]) OUTPATIENT [id number] crs pre op COLGAIN, ESTER D 02/01 Released w/o Limitations [facility]( [facility]) OUTPATIENT [id number] consent b MARAL MONTEZ 02/02 Released with Work/Duty Limitations [facility]( [facility]) OUTPATIENT [id number] prk MARAL MONTEZ 02/03 Released with Work/Duty Limitations [facility]( [facility]) [facility]) OUTPATIENT [id number] 5 day po COLGAIN, ESTER D 02/08 Released with Work/Duty Limitations [facility]( [facility]) [facility](Opt ometry [facility]) OUTPATIENT [id number] 1 month follow up prk KEVIN HUSSEIN 03/01 Released w/o Limitations [facility](O ptometr y [facility]) [facility](Opt [facility]metry [facility]) OUTPATIENT [id number] 2 month PRK post op KEVIN HUSSEIN 03/29 Released w/o Limitations [facility](O ptometr y [facility]) [facility](Opt ometry [facility]) OUTPATIENT [id number] 3 month PRK post-op f/u. KEVIN HUSSEIN 04/30 Released w/o Limitations [facility](O ptometr y [facility]) [facility](Opt ometry [facility] OUTPATIENT [id number] 6 month PRK F/U KEVIN HUSSEIN 08/19 Released w/o Limitations [facility](O ptometr y [facility]) [facility](Opt ometry [facility]) OUTPATIENT [id number] 1 year PRK follow up KEVIN HUSSEIN 01/31 Released w/o Limitations [facility](O ptometr y [facility]) [facility] [place] [address](AFN G 104 Med Sq-FM) OUTPATIENT [id number] Notes Entered by: OLGA LIDIA GARCIA 19 Nov 2017 1418 ------- ------- ------- ------- -- OLGA LIDIA MELO 11/19 Released w/o Limitations [facility] [place] [address](A FNG 104 Med Sq-FM) [place] [place] [address](AFN G 104 Med Sq-FM) OUTPATIENT [id number] Notes Entered by: BEATA HOANG 21 Nov 2017 1310 ------- ------- ------- ------- -- Pre-Dep BEATA Jones 11/21 Released w/o Limitations [facility] [place] [address](A FNG 104 Med Sq-FM[facility] OUT[facility] [id number] 4 travel meds/im ms CARSON SUMMERS 01/29 [facility]ased [facility] Limitations [facility] [place] M01D [place]) OUTPATIENT [id number] 2 Notes Entered by: Dominic CALERO 30 Jan 2018 1024 ------- ------- ------- ------- -- rabies vaccine VIKTORIA CALERO 01/30 [facility] Limitations [facility] [place] M01D [place]) OUTPATIENT [id number] 0 Notes Entered by: IZABEL THOMPSON 10 Feb 2018 1120 ------- ------- ------- ------- -- Rabies #2 IZABEL THOMPSON 02/10 Released w/o Limitations [facility] M01D [place]) [facility] M01D [place]) OUTPATIENT [id number] 2 Notes Entered by: Dominic CALEROERT 03 Mar 2018 1508 ------- ------- ------- ------- -- rabies vaccine IZABEL THOMPSON E 03/03 [facility] Limitations [facility] [place] [employer] M01D [place]) OUTPATIENT [id number] 2 Notes Entered by: IZABEL THOMPSON Patti 24 Mar 2018 1440 ------- ------- ------- ------- -- TRAVEL IMMS IZABEL THOMPSON 03/24 Released w/o Limitations [facility] M01D Lisbeth) [place] [facility](Raad stern REPLACED BY [facility] Team A) OUTPATIENT [id number] VAZQUEZ FOSS 07/18 Released w/o Limitations [address] [place] [address](H anscom REPLACED BY [facility] Team A) [place] [address](AFN G 104 Med Sq-FM) OUTPATIENT [id number] Notes Entered by: EAMON VELÁSQUEZ 28 Jul 2018 1247 ------- ------- ------- ------- -- Post-OLGA LIDIA Pittman 07/28 Released w/o Limitations [facility] [place] [address](A FNG 104 Med Sq-FM) [address] [place] [address](Opt ometry Cl Shields) OUTPATIENT [id number] BEATA JIMENEZ 10/29 Released w/o Limitations [address] [place] [address](O ptometr y Cl Shields) [place] [address](AFN G 104 Med Sq-FM) OUTPATIENT [id number] Notes Entered by: OLGA LIDIA GARCIA 03 Dec 2018 1122 ------- ------- ------- ------- -- OLGA LIDIA MELO 12/03 [facility]ased w/o Limitations [facility] [place] [address](A FNG 104 Med Sq-FM) [place] [address](AFN G 104 Med Sq-FM) OUTPATIENT [id number] Notes Entered by: LAURA VARELA R 20 May 2019 1535 ------- ------- ------- ------- -- [employer] ice SANTOSQ SANDRA VARELA R 05/19 [facility]ased w/o Limitations [facility] [place] [place] [address](A FNG 104 Med Sq-FM) [facility], [place] [address](AFN G 104 Med Sq-FM) OUTPATIENT [id number] Notes Entered by: OLGA LIDIA GARCIA 19 Apr 2020 1425 ------- ------- ------- ------- -- OLGA LIDIA MELO 04/19 Released w/o Limitations [facility] [place] [place] [address](A FNG 104 Med Sq-FM) [place] [address](AFN G 104 Med Sq-FM) TELE CONSULT [id number] OLGA LIDIA GARCIA 04/06 [facility] [place] [address](A FNG 104 Med Sq-FM) [facility], [place] [address](AFN G 104 Med Sq-FM) OUTPATIENT [id number] Notes Entered by: OLGA LIDIA GARCIA 01 May 2021 0909 ------- ------- ------- ------- -- OLGA LIDIA MELO 05/01 Released w/o Limitations [facility] [place] [place] [address](A FNG 104 Med Sq-FM) [address] [place] [address](Opt ometry Cl Shields) OUTPATIENT [id number] BEATA JIMENEZ 06/15 Released w/o Limitations [address] [place] [address](O ptometr y Cl Shields) [facility], [place] [address](AFN G 104 Med Sq-FM) OUTPATIENT [id number] Notes Entered by: OLGA LIDIA GARCIA 04 Jan 2022 1246 ------- ------- ------- ------- -- PCP and ortho records OLGA LIDIA GARCIA 01/04 Released w/o Limitations [facility] [place] [place] [address](A FNG 104 Med Sq-FM) [place] [address](AFN G 104 Med Sq-FM) TELE CONSULT [id number] OLGA LIDIA GARCIA 01/23 [facility] [place] [place] [address](A FNG 104 Med Sq-FM) [place] [address](AFN G 104 Med Sq-FM) TELE CONSULT [id number] OLGA LIDIA GARCIA 01/30 [facility] [place] [address](A FNG 104 Med Sq-FM) [facility] Outpatient Encounter [id number] 01/16 [facility] Outpatient Encounter [id number] 04/09 [facility] OFF/OP EST JULY X REQ PHY/QHP [id number] Diagnos is: ICD-10- CM Z71.9 Weight Loss Consultant ing, 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 FURCOLO,TI NA 05/28 [facility] OFFICE O/P NEW MOD 45 MIN [id number] Diagnos is: ICD-10- CM Z77.29 Contact with and exposur e to other hazardo us substan tj FURCOLO,TI NA 06/04 [facility] [place] 1/ [id number] Diagnos is: ICD-10- CM H10.45 Other chronic allergi c conjunc tivitis GRAYSON STEPHEN 01/02 [facility] FIT SPECTACLES MULTIFOCAL [id number] Diagnos is: ICD-10- CM Z46.0 Encount er for fit/adj st of spectac les and contact lenses GRAYSON STEPHEN 01/02 [facility] RPR&REFITG SPECT XCP APHAKIA [id number] Diagnos is: ICD-10- CM Z46.0 Encount er for fit/adj st of spectac les and contact lenses SANTOSH KU 05/20 [facility] Procedures Combined list of: 1) Procedures from Department of Veterans Affairs facilities going back up to thelast 18 months, not all VA non-surgical procedures are included; 2) All procedures from the Department of Defense facilities. Procedure Procedure Type Code Date Perfomer Comments Sourc e No data available for this section Ambulato ry Pharmacy [facility] Fitting Monofocals (Not For Aphakia) [facility] Fitting Monofocals (Not For Aphakia) 23973 2018 BEATA MCKEON DoD Determination Of Refractive State Determination Of Refractive State 85178 2018 BEATA MCKEON DoD Ophthalmological New Patient Start Comprehensive Care Ophthalmological New Patient Start Comprehensive Care 18328 2018 BEATA MCKEON DoD Screening Test Of Visual Acuity, Quantitative, Bilateral Screening Test Of Visual Acuity, Quantitative, Bilateral 58504 2018 VAZQUEZ BARAJAS [facility] Rabies Vaccine For Intramuscular Use Rabies Vaccine For Intramuscular Use 12741 2017 IZABEL THOMPSON Rabies - Intramuscular; Series #: 1; 1.0 mL; IM; Left Arm; Mfg: [employer].; Lot: [id number]. DoD Immunization Administration One Vaccine Immunization Administration One Vaccine [id number] IZABEL THOMPSON Arabella Rabies Vaccine For Intramuscular Use Rabies Vaccine For Intramuscular Use 2017 IZABEL THOMPSON Rabies - Intramuscular; Series #: 2; 1.0 mL; IM; Left Arm; Mfg: [employer]; Lot: [id number]. [facility] Immunization Administration One Vaccine Immunization Administration One Vaccine 140942017 IZABEL THOMPSON Rabies Vaccine For Intramuscular Use Rabies Vaccine For Intramuscular Use 2017 ABDIASJOSHUAT Rabies - Intramuscular; Series #: 1; 1.0 mL; IM; Left Arm; Mfg: [employer]; Lot: [id number]. [facility] Immunization Administration One Vaccine Immunization Administration One Vaccine 538382017 VIKTORIA CALERO [facility] Immunization Administration One Vaccine Immunization Administration One Vaccine 454752017 CARSON SUMMERS Meningococcal Polysacch Diphtheria Toxoid Conjugate Vaccine 2017 [facility]SON SUMMERS Meningococcal MCV4P; Series #: 1; .5 mL; IM; Right Arm; Mfg: Sanof[employer] P[employer]; Lot: [id number]. [facility] Ophthalmological Prior Patient Start Comprehensive Care Ophthalmological Prior Patient Start Comprehensive Care 80052 2014 KEVIN HUSSEIN Determination Of Refractive State Determination Of Refractive State 2014 KEVIN HUSSEIN [facility] Fitting Monofocals (Not For Aphakia) [facility] Fitting Monofocals (Not For Aphakia) 29505 2014 KEVIN HUSSEIN Determination Of Refractive State Determination Of Refractive State 31710 2014 KEVIN HUSSEIN Ophthalmological Prior Patient Start Intermediate Level Care Ophthalmological Prior Patient Start Intermediate Level Care 28250 2014 KEVIN HUSSEIN Postoperative Visit, Without Charge Postoperative Visit, Without Charge 88925 2014 KEVIN HUSSEIN Postoperative Visit, Without Charge Postoperative Visit, Without Charge 02866 2014 KEVIN HUSSEIN Postoperative Visit, Without Charge Postoperative Visit, Without Charge 25224 2013 KEVIN HUSSEIN Postoperative Visit, Without Charge Postoperative Visit, Without Charge 84940 2013 DWAYNE ALFONSO Photorefractive keratectomy (PRK) [address] -[facility] Educational Services 96644 2013 KAMERON HENDRICKS Ophthalmological New Patient Start Comprehensive Care Ophthalmological New Patient Start Comprehensive Care 86914 2013 ESTER VEGA Corneal Pachymetry, Bilateral With Interpret And Report Corneal Pachymetry, Bilateral With Interpret And Report 16058 2013 ESTER VEGA Fundoscopic Exam Extensive Initial Exam Fundoscopic Exam Extensive Initial Exam 84434 2013 ESTER VEGA Computerized Corneal Topography Computerized Corneal Topography 27653 2013 ESTER VEGA Determination Of Refractive State Determination Of Refractive State 51157 2013 ESTER VEGA Corneal Pachymetry Corneal Pachymetry 55013 2013 STALIN SANTOS Determination Of Refractive State Determination Of Refractive State 89655 2013 STALIN SANTOS Ophthalmological Prior Patient Start Comprehensive Care Ophthalmological Prior Patient Start Comprehensive Care 04035 2013 STALIN SANTOS Ophthalmological Prior Patient Start Comprehensive Care Ophthalmological Prior Patient Start Comprehensive Care 99101 BEATA MCEKON Determination Of Refractive State Determination Of Refractive State 39567 BEATA MCKEON. Arabella IMMUNIZATION ADMINISTRATION (INCLUDES PERCUTANEOUS, INTRADERMAL, SUBCUTANEOUS, OR INTRAMUSCULAR INJECTIONS); 1 VACCINE (SINGLE OR COMBINATION VACCINE/TOXOID) 2017 DoD IMMUNIZATION ADMINISTRATION (INCLUDES PERCUTANEOUS, INTRADERMAL, SUBCUTANEOUS, OR INTRAMUSCULAR INJECTIONS); 1 VACCINE (SINGLE OR COMBINATION VACCINE/TOXOID) 2017 DoD IMMUNIZATION ADMINISTRATION (INCLUDES PERCUTANEOUS, INTRADERMAL, SUBCUTANEOUS, OR INTRAMUSCULAR INJECTIONS); 1 VACCINE (SINGLE OR COMBINATION VACCINE/TOXOID) 2017 [facility] MENINGOCOCCAL CONJUGATE VACCINE, SEROGROUPS A, C, W, Y, QUADRIVALENT, DIPHTHERIA TOXOID CARRIER (MENACWY-D) OR [id number] CARRIER (MENACWY-CRM), FOR INTRAMUSCULAR USE 2017 [facility] DETERMINATION OF REFRACTIVE STATE 2021 [facility] FITTING OF SPECTACLES, EXCEPT FOR APHAKIA; MONOFOCAL 2018 [facility] SCREENING TEST OF VISUAL ACUITY, QUANTITATIVE, BILATERAL 2018 [facility] OPHTHALMOLOGICAL SERVICES: MEDICAL EXAMINATION AND EVALUATION, WITH INITIATION OR CONTINUATION OF DIAGNOSTIC AND TREATMENT PROGRAM; COMPREHENSIVE, ESTABLISHED PATIENT, 1 OR MORE VISITS 2014 [facility] FITTING OF SPECTACLES, EXCEPT FOR APHAKIA; MONOFOCAL 2014 [facility] POSTOPERATIVE FOLLOW-UP VISIT, NORMALLY INCLUDED IN [...] POSTOPERATIVE PERIOD REASON RELATED ORIGINAL PROCEDURE 2013 [facility] OPHTHALMIC ULTRASOUND, ECHOGRAPHY, DIAGNOSTIC; CORNEAL PACHYMETRY, UNILATERAL OR BILATERAL (DETERMINATION OF CORNEAL THICKNESS) 2013 [facility] FITTING OF SPECTACLES, EXCEPT FOR APHAKIA; MONOFOCAL 2005 DoD POSTOPERATIVE FOLLOW-UP VISIT, NORMALLY INCLUDED IN THE SURGICAL PACKAGE, INDICATE THAT EVALUATION & MANAGEMENT SERVICE WAS PERFORMED DURING A POSTOPERATIVE PERIOD REASON RELATED ORIGINAL PROCEDURE 2013 [facility] PHOTOREFRACTIVE KERATECTOMY (PRK) 2013 [facility] PHYS/OTH QUALIFIED HEALTH AWS SOLUTION ARCHITECT QUALIFIED,EDUCATIO N,TRAIN,LICENSURE/ REGULATION (WHEN APPLICABLE) EDUC SER RENDERED TO PATS IN A GRP SETTING (EG,,OBESI TY,OR DIABETIC INSTRUCT) 2013 [facility] DETERMINATION OF REFRACTIVE STATE 2013 [facility] Social History Combined list of available smoking, tobacco, and other social history from Department of 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 Social History Type Response Date Comment Sourc e Tobacco smoking status NHIS VA-TOBACCO FORMER USER 05/29/2023 [facility] History of tobacco use NH-TOBACCO QUIT 5 TO < 15 YRS 05/29/2023 [facility] This section is an empty social history section. DoD Assessment and Plan Combined list of future care activities from Department of Defense and Veterans Affairs facilities (e.g., assessment and plan notes, appointments, orders, and referrals). Additional future care activities may be listed in the Plan of Care section. Result Assessment and Plan Date Source Assessment and Plan No data available for this section 07/10/2024 Ambulatory Pharmacy Plan of Care List of future care activities from Department of Veterans Affairs facilities. Additional future care activities may be listed in the Assessment and Plan section. Date/Time Care Activity Care Activity Detail Facili ty 12/15/2024 AMBULATORY - MEDICINE AMBULATORY - MEDICI [facility] Functional Status Combined list of recent functional and cognitive assessments recorded at Department of Defense and Veterans Affairs (VA).VA Functional Dade Measurement (FIM) Scale: 1 = Total Assistance (Subject = 0% +), 2 = Maximal Assistance (Subject = 25% +), 3 = Moderate Assistance (Subject = 50% +), 4 = Minimal Assistance (Subject = 75% +), 5 = Supervision, 6 = Modified Dade (Device), 7 = Complete Dade (Timely, Safely). Assessment Date/Time Source Assessment Type Assessment Skill Assessment Score Assessment Details No data available for this section
--- OUTSIDE RECORDS SUMMARY | 2024-07-10 08:37 | XMS_ITS | Clinical Summary ---
Author Organization [employer] Address [address] [place] [address] Care Team Providers Care Bodily Injury Adjuster Name Role Phone Frederic Anderson Primary Care Provider Social History Tobacco Use Types Packs/Day Years Used Date Smoking Tobacco: Never Assessed Sex and Gender Information Value Date Recorded Sex Assigned at Not on file Legal Sex Male 8:14 AM EDT Gender Identity Not on file Sexual Orientation Not on file Plan of Treatment Health Maintenance Due Date Last Done Comments CT Colonography 1965 Colonoscopy 1965 Colorectal Cancer Screening 1965 FIT-DNA 1965 FIT 1965 FOBT 1965 Hepatitis C Screening 1965 Lipid Panel 1965 Sigmoidoscopy 1965 Annual Physical Exam 08/07/1983 Tdap and Td Vaccines Adult 1984 Pneumococcal Vaccine: 50+ Ye ars (1 of 1 - PCV) 08/07/2015 Zoster Vaccines (1 of 2) 08/07/2015 COVID-19 Vaccine ( - 2023-2 5 season) 2023 Influenza Vaccine (Season Ended) 2024 HIB Vaccines Aged Out No longer eligi ble based on patient's age to complete this topic HPV Vaccines Aged Out No longer eligi ble based on patient's age to complete this topic Hepatitis A Vaccines Aged Out No long er eligible based on patient's age to complete this topic IPV Vaccines Aged Out No longer eligi ble based on patient's age to complete this topic Meningococcal Vaccine Aged Out No josy king eligible based on patient's age to complete this topic RSV <20 Months Aged Out No longer ganesh gible based on patient's age to complete this topic Insurance TRUSTED MEDICAL Care Teams Bodily Injury Adjuster Relationship Specialty Start Date End Date Frederic Anderson PA [address] [place] [address] [place] [address] PCP - General 09/25/22
--- OUTSIDE RECORDS SUMMARY | 2024-07-10 08:37 | XMS_ITS ---
Author Name [facility] Organization Unknown Encounters Encounter Type Encounter Reason Primary Diagnosis Location Date Ambulatory Pain in right knee [facility] 09/25/2022 Care Team Organization Name Specialty Phone Email Start Date End [facility] 09/26/2022 [facility] 09/25/202209/15
--- OUTSIDE RECORDS SUMMARY | 2024-07-10 08:37 | XMS_ITS | Encounter Summary ---
Author Organization [facility] Address [address] [place] [address] Care Team Providers Care Double Backer Name Role Phone Frederic Anderson Primary Care Provider [phone]- [phone] Reason for Referral * Imaging (Routine) - Closed Specialty Diagnoses / Procedures Referred By Contbelem t Referred To Contact Radiology Diagnoses Pain in right knee Procedures XR KNEE 1-2 VIEWS RIGHT Simi Puente NP [address] [place] [phone] Phone: tel: fax: [facility] Radiology - Central Scheduling [place] Phone: tel: fax: Referral ID Status Reason Start Date Expiration Date V isits Requested Visits Authorized [id number] Closed Perform Procedure 09/25/2022 09/25/2023 1 1 Encounter Details Date Type Department Care Team (Late st Contact Info) Description 09/25/2022 Ancillary Orders [facility] Radiology, Outpatient Center (Diag Rad) [address] [facility] [place] [address] Simi Puente NP [address] [place] [address] Pain in right knee Social History Tobacco Use Types Packs/Day Years Used Date Smoking Tobacco: Never Assessed Sex and Gender Information Value Date Recorded Sex Assigned at Not on file Legal Sex Male 8:14 AM EDT Gender Identity Not on file Sexual Orientation Not on file COVID-19 Exposure Response Date Recorded In the last 10 days, have yo u been in contact with someone who was confirmed or suspected to have Coronavirus/COVID-19? No / Unsure 09/25/2022 8:18 AM EDT documented as of this encounter Plan of Treatment Not on file documented as of this encounter Results * XR KNEE 1-2 VIEWS RIGHT (09/25/2022 9:07 AM EDT) Anatomical Region Laterality Modality Right Computed Radiogr aphy 09/25/2022 10:2 3 AM EDT Impressions 09/25/2022 10:24 AM EDT No definite acute finding. Narrative 09/25/2022 10:24 AM EDT PROCEDURE: ??XR KNEE 1-2 VIEWS RIGHT CLINICAL INDICATION: ??Pain in right knee, Pain in right knee///pt states anterior right knee pain when bending x 3 yrs. NKT COMPARISON: None. FINDINGS: 2 views. No fracture or dislocation. I doubt significant suprapatellar effusion. On the lateral view there is a tiny density projecting posterior to the distal femoral shaft and another tiny density projecting posterior to the joint space. The etiology and clinical significance is uncertain. Likely chronic finding. Procedure Note Jeronimo Leyva MD - 09/25/2022 PROCEDURE: XR KNEE 1-2 VIEWS RIGHT CLINICAL INDICATION: Pain in right knee, Pain in right knee///pt statesanterior right knee pain when bending x 3 yrs. NKT COMPARISON: None. FINDINGS: 2 views. No fracture or dislocation. I doubt significant suprapatellar effusion. Onthe lateral view there is a tiny density projecting posterior to thedistal femoral shaft and another tiny density projecting posterior to thejoint space. The etiology and clinical significance is uncertain. Likelychronic finding. IMPRESSION: No definite acute finding. Simi Puente NP IMG XR PROCEDURES Final Result documented in this encounter Visit Diagnoses Diagnosis Pain in right knee Pain in right knee documented in this encounter Care Teams Double Backer Relationship Specialty Start Date End Date Frederic Anderson PA [address] [facility] [address] [facility] [place] [address] PCP - General 09/25/22 documented as of this encounter
[2024-07-10 09:54] LABS: Alanine Aminotransferase 32 U/L (0-40); Albumin Level 4.5 g/dL (3.5-5.0); Alkaline Phosphatase 48 U/L (39-117); Anion Gap 12 (12-20); Aspartate Amino Transferase 31 U/L (5-37); Bilirubin Total 0.9 mg/dL (0.0-1.0); Blood Urea Nitrogen 26 mg/dL (9-16); Calcium 9.8 mg/dL (8.4-10.2); Carbon Dioxide 25 mmol/L (22-29); Chloride 106 mmol/L (96-108); Cholesterol 115 mg/dL (<200); Estimated Glomerular Filt Rate > 60; Glucose Fasting 110 mg/dL (60-99); HDL Cholesterol 39 mg/dL (>40); LDL Cholesterol Calculated 65 mg/dL (<100); Potassium 4.2 mmol/L (3.3-5.1); Sodium 139 mmol/L (135-145); Total Protein 7.1 g/dL (6.5-8.0); Triglycerides 58 mg/dL (<150)
== END 2024-07-10 08:34 | disposition home or self-care (01) ==
LOC: HO.LAB 08:33
PROVIDERS: PCP Physician Assistant; Visit Provider Internal Medicine Cardiovascular Disease
DX: E78.2 Mixed hyperlipidemia (principal); I25.10 Atherosclerotic heart disease of native coronary artery without angina pectoris
CPT/HCPCS: 36415; 80053; 80061

== ENCOUNTER 2024-07-13 08:41 | Outpatient (AMB) | payer OTHER, SELFPAY ==
--- NOTE | 2024-07-13 08:43 | MHC.PC.OV ---
Vital Signs 07/13/24 08:44 Height 6 ft Weight 198 lb 6 oz BMI 26.9 BP 132/86 Blood Pressure Location Lt brachial Position Sitting Pulse 49 L Pulse Source Pulse Oximeter Pulse Oximetry (%) 99 Oxygen Delivery Method Room Air Intake Visit Reasons: f/u HLD/ CAD Dental Specialist Required: No Accompanied by: Self / Same As Patient Allergies No Known Allergies Allergy (Verified 07/13/24 08:59) Medication List - Last Reconciled 07/13/24 by Frederic Anderson PA-C aspirin (Ecotrin Low Strength) 81 mg PO DAILY atorvastatin 80 mg PO BEDTIME cholecalciferol (vitamin D3) (Vitamin D3) 50 mcg PO DAILY ezetimibe (Zetia) 10 mg PO DAILY lisinopril 10 mg PO DAILY 90 days Tobacco use date assessed: 07/13/24 Dental Screening Dental Screen Date: 07/13/24 Did you have a dental visit in the last 12 months?: Yes Did you have a dental problem in the last 6 months where you did not have access to dental care?: No Was dental information given to patient?: Patient has dentist HPI f/u HLD/ CAD HPI Details Patient is a 58-year-old male here today for a follow-up visit.? Patient has a past medical history significant for borderline high cholesterol and hypertension. . Hypertension: Blood pressures have been much better over the last month since starting thyroid medication. Continues on lisinopril 10 mg. .. Coronary artery disease/ Hyperlipidemia: Followed by [facility] Most recent lipid panel showing much improved total cholesterol and LDL. He continues on high potency statin therapy. He does report a slight side effect of muscle aches in his arms from statin therapy. He has recently got a coronary artery calcium score that was quite elevated. Cardiology whom recommended starting statin therapy and aspirin. 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 1. Little interest or pleasure in doing things: not at all 2. Feeling down, depressed, or hopeless: not at all 3. Trouble falling or staying asleep, or sleeping too much: not at all 4. Feeling tired or having little energy: not at all 5. Poor appetite or overeating: not at all 6. Feeling bad about yourself - or that you are a failure or have let yourself or your family down: not at all 7. Trouble concentrating on things, such as reading the newspaper or watching television: not at all 8. Moving or speaking so slowly that other people could have noticed. Or the opposite - being so fidgety or restless that you have been moving around a lot more than usual: not at all 9. Thoughts that you would be better off or of hurting yourself in some way: not at all Total score: 0 Depression Screening Interpretation: Negative Depression Screening Done: Yes 91773 - PHQ-9 Billing: Yes Source: Developed by Drs. lEmer Mary, Guillermina Chawla, Homar Segundo and colleagues, with an educational pretty from [employer] Thrive Questionnaire Date Thrive assessed: 07/13/24 I am a: Patient What is your living situation today?: I choose not to answer this question Within the past 12 months, did the food you bought not last and you didn't have the money to get more?: I choose not to answer this question Within the past 12 months, did you worry whether your food would run out before you got money to buy more?: I choose not to answer this question Do you have trouble paying for medicines?: I choose not to answer this question Do you have trouble getting transportation to medical appointments?: I choose not to answer this question Do you have trouble paying your heating and electricity bill?: I choose not to answer this question Do you have trouble taking care of your child, family member or friend?: I choose not to answer this question Do you have trouble with day-to-day activities such as bathing, preparing meals, shopping, managing finances, etc.?: I choose not to answer this question Are you currently unemployed and looking for a job?: I choose not to answer this question Are you interested in more education?: I choose not to answer this question Please select the resources that you would like help with: None Currently or been in a relationship where the following occur: I choose not to answer THRIVE Score: 0 AUDIT C Alcohol Use Questionnaire (AUDIT-C) 1. How often do you have a drink containing alcohol?: Never 3. How often do you have six or more drinks on one occasion?: Never Total Score: 0 RYANEN-7 AMB Questionnaire RYANNE-7 Date RYANNE - 7 assessed: 07/13/24 Feeling nervous, anxious, or on edge: 0 = Not at all Not being able to stop or control worryin = Not at all Worrying too much about different things: 0 = Not at all Trouble relaxin = Not at all Being so restless that it is hard to sit still: 0 = Not at all Becoming easily annoyed or irritable: 0 = Not at all Feeling afraid as if something awful might happen: 0 = Not at all Total RYANNE-7 score (0-4 normal; 5-9 mild; 10-14 moderate; 15-21 severe): 0 Source: Developed by Drs. Elmer Mary, Guillermina Chawla, Homar Segundo and colleagues, with an educational pretty from [employer] RYANNE-7 Assessment Billing RYANNE-7 Assessment Tool: RYANNE-7 Assessment 04002 Physical exam (Primary Care) Vital Signs: Last Vital Signs Pulse 49 L 07/13/24 08:44 BP 132/86 07/13/24 08:44 Pulse Ox 99 07/13/24 08:44 Oxygen Delivery Method Room Air 07/13/24 08:44 BMI result Body Mass Index 26.9 Tobacco/Smoking Status: Tobacco use Status Tobacco use date assessed 07/13/24 07/13/24 08:50 Patient Tobacco Use Status Former Tobacco user 07/13/24 08:50 Tobacco use type Cigarette 07/13/24 08:50 e-Cigarette/Vaping Use Never Used 07/13/24 08:50 PHQ-9: PHQ-9 Score PHQ-9: Total score 0 07/13/24 08:50 Depression Screening Interpretation: Negative Thrive Assessment: Date of Thrive Assessment Date Thrive assessed 07/13/24 07/13/24 08:50 Currently or been in a relationship where the following occur: I choose not to answer Coding Level of Care Code Est Pt Level 4 (51980) Diagnoses Coronary artery disease involving samish coronary artery of samish heart without angina pectoris I25.10 Coronary Disease-Associated Artery/Lesion type: samish artery [place] vs. transplanted heart: samish heart Associated angina: without angina Mixed hyperlipidemia E78.2 Hyperlipidemia type: mixed hyperlipidemia Impaired fasting blood sugar R73.01 Additional Codes PHQ-9 - 95609 - PHQ-9 Billing: Yes ([id number]) RYANNE-7 Assessment Billing - RYANNE-7 Assessment Tool: RYANNE-7 Assessment 88707 ([id number]) Assessment & Plan Assessment & Plan (1) CAD (coronary artery disease): Comment: Markedly elevated coronary calcium score suggestive of diffuse three-vessel atherosclerosis Code(s): I25.10 - Atherosclerotic heart disease of samish coronary artery without angina pectoris Category: Medical Qualifiers: Coronary Disease-Associated Artery/Lesion type: samish artery [place] vs. transplanted heart: samish heart Associated angina: without angina Qualified Code(s): I25.10 - Atherosclerotic heart disease of samish coronary artery without angina pectoris Plan: Patient followed by Cardiology here in [place]. He did have a coronary artery calcium score that was fairly high. Has been started on aspirin and moderate dose statin therapy. Goal LDL to be optimally below 60 (2) HLD (hyperlipidemia): Code(s): E78.5 - Hyperlipidemia, unspecified Category: Medical Qualifiers: Hyperlipidemia type: mixed hyperlipidemia Qualified Code(s): E78.2 - Mixed hyperlipidemia Plan: As above Goal LDL to be optimally below 60 (3) Impaired fasting blood sugar: Code(s): R73.01 - Impaired fasting glucose Category: Medical Plan: Patient's most recent fasting blood sugar slightly elevated at 110, we discuss the possibility of statins causing slightly elevation in his blood sugar. He has gained weight as he has been less active. He plans on doing some marathon training and being more physically active. Goal fasting blood sugar to be below 100 Orders: Orders Lipid Panel Today I25.10 - Atherosclerotic heart disease of samish coronary artery without angina pectoris Comprehensive [place]. Panel Fast Today I25.10 - Atherosclerotic heart disease of samish coronary artery without angina pectoris Hemoglobin A1c Today R73.01 - Impaired fasting glucose Complete Blood Count no Diff Today I25.10 - Atherosclerotic heart disease of samish coronary artery without angina pectoris Patient Instructions: Goal: Blood pressure to remain below 140/90, LDL optimally be below 60 Barriers: Adherence to physical activity and healthy eating
[2024-07-13 08:44] VITALS: BP 132/86; PULSE 49; O2SAT 99; BMI 26.9
--- OUTSIDE RECORDS SUMMARY | 2024-07-13 09:11 | XMS_ITS | Continuity of Care Document ---
Author Name [facility] Organization [facility] Care Team Providers Care Pediatric Dental Hygienist Name Role Phone [facility] Unavailable Unavailable Problems Combined list of problems from Department of Defense and Veterans [facility] facilities. It does not include [...] TIMES A DAY OPHTHA LMIC ACTIVE 01/03/2025 [id number] BERLIN STEPHEN EY J 2023 45 [facility] KETOTIFEN 0.025% SOLN,OPH INSTILL 1 DROP INTO EACH EYE TWICE DAILY FOR ALLERGIC CONJUNCT IVITIS (IF YOU WEAR CONTACT LENSES, WAIT 10 MINUTES BEFORE INSERTIN G LENSES) OPHTHA LMIC ACTIVE 01/03/2025 [id number] STEPHEN,LAC EY J 2023 20 [facility] LEVOTHYROXI NE NA 25MCG TAB (SYNTHROID) TAKE ONE TABLET BY MOUTH EVERY MORNING 30 MINUTES BEFORE BREAKFAS T ORAL ACTIVE FURCOLO,T EMILY 2023 [facility] lisinopril 10 mg oral tablet lisinopr il 10 mg oral tablet Start Date: 05/25/21 Status: Ordered Repeat number: 1 Ordered 2021 No Facilit y Access LISINOPRIL 10MG TAB TAKE ONE TABLET BY MOUTH ONCE DAILY ORAL ACTIVE FURCOLO,T EMILY 2023 [facility] lisinopril 5 mg oral tablet [...] Known Allergies Drug allergy (disorder) active 01/29/2018 [facility] Immunizations Combined list of available immunizations from the Department of 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 Immunization Series Date Given Administered By Site Reaction Lot Number CVX Code Drug Cover Cutter Status Comments Source INFLUENZA, UNSPECIFIED FORMULATION 2022 88 complet ed HISTORICA L INFORMATI ON - FROM OTHER [facility] ZOSTER RECOMBINANT 2 2022 187 complet ed HISTORICA L INFORMATI ON - FROM OTHER PROVIDER, [facility] ZOSTER RECOMBINANT 1 2022 187 complet ed HISTORICA L INFORMATI ON - FROM OTHER REGISTRY, [facility] TDAP 2022 115 complet ed Completed Series, HISTORICA L INFORMATI ON - FROM OTHER REGISTRY, [facility] Influenza, injectable, quadrivalent, preservative free 0 2021 [id number] 150 SmithKline (SKB) complet ed Influenza , injectabl e, quadrival ent, preservat abdulkadir free DoD COVID Vaccine Pfizer 2020 208 PFIZER complet ed COVID Vaccine Pfizer 02/10/21 Given Ambulat ory Pharmac y COVID-19, mRNA, LNP-S, PF, 30 mcg/0.3 mL dose 2020 TAMMY Palumbo, [employer] [place] (PFR) Not Given COVID-19, mRNA, LNP-S, PF, 30 mcg/0.3 mL dose DoD SARS-COV-2 (COVID-19) vaccine, mRNA, spike protein, LNP, preservative free, 30 mcg/0.3mL dose 0 2020 208 Cum[employer], Inc (PFR) complet ed SARS-COV- 2 (COVID-19 ) vaccine, mRNA, spike protein, LNP, preservat abdulkadir free, 30 mcg/0.3mL dose DoD COVID-19 (PFIZER), MRNA, LNP-S, PF, 30 MCG/0.3 ML DOSE 2020 208 complet ed HISTORICA L INFORMATI ON - FROM OTHER REGISTRY, TOZINAMER AN .225mg/2. 25mL INTRAMUSC ULAR INJECTION , SUSPENSIO N (Pfizer-B ioNTech Covid-19 Vaccine) [facility] influenza, injectable, quadrivalent 2020 [id number] 158 GlaxoSmithKli ne complet ed influenza , injectabl e, quadrival ent 12/31/20 Given Ambulat ory Pharmac y influenza, injectable, quadrivalent, contains preservative 11 2020 [id number] 158 SmithKline (SKB) complet ed influenza , injectabl e, quadrival ent, contains preservat abdulkadir DoD COVID Vaccine Pfizer 2020 [id number] 208 PFIZER complet ed COVID Vaccine Pfizer 06/14/20 Given Ambulat ory Pharmac y SARS-COV-2 (COVID-19) vaccine, mRNA, spike protein, LNP, preservative free, 30 mcg/0.3mL dose 2 2020 [id number] 208 Cum[employer]ocity, [employer] (PFR) complet ed SARS-COV- 2 (COVID-19 ) vaccine, mRNA, spike protein, LNP, preservat abdulkadir free, 30 mcg/0.3mL dose DoD COVID-19 (PFIZER), MRNA, LNP-S, PF, 30 MCG/0.3 ML DOSE 2 2020 208 complet ed HISTORICA L INFORMATI ON - FROM OTHER REGISTRY, SARS-COV- 2 (COVID-19 ) vaccine, mRNA, spike protein, LNP, preservat abdulkadir free, 30 mcg/0.3mL dose Lot#: [id number] Mfr: [employer], [employer] [facility] COVID Vaccine Pfizer 2020 [id number] 208 PFIZER complet ed COVID Vaccine Pfizer 05/24/20 Given Ambulat ory Pharmac y SARS-COV-2 (COVID-19) vaccine, mRNA, spike protein, LNP, preservative free, 30 mcg/0.3mL dose 1 2020 [id number] 208 [employer], [employer] (PFR) complet ed SARS-COV- 2 (COVID-19 ) vaccine, mRNA, spike protein, LNP, preservat abdulkadir free, 30 mcg/0.3mL dose DoD COVID-19 (PFIZER), MRNA, LNP-S, PF, 30 MCG/0.3 ML DOSE 1 2020 208 complet ed HISTORICA L INFORMATI ON - FROM OTHER REGISTRY, SARS-COV- 2 (COVID-19 ) vaccine, mRNA, spike protein, LNP, preservat abdulkadir free, 30 mcg/0.3mL dose Lot#: [id number] Mfr: momondo [facility] influenza, injectable, quadrivalent- pf 2019 TRANSCR IBED 150 complet ed influenza , injectabl e, quadrival ent-pf 01/06/20 Given Ambulat ory Pharmac y Influenza, injectable, quadrivalent, preservative free 1 2019 150 Transcribed (TRS) complet ed Influenza , injectabl e, quadrival ent, preservat abdulkadir free DoD influenza, injectable, quadrivalent- pf 2018 [id number] 150 Seqirus complet ed influenza , injectabl e, quadrival ent-pf 12/19/18 Given Ambulat ory Pharmac y Influenza, injectable, quadrivalent, preservative free 22 2018 [id number] 150 Seqirus (SEQ) complet ed Influenza , injectabl e, quadrival ent, preservat abdulkadir free DoD rabies vaccine, purified chick embryo 2017 [id number] 176 GlaxoSmithKli ne complet ed rabies vaccine, purified chick embryo 03/03/18 Given Ambulat ory Pharmac y rabies vaccine, IM 2017 zzLef t Arm [id number] 175 Novartis Pharmaceutica ls complet ed rabies vaccine, IM 03/03/18 Given Ambulat ory Pharmac y rabies vaccine, for intramuscular injection RETIRED CODE 1 2017 IZABEL THOMPSON [id number] 18 Novartis Pharmaceutica l Kathrine. (NOV) complet ed rabies vaccine, for intramusc ular injection RETIRED CODE [facility] Human rabies vaccine from Chicken fibroblast culture 4 2017 [id number] 176 SmithKline (SKB) complet ed Human rabies vaccine from Chicken fibroblas t culture DoD RABIES, UNSPECIFIED FORMULATION 2017 90 complet ed HISTORICA L INFORMATI ON - FROM OTHER REGISTRY, rabies vaccine, purified chick embryo Lot#: [id number] Mfr: [facility]. [facility] [place] [facility] [place] [facility] rabies vaccine, purified chick embryo 2017 [id number] 176 GlaxoSmithKli ne complet ed rabies vaccine, purified chick embryo 02/10/18 Given Ambulat ory Pharmac y rabies vaccine, IM 2017 zzLef t Arm [id number] 175 GlaxoSmithKli ne complet ed rabies vaccine, IM 02/10/18 Given Ambulat ory Pharmac y rabies vaccine, for intramuscular injection RETIRED CODE 2 2017 IZABEL THOMPSON [id number] 18 SmithKline (SKB) complet ed rabies vaccine, for intramusc ular injection RETIRED CODE [facility] Human rabies vaccine from Chicken fibroblast culture 2 2017 [id number] 176 SmithKline (SKB) complet ed Human rabies vaccine from Chicken fibroblas t culture DoD RABIES, UNSPECIFIED FORMULATION 1 2017 90 complet ed HISTORICA L INFORMATI ON - FROM OTHER REGISTRY, rabies vaccine, purified chick embryo Lot#: [id number] [facility]: [facility] rabies vaccine, IM 2017 zzLef t Arm [id number] 175 GlaxoSmithKli ne complet ed rabies vaccine, IM 01/30/18 Given Ambulat ory Pharmac y rabies vaccine, for intramuscular injection RETIRED CODE 1 2017 VIKTORIA CALERO [id number] 18 [facility] (SKB) complet ed rabies vaccine, for intramusc ular injection RETIRED CODE DoD RABIES, INTRAMUSCULAR INJECTION 2017 LEFT DELTO ID 18 complet ed HISTORICA L INFORMATI ON - FROM OTHER REGISTRY, rabies vaccine, IM Lot#: [id number] [facility]fr: [facility] meningococcal A,C,Y,W-135 (MCV4P) 2017 zzRig ht Arm [id number] sanofi pasteur complet ed meningoco ccal A,C,Y,W-1 35 (MCV4P) 01/29/18 Given Ambulat ory Pharmac y varicella virus vaccine 1 2017 EXEMPT 21 Transcribed (TRS) Not Given varicella virus vaccine [facility] meningococcal polysaccharid e (groups A, C, Y and W-135) diphtheria toxoid conjugate vaccine (MCV4P) 1 2017 VIKTORIA CALERO [id number] 114 Sanofi Pasteur (PMC) complet ed meningoco ccal polysacch aride (groups A, C, Y and W-135) diphtheri a toxoid conjugate vaccine (MCV4P) [facility] MENINGOCOCCAL MPSV4 2017 RIGHT DELTO ID 32 complet ed HISTORICA L INFORMATI ON - FROM OTHER REGISTRY, meningoco ccal polysacch aride (groups A, C, Y and W-135) diphtheri a toxoid conjugate vaccine (MCV4P) Lot#: [id number] Mfr: SANOFI PASTEUR [facility] influenza, injectable, quadrivalent 2017 [id number] 158 Seqirus complet ed influenza , injectabl e, quadrival ent 12/24/17 Given Ambulat ory Pharmac y influenza, injectable, quadrivalent, contains preservative 21 2017 [id number] 158 Seqirus (SEQ) comple t ed influenza , injectabl e, quadrival ent, contains preservat abdulkadir DoD typhoid Vi capsular polysaccharid e vac 2017 [id number] 101 sanofi pasteur complet ed typhoid Vi capsular polysacch aride vac 11/21/17 Given Ambulat ory Pharmac y typhoid Vi capsular polysaccharid e vaccine 4 2017 [id number] 101 Sanofi Pasteur ([facility]) complet ed typhoid Vi capsular polysacch aride vaccine DoD TYPHOID, VICPS 2017 101 complet ed HISTORICA L INFORMATI ON - FROM OTHER REGISTRY, typhoid Vi capsular polysacch aride vaccine Lot#: [id number] Mfr: SANOFI PASTEUR [facility] Influenza, inj, MDCK, quadrivalent- pf 2016 [id number] 171 Seqirus complet ed Influenza , inj, MDCK, quadrival ent-pf 01/18/17 Given Ambulat ory Pharmac y Influenza, injectable, Madin Amisha Canine Kidney, preservative free, quadrivalent 20 2016 [id number] 171 Seqirus (SEQ) comple t ed Influenza , injectabl e, Madin Amisha Canine Kidney, preservat abdulkadir free, quadrival ent DoD influenza, seasonal, injectable-pf 2015 [id number] 140 Seqirus complet ed influenza , seasonal, injectabl e-pf 12/31/15 Given Ambulat ory Pharmac y Influenza, seasonal, injectable, preservative free 1 2015 [id number] 140 Seqirus (SEQ) comple t ed Influenza , seasonal, injectabl e, preservat abdulkadir free DoD influenza, seasonal, injectable-pf 2014 [id number] 140 CSL Behring complet ed influenza , seasonal, injectabl e-pf 12/19/14 Given Ambulat ory Pharmac y Influenza, seasonal, injectable, preservative free 18 2014 [id number] 140 CS [employer] Inc. (CSL) complet ed Influenza , seasonal, injectabl e, preservat abdulkadir free DoD influenza, live, intranasal,qu adrivalent 2013 [id number] 149 [employer] Inc comple t ed influenza , live, intranasa l,quadriv alent 12/20/13 Given Ambulat ory Pharmac y influenza, live, intranasal, quadrivalent 17 2013 [id number] 149 Teranetics, [employer]. (MED) complet ed influenza , live, intranasa l, quadrival ent DoD influenza, seasonal, injectable 2012 [id number] 141 CSL Behring complet ed influenza , seasonal, injectabl e 01/17/13 Given Ambulat ory Pharmac y Influenza, seasonal, injectable 1 2012 [id number] 1A 141 [facility] Biotherap[employer], Inc. (CSL) complet ed Influenza , seasonal, injectabl e DoD influenza, seasonal, injectable 2011 [id number] 1A 141 CSL Behring complet ed influenza , seasonal, injectabl e 12/29/11 Given Ambulat ory Pharmac y tetanus, diphtheria, acellular pertu is 2011 [id number] 115 sanofi pasteur complet ed tetanus, diphtheri a, acellular pertussis 12/29/11 Given Ambulat ory Pharmac y tetanus toxoid, reduced diphtheria toxoid, and acellular pertu is vaccine, adsorbed 0 2011 [id number] 115 Sanofi Pasteur ([facility]) complet ed tetanus toxoid, reduced diphtheri a toxoid, and acellular pertussis vaccine, adsorbed DoD Influenza, seasonal, injectable 15 2011 [id number] 141 [facility] [employer]. (CS) complet ed Influenza , seasonal, injectabl e DoD TDAP 2011 115 complet ed Completed Series, HISTORICA L INFORMATI ON - FROM OTHER REGISTRY, tetanus, diphtheri a, acellular pertussis Lot#: [id number] Mfr: SANOFI PASTEUR [place] [facility] influenza, seasonal, injectable 2010 [id number] 141 sanofi pasteur complet ed influenza , seasonal, injectabl e 01/20/11 Given Ambulat ory Pharmac y Influenza, seasonal, injectable 0 2010 [id number] 141 Sanofi Pasteur ([facility]) complet ed Influenza , seasonal, injectabl e DoD influenza virus vaccine,split 2009 [id number] 15 sanofi pasteur complet ed influenza virus vaccine,s plit 02/19/10 Given Ambulat ory Pharmac y influenza virus vaccine, split virus (incl. purified surface antigen)-reti red CODE 1 2009 [id number] 15 Sanofi Pasteur (PMC) complet ed influenza virus vaccine, split virus (incl. purified surface antigen)- retired CODE DoD Novel influenza-H1N 1-09, injectable 2009 [id number] 1 127 Novartis Pharmaceutica ls complet ed Novel influenza -X3O8-35, injectabl e 04/23/09 Given Ambulat ory Pharmac y Novel influenza-H1N 1-09, injectable 1 2009 [id number] 127 Novartis Pharmaceutica l Kathrine. (NOV) complet ed Novel influenza -B7X8-19, injectabl e DoD influenza virus vaccine, live 2008 [id number] 111 Medimmune Inc comple t ed influenza virus vaccine, live 12/18/08 Given Ambulat ory Pharmac y influenza virus vaccine, live, attenuated, for intranasal use 1 2008 [id number] 111 MedIEnjoyor[employer], Inc. (MED) complet ed influenza virus vaccine, live, attenuate d, for intranasa l use DoD influenza virus vaccine, live 2007 [id number] 111 Medimmune Inc comple t ed influenza virus vaccine, live 12/21/07 Given Ambulat ory Pharmac y influenza virus vaccine, live, attenuated, for intranasal use 1 2007 [id number] 111 [employer]Enjoy[employer], Inc. (MED) complet ed influenza virus vaccine, live, attenuate d, for intranasa l use DoD influenza virus vaccine, live 2006 [id number] 111 [employer]iEnjoyor[employer] Inc comple t ed influenza virus vaccine, live 02/15/07 Given Ambulat ory Pharmac y influenza virus vaccine, live, attenuated, for intranasal use 1 2006 [id number] 111 MedImmune, Inc. (MED) complet ed influenza virus vaccine, live, attenuate d, for intranasa l use DoD varicella virus vaccine 2005 21 complet ed varicella virus vaccine 02/03/06 Given Ambulat ory Pharmac y influenza virus vaccine,split 2005 [id number] 15 sanofi pasteur complet ed influenza virus vaccine,s plit 02/03/06 Given Ambulat ory Pharmac y influenza virus vaccine, split virus (incl. purified surface antigen)-reti red CODE 1 2005 [id number] 15 Sanofi Pasteur (PMC) complet ed influenza virus vaccine, split virus (incl. purified surface antigen)- retired CODE DoD varicella virus vaccine 0 2005 21 () complet ed varicella virus vaccine DoD VARICELLA 2005 21 complet ed HISTORICA L INFORMATI ON - FROM OTHER REGISTRY, varicella virus vaccine [facility] influenza virus vaccine,split 2004 [id number] 15 sanofi pasteur complet ed influenza virus vaccine,s plit 02/16/05 Given Ambulat ory Pharmac y influenza virus vaccine, split virus (incl. purified surface antigen)-reti red CODE 1 2004 [id number] 15 Sanofi Pasteur ([facility]) complet ed influenza virus vaccine, split virus (incl. purified surface antigen)- retired CODE DoD typhoid Vi capsular polysaccharid e vac 2003 [id number] 101 sanofi pasteur complet ed typhoid Vi capsular polysacch aride vac 08/28/03 Given Ambulat ory Pharmac y typhoid Vi capsular polysaccharid e vaccine 0 2003 [id number] 101 Sanofi Pasteur ([facility]) complet ed typhoid Vi capsular polysacch aride vaccine DoD anthrax vaccine 2003 [id number] 24 [employer] complet ed anthrax vaccine 07/17/03 Given Ambulat ory Pharmac y tetanus-dipht h toxoids (Td) adult/adol 2003 [id number] 09 sanofi pasteur complet ed tetanus-d iphth toxoids (Td) adult/ado l 07/17/03 Given Ambulat ory Pharmac y tetanus and diphtheria toxoids, adsorbed, preservative free, for adult use (2 Lf of tetanus toxoid and 2 Lf of diphtheria toxoid) 0 2003 [id number] 09 Sanofi Pasteur ([facility]) complet ed tetanus and diphtheri a toxoids, adsorbed, preservat abdulkadir free, for adult use (2 Lf of tetanus toxoid and 2 Lf of diphtheri a toxoid) DoD anthrax vaccine 6 2003 [id number] [facility] [employer] ([facility]) complet ed anthrax vaccine DoD ANTHRAX, PRE-EXPOSURE PROPHYLAXIS, POST-EXPOSURE PROPHYLAXIS 2003 24 complet ed Completed Series, HISTORICA L INFORMATI ON - FROM OTHER REGISTRY, Lot#: [id number] Mfr: EMERGENT BIOSOLUTI ONS [facility] hepatitis B adult vaccine 2002 [id number] 43 GlaxoSmithKli ne complet ed hepatitis B adult vaccine 01/16/03 Given Ambulat ory Pharmac y hepatitis B vaccine, adult dosage 3 2002 [id number] 43 SmithKline (SKB) complet ed hepatitis B vaccine, adult dosage [facility] HEPB-CPG 2 2002 189 complet ed HISTORICA L INFORMATI ON - FROM OTHER REGISTRY, [facility] influenza virus vaccine, whole virus 2002 [id number] 16 [employer] complet ed influenza virus vaccine, whole virus 01/13/03 Given Ambulat ory Pharmac y tuberculin purified protein derivative 2002 [id number] 96 sanofi pasteur complet ed tuberculi n purified protein derivativ e 01/13/03 Given Ambulat ory Pharmac y influenza virus vaccine, whole virus 0 2002 [id number] 16 [facility] ([facility]) complet ed influenza virus vaccine, whole virus [facility] tuberculin skin test; purified protein derivative solution, intradermal 1 2002 Unknown, Provider [id number] 96 Sanofi Pasteur (PMC) complet ed tuberculi n skin test; purified protein derivativ e solution, intraderm al DoD anthrax vaccine 2002 [id number] [employer] complet ed anthrax vaccine 11/28/02 Given Ambulat ory Pharmac y anthrax vaccine 5 2002 [id number] [employer] ([facility]) complet ed anthrax vaccine DoD ANTHRAX, PRE-EXPOSURE PROPHYLAXIS, POST-EXPOSURE PROPHYLAXIS 2002 24 complet ed HISTORICA L INFORMATI ON - FROM OTHER REGISTRY, Lot#: [id number] Mfr: EMERGENT BIOSOLUTI ONS [facility] vaccinia (smallpox) vaccine 2002 75 complet ed vaccinia (smallpox ) vaccine 05/07/02 Given Ambulat ory Pharmac y vaccinia (smallpox) vaccine 0 2002 75 () complet ed vaccinia (smallpox ) vaccine [facility] VACCINIA (SMALLPOX) 2002 75 complet ed HISTORICA L INFORMATI ON - FROM OTHER REGISTRY, vaccinia (smallpox ) vaccine [facility] hepatitis B adult vaccine 2002 [id number] [...] hepatitis B vaccine, adult dosage Lot#: [id number] [facility] HEPB-CPG 1 2002 189 complet ed HISTORICA L INFORMATI ON - FROM OTHER REGISTRY, [facility] anthrax vaccine 2001 [id number] [employer] complet ed anthrax vaccine 03/07/02 Given Ambulat ory Pharmac y anthrax vaccine 4 2001 [id number] [employer]gent [employer] (MIP) complet ed anthrax vaccine DoD ANTHRAX, PRE-EXPOSURE PROPHYLAXIS, POST-EXPOSURE PROPHYLAXIS 2001 24 complet ed HISTORICA L INFORMATI ON - FROM OTHER REGISTRY, Lot#: [id number] Mfr: EMERGENT BIOSOLUTI ONS [facility] tuberculin purified protein derivative 2001 [id number] 96 sanofi pasteur complet ed tuberculi n purified protein derivativ e 01/16/02 Given Ambulat ory Pharmac y hepatitis B adult vaccine 2001 [id number] 43 Merck & Company Inc complet ed hepatitis B adult vaccine 01/16/02 Given Ambulat ory Pharmac y influenza virus vaccine, whole virus 2001 [id number] 16 sanofi pasteur complet ed influenza virus vaccine, whole virus 01/16/02 Given Ambulat ory Pharmac y influenza virus vaccine, whole virus 0 2001 [id number] 16 Sanofi Pasteur (PMC) complet ed influenza virus vaccine, whole virus DoD hepatitis B vaccine, adult dosage 1 2001 [id number] 43 Merck (MSD) complet ed hepatitis B vaccine, adult dosage DoD tuberculin skin test; purified protein derivative solution, intradermal 1 2001 Unknown, Provider [id number] 96 Sanofi Pasteur (PMC) complet ed tuberculi n skin test; purified protein derivativ e solution, intraderm al DoD HEP B, ADULT 1 2001 43 complet ed HISTORICA L INFORMATI ON - FROM OTHER REGISTRY, hepatitis B vaccine, adult dosage Lot#: [id number] Mfr: [employer] AND [employer]., [employer] [facility] measles/mumps /rubella virus vaccine 2001 [id number] 03 Merck & Company Inc complet ed measles/m umps/rube lla virus vaccine 12/25/01 Given Ambulat ory Pharmac y measles, mumps and rubella virus vaccine 0 2001 [id number] 03 Merck (MSD) complet ed measles, mumps and rubella virus vaccine DoD MMR 2001 03 complet ed HISTORICA L INFORMATI ON - FROM OTHER REGISTRY, measles/m umps/rube lla virus vaccine Lot#: [id number] [facility] anthrax vaccine 2001 24 [employer] complet ed anthrax vaccine 09/21/01 Given Ambulat ory Pharmac y anthrax vaccine 3 2001 24 Emergent [employer] (MIP) complet ed anthrax vaccine DoD ANTHRAX, PRE-EXPOSURE PROPHYLAXIS, POST-EXPOSURE PROPHYLAXIS 2001 24 complet ed HISTORICA L INFORMATI ON - FROM OTHER REGISTRY, [facility] influenza virus vaccine, whole virus 2000 [id number] 16 sanofi pasteur complet ed influenza virus vaccine, whole virus 01/17/01 Given Ambulat ory Pharmac y tuberculin purified protein derivative 2000 [id number] 96 sanofi pasteur complet ed tuberculi n purified protein derivativ e 01/17/01 Given Ambulat ory Pharmac y influenza virus vaccine, whole virus 0 2000 [id number] 16 Sanofi Pasteur ([facility]) complet ed influenza virus vaccine, whole virus DoD tuberculin skin test; purified protein derivative solution, intradermal 1 2000 Unknown, Provider [id number] 96 Sanofi Pasteur (PMC) complet ed tuberculi n skin test; purified protein derivativ e solution, intraderm al DoD influenza virus vaccine, whole virus 2000 [id number] 16 [employer] complet ed influenza virus vaccine, whole virus 03/23/00 Given Ambulat ory Pharmac y influenza virus vaccine, whole virus 0 2000 [id number] 16 Gael (KIRAN) complet ed influenza virus vaccine, whole virus DoD tuberculin purified protein derivative 1999 [id number] 96 [employer] complet ed tuberculi n purified protein derivativ e 11/22/99 Given Ambulat ory Pharmac y tuberculin skin test; purified protein derivative solution, intradermal 1 1999 Unknown, Provider [id number] 96 [employer] (CON) complet ed tuberculi n skin test; purified protein derivativ e solution, intraderm al DoD anthrax vaccine 1999 [id number] 24 [employer] complet ed anthrax vaccine 09/08/99 Given Ambulat ory Pharmac y anthrax vaccine 2 1999 [id number] 24 [facility]gent [facility] complet ed anthrax vaccine DoD ANTHRAX, PRE-EXPOSURE PROPHYLAXIS, POST-EXPOSURE PROPHYLAXIS 1999 24 complet ed HISTORICA L INFORMATI ON - FROM OTHER REGISTRY, Lot#: [id number] Mfr: EMERGENT BIOSOLUTI [facility]ITAL[facility] Uranium EnergyU [facility] tuberculin purified protein derivative 1999 [id number] 96 [facility] complet ed tuberculi n purified protein derivativ e 08/24/99 Given Ambulat ory Pharmac y anthrax vaccine 1999 [id number] 24 [employer] complet ed anthrax vaccine 08/24/99 Given Ambulat ory Pharmac y anthrax vaccine 1 1999 [id number] 24 Emergent [facility] ([facility]) complet ed anthrax vaccine DoD tuberculin skin test; purified protein derivative solution, intradermal 1 1999 Unknown, Provider [id number] 96 [employer] (CON) complet ed tuberculi n skin test; purified protein derivativ e solution, intraderm al DoD ANTHRAX, PRE-EXPOSURE PROPHYLAXIS, POST-EXPOSURE PROPHYLAXIS 1999 24 complet ed HISTORICA L INFORMATI ON - FROM OTHER REGISTRY, Lot#: [id number] Mfr: EMERGENT BIOSOLUTI [facility] [employer]ranium EnergyU [facility] hepatitis A adult vaccine 1998 [id number] [employer]ck [employer] complet ed hepatitis A adult vaccine 02/18/99 Given Ambulat ory Pharmac y hepatitis A vaccine, adult dosage 2 1998 [id number] Merck (MSD) complet ed hepatitis A vaccine, adult dosage DoD HEP A, ADULT 2 1998 52 complet ed HISTORICA L INFORMATI ON - FROM OTHER REGISTRY, hepatitis A vaccine, adult dosage Lot#: [id number] Mfr: [employer] [place] [facility] [place] [facility] influenza virus vaccine, whole virus [id number] [employer] complet ed influenza virus vaccine, whole virus 01/21/99 Given Ambulat ory Pharmac y influenza virus vaccine, whole virus 0 [id number] [facility] ([facility]) complet ed influenza virus vaccine, whole virus DoD tuberculin purified protein derivative 1998 250-11 96 sanofi pasteur complet ed tuberculi n purified protein derivativ e 09/24/98 Given Ambulat ory Pharmac y measles/mumps /rubella virus vaccine [id number] [employer] complet ed measles/m umps/rube lla virus vaccine 07/26/98 Given Ambulat ory Pharmac y meningococcal polysaccharid e (MPSV4) [id number] sanofi pasteur complet ed meningoco ccal polysacch aride (MPSV4) 07/26/98 Given Ambulat ory Pharmac y tuberculin purified protein derivative 1998 [id number] [facility] complet ed tuberculi n purified protein derivativ e 07/26/98 Given Ambulat ory Pharmac y hepatitis A adult vaccine 1998 [id number] Merck & Company Inc complet ed hepatitis A adult vaccine 07/26/98 Given Ambulat ory Pharmac y measles, mumps and rubella virus vaccine 0 [id number] [employer] (CON) complet ed measles, mumps and rubella virus vaccine DoD meningococcal polysaccharid e vaccine (MPSV4) 0 [id number] Sanofi Pasteur (PMC) complet ed meningoco ccal polysacch aride vaccine (MPSV4) DoD hepatitis A vaccine, adult dosage 1 1998 [id number] Merck (MSD) complet ed hepatitis A vaccine, adult dosage DoD MENINGOCOCCAL MPSV4 1998 32 complet ed HISTORICA L INFORMATI ON - FROM OTHER REGISTRY, meningoco ccal polysacch aride vaccine (MPSV4) Lot#: [id number] Mfr: SANOFI PASTEUR [facility] MMR 1998 03 complet ed HISTORICA L INFORMATI ON - FROM OTHER REGISTRY, measles/m umps/rube lla virus vaccine Lot#: [id number] [facility] typhoid vaccine, live, oral 1998 [id number]. 1B 25 [employer] [place] complet ed typhoid vaccine, live, oral 07/19/98 Given Ambulat ory Pharmac y typhoid vaccine, live, oral 0 1998 [id number]. 1B 25 [employer] [facility] (SI) complet ed typhoid vaccine, live, oral [facility] HEP A, ADULT 1 1998 52 complet ed HISTORICA L INFORMATI ON - FROM OTHER REGISTRY, hepatitis A vaccine, adult dosage Lot#: [id number] [facility] influenza virus vaccine, whole virus [id number] 16 sanofi pasteur complet ed influenza virus vaccine, whole virus 12/02/97 Given Ambulat ory Pharmac y influenza virus vaccine, whole virus 0 [id number] 16 Sanofi Pasteur ([facility]) complet ed influenza virus vaccine, whole virus DoD yellow fever vaccine 1997 37 complet ed yellow fever vaccine 03/18/97 Given Ambulat ory Pharmac y yellow fever vaccine 0 1997 37 () complet ed yellow fever vaccine [facility] YELLOW FEVER 1997 37 complet ed HISTORICA L INFORMATI ON - FROM OTHER REGISTRY, yellow fever vaccine [facility] influenza virus vaccine, whole virus 1996 16 complet ed influenza virus vaccine, whole virus 01/16/97 Given Ambulat ory Pharmac y influenza virus vaccine, whole virus 0 1996 16 () complet ed influenza virus vaccine, whole virus DoD typhoid, parenteral, AKD 1995 53 complet ed typhoid, parentera l, AKD 06/17/95 Given Ambulat ory Pharmac y typhoid vaccine, parenteral, acetone-vasu d, dried (U.S. ) 2 1995 53 [...] ed trivalent polioviru s vaccine, live, oral [facility] POLIO, UNSPECIFIED FORMULATION 1986 89 complet ed HISTORICA L INFORMATI ON - FROM OTHER REGISTRY, rivalent polioviru s vaccine, live, oral [facility] [employer] [facility] Results Combined list of recent chemistry, hematology [...] May 29, 2023 01:58 PM Reporting Lab: [facility] [address] [facility] [address] Performing Lab: [facility] [address] [address] [facility] [employer] [facility] CBC LEUKOCYTES [#/VOLUME] IN BLOOD BY AUTOMATED COUNT 4.33 10*3/uL 4.50 - 11.00 05/29 L Specimen Type: BLOOD No comment entered. Ordering Provider: BOBBY SHANNON Report Released Date/Time: May 29, 2023 01:58 PM Reporting Lab: [facility] [place] [facility] [address] [facility] [address] Performing Lab: [facility] [place] [facility] [address] [facility] [address] [place] [facility] [place] [facility] CBC ERYTHROCYT ES [#/VOLUME] IN BLOOD BY AUTOMATED COUNT 5.06 10*6/uL 4.23 - 5.66 05/29 Specimen Type: BLOOD No comment entered. Ordering Provider: BOBBY SHANNON Report Released Date/Time: May 29, 2023 01:58 PM Reporting Lab: [facility] [place] [facility] [address] [facility] [address] Performing Lab: [facility] [place] [facility] [address] [facility] [address] [place] [facility] [facility] CBC HEMOGLOBIN [MASS/VOLU ME] IN BLOOD 14.6 g/dL 12.8 - 17 05/29 Specimen Type: BLOOD No comment entered. Ordering Provider: BOBBY SHANNON Report Released Date/Time: May 29, 2023 01:58 PM Reporting Lab: [facility] [place] [facility] [address] [facility] [address] Performing Lab: [facility] [place] [facility] [address] [facility] [address] [place] [facility] [place] [facility] CBC HEMATOCRIT [VOLUME FRACTION] OF BLOOD BY AUTOMATED COUNT 42.6 39.2 - 50.4 05/29 Specimen Type: BLOOD No comment entered. Ordering Provider: BOBBY SHANNON Report Released Date/Time: May 29, 2023 01:58 PM Reporting Lab: [facility] [place] [facility] [address] [facility] [address] Performing Lab: [facility] [place] [facility] [address] [facility] [address] [place] [facility] [place] [facility] CBC MCV [ENTITIC VOLUME] BY AUTOMATED COUNT 84.2 fL 82 - 99 05/29 Specimen Type: BLOOD No comment entered. Ordering Provider: BOBBY SHANNON Report Released Date/Time: May 29, 2023 01:58 PM Reporting Lab: [facility] [place] [facility] [address] [facility] [address] Performing Lab: [facility] [place] [facility] [address] [facility] [address] [place] [facility] [place] [place] [facility] CBC MCHC [MASS/VOLU ME] BY AUTOMATED COUNT 34.3 g/dL 30.8 - 35.1 05/29 Specimen Type: BLOOD No comment entered. Ordering Provider: BOBBY SHANNON Report Released Date/Time: May 29, 2023 01:58 PM Reporting Lab: [facility] [place] [address] [address] Performing Lab: [facility] [place] [address] [address] [place] [facility] [place] [facility] CBC PLATELETS [#/VOLUME] IN BLOOD BY AUTOMATED COUNT 238 10*3/uL 140 - 360 05/29 Specimen Type: BLOOD No comment entered. Ordering Provider: BOBBY SHANNON Report Released Date/Time: May 29, 2023 01:58 PM Reporting Lab: [facility] [place] [address] [address] Performing Lab: [facility] [place] [address] [address] [place] [facility] [facility] CBC ERYTHROCYT E DISTRIBUTI ON WIDTH [RATIO] BY AUTOMATED COUNT 12.3 12.0 - 16.0 05/29 Specimen Type: BLOOD No comment entered. Ordering Provider: BOBBY SHANNON Report Released Date/Time: May 29, 2023 01:58 PM Reporting Lab: [facility] [place] [address] [address] Performing Lab: [facility] [place] [address] [address] [place] [facility] [place] [facility] CBC MCH [ENTITIC MASS] BY AUTOMATED COUNT 28.9 pg 26.2 - 32.6 05/29 Specimen Type: BLOOD No comment entered. Ordering Provider: BOBBY SHANNON Report Released Date/Time: May 29, 2023 01:58 PM Reporting Lab: [facility] [place] [facility] [address] [facility] [address] Performing Lab: [facility] [place] [facility] [address] [facility] [address] [place] [facility] [facility] LIVER FUNCTION PROTEIN [MASS/VOLU ME] IN SERUM OR PLASMA 7.1 g/dL 6.0 - 8.3 05/29 Specimen Type: SERUM No comment entered. Ordering Provider: BOBBY SHANNON Report Released Date/Time: May 29, 2023 01:58 PM Reporting Lab: [facility] [place] [facility] [address] [facility] [address] Performing Lab: [place] [facility] [place] [address] [address] [facility]N [facility]USE [facility] LIVER FUNCTION ALBUMIN [MASS/VOLU ME] IN SERUM OR PLASMA 4.3 g/dL 3.5 - 5.0 05/29 Specimen Type: SERUM No comment entered. Ordering Provider: BOBBY SHANNON Report Released Date/Time: May 29, 2023 01:58 PM Reporting Lab: [facility] [place] [address] [address] Performing Lab: [facility] [place] [address] [address] [place] [facility] LIVER FUNCTION ALKALINE PHOSPHATAS E [ENZYMATIC ACTIVITY/V OLUME] IN SERUM OR PLASMA 47 U/L 40 - 150 05/29 Specimen Type: SERUM No comment entered. Ordering Provider: BOBBY SHANNON Report Released Date/Time: May 29, 2023 01:58 PM Reporting Lab: [facility] [place] [address] [address] Performing Lab: [facility] [place] [address] [address] [facility] [place] [facility] LIVER FUNCTION ASPARTATE AMINOTRANS FERASE [ENZYMATIC ACTIVITY/V OLUME] IN SERUM OR PLASMA 33 U/L 5 - 34 05/29 Specimen Type: SERUM No comment entered. Ordering Provider: BOBBY SHANNON Report Released Date/Time: May 29, 2023 01:58 PM Reporting Lab: [place] [facility] [facility] [address] [facility] [address] Performing Lab: [place] [facility] [place] [address] [address] [facility] [place] [facility] LIVER FUNCTION ALANINE AMINOTRANS FERASE [ENZYMATIC ACTIVITY/V OLUME] IN SERUM OR PLASMA 21 U/L 05/29 Specimen Type: SERUM No comment entered. Ordering Provider: BOBBY SHANNON Report Released Date/Time: May 29, 2023 01:58 PM Reporting Lab: [facility]ITALRL TRN [facility] CENTERUSE[address] [address] Performing Lab: [facility]RL W[facility]N [facility] CENTERUSETS [address] [address] [facility] TRN [facility] LIVER FUNCTION BILIRUBIN. TOTAL [MASS/VOLU ME] IN SERUM OR PLASMA 0.7 mg/dL 0.2 - 1.2 05/29 Specimen Type: SERUM No comment entered. Ordering Provider: BOBBY SHANNON Report Released Date/Time: May 29, 2023 01:58 PM Reporting Lab: [facility] TRN [facility] CENTERUSETS [address] [address] Performing Lab: [place] [facility] [facility] CENTERUSETS [address] [address] [facility]ITALRL TRN [place] [facility] BASIC METABOLI C PANEL (fasting ) UREA NITROGEN [MASS/VOLU ME] IN SERUM OR PLASMA 20 mg/dL 7 - 25 05/29 Specimen Type: SERUM No comment entered. Ordering Provider: BOBBY SHANNON Report Released Date/Time: May 29, 2023 01:58 PM Reporting Lab: [facility] TRN [facility] CENTERUSE[address] [address] Performing Lab: [facility] TRN [facility] CENTERUSE[address] [address] [facility] [place] [facility] BASIC METABOLI C PANEL (fasting ) GLUCOSE [MASS/VOLU ME] IN SERUM OR PLASMA 96 mg/dL 65 - 100 05/29 Specimen Type: SERUM No comment entered. Ordering Provider: BOBBY SHANNON Report Released Date/Time: May 29, 2023 01:58 PM Reporting Lab: [facility] [place] [place] [address] [address] Performing Lab: [facility] [place] [place] [facility] [address] [facility] [address] [facility]RL W[facility] [place] BASIC METABOLI C PANEL (fasting ) SODIUM [MOLES/VOL UME] IN SERUM OR PLASMA 138 mmol/L 135 - 145 05/29 Specimen Type: SERUM No comment entered. Ordering Provider: BOBBY SHANNON Report Released Date/Time: May 29, 2023 01:58 PM Reporting Lab: [facility]RL [place] [place] [address] [address] Performing Lab: [place] [facility] [place] [address] [address] [facility] [place] [facility] BASIC METABOLI C PANEL (fasting ) POTASSIUM [MOLES/VOL UME] IN SERUM OR PLASMA 4.4 mmol/L 3.5 - 5.0 05/29 Specimen Type: SERUM No comment entered. Ordering Provider: BOBBY SHANNON Report Released Date/Time: May 29, 2023 01:58 PM Reporting Lab: [place] [facility] [place] [address] [address] Performing Lab: [place] [facility] [place] [address] [address] [facility] [place] [facility] BASIC METABOLI C PANEL (fasting ) CHLORIDE [MOLES/VOL UME] IN SERUM OR PLASMA 104 mmol/L 100 - 110 05/29 Specimen Type: SERUM No comment entered. Ordering Provider: BOBBY SHANNON Report Released Date/Time: May 29, 2023 01:58 PM Reporting Lab: [place] [facility] [place] [address] [place] [address] Performing Lab: [facility]ITALRL TRN [facility] CENTERUSENORTHEAST [facility] [address] [facility] [address] [facility]ITALRL TRN [facility] CENTERUSE [facility] BASIC METABOLI C PANEL (fasting ) CARBON DIOXIDE, TOTAL [MOLES/VOL UME] IN SERUM OR PLASMA 24 meq/L 20 - 30 05/29 Specimen Type: SERUM No comment entered. Ordering Provider: BOBBY SHANNON Report Released Date/Time: May 29, 2023 01:58 PM Reporting Lab: [facility]ITALRL TRN [facility] CENTERUSE[address] [address] Performing Lab: [facility] HOSPITALRINFIRMARY WESTN [address] [address] [facility] BASIC METABOLI C PANEL (fasting ) CREATININE [MASS/VOLU ME] IN SERUM OR PLASMA 0.97 mg/dL 0.50 - 1.40 05/29 Specimen Type: SERUM No comment entered. Ordering Provider: BOBBY SHANNON Report Released Date/Time: May 29, 2023 01:58 PM Reporting Lab: [facility] HOSPITALRINFIRMARY WESTN [address] [address] Performing Lab: [facility] HOSPITALRL TRN [address] [address] [facility] BASIC METABOLI C PANEL (fasting ) GLOMERULAR FILTRATION RATE/1.73 SQ M.PREDICTE D [VOLUME RATE/AREA] IN SERUM, PLASMA OR BLOOD BY CREATININE -BASED FORMULA (CKD-EPI 2020) 90 mL/min 60 05/29 Specimen Type: SERUM No comment entered. Ordering Provider: BOBBY SHANNON Report Released Date/Time: May 29, 2023 01:58 PM Reporting Lab: [facility]ITALRL TRN [facility] CENTERUSE[address] [address] Performing Lab: [facility]OSPITALRL [facility]ERN [address] [address] [facility] LIPID PANEL FASTING CHOLESTERO L [MASS/VOLU ME] IN SERUM OR PLASMA 261 mg/dL 05/29 H Specimen Type: SERUM No comment entered. Ordering Provider: BOBBY SHANNON Report Released Date/Time: May 29, 2023 01:58 PM Reporting Lab: [facility] [place] [place] [facility] [address] [facility] [address] Performing Lab: [facility] [place] [facility] [address] [facility] [address] [facility] [place] [facility] LIPID PANEL FASTING TRIGLYCERI DE [MASS/VOLU ME] IN SERUM OR PLASMA 103 mg/dL 0 - 150 05/29 Specimen Type: SERUM No comment entered. Ordering Provider: BOBBY SHANNON Report Released Date/Time: May 29, 2023 01:58 PM Reporting Lab: [facility] [place] [address] [address] Performing Lab: [place] [facility] [place] [address] [address] [place] [facility] [place] [place] [facility] LIPID PANEL FASTING CHOLESTERO L IN LDL [MASS/VOLU ME] IN SERUM OR PLASMA BY CALCPARUL N 202 mg/dL 0 - 129 05/29 H Specimen Type: SERUM No comment entered. Ordering Provider: BOBBY SHANNON Report Released Date/Time: May 29, 2023 01:58 PM Reporting Lab: [facility] [place] [address] [address] Performing Lab: [facility] [place] [place] [address] [address] [facility] [place] [place] [facility] LIPID PANEL FASTING CHOLESTERO L.TOTAL/CH OLESTEROL IN HDL [MASS RATIO] IN SERUM OR PLASMA 6.9 05/29 Specimen Type: SERUM No comment entered. Ordering Provider: BOBBY SHANNON Report Released Date/Time: May 29, 2023 01:58 PM Reporting Lab: [facility] [place] [address] [address] Performing Lab: [facility] [place] [place] [address] [address] [facility] [place] [place] [facility] LIPID PANEL FASTING CHOLESTERO L IN HDL [MASS/VOLU ME] IN SERUM OR PLASMA 38 mg/dL 40 - 60 05/29 L Specimen Type: SERUM No comment entered. Ordering Provider: BOBBY SHANNON Report Released Date/Time: May 29, 2023 01:58 PM Reporting Lab: [facility]ITALN [facility] [address] [facility] [address] Performing Lab: [facility]OSPITALRINFIRMARY WESTN [facility] [address] [facility] [address] [facility] TSH THYROTROPI N [UNITS/VOL UME] IN SERUM OR PLASMA 2.33 u[IU]/mL 0.35 - 5.00 05/29 Specimen Type: SERUM No comment entered. Ordering Provider: BOBBY SHANNON Report Released Date/Time: May 29, 2023 01:58 PM Reporting Lab: [address] [address] Performing Lab: [facility]ITALRCUTL[facility] [address] [facility] [address] [facility] HEPATITI S C ANTIBODY (HCV)-AR C HEPATITIS C VIRUS AB [PRESENCE] IN SERUM NON-REAC TIVE 05/29 Specimen Type: SERUM Comment: Hep C Ab: No HCV antibody detected. If recent infection is suspected or other evidence suggests HCV infection, consider HCV nucleic acid testing Ordering Provider: BOBBY SHANNON Report Released Date/Time: May 29, 2023 01:58 PM Reporting Lab: [address] [address] Performing Lab: [address] [address] [facility] Encounters Combined list of: 1) Encounters from Department of Veterans Affairs facilities going backup to the last 18 months, not all VA inpatient encounters are included; 2) Encounters from the Department of Defense facilities going backup to 280 months. Location Location Details Encounter Type Encounter Number Reason For Visit Attending Provider ADM Date DC Date Status Disposition Source [address] [place] [address](Opt ometry Cl [facility]) OUTPATIENT [id number] Pre-op PRK STALIN SANTOS 11/04 Released w/o Limitations [facility](O ptometr y [facility]) [facility] OUTPATIENT [id number] crs pre op COLGAIN, ESTER D 02/01 Released w/o Limitations [facility]( [facility]) [facility]) OUTPATIENT [id number] consent b MARAL MONTEZ 02/02 Released with Work/Duty Limitations [facility]( [facility]) [facility]) OUTPATIENT [id number] prk MARAL MONTEZ 02/03 Released with Work/Duty Limitations [facility]( [facility]) [facility]) OUTPATIENT [id number] 5 day po COLGAIN, ESTER D 02/08 Released with Work/Duty Limitations [facility]( [facility]) [facility](Opt [facility]metry [facility]) OUTPATIENT [id number] 1 month follow up prk KEVIN HUSSEIN 03/01 Released w/o Limitations [facility](O ptometr y [facility]) [facility]metry [facility]) OUTPATIENT [id number] 2 month PRK post op KVEIN HUSSEIN 03/29 Released w/o Limitations [facility](O ptometr y [facility]) [facility](Opt [facility]metry [facility]) OUTPATIENT [id number] 3 month PRK post-op f/u. KEVIN HUSSEIN 04/30 Released w/o Limitations [facility](O ptometr y [facility]) [facility](Opt ometry [facility]) OUTPATIENT [id number] 6 month PRK F/U KEVIN HUSSEIN 08/19 Released w/o Limitations [facility](O ptometr y [facility]) [facility](Opt [facility]metry [facility]) OUTPATIENT [id number] 1 year PRK follow up KEVIN HUSSEIN 01/31 Released w/o Limitations [facility](O ptometr y [facility]) [facility] Treatment [facility] [place] [address](AFN G 104 Med Sq-FM) OUTPATIENT [id number] Notes Entered by: OLGA LIDIA GARCIA 19 Nov 2017 1418 ------- ------- ------- ------- -- OLGA LIDIA MELO 11/19 Released w/o Limitations [facility] [place] [address](A FNG 104 Med Sq-FM) [place] [address](AFN G 104 Med Sq-FM) OUTPATIENT [id number] Notes Entered by: BEATA HOANG 21 Nov 2017 1310 ------- ------- ------- ------- -- Pre-Dep BEATA Jones 11/21 Released w/o Limitations [facility] [place] [address](A FNG 104 Med Sq-FM) [facility] OUTPAT[facility] [id number] 4 travel meds/im ms CARSON SUMMERS 01/29 Released w/o Limitations [facility] [place] M01[facility] [place]) OUTPATIENT [id number] Notes Entered by: Dominic CALERO 30 Jan 2018 1024 ------- ------- ------- ------- -- rabies vaccine VIKTORIA CALERO 01/30 Released w/o Limitations [facility] [place] M[facility] [place]) OUTPATIENT [id number] Notes Entered by: IZABEL THOMPSON 10 Feb 2018 1120 ------- ------- ------- ------- -- Rabies #2 IZABEL THOMPSON 02/10 Released w/o Limitations [facility] M01D [place]) [facility] M01D [place]) OUTPATIENT [id number] Notes Entered by: Dominic CALEROERT 03 Mar 2018 1508 ------- ------- ------- ------- -- rabies vaccine IZABEL THOMPSON E 03/03 Released w/o Limitations [facility] [place]) [facility] M01D [place]) OUTPATIENT [id number] Notes Entered by: IZABEL THOMPSON Patti 24 Mar 2018 1440 ------- ------- ------- ------- -- TRAVEL IMMS IZABEL THOMPSON 03/24 Released w/o Limitations [facility] M01D [place]) [facility](Raad stern [facility] Team A) OUTPATIENT [id number] VAZQUEZ FOSS 07/18 Released w/o Limitations [address] [place] [address](H anscom [facility] Team A) [facility] [place] [facility] [address](AFN G 104 Med Sq-FM) OUTPATIENT [id number] Notes Entered by: EAMON VELÁSQUEZ 28 Jul 2018 1247 ------- ------- ------- ------- -- Post-OLGA LIDIA Pittman 07/28 Released w/o Limitations [facility] [place] [address](A FNG 104 Med Sq-FM) [address] [place] [address](Opt ometry Cl [facility]) OUTPATIENT [id number] BEATA JIMENEZ 10/29 Released w/o Limitations [address] [place] [address](O ptometr y Cl [facility]) [facility] [place] [facility] [address](AFN G 104 Med Sq-FM) OUTPATIENT [id number] Notes Entered by: OLGA LIDIA GARCIA 03 Dec 2018 1122 ------- ------- ------- ------- -- OLGA LIDIA MELO 12/03 Released w/[facility] Limitations [facility] [place] [place] [address](A FNG [address]FM) [place] [address](AFN G [address]-FM) OUTPATIENT [id number] Notes Entered by: LAURA VARELA R 20 May 2019 1535 ------- ------- ------- ------- -- [employer] SANTOSQ SANDRA VARELA R 05/19 [facility]ased w/[facility] Limitations [facility] [place] [place] [address](A FNG [address] Med Sq-FM) [facility], [place] [address](AFN G [address] Med Sq-FM) OUTPATIENT [id number] Notes Entered by: OLGA LIDIA GARCIA 19 Apr 2020 1425 ------- ------- ------- ------- -- OLGA LIDIA MELO 04/19 Released w/o Limitations [facility] [place] [place] [address](A FNG [address] Med Sq-FM) [place] [address](AFN G 104 Med Sq-FM) TELE CONSULT [id number] OLGA LIDIA GARCIA 04/06 [facility] [place] [address](A FNG 104 Med Sq-FM) [facility], [place] [address](AFN G [address] Med Sq-FM) OUTPATIENT [id number] Notes Entered by: OLGA LIDIA GARCIA 01 May 2021 0909 ------- ------- ------- ------- -- OLGA LIDIA MELO 05/01 Released w/o Limitations [facility] [place] [address](A FNG 104 Med Sq-FM) [address] [place] [address](Opt ometry Cl Shields) OUTPATIENT [id number] BEATA JIMENEZ 06/15 Released w/o Limitations [address] [place] [address](O ptometr y Cl Shields) [facility], [place] [address](AFN G [address] S[address]-FM) OUTPATIENT [id number] Notes Entered by: OLGA LIDIA GARCIA 04 Jan 2022 1246 ------- ------- ------- ------- -- PCP and ortho records OLGA LIDIA GARCIA 01/04 Released w/o Limitations [facility] [place] [place] [address](A FNG 104 Med Sq-FM) [facility] [place] [address](AFN G [address] Med Sq-FM) TELE CONSULT [id number] OLGA LIDIA GARCIA 01/23 [facility] [place] [place] [address](A FNG [address] Med Sq-FM) [facility] [place] [facility] [address](AFN G 104 Med Sq-FM) TELE CONSULT [id number] OLGA LIDIA GARCIA 01/30 [facility] [place] [address](A FNG 104 Med Sq-FM) [facility] Outpatient Encounter [id number] 01/16 [facility] [place] [facility] Outpatient Encounter [id number] 04/09 [facility] [place] [place] [facility] OFF/OP EST JULY X REQ PHY/QHP [id number] Diagnos is: ICD-10- CM 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, 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 FURCOLO,TI NA 05/28 [facility] [place] [facility] OFFICE O/P NEW MOD 45 MIN [id number] Diagnos is: ICD-10- CM Z77.29 Contact with and exposur e to other hazardo us substan tj FURCOLO,TI NA 06/04 [facility] [place] [facility] [place] 1/ [id number] Diagnos is: ICD-10- CM H10.45 Other chronic allergi c conjunc tivitis GRAYSON STEPHEN 01/02 [facility] FIT SPECTACLES MULTIFOCAL [id number] Diagnos is: ICD-10- CM Z46.0 Encount er for fit/adj st of spectac les and contact lenses GRAYSON STEPHEN 01/02 [facility] RPR&REFITG SPECT XCP APHAKIA [id number] Diagnos is: ICD-10- CM Z46.0 Encount er for fit/adj st of spectac les and contact lenses SANTOSH KU 05/20 [facility] [place] Procedures Combined list of: 1) Procedures from Department of Veterans Affairs facilities going back up to thelast 18 months, not all VA non-surgical procedures are included; 2) All procedures from the Department of Defense facilities. Procedure Procedure Type Code Date Perfomer Comments Sourc e No data available for this section Ambulato ry Pharmacy IMMUNIZATION ADMINISTRATION (INCLUDES PERCUTANEOUS, INTRADERMAL, SUBCUTANEOUS, OR INTRAMUSCULAR INJECTIONS); 1 VACCINE (SINGLE OR COMBINATION VACCINE/TOXOID) 2017 DoD IMMUNIZATION ADMINISTRATION (INCLUDES PERCUTANEOUS, INTRADERMAL, SUBCUTANEOUS, OR INTRAMUSCULAR INJECTIONS); 1 VACCINE (SINGLE OR COMBINATION VACCINE/TOXOID) 2017 DoD IMMUNIZATION ADMINISTRATION (INCLUDES PERCUTANEOUS, INTRADERMAL, SUBCUTANEOUS, OR INTRAMUSCULAR INJECTIONS); 1 VACCINE (SINGLE OR COMBINATION VACCINE/TOXOID) 2017 DoD MENINGOCOCCAL CONJUGATE VACCINE, SEROGROUPS A, C, W, Y, QUADRIVALENT, DIPHTHERIA TOXOID CARRIER (MENACWY-D) OR [id number] CARRIER (MENACWY-CRM), FOR INTRAMUSCULAR USE 2017 DoD DETERMINATION OF REFRACTIVE STATE 2021 DoD FITTING OF SPECTACLES, EXCEPT FOR APHAKIA; MONOFOCAL 2018 DoD SCREENING TEST OF VISUAL ACUITY, QUANTITATIVE, BILATERAL 2018 DoD OPHTHALMOLOGICAL SERVICES: MEDICAL EXAMINATION AND EVALUATION, WITH INITIATION OR CONTINUATION OF DIAGNOSTIC AND TREATMENT PROGRAM; COMPREHENSIVE, ESTABLISHED PATIENT, 1 OR MORE VISITS 2014 [facility] FITTING OF SPECTACLES, EXCEPT FOR [...] POSTOPERATIVE PERIOD REASON RELATED ORIGINAL PROCEDURE 2013 [facility] OPHTHALMIC ULTRASOUND, ECHOGRAPHY, DIAGNOSTIC; CORNEAL PACHYMETRY, UNILATERAL OR BILATERAL (DETERMINATION OF CORNEAL THICKNESS) 2013 [facility] FITTING OF SPECTACLES, EXCEPT FOR APHAKIA; MONOFOCAL 2005 DoD POSTOPERATIVE FOLLOW-UP VISIT, NORMALLY INCLUDED IN THE SURGICAL PACKAGE, INDICATE THAT EVALUATION & MANAGEMENT SERVICE WAS PERFORMED DURING A POSTOPERATIVE PERIOD REASON RELATED ORIGINAL PROCEDURE 2013 [facility] PHOTOREFRACTIVE KERATECTOMY (PRK) 2013 [facility] PHYS/OTH QUALIFIED HEALTH HOUSEHOLD CHORES QUALIFIED,EDUCATIO N,TRAIN,LICENSURE/ REGULATION (WHEN APPLICABLE) EDUC SER RENDERED TO PATS IN A GRP SETTING (EG,,OBESI TY,OR DIABETIC INSTRUCT) 2013 [facility] DETERMINATION OF REFRACTIVE STATE 2013 [facility] Spectacles Services Fitting Monofocals (Not For Aphakia) [facility] Fitting Monofocals (Not For Aphakia) 32789 2018 BEATA MCKEON Determination Of Refractive State Determination Of Refractive State 47921 2018 BEATA MCKEON Ophthalmological New Patient Start Comprehensive Care Ophthalmological New Patient Start Comprehensive Care 23527 2018 BEATA MCKEON Screening Test Of Visual Acuity, Quantitative, Bilateral Screening Test Of Visual Acuity, Quantitative, Bilateral 22627 2018 VAZQUEZ BARAJAS [facility] Rabies Vaccine For Intramuscular Use Rabies Vaccine For Intramuscular Use 05439 2017 IZABEL THOMPSON Rabies - Intramuscular; Series #: 1; 1.0 mL; IM; Left Arm; Mfg: REVENTIVE Kathrine.; Lot: [id number]. DoD Immunization Administration One Vaccine Immunization Administration One Vaccine [id number] IZABEL THOMPSON Rabies Vaccine For Intramuscular Use Rabies Vaccine For Intramuscular Use 624952017 IZABEL THOMPSON Rabies - Intramuscular; Series #: 2; 1.0 mL; IM; Left Arm; Mfg: Smithbubline; Lot: [id number]. DoD Immunization Administration One Vaccine Immunization Administration One Vaccine 456582017 IZABEL THOMPSON Rabies Vaccine For Intramuscular Use Rabies Vaccine For Intramuscular Use 846322017 VIKTORIA CALERO Rabies - Intramuscular; Series #: 1; 1.0 mL; IM; Left Arm; Mfg: [employer]; Lot: [id number]. [facility] Immunization Administration One Vaccine Immunization Administration One Vaccine 310472017 ABDIASVIKTORIA [facility] Immunization Administration One Vaccine Immunization Administration One Vaccine 971152017 [facility] Meningococcal Polysacch Diphtheria Toxoid Conjugate Vaccine 2017 [employer] Meningococcal MCV4P; Series #: 1; .5 mL; IM; Right Arm; Mfg: Sanofi Pasteur; Lot: [id number]. [facility] Ophthalmological Prior Patient Start Comprehensive Care Ophthalmological Prior Patient Start Comprehensive Care 23800 2014 KEVIN HUSSEIN Determination Of Refractive State Determination Of Refractive State [id number] KEVIN HUSSEIN [facility] Fitting Monofocals (Not For Aphakia) [facility] Fitting Monofocals (Not For Aphakia) 81775 2014 KEVIN HUSSEIN Determination Of Refractive State Determination Of Refractive State 08248 2014 KEVIN HUSSEIN Ophthalmological Prior Patient Start Intermediate Level Care Ophthalmological Prior Patient Start Intermediate Level Care [id number] KEVIN HUSSEIN Postoperative Visit, Without Charge Postoperative Visit, Without Charge 57612 2014 KEVIN HUSSEIN Postoperative Visit, Without Charge Postoperative Visit, Without Charge 94660 2014 KEVIN HUSSEIN Postoperative Visit, Without Charge Postoperative Visit, Without Charge 03934 2013 KEVIN HUSSEIN [facility] Postoperative Visit, Without Charge Postoperative Visit, Without Charge 10782 2013 DWAYNE ALFONSO [facility] Photorefractive keratectomy (PRK) 2013 CREWKAMERON [facility] -Supervised Group Educational Services -Supervised Group Educational Services 61117 2013 CREKAMERON [place] Ophthalmological New Patient Start Comprehensive Care Ophthalmological New Patient Start Comprehensive Care 94100 2013 ESTER VEGA [facility] Corneal Pachymetry, Bilateral With Interpret And Report Corneal Pachymetry, Bilateral With Interpret And Report 63154 2013 ESTER VEGA Fundoscopic Exam Extensive Initial Exam Fundoscopic Exam Extensive Initial Exam 99693 2013 ESTER VEGA Computerized Corneal Topography Computerized Corneal Topography 32810 2013 ESTER VEGA Determination Of Refractive State Determination Of Refractive State 46314 2013 ESTER VEGA Corneal Pachymetry Corneal Pachymetry 43110 2013 STALIN SANTOS Determination Of Refractive State Determination Of Refractive State 08878 2013 STALIN SANTOS Ophthalmological Prior Patient Start Comprehensive Care Ophthalmological Prior Patient Start Comprehensive Care 09261 2013 STALIN SANTOS Ophthalmological Prior Patient Start Comprehensive Care Ophthalmological Prior Patient Start Comprehensive Care 92948 BEATA MCKEON. [facility] Determination Of Refractive State Determination Of Refractive State 88873 BEATA MCKEON. [facility] Social History Combined list of available smoking, tobacco, and other social history from Department of 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 Social History Type Response Date Comment Sourc e Tobacco smoking status NHIS [facility] [place] [facility] History of tobacco use [place]-TOBACCO QUIT 5 TO < 15 YRS 05/29/2023 [facility] [place] [facility] This section is an empty [...] Plan No data available for this section 07/13/2024 Ambulatory Pharmacy Plan of Care List of future care activities from Department of Veterans Affairs facilities. Additional future care activities may be listed in the Assessment and Plan section. Date/Time Care Activity Care Activity Detail Facili ty 12/15/2024 AMBULATORY - MEDICINE AMBULATORY - MEDICI [facility] [place] [facility] Functional Status Combined list of recent functional and cognitive assessments recorded at Department of Defense and Veterans Affairs (VA).VA Functional Ransom Measurement (FIM) Scale: 1 = Total Assistance (Subject = 0% +), 2 = Maximal Assistance (Subject = 25% +), 3 = Moderate Assistance (Subject = 50% +), 4 = Minimal Assistance (Subject = 75% +), 5 = Supervision, 6 = Modified Ransom (Device), 7 = Complete Ransom (Timely, Safely). Assessment Date/Time Source Assessment Type Assessment Skill Assessment Score Assessment Details No data available for this section
--- OUTSIDE RECORDS SUMMARY | 2024-07-13 09:11 | XMS_ITS | Encounter Summary ---
Author Organization [facility] Address [address] [place] [address] Care Team Providers Care Carbider Name Role Phone Frederic Anderson Primary Care Provider [phone]- [phone] Reason for Referral * Imaging (Routine) - Closed Specialty Diagnoses / Procedures Referred By Contbelem t Referred To Contact Radiology Diagnoses Pain in right knee Procedures XR KNEE 1-2 VIEWS RIGHT Simi Puente NP [address] [place] [id number] Phone: tel: fax: [facility] Radiology - Central Scheduling [place] Phone: tel: fax: Referral ID Status Reason Start Date Expiration Date V isits Requested Visits Authorized [id number] Closed Perform Procedure 09/25/2022 09/25/2023 1 1 Encounter Details Date Type Department Care Team (Late st Contact Info) Description 09/25/[address] [facility] Radiology, Outpatient Center (Diag Rad) [address] [facility] [place] [address] Simi Puente NP [address] [place] [address] Pain in right knee Social [...] knee documented in this encounter Care Teams Carbider Relationship Specialty Start Date End Date Frederic Anderson PA [address] [place] [address] PCP - General 09/25/22 documented as of this encounter
--- OUTSIDE RECORDS SUMMARY | 2024-07-13 09:11 | XMS_ITS | Clinical Summary ---
Author Organization [employer] Address [address] [place] [id number] Care Team Providers Care Tow Bar Driver Name Role Phone Frederic Anderson Primary Care [...] this topic Insurance TRUSTED MEDICAL Care Teams Tow Bar Driver Relationship Specialty Start Date End Date Frederic Anderson PA [address] [place] [address] [place] [address] PCP - General 09/25/22
== END 2024-07-13 09:16 | disposition home or self-care (01) ==
LOC: HO.HMCH 08:41
PROVIDERS: PCP Physician Assistant; Visit Provider Physician Assistant
DX: I25.10 Atherosclerotic heart disease of native coronary artery without angina pectoris (principal); E78.2 Mixed hyperlipidemia; R73.01 Impaired fasting glucose

== ENCOUNTER → 2024-07-13 08:41 | Outpatient (BNVA) | payer OTHER, SELFPAY | PROVIDERS: PCP Physician Assistant; Visit Provider Physician Assistant | DX: I25.10 Atherosclerotic heart disease of native coronary artery without angina pectoris (principal); E78.2 Mixed hyperlipidemia; R73.01 Impaired fasting glucose | CPT/HCPCS: 96127; 99212 ==